=== PATIENT | male | born 1940 | race Caucasian/White ===

== ENCOUNTER → 2019-12-06 08:30 | Outpatient (BNVA) | payer MEDICARE, SELFPAY | PROVIDERS: PCP Internal Medicine; Visit Provider Internal Medicine | DX: I48.20 Chronic atrial fibrillation, unspecified (principal); Z51.81 Encounter for therapeutic drug level monitoring; Z79.01 Long term (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 | CPT/HCPCS: 85610; 99211 ==

== ENCOUNTER → 2019-12-12 13:08 | Outpatient (REF) | payer MEDICARE, SELFPAY ==
--- NOTE | 2019-12-12 13:00 | HM_ITS ---
TEST PERFORMED: Cardiac event monitor. INDICATION: Paroxysmal atrial fibrillation. ENROLLMENT PERIOD: 12/12/2019 to 01/11/2020 - 30 days. REQUESTING PHYSICIAN: Dr. Romano. FINDINGS: In the above monitoring period, the underlying rhythm was sinus. The rates ranged from 45 beats per minute to 78 beats per minute. The patient had reported symptoms at different times including palpitations, racing, fluttering, chest pain, dizziness, shortness of breath. During these episodes, the underlying rhythm appeared to be still sinus. Overall, the rates ranged from 45 to 78 beats per minute. Of note, when the patient described activities as exercising, the rates still appeared to be only about 78 beats per minute. Otherwise, there were occasional premature ventricular contractions noted. There is underlying baseline interventricular conduction defect. Overall, the study shows underlying sinus rhythm and sinus bradycardia and occasional PVCs. CONCLUSION: Study showing sinus rhythm/sinus bradycardia with occasional PVCs with baseline interventricular conduction defect. Symptoms described by the patient correlate with sinus rhythm and some sinus bradycardia. The event at times where the patient is described to have exercise that seems to be suboptimal heart rate response. Quintin Romano MD HS/MODElias / [id number]
== END ==
LOC: HO.CARD 13:08
PROVIDERS: Visit Provider Internal Medicine
DX: I48.0 Paroxysmal atrial fibrillation (principal); I44.7 Left bundle-branch block, unspecified; R42 Dizziness and giddiness
CPT/HCPCS: 93225; 93270

== ENCOUNTER → 2020-01-17 08:29 | Outpatient (BNVA) | payer MEDICARE, SELFPAY | PROVIDERS: PCP Internal Medicine; Visit Provider Internal Medicine | DX: I48.20 Chronic atrial fibrillation, unspecified (principal); Z51.81 Encounter for therapeutic drug level monitoring; Z79.01 Long term (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 | CPT/HCPCS: 85610; 99211 ==

== ENCOUNTER → 2020-01-21 09:52 | Outpatient (BNVA) | payer MEDICARE, SELFPAY | PROVIDERS: PCP Internal Medicine; Referring Provider Internal Medicine; Visit Provider Internal Medicine | DX: I48.0 Paroxysmal atrial fibrillation (principal); I44.7 Left bundle-branch block, unspecified; I35.8 Other nonrheumatic aortic valve disorders; R42 Dizziness and giddiness; Z79.01 Long term (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 | CPT/HCPCS: 99212 ==

== ENCOUNTER → 2020-02-20 08:23 | Outpatient (BNVA) | payer MEDICARE, SELFPAY | PROVIDERS: PCP Internal Medicine; Visit Provider Internal Medicine | DX: I48.20 Chronic atrial fibrillation, unspecified (principal); Z79.01 Long term (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; Z51.81 Encounter for therapeutic drug level monitoring | CPT/HCPCS: 85610; 99211 ==

== ENCOUNTER → 2020-03-27 08:39 | Outpatient (BNVA) | payer MEDICARE, SELFPAY | PROVIDERS: PCP Internal Medicine; Visit Provider Internal Medicine | DX: I48.20 Chronic atrial fibrillation, unspecified (principal); Z51.81 Encounter for therapeutic drug level monitoring; Z79.01 Long term (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 | CPT/HCPCS: 85610; 99211 ==

== ENCOUNTER → 2020-05-01 10:56 | Outpatient (BNVA) | payer MEDICARE, SELFPAY | PROVIDERS: PCP Internal Medicine; Visit Provider Internal Medicine | DX: I48.0 Paroxysmal atrial fibrillation (principal); Z51.81 Encounter for therapeutic drug level monitoring; Z79.01 Long term (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 | CPT/HCPCS: 85610; 99211 ==

== ENCOUNTER 2020-05-25 09:19 | Outpatient (REF) | payer MEDICARE, SELFPAY ==
[2020-05-25 11:38] LABS: Anion Gap 12 (12-20); Blood Urea Nitrogen 23 mg/dL (9-16); Calcium 9.1 mg/dL (8.4-10.2); Carbon Dioxide 26 mmol/L (22-29); Chloride 106 mmol/L (96-108); Estimated Glomerular Filt Rate 54; Glucose Random 88 mg/dL (60-115); Potassium 5.2 mmol/L (3.3-5.1); Sodium 139 mmol/L (135-145)
== END 2020-05-25 09:20 | disposition home or self-care (01) ==
LOC: HO.LAB 09:19
PROVIDERS: PCP Internal Medicine; Visit Provider Internal Medicine
DX: I48.0 Paroxysmal atrial fibrillation (principal); I44.7 Left bundle-branch block, unspecified; I35.8 Other nonrheumatic aortic valve disorders; R42 Dizziness and giddiness; I50.22 Chronic systolic (congestive) heart failure; Z79.899 Other long term (current) drug therapy; Z79.01 Long term (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
CPT/HCPCS: 36415; 80048; 93005; 99212

== ENCOUNTER → 2020-06-05 08:56 | Outpatient (BNVA) | payer MEDICARE, SELFPAY | PROVIDERS: PCP Internal Medicine; Visit Provider Internal Medicine | DX: I48.0 Paroxysmal atrial fibrillation (principal); Z79.01 Long term (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; Z51.81 Encounter for therapeutic drug level monitoring | CPT/HCPCS: 85610; 99211 ==

== ENCOUNTER → 2020-07-10 09:05 | Outpatient (BNVA) | payer MEDICARE, SELFPAY | PROVIDERS: PCP Internal Medicine; Visit Provider Internal Medicine | DX: I48.0 Paroxysmal atrial fibrillation (principal); Z51.81 Encounter for therapeutic drug level monitoring; Z79.01 Long term (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 | CPT/HCPCS: 85610; 99211 ==

== ENCOUNTER 2020-08-06 15:57 | Emergency (ER) | payer MEDICARE, SELFPAY ==
--- NOTE | 2020-08-06 | ECG_ITS ---
Test Reason : CP Blood Pressure : / mmHG Vent. Rate : 054 BPM Atrial Rate : 357 BPM P-R Int : 000 ms QRS Dur : 148 ms QT Int : 476 ms P-R-T Axes : 000 -56 122 degrees QTc Int : 451 ms Normal sinus rhythm Left axis deviation Left bundle branch block Abnormal ECG When compared with ECG of 25-OCT-2019 11:12, No significant changes seen Referred By: Generic ED Physician Electronically Signed By:FRANSISCO CRUZ MD
[2020-08-06 17:10] VITALS: BP 116/68; PULSE 54; RESP 18; TEMP 36.6; O2SAT 96; BMI 32.6
[2020-08-06 19:31] VITALS: BP 134/73; PULSE 53; RESP 18; O2SAT 98
[2020-08-06 19:42] LABS: MANUAL DIFF FLAG NO
[2020-08-06 19:46] LABS: Basophils Absolute Auto 0.1 X10*3/uL (0.0-0.2); Basophils Percent Auto 0.7 % (0-2); Eosinophils Absolute Auto 0.3 X10*3/uL (0.0-0.4); Eosinophils Percent Auto 3.7 % (0-4); Hematocrit 39.4 % (42-52); Imm Gran Abs Auto 0.02 X10*3/uL (0.00-0.03); Imm Gran Pct Auto 0.3 % (0.0-0.4); Lymphocytes Absolute Auto 1.5 X10*3/uL (1.2-4.9); Lymphocytes Percent Auto 21.7 % (20-40); Mean Corpuscular Volume 87.9 fL (80-98); Mean Platelet Volume 9.6 fL (9.4-12.4); Monocytes Absolute Auto 0.8 X10*3/uL (0.1-1.2); Monocytes Percent Auto 11.7 % (2-11); Neutrophils Absolute Auto 4.1 X10*3/uL (2.0-8.3); Neutrophils Percent Auto 61.9 % (45-73); Platelet Count 174 X10*3/uL (160-400); Red Blood Count 4.48 X10*6/uL (4.60-5.80); Red Cell Distribution Width 14.3 % (11.0-16.0); White Blood Count 6.7 X10*3/uL (4.8-10.8)
[2020-08-06 20:17] LABS: Alanine Aminotransferase 14 U/L (0-40); Albumin Level 4.6 g/dL (3.5-5.0); Alkaline Phosphatase 77 U/L (39-117); Anion Gap 13 (12-20); Aspartate Amino Transferase 18 U/L (5-37); Bilirubin Total < 0.2 mg/dL (0.0-1.0); Calcium 8.9 mg/dL (8.4-10.2); Carbon Dioxide 21 mmol/L (22-29); Chloride 108 mmol/L (96-108); Creatinine Clr Calc Pharmacy 30.6; Estimated Glomerular Filt Rate 28; Glucose Random 90 mg/dL (60-115); Potassium 4.6 mmol/L (3.3-5.1); Sodium 137 mmol/L (135-145)
[2020-08-06 20:26] LABS: Blood Urea Nitrogen 36 mg/dL (9-16)
--- NOTE | 2020-08-07 00:12 | ED_ITS ---
HPI - Dizziness General Chief Complaint: Dizziness Stated Complaint: Dizziness, Time Seen by Provider: 08/06/20 23:57 Source: patient Mode of arrival: ambulatory Limitations: no limitations History of Present Illness HPI Narrative: Patient comes to emergency room complaining of intermittent dizziness over last few weeks, describes it as a spinning sensation every time he turns his head. Patient states when he is at rest and does not move his head much, he feels better and has no dizziness. Patient denies headache, no visual changes. Patient states that this morning he ran out of his medications sotalol. Patient states that he was supposed to be taking 80 mg p.o. daily. However, patient is to take 80 mg twice a day and he was not aware that he was supposed to take only once a day, therefore he ran out of his medication before time. Patient states that earlier today he noticed that he has black stool. Related Data Home Medications Medication Instructions Recorded Confirmed ezetimibe 10 mg tablet 10 mg PO DAILY 01/21/20 06/05/20 lisinopril 30 mg tablet 30 mg PO DAILY 01/21/20 06/05/20 omeprazole 20 mg capsule,delayed 20 mg PO DAILY 01/21/20 06/05/20 release rosuvastatin 40 mg tablet 40 mg PO DAILY 01/21/20 06/05/20 Previous Rx's Medication Instructions Recorded warfarin 5 mg tablet 5 mg PO DAILY #90 tab 12/06/19 sotalol 80 mg tablet 80 mg PO DAILY 90 Days #90 tab 08/04/20 meclizine 25 mg PO TID PRN #14 tab 08/07/20 Allergies Allergy/AdvReac Type Severity Reaction Status Date / Time No Known Allergies Allergy Verified 07/10/20 09:19 [No Known Allergies*] Review of Systems Review of Systems: Constitutional : No Weight loss, No Fever, No Chills, No Night Sweats, No Fatigue, No Malaise ENT/Mouth : No Hearing loss, No Ear Pain, No Nasal Congestion, No Sinus Pain, No Hoarseness, No sore throat, No Rhinorrhea, No Swallowing Difficulty Eyes: No Eye Pain, No Swelling, No Redness, No Foreign Body, No Discharge, No Vision Changes Cardiovascular : No Chest Pain, No SOB, No Dyspnea on Exertion, No Orthopnea, No Edema, No Palpitations Respiratory : No Cough, No Sputum, No Wheezing, No Smoke Exposure, No Dyspnea Gastrointestinal : No Nausea, No Vomiting, No Diarrhea, No Constipation, No abdominal Pain, complaining of black stool Genitourinary : no irregular bleeding, No Dysuria, No Urinary Frequency, No Hematuria, No Urinary Incontinence, No Urgency, No Flank Pain, No Urinary Flow Changes, No Hesitancy Musculoskeletal : No joint pain, No Myalgias, No Joint Swelling Skin : No Skin Lesions, No rash Neuro : No Weakness, No Numbness, No Paresthesias, No Loss of Consciousness complaining of dizziness with head movement, spinning sensation. No Headache Psych : No Anxiety/Panic, No Depression, No SI/HI/AH/VH, No Social Issues, Heme/Lymph: No Bruising, No Bleeding,No Lymphadenopathy Endocrine : No Polyuria, No Polydipsia, No Temperature Intolerance [facility] Past Medical History Medical History Dizziness LBBB (left bundle branch block) Non-rheumatic aortic sclerosis PAF (paroxysmal atrial fibrillation) Surgical History No pertinent past surgical history Family History Family History Father No problems noted. Mother No problems noted. Social History Social History Advance Directives: No Advance Directives Information Provided: Yes Physical Exam Vital Signs: Vital Signs: Last Vital Signs Temp 97.9 F 08/06/20 17:10 Pulse 53 08/06/20 19:31 Resp 18 08/06/20 19:31 BP 134/73 08/06/20 19:31 Pulse Ox 98 08/06/20 19:31 Body Mass Index 32.6 Appearance: Alert. Oriented X3. No acute distress. Eyes: Pupils equal, round and reactive to light. ENT: Pharynx normal. Neck: Normal inspection. Neck supple. No lymph nodes noted. No crepitus CVS: Normal heart rate and rhythm. Pulses normal. Normal S1 and S2 Respiratory: No respiratory distress. Breath sounds normal. No Wheezing. No rales Abdomen: Soft and nontender. No rigidity. No distention. good BS x4, ENRIQUE brown Skin: Skin warm and dry. Normal skin color. Normal skin turgor. Extremities: No lower extremity edema. No lower extremity edema. No Lacerations. No Rash Neuro: Oriented X 3. No motor deficit. No sensory deficit. Moving all extermities. No slurred speech. Course Course Course Narrative: At this time, patient is getting IV fluids. Patient's chemistry will be checked after the fluids and orthostatic vitals. If patient is asymptomatic, creatinine improved, patient will likely be discharged home. Sign-out given to Dr. Castro MDM - Dizziness Lab Data Result diagrams: 08/06/20 19:35 08/06/20 19:35 Labs: Lab Results 08/06/20 08/06/20 08/06/20 Range/Units 19:35 19:35 19:35 WBC 6.7 (4.8-10.8) X10*3/uL RBC 4.48 L (4.60-5.80) X10*6/uL Hgb 13.0 L (14.0-18.0) g/dl Hct 39.4 L (42-52) % MCV 87.9 (80-98) fL MCH 29.0 (27.0-33.0) pg MCHC 33.0 (31.0-36.0) g/dl RDW 14.3 (11.0-16.0) % Plt Count 174 (160-400) X10*3/uL MPV 9.6 (9.4-12.4) fL Immature Gran % (Auto) 0.3 (0.0-0.4) % Neut % (Auto) 61.9 (45-73) % Lymph % (Auto) 21.7 (20-40) % [place] % (Auto) 11.7 H (2-11) % Eos % (Auto) 3.7 (0-4) % Baso % (Auto) 0.7 (0-2) % Lymph # (Auto) 1.5 (1.2-4.9) X10*3/uL [place] # (Auto) 0.8 (0.1-1.2) X10*3/uL Eos # (Auto) 0.3 (0.0-0.4) X10*3/uL Baso # (Auto) 0.1 (0.0-0.2) X10*3/uL Abs Immat Gran (auto) 0.02 (0.00-0.03) X10*3/uL Absolute Neuts (auto) 4.1 (2.0-8.3) X10*3/uL Absolute Nucleated RBC 0.000 (0.0-0.012) X10*3/uL Nucleated RBC % (auto) 0.0 (0.0-0.2) /100WBC PT (10.8-13.0) SEC INR (0.9-1.1) Sodium 137 (135-145) mmol/L Potassium 4.6 (3.3-5.1) mmol/L Chloride 108 (96-108) mmol/L Carbon Dioxide 21 L (22-29) mmol/L Anion Gap 13 (12-20) BUN 36 H D (9-16) mg/dL Creatinine 2.25 H (0.5-1.4) mg/dL Estim Creat Clear Calc 30.6 Estimated GFR 28 Random Glucose 90 (60-115) mg/dL Calcium 8.9 (8.4-10.2) mg/dL Total Bilirubin < 0.2 (0.0-1.0) mg/dL AST 18 (5-37) U/L ALT 14 (0-40) U/L Alkaline Phosphatase 77 (39-117) U/L Troponin I High Sens 12.7 (<3.5-35.0) ng/L Total Protein 7.0 (6.5-8.0) g/dL Albumin 4.6 (3.5-5.0) g/dL Stool Occult Blood (NEGATIVE) 08/07/20 08/07/20 Range/Units 00:23 01:50 WBC (4.8-10.8) X10*3/uL RBC (4.60-5.80) X10*6/uL Hgb (14.0-18.0) g/dl Hct (42-52) % MCV (80-98) fL MCH (27.0-33.0) pg MCHC (31.0-36.0) g/dl RDW (11.0-16.0) % Plt Count (160-400) X10*3/uL MPV (9.4-12.4) fL Immature Gran % (Auto) (0.0-0.4) % Neut % (Auto) (45-73) % Lymph % (Auto) (20-40) % [place] % (Auto) (2-11) % Eos % (Auto) (0-4) % Baso % (Auto) (0-2) % Lymph # (Auto) (1.2-4.9) X10*3/uL [place] # (Auto) (0.1-1.2) X10*3/uL Eos # (Auto) (0.0-0.4) X10*3/uL Baso # (Auto) (0.0-0.2) X10*3/uL Abs Immat Gran (auto) (0.00-0.03) X10*3/uL Absolute Neuts (auto) (2.0-8.3) X10*3/uL Absolute Nucleated RBC (0.0-0.012) X10*3/uL Nucleated RBC % (auto) (0.0-0.2) /100WBC PT 39.0 H (10.8-13.0) SEC INR 3.2 H (0.9-1.1) Sodium (135-145) mmol/L Potassium (3.3-5.1) mmol/L Chloride (96-108) mmol/L Carbon Dioxide (22-29) mmol/L Anion Gap (12-20) BUN (9-16) mg/dL Creatinine (0.5-1.4) mg/dL Estim Creat Clear Calc Estimated GFR Random Glucose (60-115) mg/dL Calcium (8.4-10.2) mg/dL Total Bilirubin (0.0-1.0) mg/dL AST (5-37) U/L ALT (0-40) U/L Alkaline Phosphatase (39-117) U/L Troponin I High Sens (<3.5-35.0) ng/L Total Protein (6.5-8.0) g/dL Albumin (3.5-5.0) g/dL Stool Occult Blood NEGATIVE (NEGATIVE) ECG Data Attestation: I personally reviewed and interpreted this ECG as follows: (Left bundle branch block, heart rate 54, QTC 451, no T-wave inversion. No changes from previous EKG.) Discharge Plan Discharge Clinical Impression: Acute kidney injury Benign paroxysmal positional vertigo Qualifiers: Laterality: unspecified laterality Qualified Code(s): H81.10 - Benign paro xysmal vertigo, unspecified ear Patient Disposition: Home, Self-Care Instructions: Benign Paroxysmal Positional Vertigo (ED), Dizziness (ED) Additional Instructions: Please follow-up with your primary care physician tomorrow. If you have any worsening or new symptoms, please return to the emergency room or call 911 Prescriptions: New meclizine 25 mg tablet 25 mg PO TID PRN (Reason: dizziness) Qty: 14 RF: 0 No Action sotalol 80 mg tablet 80 mg PO DAILY 90 Days Qty: 90 RF: 2 rosuvastatin 40 mg tablet 40 mg PO DAILY RF: 0 omeprazole 20 mg capsule,delayed release(DR/EC) 20 mg PO DAILY RF: 0 lisinopril 30 mg tablet 30 mg PO DAILY RF: 0 ezetimibe 10 mg tablet 10 mg PO DAILY RF: 0 warfarin 5 mg tablet 5 mg PO DAILY Qty: 90 RF: 0
[2020-08-07 00:30] LABS: OBS Int Ctl Valid YES; OBS1 NEGATIVE (NEGATIVE)
[2020-08-07] MEDS: Meclizine HCl 25 MG TABLET 50 MG PO (00:36)
[2020-08-07] MEDS: diazePAM 2 MG TABLET PO (00:37)
[2020-08-07 00:58] LABS: Troponin-I High Sensitivity 12.7 ng/L (<3.5-35.0)
[2020-08-07 02:11] LABS: INTERNATIONAL NORM RATIO 3.2 (0.9-1.1)
[2020-08-07] MEDS: 0.9 % Sodium Chloride 1,000 ML 999 ML IVCONT (02:35)
[2020-08-07 03:56] VITALS: BP 147/67; PULSE 48; RESP 16; TEMP 36.6; O2SAT 99
[2020-08-07 03:58] VITALS: BP 147/67; PULSE 48
[2020-08-07 03:59] VITALS: BP 146/68; PULSE 54
[2020-08-07 04:01] VITALS: BP 131/80; PULSE 66
[2020-08-07 05:46] LABS: Anion Gap 11 (12-20); Blood Urea Nitrogen 33 mg/dL (9-16); Calcium 8.5 mg/dL (8.4-10.2); Carbon Dioxide 21 mmol/L (22-29); Chloride 112 mmol/L (96-108); Creatinine Clr Calc Pharmacy 38.5; Estimated Glomerular Filt Rate 37; Glucose Random 91 mg/dL (60-115); Potassium 4.4 mmol/L (3.3-5.1); Sodium 140 mmol/L (135-145)
== END 2020-08-07 07:06 | disposition home or self-care (01) ==
PROVIDERS: Emergency Medicine Emergency Medical Services; Emergency Provider Emergency Medicine; PCP Internal Medicine
DX: H81.10 Benign paroxysmal vertigo, unspecified ear (principal); N17.9 Acute kidney failure, unspecified; I48.0 Paroxysmal atrial fibrillation; Z79.01 Long term (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; Z79.899 Other long term (current) drug therapy
CPT/HCPCS: 36415; 80048; 80053; 82272; 84484; 85025; 85610; 93005; 96360; 99284; 99285

== ENCOUNTER → 2020-08-07 08:52 | Outpatient (BNVA) | payer MEDICARE, SELFPAY | PROVIDERS: PCP Internal Medicine; Visit Provider Internal Medicine | DX: I48.0 Paroxysmal atrial fibrillation (principal); Z51.81 Encounter for therapeutic drug level monitoring; Z79.01 Long term (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 | CPT/HCPCS: Q3014 ==

== ENCOUNTER 2020-08-20 08:06 | Outpatient (REF) | payer MEDICARE, SELFPAY ==
[2020-08-20 10:54] LABS: Anion Gap 12 (12-20); Blood Urea Nitrogen 23 mg/dL (9-16); Calcium 9.4 mg/dL (8.4-10.2); Carbon Dioxide 26 mmol/L (22-29); Chloride 108 mmol/L (96-108); Estimated Glomerular Filt Rate 44; Glucose Random 90 mg/dL (60-115); Potassium 5.4 mmol/L (3.3-5.1); Sodium 141 mmol/L (135-145)
== END 2020-08-20 08:07 | disposition home or self-care (01) ==
LOC: HO.LAB 08:06
PROVIDERS: PCP Internal Medicine; Visit Provider Internal Medicine
DX: I48.0 Paroxysmal atrial fibrillation (principal)
CPT/HCPCS: 36415; 80048; 99212

== ENCOUNTER → 2020-09-04 09:05 | Outpatient (BNVA) | payer MEDICARE, SELFPAY | PROVIDERS: PCP Internal Medicine; Visit Provider Internal Medicine | DX: I48.19 Other persistent atrial fibrillation (principal); Z51.81 Encounter for therapeutic drug level monitoring; Z79.01 Long term (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 | CPT/HCPCS: 85610; 99211 ==

== ENCOUNTER → 2020-09-18 09:06 | Outpatient (BNVA) | payer MEDICARE, SELFPAY | PROVIDERS: PCP Internal Medicine; Visit Provider Internal Medicine | DX: I48.0 Paroxysmal atrial fibrillation (principal); Z51.81 Encounter for therapeutic drug level monitoring; Z79.01 Long term (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 | CPT/HCPCS: 85610; 99211 ==

== ENCOUNTER → 2020-10-16 09:02 | Outpatient (BNVA) | payer MEDICARE, SELFPAY | PROVIDERS: PCP Internal Medicine; Visit Provider Internal Medicine | DX: I48.0 Paroxysmal atrial fibrillation (principal); Z51.81 Encounter for therapeutic drug level monitoring; Z79.01 Long term (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 | CPT/HCPCS: 85610; 99211 ==

== ENCOUNTER → 2020-11-11 11:06 | Outpatient (REF) | payer MEDICARE, SELFPAY ==
--- NOTE | 2020-11-11 11:23 | CA_ITS ---
Transthoracic Echocardiogram Patient (Last, First, Middle): Sameer Connors B Gender: Male Date of : 1940 Age: 80 Procedure Date: 11/11/2020 Procedure Type: Transthoracic Echocardiogram Location: OP Height: 172.72 cm Weight: 90.72 kg BSA: 2.04 m2 Heart Rate: bpm BP: 134 / 85 mmHg Educational Psychologist: SALINAS/KANIKA Referring MD: Quintin Romano MD It Compliance Analyst: Terrence Brar MD Symptoms: I35.8 - Other nonrheumatic aortic valve disorders Study Quality: Fair Conclusions: - 1. Low normal LV systolic function with impaired relaxation filling pattern 2. Mild to moderate aortic stenosis 3. Mildly dilated ascending aorta at 3.8 cm 4. Normal RV systolic pressure 5. No gross pericardial effusion Findings Left Ventricle Normal left ventricular cavity size. There is normal left ventricular wall thickness. The left ventricular systolic function is low normal. The visually estimated ejection fraction is between 50-55%. There is paradoxical septal motion consistent with a left bundle branch block. Spectral Doppler is indicative of an impaired relaxation filling pattern. There is moderate septal asymmetric hypertrophy. Right Ventricle Normal right ventricular cavity size and systolic function. Atria The left atrium is mildly dilated. Interatrial shunt cannot be excluded. The right atrium is normal in size. Aortic Valve The aortic valve was not well visualized. There is moderate calcification of the aortic valve. There is mild to moderate aortic valve stenosis. The peak aortic gradient is 25 mmHg.The mean gradient is 15 mmHg. There is trace (trivial) aortic valve regurgitation. Calculated valve area of 1.07 sending risk air which overestimates the severity. Dimensionless index is 0.30. Overall findings consistent with [id number] aortic stenosis Mitral Valve There is mild anterior and moderate posterior mitral leaflet thickening. There is mild mitral annular calcification. There is trace mitral valve regurgitation. There is no mitral valve stenosis. Pulmonic Valve The pulmonic valve was not well visualized. Tricuspid Valve Likely normal tricuspid valve structure and function. The right ventricular systolic pressure is 25 mmHg. There is no evidence of pulmonary hypertension. Great Vessels The pulmonary artery was not well visualized. There is mild dilatation of the ascending aorta measuring 3.80 cm. Venous The inferior vena cava is normal in size and collapses greater than 50% with inspiration. Pericardium/Pleural There is no evidence of pericardial effusion. Prior Study Comparison No significant change compared to prior study dated: 10/24/2019. Measurements 2D Linear Measurements IVSd: 1.09 0.6-0.9/0.6-1.0 cm LVIDd: 5.33 3.9-5.3/4.2-5.9 cm LVIDd Index: 2.61 2.4-3.2/2.2-3.1 cm/m2 LVIDs: 4.18 2.0-3.6 cm LVPWd: 1.02 0.7-1.1 cm Ao Root: 3.60 2.1-3.5 cm LA Diam: 4.60 2.7-3.8/3.0-4.0 cm LAIDs Index: 2.25 1.5-2.3 cm/m2 LV Mass: 270.83 67-162/88-224 g LV Mass Index: 132.76 43-95/49-115 g/m2 LVOT Diam: 2.10 3.0+(-)1.3 cm 2D Systolic Function EF 4C: 57.50 >55% EF 2C: 56.70 >55% Mitral Valve MV Pk E: 0.37 MV PK A: 0.69 MV Decel Time: 462.00 E/A: 0.50 E'Lateral: 6.20 E'Medial: 4.46 E/E' Med: 8.30 E/E' Lat: 6.00 PHT: 135.00 MVA PHT: 1.63 Decel [place]: 0.80 Aortic Valve AoV Pk Jeronimo: 2.51 AoV Mn Jeronimo: 1.81 AoV VTI: 0.54 AoV Pk Grad: 25.00 Aov Mn Grad: 15.00 VANCE Cont.VTI: 1.07 LVOT LVOT Pk [place]: 0.69 LVOT Mn [place]: 0.51 LVOT VTI: 0.17 LVOT Pk Grad: 2.00 LVOT Mn Grad: 1.00 LVOT Diam: 2.10 LVOT Area: 3.46 Diastolic Function MV Pk E: 0.37 MV Pk A: 0.69 E/A: 0.50 E'Medial: 4.46 E/E' Med: 8.30 E' Laterial: 6.20 E/E' Lat: 6.00 Right Ventricle TAPSE (mm): 1.80 TVS' Jeronimo: 10.60 Tricuspid Valve TR Pk Jeronimo: 2.32 TR Pk Grad: 22.00 RA Press: 3.00 RVSP: 25.00 Great Vessels Aorta Ao Root-2D: 3.60 2.0-3.7 cm Ao Asc: 3.80 2.1-3.4 cm Ao Arch: 3.20 Updated in Other Vendor System with Status of Final Terrence Brar MD electronically signed on 11/11/2020 1:30:54 PM with status of Final
--- NOTE | 2020-11-11 11:23 | ECG_ITS ---
Hook-up date: 2020-11-11 12:45:00 Duration: 25:21:00 Test Indications: PAF Medications: 53263 QRS complexes 305 Ventricular ectopics which represent <1 % of total QRS comp. 28 Supraventricular ectopics which represent <1 % of total QRS comp. * Paced QRS complexs which represent % of total QRS comp. VENTRICULAR ECTOPY 303 Isolated 0 Bigeminal Cycles 1 Couplets 0 Runs 0 Beats in Runs * Beats LONGEST at * BPM at :: -- * Beats FASTEST at * BPM at :: -- SUPRAVENTRICULAR ECTOPY 6 Isolated 0 Couplets 5 Runs 22 Beats in Runs 7 Beats LONGEST at 102 BPM at 23:09:21 2020-11-11 3 Beats FASTEST at 150 BPM at 13:07:53 2020-11-11 HEART RATES 49 MIN at 10:42:41 2020-11-12 63 AVG 97 MAX at 23:06:56 2020-11-11 LONGEST RR 1.2560 secs at 10:42:37 2020-11-12 S-T LEVELS Channel 1 - 128 mm at 12:45:00 2020-11-11 - 128 mm at 12:45:00 2020-11-11 Channel 2 - 128 mm at 12:45:00 2020-11-11 - 128 mm at 12:45:00 2020-11-11 Channel 3 - 128 mm at 03:20:41 -- - 128 mm at 03:20:41 Basic rhythm Normal sinus rhythm Baseline BBB No long pause or profound bradycardia Frequent Sinus bradycardia , 34% of time HR < 60 bpm Occasional Premature ventricular complexes Patient reported symptoms were not able to be correlated. Referred By: Quintin Romano Overread By: FRANSISCO CRUZ MD
[2020-11-11 12:45] LABS: Anion Gap 10 (12-20); Blood Urea Nitrogen 26 mg/dL (9-16); Calcium 9.4 mg/dL (8.4-10.2); Carbon Dioxide 24 mmol/L (22-29); Chloride 113 mmol/L (96-108); Estimated Glomerular Filt Rate 44; Potassium 5.1 mmol/L (3.3-5.1); Sodium 142 mmol/L (135-145)
[2020-11-11 13:51] LABS: Appearance Urine CLEAR; Color Urine YELLOW; Glucose Urine UA NEG (NEG); Leukocyte Esterase Urine NEG (NEG); Nitrite Urine NEG (NEG); PH 5.5 (5.0-8.0); Specific Gravity - Urine >= 1.030 (1.005-1.025); Urine Blood NEG (NEG); Urine Ketones NEG (NEG); Urine Protein NEG (NEG-TRACE)
[2020-11-11 14:25] LABS: Total Protein Urine Random 14 mg/dL (<12)
[2020-11-12 14:36] LABS: Myeloperoxidase Antibody <1.0 AI
[2020-11-12 21:57] LABS: Prot Elec - Albumin 4.3 g/dL (3.8-4.8); Prot Elec - Alpha1 0.3 g/dL (0.2-0.3); Prot Elec - Alpha2 0.7 g/dL (0.5-0.9); Prot Elec - Beta 1 0.4 g/dL (0.4-0.6); Prot Elec - Beta 2 0.4 g/dL (0.2-0.5); Prot Elec - Gamma 0.6 g/dL (0.8-1.7); Prot Elec - Total Protein 6.6 g/dL (6.1-8.1)
== END ==
LOC: HO.CARD 11:06
PROVIDERS: Absent Provider Internal Medicine Nephrology; PCP Internal Medicine; Visit Provider Internal Medicine
DX: I48.0 Paroxysmal atrial fibrillation (principal); I35.8 Other nonrheumatic aortic valve disorders; N17.9 Acute kidney failure, unspecified
CPT/HCPCS: 36415; 80051; 81003; 82310; 82565; 84156; 84165; 84520; 86021; 87086; 93225; 93226; 93306

== ENCOUNTER → 2020-11-20 09:04 | Outpatient (BNVA) | payer MEDICARE, SELFPAY | PROVIDERS: PCP Internal Medicine; Visit Provider Internal Medicine | DX: I48.0 Paroxysmal atrial fibrillation (principal); Z51.81 Encounter for therapeutic drug level monitoring; Z79.01 Long term (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 | CPT/HCPCS: 85610; 99211 ==

== ENCOUNTER → 2020-11-30 08:52 | Outpatient (BNVA) | payer MEDICARE, SELFPAY | PROVIDERS: PCP Internal Medicine; Visit Provider Internal Medicine | DX: I48.0 Paroxysmal atrial fibrillation (principal); I44.7 Left bundle-branch block, unspecified; I35.8 Other nonrheumatic aortic valve disorders; R42 Dizziness and giddiness; N18.9 Chronic kidney disease, unspecified | CPT/HCPCS: 93005; 99212 ==

== ENCOUNTER → 2020-12-16 12:15 | Outpatient (BNVA) | payer MEDICARE, SELFPAY | PROVIDERS: PCP Internal Medicine; Visit Provider Internal Medicine | DX: I48.0 Paroxysmal atrial fibrillation (principal); I44.7 Left bundle-branch block, unspecified; I35.8 Other nonrheumatic aortic valve disorders; R42 Dizziness and giddiness; N18.9 Chronic kidney disease, unspecified | CPT/HCPCS: 93005; 99212 ==

== ENCOUNTER → 2020-12-25 08:56 | Outpatient (BNVA) | payer MEDICARE, SELFPAY | PROVIDERS: PCP Internal Medicine; Visit Provider Internal Medicine | DX: I48.0 Paroxysmal atrial fibrillation (principal); Z51.81 Encounter for therapeutic drug level monitoring; Z79.01 Long term (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 | CPT/HCPCS: 85610 ==

== ENCOUNTER → 2020-12-31 08:44 | Outpatient (BNVA) | payer MEDICARE, SELFPAY | PROVIDERS: PCP Internal Medicine; Visit Provider Internal Medicine | DX: I48.0 Paroxysmal atrial fibrillation (principal); Z51.81 Encounter for therapeutic drug level monitoring; Z79.01 Long term (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 | CPT/HCPCS: 85610; 99211 ==

== ENCOUNTER → 2021-01-11 09:04 | Outpatient (BNVA) | payer MEDICARE, SELFPAY | PROVIDERS: PCP Internal Medicine; Visit Provider Internal Medicine | DX: I48.0 Paroxysmal atrial fibrillation (principal); Z51.81 Encounter for therapeutic drug level monitoring; Z79.01 Long term (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 | CPT/HCPCS: 85610; 99211 ==

== ENCOUNTER 2021-01-15 09:17 | Outpatient (REF) | payer MEDICARE, SELFPAY ==
[2021-01-15 10:37] LABS: Anion Gap 11 (12-20); Blood Urea Nitrogen 20 mg/dL (9-16); Calcium 8.7 mg/dL (8.4-10.2); Carbon Dioxide 26 mmol/L (22-29); Chloride 107 mmol/L (96-108); Estimated Glomerular Filt Rate 45; Potassium 4.9 mmol/L (3.3-5.1); Sodium 139 mmol/L (135-145)
== END 2021-01-15 09:18 | disposition home or self-care (01) ==
LOC: HO.LAB 09:17
PROVIDERS: Visit Provider Internal Medicine Nephrology
DX: N17.9 Acute kidney failure, unspecified (principal)
CPT/HCPCS: 36415; 80051; 82310; 82565; 84520

== ENCOUNTER → 2021-02-01 09:10 | Outpatient (BNVA) | payer MEDICARE, SELFPAY | PROVIDERS: Visit Provider Internal Medicine | DX: I48.0 Paroxysmal atrial fibrillation (principal); Z51.81 Encounter for therapeutic drug level monitoring; Z79.01 Long term (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 | CPT/HCPCS: 85610; 99211 ==

== ENCOUNTER → 2021-03-01 09:26 | Outpatient (BNVA) | payer MEDICARE, SELFPAY | PROVIDERS: Visit Provider Internal Medicine | DX: I48.0 Paroxysmal atrial fibrillation (principal); Z51.81 Encounter for therapeutic drug level monitoring; Z79.01 Long term (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 | CPT/HCPCS: 85610; 99211 ==

== ENCOUNTER 2021-03-17 12:16 | Outpatient (REF) | payer MEDICARE, SELFPAY ==
[2021-03-17 15:03] LABS: TSH reflex Free T4 3.45 uIU/mL (0.32-4.0)
== END 2021-03-17 12:17 | disposition home or self-care (01) ==
LOC: HO.LAB 12:16
PROVIDERS: PCP Internal Medicine; Visit Provider Internal Medicine
DX: I48.0 Paroxysmal atrial fibrillation (principal); I35.8 Other nonrheumatic aortic valve disorders; R42 Dizziness and giddiness; I44.7 Left bundle-branch block, unspecified; N18.9 Chronic kidney disease, unspecified; Z79.01 Long term (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; Z79.899 Other long term (current) drug therapy
CPT/HCPCS: 36415; 84443; 99212

== ENCOUNTER → 2021-04-02 09:45 | Outpatient (BNVA) | payer MEDICARE, SELFPAY | PROVIDERS: PCP Internal Medicine; Visit Provider Internal Medicine | DX: I48.0 Paroxysmal atrial fibrillation (principal); Z51.81 Encounter for therapeutic drug level monitoring; Z79.01 Long term (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 | CPT/HCPCS: 85610; 99211 ==

== ENCOUNTER 2021-05-07 09:51 | Outpatient (REF) | payer MEDICARE, SELFPAY ==
[2021-05-07 11:35] LABS: Anion Gap 11 (12-20); Blood Urea Nitrogen 20 mg/dL (9-16); Carbon Dioxide 26 mmol/L (22-29); Chloride 107 mmol/L (96-108); Estimated Glomerular Filt Rate 47; Potassium 4.1 mmol/L (3.3-5.1); Sodium 140 mmol/L (135-145)
[2021-05-07 12:38] LABS: Creatinine Urine 156.37 mg/dL; Protein/Creatinine Ratio, Ur 0.13 (<0.2); Total Protein Urine Random 20 mg/dL (<12)
== END 2021-05-07 09:52 | disposition home or self-care (01) ==
LOC: HO.LAB 09:51
PROVIDERS: Absent Provider Internal Medicine Nephrology; PCP Internal Medicine; Visit Provider Internal Medicine
DX: N18.30 Chronic kidney disease, stage 3 unspecified (principal); I48.0 Paroxysmal atrial fibrillation; Z79.01 Long term (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; Z51.81 Encounter for therapeutic drug level monitoring
CPT/HCPCS: 36415; 80051; 82310; 82565; 84156; 84520; 85610; 99211

== ENCOUNTER → 2021-05-31 09:23 | Outpatient (REF) | payer MEDICARE, SELFPAY ==
--- NOTE | 2021-05-31 09:28 | CA_ITS ---
Transthoracic Echocardiogram Patient (Last, First, Middle): Sameer Connors B Gender: Male Date of : 1940 Age: 80 Procedure Date: 05/31/2021 Procedure Type: Transthoracic Echocardiogram Location: OP Height: 172.72 cm Weight: 90.72 kg BSA: 2.04 m2 Heart Rate: bpm BP: 142 / 78 mmHg Field Operations Supervisor: KANIKA Referring MD: Quintin Romano MD Hoop Puncher: Terrence Brar MD Symptoms: I35.8 - Other nonrheumatic aortic valve disorders Study Quality: Fair ECG Rhythm: Sinus Conclusions: - 1.Low normal LV systolic function with mild LVH with severe asymmetric septal hypertrophy with impaired relaxation filling pattern 2. Moderate aortic stenosis, mean gradient of 17 mm Hg note significantly different compared to last year 3. Mildly dilated left atrium 4. Mildly dilated ascending aorta 5. Normal RV systolic pressure 6. No gross pericardial effusion Findings Left Ventricle Normal left ventricular cavity size. There is mildly increased left ventricular wall thickness. The left ventricular systolic function is low normal. The visually estimated ejection fraction is between 50-55%. Spectral Doppler is indicative of an impaired relaxation filling pattern. E/E prime ratio is between 8 and 15 consistent with indeterminate filling pressures. 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 Right Ventricle Normal right ventricular cavity size and systolic function. Atria The left atrium is mildly dilated. Interatrial shunt cannot be excluded. The right atrium is likely dilated. Aortic Valve There is moderate calcification of the aortic valve. There is moderate aortic valve stenosis. The mean gradient is 17 mmHg. There is trace (trivial) aortic valve regurgitation. Mitral Valve There is mild anterior and moderate posterior mitral leaflet thickening. There is mild mitral annular calcification. There is trace mitral valve regurgitation. There is no mitral valve stenosis. Pulmonic Valve The pulmonic valve was not well visualized. Tricuspid Valve Likely normal tricuspid valve structure and function. There is mild tricuspid valve regurgitation. The right ventricular systolic pressure is normal. The right ventricular systolic pressure is 28 mmHg. Normal right atrial pressure. There is no evidence of pulmonary hypertension. Great Vessels The pulmonary artery was not well visualized. There is mild dilatation of the ascending aorta measuring 3.90 cm. Venous The inferior vena cava is normal in size and collapses greater than 50% with inspiration. Pericardium/Pleural There is no evidence of pericardial effusion. Prior Study Comparison Changes noted compared to prior study dated: 11/11/2020. aortic stenosis may be marginally worse Measurements 2D Linear Measurements IVSd: 1.70 0.6-0.9/0.6-1.0 cm LVIDd: 4.95 3.9-5.3/4.2-5.9 cm LVIDd Index: 2.43 2.4-3.2/2.2-3.1 cm/m2 LVIDs: 3.48 2.0-3.6 cm LVPWd: 1.23 0.7-1.1 cm LA Diam: 4.40 2.7-3.8/3.0-4.0 cm LAIDs Index: 2.16 1.5-2.3 cm/m2 LV Mass: 382.74 67-162/88-224 g LV Mass Index: 187.62 43-95/49-115 g/m2 LVOT Diam: 2.10 3.0+(-)1.3 cm 2D Systolic Function EF 4C: 54.90 >55% EF 2C: 56.90 >55% Mitral Valve MV Pk E: 0.37 MV PK A: 0.75 MV Decel Time: 424.00 E/A: 0.50 E'Lateral: 5.66 E'Medial: 3.92 E/E' Med: 9.50 E/E' Lat: 6.60 PHT: 124.00 MVA PHT: 1.77 Decel [place]: 0.88 Aortic Valve AoV Pk Jeron[place]: 2.63 AoV Mn [place]: 1.93 AoV VTI: 0.59 AoV Pk Grad: 28.00 Aov Mn Grad: 17.00 VANCE Cont.VTI: 1.14 LVOT LVOT Pk [place]: 0.81 LVOT Mn [place]: 0.58 LVOT VTI: 0.20 LVOT Pk Grad: 3.00 LVOT Mn Grad: 2.00 LVOT Diam: 2.10 LVOT Area: 3.46 Diastolic Function MV Pk E: 0.37 MV Pk A: 0.75 E/A: 0.50 E'Medial: 3.92 E/E' Med: 9.50 E' Laterial: 5.66 E/E' Lat: 6.60 Right Ventricle TAPSE (mm): 18.50 TVS' [place]: 6.85 Tricuspid Valve TR Pk [place]: 2.51 TR Pk Grad: 25.00 RA Press: 3.00 RVSP: 28.00 Great Vessels Aorta Sinus of Valsalva: 3.40 2.0-3.[address] [place]: 2.74 1.7-3.4 cm Ao Asc: 3.90 2.1-3.4 cm Ao Arch: 3.30 Updated in Other Vendor System with Status of Final Terrence Brar MD electronically signed on 05/31/2021 6:34:53 PM with status of Final
== END ==
LOC: HO.CARD 09:23
PROVIDERS: Visit Provider Internal Medicine
DX: I35.8 Other nonrheumatic aortic valve disorders (principal)
CPT/HCPCS: 93306

== ENCOUNTER → 2021-06-04 09:55 | Outpatient (BNVA) | payer MEDICARE, SELFPAY | PROVIDERS: PCP Internal Medicine; Visit Provider Internal Medicine | DX: I48.0 Paroxysmal atrial fibrillation (principal); Z51.81 Encounter for therapeutic drug level monitoring; Z79.01 Long term (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 | CPT/HCPCS: 85610; 99211 ==

== ENCOUNTER → 2021-06-17 12:01 | Outpatient (BNVA) | payer MEDICARE, SELFPAY | PROVIDERS: PCP Internal Medicine; Visit Provider Internal Medicine | DX: I48.0 Paroxysmal atrial fibrillation (principal); I44.7 Left bundle-branch block, unspecified; I35.8 Other nonrheumatic aortic valve disorders; I10 Essential (primary) hypertension; R42 Dizziness and giddiness; Z79.01 Long term (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; Z79.899 Other long term (current) drug therapy | CPT/HCPCS: 93005; 99212 ==

== ENCOUNTER 2021-07-08 21:02 | Observation (INO) | payer MEDICARE, SELFPAY ==
--- NOTE | ~2021-07-08 | CT_ITS ---
Indication: Trauma, loss of consciousness EXAMINATION: CT brain, CT cervical spine. Comparison previous dated 01/09/2017. This CT examination was performed using dose optimization techniques as appropriate, variously including the following: *Automated exposure control *Adjustment of mA and/or kV according to patient size (this includes techniques or standardized protocols for targeted exams where dose is matched to indication/reason for exam; i.e. extremities or head) *Use of iterative reconstruction technique. Radiation dose [address] brain; There is no midline shift. There is no mass effect. There is no hemorrhage. The basal cisterns appear patent. The posterior fossa is grossly within normal limits. There is no extra-axial collection. There is atrophy and white matter ischemic change. No fracture is seen on the bone windows. Cervical spine; There is no acute fracture or dislocation. CT/CT head/brain wo con IMPRESSION: Negative acute noncontrast CT of the brain. No acute fracture or dislocation of the cervical spine.
--- NOTE | ~2021-07-08 | CT_ITS ---
Indication: Trauma, loss of consciousness EXAMINATION: CT brain, CT cervical spine. Comparison previous dated 01/09/2017. This CT examination was performed using dose optimization techniques as appropriate, variously including the following: *Automated exposure control *Adjustment of mA and/or kV according to patient size (this includes techniques or standardized protocols for targeted exams where dose is matched to indication/reason for exam; i.e. extremities or head) *Use of iterative reconstruction technique. Radiation dose [address] brain; There is no midline shift. There is no mass effect. There is no hemorrhage. The basal cisterns appear patent. The posterior fossa is grossly within normal limits. There is no extra-axial collection. There is atrophy and white matter ischemic change. No fracture is seen on the bone windows. Cervical spine; There is no acute fracture or dislocation. CT/CT cervical spine wo con IMPRESSION: Negative acute noncontrast CT of the brain. No acute fracture or dislocation of the cervical spine.
--- NOTE | ~2021-07-08 | XR_ITS ---
EXAMINATION: XR CHEST CLINICAL INFORMATION: Cough COMPARISON: 10/23/2019 TECHNIQUE: Frontal view of the chest was obtained. FINDINGS: No acute finding. Lung cannon are grossly clear comparable to previous. There is no failure. No effusion. Some chronic markings on the right. The cardiac silhouette is comparable to previous. XR/XR chest 1V IMPRESSION: No acute finding.
[2021-07-08 21:11] VITALS: BMI 27.2
--- NOTE | 2021-07-08 21:11 | ECG_ITS ---
Test Reason : SYNCOPE Blood Pressure : / mmHG Vent. Rate : 069 BPM Atrial Rate : 069 BPM P-R Int : 188 ms QRS Dur : 154 ms QT Int : 454 ms P-R-T Axes : 018 -63 104 degrees QTc Int : 486 ms Normal sinus rhythm Left axis deviation Left bundle branch block Abnormal ECG When compared with ECG of 06-AUG-2020 19:43, No significant change was found Referred By: Mariaelena Giordano Electronically Signed By:FRANSISCO CRUZ MD
--- NOTE | 2021-07-08 21:56 | ED_ITS ---
HPI - Fall General Chief Complaint: Fall Stated Complaint: syncope with fall Time Seen by Provider: 07/08/21 21:11 Source: patient Mode of arrival: EMS History of Present Illness HPI Narrative: 81-year-old male on Coumadin states that he was walking up stairs when he began to feel dizzy and then states he ?passed out? and denies any feelings of cool/clammy/nausea after he passed out. In addition, patient states that he has been in his usual state of health and denies any recent illnesses and denies feeling short of breath or experiencing any chest pain or palpitations prior to the event. Patient did strike his nose and currently denies any neck pain. Related Data Home Medications Medication Instructions Recorded Confirmed ezetimibe 10 mg tablet 10 mg PO DAILY 01/21/20 06/17/21 lisinopril 30 mg tablet 30 mg PO DAILY 01/21/20 06/17/21 omeprazole 20 mg capsule,delayed 20 mg PO DAILY 01/21/20 06/17/21 release rosuvastatin 40 mg tablet 40 mg PO DAILY 01/21/20 06/17/21 warfarin 5 mg tablet 5 mg PO DIRECTED tab 12/16/20 06/17/21 polyethylene glycol 3350 17 17 g PO DAILY 04/02/21 06/17/21 gram/dose oral powder Previous Rx's Medication Instructions Recorded meclizine 25 mg tablet 25 mg PO TID PRN #14 tab 08/07/20 amiodarone 200 mg tablet 200 mg PO DAILY 90 Days #90 tab 05/21/21 Allergies Allergy/AdvReac Type Severity Reaction Status Date / Time No Known Allergies Allergy Verified 06/17/21 12:47 [No Known Allergies*] Review of Systems Review of Systems: Pertinent positives and negatives as stated in HPI 10 point review of systems is otherwise negative. [facility] Past Medical History Source: nursing notes reviewed Medical History Dizziness Essential hypertension LBBB (left bundle branch block) Non-rheumatic aortic sclerosis PAF (paroxysmal atrial fibrillation) Surgical History No pertinent past surgical history Family History Family History Father No problems noted. Mother No problems noted. Social History Social History Patient Tobacco Use Status: Never used Tobacco Advance Directives: Yes Advance Directives Information Provided: No Advance Directives on File: No Physical Exam Vital Signs: Vital Signs: BMI result Body Mass Index 27.2 VITAL SIGNS: Reviewed. GENERAL: Well developed, well nourished, in no acute distress. 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 No adventitious sounds or accessory muscle use. SpO2<> CARDIOVASCULAR: Regular rate and rhythm without noted murmurs, no JVD or lower extremity edema. ABDOMEN: Soft, non-tender, non-distended with bowel sounds. MUSCULOSKELETAL: No tenderness, deformities, or effusions noted on gross inspection. EXTREMITIES: No cyanosis, clubbing or edema. SKIN: Inspection of the skin reveals no rashes, ulcerations, jaundice, pallor, or petechiae. NEUROLOGIC: Alert and oriented x 4. Strength and sensation to light touch were grossly intact x 4, no pronator drift, cranial nerves 2-12 grossly intact, no facial asymmetry Course Course Course Narrative: 81-year-old male with history and clinical presentation consistent with syncope and less likely felt to be vasovagal in nature but certainly associated with exertion and does have a history of dizziness. No neurological findings to suggest intracranial abnormalities but will be scanned as patient is on anticoagulation therapy. Current EKG does show his baseline left bundle branch block in a regular sinus rhythm. Review of all investigations demonstrates mild TYREE with an elevated high sensitivity troponin, therapeutic level on the INR. I discussed this case with the inpatient hospitalist who accepts admission. CT imaging otherwise negative for intracranial or cervical spine abnormalities. I also discussed the case with the tire specialist who recommends trending troponins, echo in the morning, and cardiac monitoring. MDM - Fall Lab Data Result diagrams: 07/08/21 21:56 07/08/21 21:56 Labs: Lab Results 07/08/21 07/08/21 07/08/21 Range/Units 21:56 21:56 21:56 WBC 5.7 (4.8-10.8) X10*3/uL RBC 3.96 L (4.60-5.80) X10*6/uL Hgb 11.5 L (14.0-18.0) g/dl Hct 34.5 L (42.0-52.0) % MCV 87.1 (80.0-98.0) fL MCH 29.0 (27.0-33.0) pg MCHC 33.3 (31.0-36.0) g/dl RDW 14.4 (11.0-16.0) % Plt Count 164 (160-400) X10*3/uL MPV 9.3 L (9.4-12.4) fL Immature Gran % (Auto) 0.2 (0.0-0.4) % Neut % (Auto) 71.6 (45-73) % Lymph % (Auto) 15.0 L (20-40) % Howard % (Auto) 10.9 (2-11) % Eos % (Auto) 1.4 (0-4) % Baso % (Auto) 0.9 (0-2) % Lymph # (Auto) 0.9 L (1.2-4.9) X10*3/uL Howard # (Auto) 0.6 (0.1-1.2) X10*3/uL Eos # (Auto) 0.1 (0.0-0.4) X10*3/uL Baso # (Auto) 0.1 (0.0-0.2) X10*3/uL Abs Immat Gran (auto) 0.01 (0.00-0.03) X10*3/uL Absolute Neuts (auto) 4.1 (2.0-8.3) x10*3/uL Absolute Nucleated RBC 0.000 (0.0-0.012) X10*3/uL Nucleated RBC % (auto) 0.0 (0.0-0.2) /100WBC PT 31.2 H (9.9-13.0) SEC INR 2.7 H (0.9-1.1) Sodium 141 (135-145) mmol/L Potassium 4.1 (3.3-5.1) mmol/L Chloride 111 H (96-108) mmol/L Carbon Dioxide 23 (22-29) mmol/L Anion Gap 11 L (12-20) BUN 30 H (9-16) mg/dL Creatinine 2.04 H (0.5-1.4) mg/dL Estim Creat Clear Calc 30.3 Estimated GFR 32 Random Glucose 109 (60-115) mg/dL Calcium 8.5 (8.4-10.2) mg/dL Total Bilirubin 0.2 (0.0-1.0) mg/dL AST 18 (5-37) U/L ALT 17 (0-40) U/L Alkaline Phosphatase 85 (39-117) U/L Troponin I High Sens (<3.5-35.0) ng/L Total Protein 6.1 L (6.5-8.0) g/dL Albumin 3.9 (3.5-5.0) g/dL COVID-19 (VAUGHN) (Negative) COVID-19 Clin Com Influenza Type A (RAMONA) (Negative) Influenza Type B (RAMONA) (Negative) Influenza A & B Note 07/08/21 07/08/21 07/08/21 Range/Units 21:56 22:16 22:16 WBC (4.8-10.8) X10*3/uL RBC (4.60-5.80) X10*6/uL Hgb (14.0-18.0) g/dl Hct (42.0-52.0) % MCV (80.0-98.0) fL MCH (27.0-33.0) pg MCHC (31.0-36.0) g/dl RDW (11.0-16.0) % Plt Count (160-400) X10*3/uL MPV (9.4-12.4) fL Immature Gran % (Auto) (0.0-0.4) % Neut % (Auto) (45-73) % Lymph % (Auto) (20-40) % [place] % (Auto) (2-11) % Eos % (Auto) (0-4) % Baso % (Auto) (0-2) % Lymph # (Auto) (1.2-4.9) X10*3/uL Howard # (Auto) (0.1-1.2) X10*3/uL Eos # (Auto) (0.0-0.4) X10*3/uL Baso # (Auto) (0.0-0.2) X10*3/uL Abs Immat Gran (auto) (0.00-0.03) X10*3/uL Absolute Neuts (auto) (2.0-8.3) x10*3/uL Absolute Nucleated RBC (0.0-0.012) X10*3/uL Nucleated RBC % (auto) (0.0-0.2) /100WBC PT (9.9-13.0) SEC INR (0.9-1.1) Sodium (135-145) mmol/L Potassium (3.3-5.1) mmol/L Chloride (96-108) mmol/L Carbon Dioxide (22-29) mmol/L Anion Gap (12-20) BUN (9-16) mg/dL Creatinine (0.5-1.4) mg/dL Estim Creat Clear Calc Estimated GFR Random Glucose (60-115) mg/dL Calcium (8.4-10.2) mg/dL Total Bilirubin (0.0-1.0) mg/dL AST (5-37) U/L ALT (0-40) U/L Alkaline Phosphatase (39-117) U/L Troponin I High Sens 182.9 H* (<3.5-35.0) ng/L Total Protein (6.5-8.0) g/dL Albumin (3.5-5.0) g/dL COVID-19 (VAUGHN) Negative (Negative) COVID-19 Clin Com See Note Influenza Type A (RAMONA) Negative (Negative) Influenza Type B (RAMONA) Negative (Negative) Influenza A & B Note See Note ECG Data Attestation: I personally reviewed and interpreted this ECG as follows: Prior ECG tracings: available for review Interpretation: NSR, HR-69, LBBB, no STEMI Critical Care Time Critical Care Time Critical Care Time: Yes Total Critical Care Time: 30 Attestation: I personally attest to this time spent taking care of the patient. Discharge Plan Discharge Clinical Impression: Syncope, Current use of anticoagulant therapy, Essential hypertension, PAF (paroxysmal atrial fibrillation), LBBB (left bundle branch block), Dizziness, AK I (acute kidney injury) Patient Disposition: Admitted As Inpatient
[2021-07-08 22:01] LABS: MANUAL DIFF FLAG NO
[2021-07-08 22:10] LABS: Basophils Absolute Auto 0.1 X10*3/uL (0.0-0.2); Basophils Percent Auto 0.9 % (0-2); Eosinophils Absolute Auto 0.1 X10*3/uL (0.0-0.4); Eosinophils Percent Auto 1.4 % (0-4); Hematocrit 34.5 % (42.0-52.0); Hemoglobin 11.5 g/dl (14.0-18.0); Imm Gran Abs Auto 0.01 X10*3/uL (0.00-0.03); Imm Gran Pct Auto 0.2 % (0.0-0.4); Lymphocytes Absolute Auto 0.9 X10*3/uL (1.2-4.9); Mean Corpuscular HGB Conc 33.3 g/dl (31.0-36.0); Mean Corpuscular Volume 87.1 fL (80.0-98.0); Mean Platelet Volume 9.3 fL (9.4-12.4); Monocytes Absolute Auto 0.6 X10*3/uL (0.1-1.2); Monocytes Percent Auto 10.9 % (2-11); Neutrophils Absolute Auto 4.1 x10*3/uL (2.0-8.3); Neutrophils Percent Auto 71.6 % (45-73); Platelet Count 164 X10*3/uL (160-400); Red Blood Count 3.96 X10*6/uL (4.60-5.80); Red Cell Distribution Width 14.4 % (11.0-16.0); White Blood Count 5.7 X10*3/uL (4.8-10.8)
[2021-07-08 22:19] LABS: Alanine Aminotransferase 17 U/L (0-40); Albumin Level 3.9 g/dL (3.5-5.0); Alkaline Phosphatase 85 U/L (39-117); Anion Gap 11 (12-20); Aspartate Amino Transferase 18 U/L (5-37); Bilirubin Total 0.2 mg/dL (0.0-1.0); Blood Urea Nitrogen 30 mg/dL (9-16); Calcium 8.5 mg/dL (8.4-10.2); Carbon Dioxide 23 mmol/L (22-29); Chloride 111 mmol/L (96-108); Creatinine Clr Calc Pharmacy 30.3; Estimated Glomerular Filt Rate 32; Glucose Random 109 mg/dL (60-115); Potassium 4.1 mmol/L (3.3-5.1); Sodium 141 mmol/L (135-145); Total Protein 6.1 g/dL (6.5-8.0)
[2021-07-08 22:24] LABS: INTERNATIONAL NORM RATIO 2.7 (0.9-1.1); Prothrombin Time 31.2 SEC (9.9-13.0)
[2021-07-08 22:27] LABS: Troponin-I High Sensitivity 182.9 ng/L (<3.5-35.0)
[2021-07-08 22:39] LABS: COVID-19 Test Negative (Negative); IDNOW Serial# 16C4AD1C; Influenza A Negative (Negative); Influenza B2 Negative (Negative)
--- NOTE | 2021-07-08 22:39 | PM.IMHP ---
History of Present Illness Date of Service: 07/08/21 Chief Complaint: Syncope 81-year-old male with a past medical history of hypertension, hyperlipidemia, LBBB, nonrheumatic aortic sclerosis, paroxysmal AFib on Coumadin, chronic kidney disease presented to the hospital with a chief complaint of syncope. Patient reported that he was doing his gardening; after he went into the home he climbed up stairs after he reached up states he suddenly lost consciousness and fell on the ground; reported he fell on the face; complaint of nose pain; lost consciousness briefly; denies any chest pain or lightheadedness dizziness before or after the episode. Denies any postictal confusion Denies any seizure-like activity Mentioned that he had similar episode in the past. Denies any numbness tingling or focal weakness. Denies any hip pain back pain or neck pain. Review of all other systems is negative except mentioned above ER course: Per ER team patient noted to have nonfocal examination; CT head showed no acute findings; CT neck showed no evidence of fracture; chest x-ray negative; On labs noted to have creatinine of 2.04; troponin elevated to 182.9; EKG was nonischemic [facility] Medical History Dizziness Essential hypertension LBBB (left bundle branch block) Non-rheumatic aortic sclerosis PAF (paroxysmal atrial fibrillation) Family History Father No problems noted. Mother No problems noted. Surgical History No pertinent past surgical history Social History Patient Tobacco Use Status: Never used Tobacco Advance Directives: Yes Advance Directives Information Provided: No Advance Directives on File: No Meds Allergies Allergy/AdvReac Type Severity Reaction Status Date / Time No Known Allergies Allergy Verified 06/17/21 12:47 [No Known Allergies*] Home Medications Medication Instructions Recorded Confirmed Last Taken Type ezetimibe 10 mg tablet 10 mg PO DAILY 01/21/20 06/17/21 Unknown History lisinopril 30 mg tablet 30 mg PO DAILY 01/21/20 06/17/21 Unknown History omeprazole 20 mg capsule,delayed 20 mg PO DAILY 01/21/20 06/17/21 Unknown History release rosuvastatin 40 mg tablet 40 mg PO DAILY 01/21/20 06/17/21 Unknown History warfarin 5 mg tablet 5 mg PO DIRECTED tab 12/16/20 06/17/21 Unknown History polyethylene glycol 3350 17 17 g PO DAILY 04/02/21 06/17/21 Unknown History gram/dose oral powder Physical Exam Vital Signs and Narrative: Vital Signs: BMI result Body Mass Index 27.2 Gen: Appears be in no acute distress HEENT: NCAT, Moist mucosa. Pulmonary: Vesicular breath sounds, fair air entry CVS: Murmur present Abdomen: BS+, Soft, Nontender Extremities: Warm well perfused Neuro: Alert and awake.; grossly nonfocal Results Labs CBC and Chem 7: 07/08/21 21:56 07/08/21 21:56 Labs: Laboratory Results - last 24 hr 07/08/21 07/08/21 07/08/21 21:56 21:56 21:56 MCV 87.1 MCH 29.0 MCHC 33.3 RDW 14.4 Plt Count 164 MPV 9.3 L Immature Gran % (Auto) 0.2 Neut % (Auto) 71.6 Lymph % (Auto) 15.0 L [place] % (Auto) 10.9 Eos % (Auto) 1.4 Baso % (Auto) 0.9 Lymph # (Auto) 0.9 L [place] # (Auto) 0.6 Eos # (Auto) 0.1 Baso # (Auto) 0.1 Abs Immat Gran (auto) 0.01 Absolute Neuts (auto) 4.1 Absolute Nucleated RBC 0.000 Nucleated RBC % (auto) 0.0 PT 31.2 H INR 2.7 H Anion Gap 11 L Estim Creat Clear Calc 30.3 Estimated GFR 32 Random Glucose 109 Calcium 8.5 Total Bilirubin 0.2 AST 18 ALT 17 Alkaline Phosphatase 85 Troponin I High Sens Total Protein 6.1 L Albumin 3.9 07/08/21 21:56 MCV MCH MCHC RDW Plt Count MPV Immature Gran % (Auto) Neut % (Auto) Lymph % (Auto) [place] % (Auto) Eos % (Auto) Baso % (Auto) Lymph # (Auto) [place] # (Auto) Eos # (Auto) Baso # (Auto) Abs Immat Gran (auto) Absolute Neuts (auto) Absolute Nucleated RBC Nucleated RBC % (auto) PT INR Anion Gap Estim Creat Clear Calc Estimated GFR Random Glucose Calcium Total Bilirubin AST ALT Alkaline Phosphatase Troponin I High Sens 182.9 H* Total Protein Albumin Imaging Radiologist's Impressions: Impressions Chest X-Ray 07/08/21 21:15 IMPRESSION: No acute finding. Cervical Spine CT 07/08/21 21:59 IMPRESSION: Negative acute noncontrast CT of the brain. No acute fracture or dislocation of the cervical spine. Head CT 07/08/21 21:59 IMPRESSION: Negative acute noncontrast CT of the brain. No acute fracture or dislocation of the cervical spine. Assessment and Plan (1) Syncope: Status: Acute Plan 81-year-old male with a past medical history of hypertension, hyperlipidemia, LBBB, nonrheumatic aortic sclerosis, paroxysmal AFib on Coumadin, chronic kidney disease presented to the hospital with a chief complaint of syncope. Syncope: Likely cardiogenic; patient has known history of moderate aortic stenosis and septal hypertrophy; Telemetry Fall precautions Orthostatic vitals Elevated troponins: Initial troponin-182; 2nd troponin pending EKG nonischemic ; showed old LBBB Patient denies any chest pain Cardiology consult TYREE on CKD: Patient baseline creatinine 1.4. Creatinine on presentation was 2.0. Hold home lisinopril. Gentle IV fluids. History of AFib: Rate controlled. INR therapeutic at 2.7. Continue home Coumadin. Continue home amiodarone History of aortic stenosis: ECHO: 05/31/2021 showed moderate aortic stenosis with mean gradient of 17; LV systolic function is low normal; severe asymmetric septal hypertrophy with impaired relaxation; DVT prophylaxis: Patient on Coumadin Code status: Full code Quality Stroke Does the patient have a stroke diagnosis?: No VTE Prior VTE?: No VTE Risk Level:: Medical - moderate - high VTE Device Contraindication: Treatment Not Indicated VTE Drug Contraindication: N/A - Med Ordered
[2021-07-08 23:46] VITALS: BP 149/69; BP 156/80; PULSE 56; PULSE 57
[2021-07-08 23:47] VITALS: BP 131/75; PULSE 61
[2021-07-08 23:48] VITALS: BP 148/74; PULSE 57; RESP 15; TEMP 36.5; O2SAT 96
[2021-07-08 23:59] LABS: Appearance Urine CLEAR; Color Urine YELLOW; Glucose Urine UA NEG (NEG); Leukocyte Esterase Urine NEG (NEG); Nitrite Urine NEG (NEG); PH 5.5 (5.0-8.0); Specific Gravity - Urine >= 1.030 (1.005-1.025); UACC Culture Trigger NO; Urine Blood TRACE (NEG); Urine Ketones NEG (NEG); Urine Protein NEG (NEG-TRACE)
[2021-07-09 00:08] LABS: Amorphous Sediment Urine 1+ /LPF; Granular Casts Urine 0-2 /LPF; Hyaline Casts Urine 0-2 /LPF; Mucus Urine 1+ /LPF; RBC Urine 0-2 /HPF (0); Squamous Epithelial Cell Urine 1+ /LPF; WBC Urine 0-2 /HPF (0-4)
[2021-07-09 04:01] VITALS: BP 144/65; PULSE 57; RESP 18; O2SAT 100
[2021-07-09 06:12] LABS: MANUAL DIFF FLAG NO
[2021-07-09 06:16] VITALS: BP 142/72; PULSE 53; RESP 12; O2SAT 98
[2021-07-09 06:16] LABS: Basophils Absolute Auto 0.1 X10*3/uL (0.0-0.2); Eosinophils Absolute Auto 0.2 X10*3/uL (0.0-0.4); Eosinophils Percent Auto 2.3 % (0-4); Hematocrit 37.7 % (42.0-52.0); Hemoglobin 12.3 g/dl (14.0-18.0); Imm Gran Abs Auto 0.02 X10*3/uL (0.00-0.03); Imm Gran Pct Auto 0.3 % (0.0-0.4); Lymphocytes Absolute Auto 1.5 X10*3/uL (1.2-4.9); Lymphocytes Percent Auto 21.5 % (20-40); Mean Corpuscular HGB Conc 32.6 g/dl (31.0-36.0); Mean Corpuscular Hemoglobin 28.8 pg (27.0-33.0); Mean Corpuscular Volume 88.3 fL (80.0-98.0); Mean Platelet Volume 9.6 fL (9.4-12.4); Monocytes Absolute Auto 0.7 X10*3/uL (0.1-1.2); Monocytes Percent Auto 10.2 % (2-11); Neutrophils Absolute Auto 4.6 x10*3/uL (2.0-8.3); Neutrophils Percent Auto 64.7 % (45-73); Platelet Count 171 X10*3/uL (160-400); Red Blood Count 4.27 X10*6/uL (4.60-5.80); Red Cell Distribution Width 14.6 % (11.0-16.0); White Blood Count 7.1 X10*3/uL (4.8-10.8)
[2021-07-09 06:42] LABS: Anion Gap 11 (12-20); Blood Urea Nitrogen 28 mg/dL (9-16); Calcium 9.2 mg/dL (8.4-10.2); Carbon Dioxide 25 mmol/L (22-29); Chloride 109 mmol/L (96-108); Creatinine Clr Calc Pharmacy 35.7; Estimated Glomerular Filt Rate 38; Glucose Random 97 mg/dL (60-115); Potassium 4.3 mmol/L (3.3-5.1); Sodium 141 mmol/L (135-145)
--- NOTE | 2021-07-09 06:55 | PC.NURSE ---
Report given to TERE Boles
--- NOTE | 2021-07-09 08:35 | PHA.MEDREC ---
Pharmacy Consult ? Medication Reconciliation Pharmacy has completed the medication reconciliation. Spoke with patient in the ED. patient reports taking only 1/2 tablet daily of lisinopril. he takes warfarin 2.5 mg all days except monday he takes 5 mg.
[2021-07-09] MEDS: Amiodarone HCL 200 MG TABLET PO (09:36)
[2021-07-09] MEDS: 0.9 % Sodium Chloride Flush 3 ML SYRINGE IVFLUSH (09:36)
[2021-07-09 10:28] VITALS: BP 172/76; PULSE 59
[2021-07-09 10:29] VITALS: BP 154/73; BP 164/83; PULSE 56; PULSE 58
[2021-07-09 10:31] LABS: Troponin-I High Sensitivity 95.8 ng/L (<3.5-35.0)
[2021-07-09 10:37] VITALS: BP 172/76; PULSE 59; RESP 14; O2SAT 99
[2021-07-09 11:18] VITALS: BP 156/66; PULSE 61; RESP 14; O2SAT 97
--- NOTE | 2021-07-09 11:33 | HO.PM.IMPN ---
Subjective Subjective Date of Service: 07/09/21 Interval History: cc: sycnope interval history: no active symptoms Cardiovascular Cardiovascular: Reports no additional cardiovascular complaints Respiratory Respiratory: Reports no additional respiratory complaints Physical Exam Vital Signs: Vital Signs: Last Vital Signs Temp 97.7 F 07/08/21 23:48 Pulse 61 07/09/21 11:18 Resp 14 07/09/21 11:18 BP 156/66 H 07/09/21 11:18 Pulse Ox 97 07/09/21 11:18 BMI result Body Mass Index 27.2 General: AO X 3, no acute distress Resp: CTA bilateral, no accessory muscles used CVS: S1,S2,RRR, murmur GI: soft, non tender, non distended Neuro: motor grossly intact, alert Psych: appropriate affect, appropriate insight Objective Data Active Medications Acetaminophen (Acetaminophen 325 Mg Tablet) 650 mg PO Q6H PRN PRN Reason: Pain, Mild (Pain Scale 1-3) Amiodarone HCl (Amiodarone Hcl 200 Mg Tablet) 200 mg PO DAILY [facility] Last Admin: 07/09/21 09:36 Dose: 200 mg Documented by: SORAIDA Atorvastatin Calcium (Atorvastatin Calcium 80 Mg Tablet) 80 mg PO BEDTIME [facility] Melatonin (Melatonin 3 Mg Tablet) 6 mg PO BEDTIME PRN PRN Reason: Insomnia Omeprazole (Omeprazole 20 Mg Capsule.Dr) 20 mg PO DAILY@0630 PRN PRN Reason: Heartburn Pharmacy Consult (Consult Rx Perform Med Rec) 1 each MISCELLANE ONCE PRN PRN Reason: Consult order Senna (Sennosides 8.6 Mg Tablet) 17.2 mg PO BEDTIME PRN PRN Reason: Constipation Sodium Chloride (0.9 % Sodium Chloride Flush 3 Ml Syringe) 3 ml IVFLUSH QSHIFT [facility] Last Admin: 07/09/21 09:36 Dose: 3 ml Documented by: SORAIDA Warfarin Sodium (Warfarin Sodium 5 Mg Tablet) 2.5 mg PO [id number]@1800 [facility] Warfarin Sodium (Warfarin Sodium 5 Mg Tablet) 5 mg PO MO@1800 [facility] Labs CBC & Chem 7: 07/09/21 05:54 07/09/21 05:54 Labs: Laboratory Results - last 24 hr 07/08/21 07/08/21 07/08/21 21:56 21:56 21:56 MCV 87.1 MCH 29.0 MCHC 33.3 RDW 14.4 Plt Count 164 MPV 9.3 L Immature Gran % (Auto) 0.2 Neut % (Auto) 71.6 Lymph % (Auto) 15.0 L [place] % (Auto) 10.9 Eos % (Auto) 1.4 Baso % (Auto) 0.9 Lymph # (Auto) 0.9 L [facility] # (Auto) 0.6 Eos # (Auto) 0.1 Baso # (Auto) 0.1 Abs Immat Gran (auto) 0.01 Absolute Neuts (auto) 4.1 Absolute Nucleated RBC 0.000 Nucleated RBC % (auto) 0.0 PT 31.2 H INR 2.7 H Anion Gap 11 L Estim Creat Clear Calc 30.3 Estimated GFR 32 Random Glucose 109 Calcium 8.5 Total Bilirubin 0.2 AST 18 ALT 17 Alkaline Phosphatase 85 Troponin I High Sens Total Protein 6.1 L Albumin 3.9 Urine Color Urine Appearance Urine pH Ur Specific [place] Urine Protein Urine Glucose (UA) Urine Ketones Urine Blood Urine Nitrite Ur Leukocyte Esterase Urine RBC Urine WBC Ur Squamous Epith Cells Amorphous Sediment Urine Bacteria Hyaline Casts Granular Casts Urine Mucus COVID-19 (VAUGHN) COVID-19 Clin Com Influenza Type A (RAMONA) Influenza Type B (RAMONA) Influenza A & B Note 07/08/21 07/08/21 07/08/21 21:56 22:16 22:16 MCV MCH MCHC RDW Plt Count MPV Immature Gran % (Auto) Neut % (Auto) Lymph % (Auto) [place] % (Auto) Eos % (Auto) Baso % (Auto) Lymph # (Auto) [place] # (Auto) Eos # (Auto) Baso # (Auto) Abs Immat Gran (auto) Absolute Neuts (auto) Absolute Nucleated RBC Nucleated RBC % (auto) PT INR Anion Gap Estim Creat Clear Calc Estimated GFR Random Glucose Calcium Total Bilirubin AST ALT Alkaline Phosphatase Troponin I High Sens 182.9 H* Total Protein Albumin Urine Color Urine Appearance Urine pH Ur Specific [place] Urine Protein Urine Glucose (UA) Urine Ketones Urine Blood Urine Nitrite Ur Leukocyte Esterase Urine RBC Urine WBC Ur Squamous Epith Cells Amorphous Sediment Urine Bacteria Hyaline Casts Granular Casts Urine Mucus COVID-19 ([facility]AUGHN) Negative COVID-19 Clin Com See Note Influenza Type A (RAMONA) Negative Influenza Type B (RAMONA) Negative Influenza A & B Note See Note 07/08/21 07/09/2107/09/22 23:54 05:54 05:54 MCV 88.3 MCH 28.8 MCHC 32.6 RDW 14.6 Plt Count 171 MPV 9.6 Immature Gran % (Auto) 0.3 Neut % (Auto) 64.7 Lymph % (Auto) 21.5 [place] % (Auto) 10.2 Eos % (Auto) 2.3 Baso % (Auto) 1.0 Lymph # (Auto) 1.5 [place] # (Auto) 0.7 Eos # (Auto) 0.2 Baso # (Auto) 0.1 Abs Immat Gran (auto) 0.02 Absolute Neuts (auto) 4.6 Absolute Nucleated RBC 0.000 Nucleated RBC % (auto) 0.0 PT INR Anion Gap 11 L Estim Creat Clear Calc 35.7 Estimated GFR 38 Random Glucose 97 Calcium 9.2 D Total Bilirubin AST ALT Alkaline Phosphatase Troponin I High Sens Total Protein Albumin Urine Color YELLOW Urine Appearance CLEAR Urine pH 5.5 Ur Specific [place] >= 1.030 H Urine Protein NEG Urine Glucose (UA) NEG Urine Ketones NEG Urine Blood TRACE Urine Nitrite NEG Ur Leukocyte Esterase NEG Urine RBC 0-2 Urine WBC 0-2 Ur Squamous Epith Cells 1+ Amorphous Sediment 1+ Urine Bacteria NONE Hyaline Casts 0-2 Granular Casts 0-2 Urine Mucus 1+ COVID-19 ([facility]AUGHN) COVID-19 Clin Com Influenza Type A (RAMONA) Influenza Type B (RAMONA) Influenza A & B Note 07/09/21 08:41 MCV MCH MCHC RDW Plt Count MPV Immature Gran % (Auto) Neut % (Auto) Lymph % (Auto) [place] % (Auto) Eos % (Auto) Baso % (Auto) Lymph # (Auto) [place] # (Auto) Eos # (Auto) Baso # (Auto) Abs Immat Gran (auto) Absolute Neuts (auto) Absolute Nucleated RBC Nucleated RBC % (auto) PT INR Anion Gap Estim Creat Clear Calc Estimated GFR Random Glucose Calcium Total Bilirubin AST ALT Alkaline Phosphatase Troponin I High Sens 95.8 H Total Protein Albumin Urine Color Urine Appearance Urine pH Ur Specific [place] Urine Protein Urine Glucose (UA) Urine Ketones Urine Blood Urine Nitrite Ur Leukocyte Esterase Urine RBC Urine WBC Ur Squamous Epith Cells Amorphous Sediment Urine Bacteria Hyaline Casts Granular Casts Urine Mucus COVID-19 (VAUGHN) COVID-19 Clin Com Influenza Type A (RAMONA) Influenza Type B (RAMONA) Influenza A & B Note Assessment and Plan (1) Syncope: Status: Acute Plan 81M presented with syncope syncope ddx includes symptomatic , arrthmia (ILR planned), orthostatic hypotension (negative so far) troponemia peaked at 182, no chest pain, follow up cardiology TYREE on CKD III improved, monitor paroxysmal afib amio, coumadin, monitor inr reason for continued hospitalization: work up for high risk syncope Quality Stroke Does the patient have a stroke diagnosis?: No VTE Prior VTE?: No VTE Risk Level:: Medical - moderate - high VTE Device Contraindication: Treatment Not Indicated VTE Drug Contraindication: N/A - Med Ordered
--- NOTE | 2021-07-09 11:44 | PC.NURSE ---
call from Dr. Brar to bring pt to minor surgery now. pt reportedly unaware of plan to go to OR
--- NOTE | 2021-07-09 12:09 | PC.NURSE ---
pt off unit to OR
--- NOTE | 2021-07-09 13:31 | PM.CNCAR ---
History of Present Illness History of Present Illness Date of Service: 07/09/21 Requesting physician: Alcides Lynn Consult reason: other (Syncope) Chief complaint: Syncope Narrative: I was requested to see Sameer in cardiology consultation today because of episode of syncope. Is a pleasant 81-year-old male with prior history of aortic stenosis which is [id number], left bundle-branch block, paroxysmal atrial fibrillation suppressed with amiodarone therapy and on warfarin for anticoagulation, hypertension, chronic kidney disease present to the hospital yesterday after having passed out. Patient says he was in his usual state of health and was working out in the [employer] for long period time and then subsequently was walking up the flight of stairs and went to his room and then felt lightheaded and before he could catch himself he found himself on the floor falling face forward. He had no symptoms of palpitations, chest pain, shortness of breath. He had injury to his nose. And has some facial pain. He has baseline left bundle-branch block and aortic stenosis and therefore cardiology consult was sought. He does have asymmetric septal hypertrophy. He has had couple of syncope is in the last 2 weeks all similar situation after over exerting himself and when he is upright he passes out. He was noted to have acute kidney injury on admission has received IV fluids. Orthostatic vitals this morning are within normal limits. Patient had minimal troponin elevation yesterday which has now down trended. He has no chest pain again. He had a myocardial perfusion imaging in 2017 which was within normal limits. His echocardiogram done last month showed low normal LVEF with severe asymmetric septal hypertrophy with impaired relaxation filling pattern with moderate aortic stenosis. Review of Systems Constitutional: Constitutional: Reports no additional constitutional complaints Eyes: Eyes: Reports no additional eye complaints Cardiovascular: Cardiovascular: Denies chest pain, Denies chest pain with activity, Denies leg edema, Reports Loss of Consciousness, Denies palpitations, Denies dyspnea and Denies dyspnea on exertion Respiratory: Respiratory: Reports no additional respiratory complaints, Denies dyspnea and Denies dyspnea on exertion Gastrointestinal: Gastrointestinal: Reports no additional gastrointestinal complaints Genitourinary: Genitourinary: Reports no additional male genitourinary complaints Musculoskeletal: Musculoskeletal: Reports no additional musculoskeletal complaints Neurologic: Reports system reviewed and no additional complaints, except as documented Psychiatric: Psychiatric: Reports no additional psychiatric complaints Endocrine: Endocrine: Reports no additional endocrine complaints and Denies palpitations Hematologic/Lymphatic: Hematologic/Lymphatic: Reports no additional hematologic/lymphatic complaints Allergic/Immunologic: Allergic/Immunologic: Reports no additional allergic/immunologic complaints [facility] Past Medical History Medical History Dizziness Essential hypertension LBBB (left bundle branch block) Non-rheumatic aortic sclerosis PAF (paroxysmal atrial fibrillation) Family History Family History Father No problems noted. Mother No problems noted. Surgical History Surgical History No pertinent past surgical history Social History Social History Patient Tobacco Use Status: Never used Tobacco Advance Directives: Yes Advance Directives on File: Yes Advance Directives Date on File: 07/09/21 Meds Allergies Allergy/AdvReac Type Severity Reaction Status Date / Time No Known Allergies Allergy Verified 06/17/21 12:47 [No Known Allergies*] Active Medications: Current Medications Acetaminophen (Acetaminophen 325 Mg Tablet) 650 mg PO Q6H PRN PRN Reason: Pain, Mild (Pain Scale 1-3) Amiodarone HCl (Amiodarone Hcl 200 Mg Tablet) 200 mg PO DAILY [facility] Last Admin: 07/09/21 09:36 Dose: 200 mg Documented by: Atorvastatin Calcium (Atorvastatin Calcium 80 Mg Tablet) 80 mg PO BEDTIME [facility] Melatonin (Melatonin 3 Mg Tablet) 6 mg PO BEDTIME PRN PRN Reason: Insomnia Omeprazole (Omeprazole 20 Mg Capsule.) 20 mg PO DAILY@0630 PRN PRN Reason: Heartburn Pharmacy Consult (Consult Rx Perform Med Rec) 1 each MISCELLANE ONCE PRN PRN Reason: Consult order Senna (Sennosides 8.6 Mg Tablet) 17.2 mg PO BEDTIME PRN PRN Reason: Constipation Sodium Chloride (0.9 % Sodium Chloride Flush 3 Ml Syringe) 3 ml IVFLUSH QSHIFT [facility] Last Admin: 07/09/21 09:36 Dose: 3 ml Documented by: Warfarin Sodium (Warfarin Sodium 5 Mg Tablet) 2.5 mg PO [id number]@1800 [facility] Warfarin Sodium (Warfarin Sodium 5 Mg Tablet) 5 mg PO MO@1800 [facility] Home Medications Medication Instructions Recorded Confirmed Last Taken Type ezetimibe 10 mg tablet 10 mg PO DAILY 01/21/20 07/09/21 07/08/21 History lisinopril 30 mg tablet 15 mg PO DAILY 01/21/20 07/09/21 07/08/21 History omeprazole 20 mg capsule,delayed 20 mg PO DAILY@0630 PRN 01/21/20 07/09/21 Unknown History release rosuvastatin 40 mg tablet 40 mg PO DAILY 01/21/20 07/09/21 07/08/21 History warfarin 5 mg tablet 5 mg PO DIRECTED tab 12/16/20 06/17/21 Unknown History polyethylene glycol 3350 17 17 g PO DAILY 04/02/21 07/09/21 07/08/21 History gram/dose oral powder warfarin 5 mg tablet 2.5 mg PO SUTUWETHFRSA@1800 07/09/21 07/09/21 07/08/21 History warfarin 5 mg tablet 5 mg PO MO@179907/09/21 07/09/21 07/05/21 History Physical Exam Vital Signs: Vital Signs: Last Vital Signs Temp 97.7 F 07/08/21 23:48 Pulse 61 07/09/21 11:18 Resp 14 07/09/21 11:18 BP 156/66 H 07/09/21 11:18 Pulse Ox 97 07/09/21 11:18 BMI result Body Mass Index 27.2 Const: General: cooperative, comfortable, well developed, alert and awake Nutritional Appearance: average body habitus Orientation/consciousness: patient oriented x3 HEENT: Head: Yes normocephalic and Yes contusion Neck: Neck: Yes trachea midline, Yes supple and Yes no JVD Chest: Chest palpation & inspection: normal inspection of the chest Resp: Effort & Inspection: normal respiratory effort Auscultation: clear to auscultation bilaterally Cardio: Jugular venous distension: no JVD Palpation: normal PMI Rate: regular rate and bradycardic Rhythm: regular rhythm Heart sounds: S1 normal heart sound present, S2 normal heart sound present, no click, no gallops and Murmur heart sound present systolic mid and soft GI: Auscultation: normal bowel sounds Skin: General skin exam: no rashes or lesions noted Neuro: General: patient oriented x3 and no focal motor deficits Extrem: General: Yes no clubbing, cyanosis or edema Psych: Appearance: grossly normal Objective Labs and Meds Result diagrams: 07/09/21 05:54 07/09/21 05:54 Lab results: Laboratory Results - last 24 hr 07/08/21 07/08/21 07/08/21 21:56 21:56 21:56 WBC 5.7 RBC 3.96 L Hgb 11.5 L Hct 34.5 L MCV 87.1 MCH 29.0 MCHC 33.3 RDW 14.4 Plt Count 164 MPV 9.3 L Immature Gran % (Auto) 0.2 Neut % (Auto) 71.6 Lymph % (Auto) 15.0 L [place] % (Auto) 10.9 Eos % (Auto) 1.4 Baso % (Auto) 0.9 Lymph # (Auto) 0.9 L [place] # (Auto) 0.6 Eos # (Auto) 0.1 Baso # (Auto) 0.1 Abs Immat Gran (auto) 0.01 Absolute Neuts (auto) 4.1 Absolute Nucleated RBC 0.000 Nucleated RBC % (auto) 0.0 PT 31.2 H INR 2.7 H Sodium 141 Potassium 4.1 Chloride 111 H Carbon Dioxide 23 Anion Gap 11 L BUN 30 H Creatinine 2.04 H Estim Creat Clear Calc 30.3 Estimated GFR 32 Random Glucose 109 Calcium 8.5 Total Bilirubin 0.2 AST 18 ALT 17 Alkaline Phosphatase 85 Troponin I High Sens Total Protein 6.1 L Albumin 3.9 Urine Color Urine Appearance Urine pH Ur Specific [place] Urine Protein Urine Glucose (UA) Urine Ketones Urine Blood Urine Nitrite Ur Leukocyte Esterase Urine RBC Urine WBC Ur Squamous Epith Cells Amorphous Sediment Urine Bacteria Hyaline Casts Granular Casts Urine Mucus COVID-19 (VAUGHN) COVID-19 Clin Com Influenza Type A (RAMONA) Influenza Type B (RAMONA) Influenza A & B Note 07/08/21 07/08/21 07/08/21 21:56 22:16 22:16 WBC RBC Hgb Hct MCV MCH MCHC RDW Plt Count MPV Immature Gran % (Auto) Neut % (Auto) Lymph % (Auto) [place] % (Auto) Eos % (Auto) Baso % (Auto) Lymph # (Auto) [place] # (Auto) Eos # (Auto) Baso # (Auto) Abs Immat Gran (auto) Absolute Neuts (auto) Absolute Nucleated RBC Nucleated RBC % (auto) PT INR Sodium Potassium Chloride Carbon Dioxide Anion Gap BUN Creatinine Estim Creat Clear Calc Estimated GFR Random Glucose Calcium Total Bilirubin AST ALT Alkaline Phosphatase Troponin I High Sens 182.9 H* Total Protein Albumin Urine Color Urine Appearance Urine pH Ur Specific [place] Urine Protein Urine Glucose (UA) Urine Ketones Urine Blood Urine Nitrite Ur Leukocyte Esterase Urine RBC Urine WBC Ur Squamous Epith Cells Amorphous Sediment Urine Bacteria Hyaline Casts Granular Casts Urine Mucus COVID-19 (VAUGHN) Negative COVID-19 Clin Com See Note Influenza Type A (RAMONA) Negative Influenza Type B (RAMONA) Negative Influenza A & B Note See Note 07/08/21 07/09/21 07/09/21 23:54 05:54 05:54 WBC 7.1 RBC 4.27 L Hgb 12.3 L Hct 37.7 L MCV 88.3 MCH 28.8 MCHC 32.6 RDW 14.6 Plt Count 171 MPV 9.6 Immature Gran % (Auto) 0.3 Neut % (Auto) 64.7 Lymph % (Auto) 21.5 [place] % (Auto) 10.2 Eos % (Auto) 2.3 Baso % (Auto) 1.0 Lymph # (Auto) 1.5 [place] # (Auto) 0.7 Eos # (Auto) 0.2 Baso # (Auto) 0.1 Abs Immat Gran (auto) 0.02 Absolute Neuts (auto) 4.6 Absolute Nucleated RBC 0.000 Nucleated RBC % (auto) 0.0 PT INR Sodium 141 Potassium 4.3 Chloride 109 H Carbon Dioxide 25 Anion Gap 11 L BUN 28 H Creatinine 1.73 H Estim Creat Clear Calc 35.7 Estimated GFR 38 Random Glucose 97 Calcium 9.2 D Total Bilirubin AST ALT Alkaline Phosphatase Troponin I High Sens Total Protein Albumin Urine Color YELLOW Urine Appearance CLEAR Urine pH 5.5 Ur Specific [place] >= 1.030 H Urine Protein NEG Urine Glucose (UA) NEG Urine Ketones NEG Urine Blood TRACE Urine Nitrite NEG Ur Leukocyte Esterase NEG Urine RBC 0-2 Urine WBC 0-2 Ur Squamous Epith Cells 1+ Amorphous Sediment 1+ Urine Bacteria NONE Hyaline Casts 0-2 Granular Casts 0-2 Urine Mucus 1+ COVID-19 (VAUGHN) COVID-19 Clin Com Influenza Type A (RAMONA) Influenza Type B (RAMONA) Influenza A & B Note 07/09/21 08:41 WBC RBC Hgb Hct MCV MCH MCHC RDW Plt Count MPV Immature Gran % (Auto) Neut % (Auto) Lymph % (Auto) [place] % (Auto) Eos % (Auto) Baso % (Auto) Lymph # (Auto) [place] # (Auto) Eos # (Auto) Baso # (Auto) Abs Immat Gran (auto) Absolute Neuts (auto) Absolute Nucleated RBC Nucleated RBC % (auto) PT INR Sodium Potassium Chloride Carbon Dioxide Anion Gap BUN Creatinine Estim Creat Clear Calc Estimated GFR Random Glucose Calcium Total Bilirubin AST ALT Alkaline Phosphatase Troponin I High Sens 95.8 H Total Protein Albumin Urine Color Urine Appearance Urine pH Ur Specific [place] Urine Protein Urine Glucose (UA) Urine Ketones Urine Blood Urine Nitrite Ur Leukocyte Esterase Urine RBC Urine WBC Ur Squamous Epith Cells Amorphous Sediment Urine Bacteria Hyaline Casts Granular Casts Urine Mucus COVID-19 (VAUGHN) COVID-19 Clin Com Influenza Type A (RAMONA) Influenza Type B (RAMONA) Influenza A & B Note Imaging Radiologist's impression: Impressions Chest X-Ray 07/08/21 21:15 IMPRESSION: No acute finding. Cervical Spine CT 07/08/21 21:59 IMPRESSION: Negative acute noncontrast CT of the brain. No acute fracture or dislocation of the cervical spine. Head CT 07/08/21 21:59 IMPRESSION: Negative acute noncontrast CT of the brain. No acute fracture or dislocation of the cervical spine. Assessment and Plan (1) Syncope: Status: Acute Syncope in this elderly gentleman with facial injury. Concerning for cardiac syncope. Although also likely that after over exerting with presentation with TYREE and improving with hydration could be orthostatic syncope as all of his syncope set mostly in being upright positioning. However he has underlying left bundle-branch block as well as aortic stenosis which makes him prone for advanced conduction system issues. Recommend implantable loop recorder placement prior to discharge. Also discussed with him about orthostatic precautions and hydration. Advised him to avoid over exertion and hydrate intermittently in between and if he gets lightheaded to seek sitting or supine position. His blood pressure is currently slightly elevated but would not over corrected at this point in time. His troponins elevated most likely from syncopal episode and does not appear to be acute coronary syndrome. However will pursue outpatient ischemic workup given his multiple risk factors. For now he is maintaining rhythm with amiodarone and his heart rate is not significantly bradycardiac. Will continue amiodarone at low dose. Continue full oral anticoagulation warfarin. INR is therapeutic. Will set her up for outpatient follow-up Procedures Date of Service Date of Service: 07/09/21
--- NOTE | 2021-07-09 13:39 | PM.OP ---
Brief Operative Note Date of Service: 07/09/21 Pre-op diagnosis: Syncope Post-op diagnosis: same Procedure: Placement of implantable loop recorder Implants: After obtaining full informed consent patient brought to the OR suite in a fasting condition. Patient's precordial area was then prepped and draped in a sterile fashion. Patient was then given 2% lidocaine with epinephrine intradermally and subcutaneously. A small incision was then made in the precordial area. A [employer] implantable loop recorder was then placed in the subcutaneous space using Seldinger technique. Serial number [id number]. There was a small hematoma noted. There was a lot of artifact due to hematoma and R-wave could not be accurately measured but some measurements were at 0.21 mV. Surgeon: Terrence Brar MD Anesthesia: local Was an Office Helper used for this Procedure?: No Estimated blood loss (mL): 10 Pathology: none sent Condition: stable Disposition: floor
--- NOTE | 2021-07-09 14:16 | MHC.CM.PN ---
Attempted to meet with pt: pt off of unit in OR having a procedure. CM to follow upon return.
--- NOTE | 2021-07-09 15:03 | P.DS_ITS ---
DS: Providers Provider Date of Service: 07/09/21 Date of admission: 07/08/21 22:37 Primary care physician: Duncan Sorensne MD Consults: 07/08/21 22:37 Consult to Cardiology Routine Consulting Provider: Terrence Brar Reason for consultation: syncope DS: Diagnosis Discharge Diagnosis (1) Syncope: Status: Acute DS: Summary Hospital Course Hospital Course: from initial hpi: Chief Complaint: Syncope 81-year-old male with a past medical history of hypertension, hyperlipidemia, LBBB, nonrheumatic aortic sclerosis, paroxysmal AFib on Coumadin, chronic kidney disease presented to the hospital with a chief complaint of syncope.? Patient reported that he was doing his gardening; after he went into the home he climbed up stairs after he reached up states he suddenly lost consciousness and fell on the ground; reported he fell on the face; complaint of nose pain; lost consciousness briefly; denies any chest pain or lightheadedness dizziness before or after the episode.? Denies any postictal confusion Denies any seizure-like activity Mentioned that he had similar episode in the past.? Denies any numbness tingling or focal weakness.? Denies any hip pain back pain or neck pain.? Review of all other systems is negative except mentioned above ER course: Per ER team patient noted to have nonfocal examination; CT head showed no acute findings; CT neck showed no evidence of fracture; chest x-ray negative; On labs noted to have creatinine of 2.04; troponin elevated to 182.9; EKG was nonischemic hospital course: Patient was admitted for syncope. His orthostatic vitals were negative, no events on telemetry. His troponin peaked at 182, he was seen by Cardiology who arranged for implantable loop recorder and will follow up outpatient. For his acute kidney injury in the setting of CKD 3 he improved with IV fluids. For paroxysmal atrial fibrillation is continue amiodarone and Coumadin. He will be discharged home and should follow-up readings of the ILR with Cardiology. Time Spent with Patient Time attestation: Total time spent providing and/or coordinating discharge services: Discharge coordination time: Greater than 30 minutes Quality: Safe Use of Opioids Does Pt have an Active Cancer Diagnosis on the Problem List?: No Quality: Stroke Does the patient have a stroke diagnosis?: No Physical Exam Vital Signs: Vital Signs: Last Vital Signs Temp 97.7 F 07/08/21 23:48 Pulse 61 07/09/21 11:18 Resp 14 07/09/21 11:18 BP 156/66 H 07/09/21 11:18 Pulse Ox 97 07/09/21 11:18 BMI result Body Mass Index 27.2 Const: Other: General: AO X 3, no acute distress Resp: CTA bilateral, no accessory muscles used CVS: S1,S2,RRR, murmur GI: soft, non tender, non distended Neuro: motor grossly intact, alert Psych: appropriate affect, appropriate insight DS: Data Data Completed and Pending Labs on day of discharge: Laboratory Results - last 24 hr 07/08/21 07/08/21 07/08/21 21:56 21:56 21:56 WBC 5.7 RBC 3.96 L Hgb 11.5 L Hct 34.5 L MCV 87.1 MCH 29.0 MCHC 33.3 RDW 14.4 Plt Count 164 MPV 9.3 L Immature Gran % (Auto) 0.2 Neut % (Auto) 71.6 Lymph % (Auto) 15.0 L [place] % (Auto) 10.9 Eos % (Auto) 1.4 Baso % (Auto) 0.9 Lymph # (Auto) 0.9 L [place] # (Auto) 0.6 Eos # (Auto) 0.1 Baso # (Auto) 0.1 Abs Immat Gran (auto) 0.01 Absolute Neuts (auto) 4.1 Absolute Nucleated RBC 0.000 Nucleated RBC % (auto) 0.0 PT 31.2 H INR 2.7 H Sodium 141 Potassium 4.1 Chloride 111 H Carbon Dioxide 23 Anion Gap 11 L BUN 30 H Creatinine 2.04 H Estim Creat Clear Calc 30.3 Estimated GFR 32 Random Glucose 109 Calcium 8.5 Total Bilirubin 0.2 AST 18 ALT 17 Alkaline Phosphatase 85 Troponin I High Sens Total Protein 6.1 L Albumin 3.9 Urine Color Urine Appearance Urine pH Ur Specific [place] Urine Protein Urine Glucose (UA) Urine Ketones Urine Blood Urine Nitrite Ur Leukocyte Esterase Urine RBC Urine WBC Ur Squamous Epith Cells Amorphous Sediment Urine Bacteria Hyaline Casts Granular Casts Urine Mucus COVID-19 (VAUGHN) COVID-19 Clin Com Influenza Type A (RAMONA) Influenza Type B (RAMONA) Influenza A & B Note 07/08/21 07/08/21 07/08/21 21:56 22:16 22:16 WBC RBC Hgb Hct MCV MCH MCHC RDW Plt Count MPV Immature Gran % (Auto) Neut % (Auto) Lymph % (Auto) [place] % (Auto) Eos % (Auto) Baso % (Auto) Lymph # (Auto) [place] # (Auto) Eos # (Auto) Baso # (Auto) Abs Immat Gran (auto) Absolute Neuts (auto) Absolute Nucleated RBC Nucleated RBC % (auto) PT INR Sodium Potassium Chloride Carbon Dioxide Anion Gap BUN Creatinine Estim Creat Clear Calc Estimated GFR Random Glucose Calcium Total Bilirubin AST ALT Alkaline Phosphatase Troponin I High Sens 182.9 H* Total Protein Albumin Urine Color Urine Appearance Urine pH Ur Specific [place] Urine Protein Urine Glucose (UA) Urine Ketones Urine Blood Urine Nitrite Ur Leukocyte Esterase Urine RBC Urine WBC Ur Squamous Epith Cells Amorphous Sediment Urine Bacteria Hyaline Casts Granular Casts Urine Mucus COVID-19 (VAUGHN) Negative COVID-19 Clin Com See Note Influenza Type A (RAMONA) Negative Influenza Type B (RAMONA) Negative Influenza A & B Note See Note 07/08/21 07/09/21 07/09/21 23:54 05:54 05:54 WBC 7.1 RBC 4.27 L Hgb 12.3 L Hct 37.7 L MCV 88.3 MCH 28.8 MCHC 32.6 RDW 14.6 Plt Count 171 MPV 9.6 Immature Gran % (Auto) 0.3 Neut % (Auto) 64.7 Lymph % (Auto) 21.5 [place] % (Auto) 10.2 Eos % (Auto) 2.3 Baso % (Auto) 1.0 Lymph # (Auto) 1.5 [place] # (Auto) 0.7 Eos # (Auto) 0.2 Baso # (Auto) 0.1 Abs Immat Gran (auto) 0.02 Absolute Neuts (auto) 4.6 Absolute Nucleated RBC 0.000 Nucleated RBC % (auto) 0.0 PT INR Sodium 141 Potassium 4.3 Chloride 109 H Carbon Dioxide 25 Anion Gap 11 L BUN 28 H Creatinine 1.73 H Estim Creat Clear Calc 35.7 Estimated GFR 38 Random Glucose 97 Calcium 9.2 D Total Bilirubin AST ALT Alkaline Phosphatase Troponin I High Sens Total Protein Albumin Urine Color YELLOW Urine Appearance CLEAR Urine pH 5.5 Ur Specific [place] >= 1.030 H Urine Protein NEG Urine Glucose (UA) NEG Urine Ketones NEG Urine Blood TRACE Urine Nitrite NEG Ur Leukocyte Esterase NEG Urine RBC 0-2 Urine WBC 0-2 Ur Squamous Epith Cells 1+ Amorphous Sediment 1+ Urine Bacteria NONE Hyaline Casts 0-2 Granular Casts 0-2 Urine Mucus 1+ COVID-19 (VAUGHN) COVID-19 Clin Com Influenza Type A (RAMONA) Influenza Type B (RAMONA) Influenza A & B Note 07/09/21 08:41 WBC RBC Hgb Hct MCV MCH MCHC RDW Plt Count MPV Immature Gran % (Auto) Neut % (Auto) Lymph % (Auto) [place] % (Auto) Eos % (Auto) Baso % (Auto) Lymph # (Auto) [place] # (Auto) Eos # (Auto) Baso # (Auto) Abs Immat Gran (auto) Absolute Neuts (auto) Absolute Nucleated RBC Nucleated RBC % (auto) PT INR Sodium Potassium Chloride Carbon Dioxide Anion Gap BUN Creatinine Estim Creat Clear Calc Estimated GFR Random Glucose Calcium Total Bilirubin AST ALT Alkaline Phosphatase Troponin I High Sens 95.8 H Total Protein Albumin Urine Color Urine Appearance Urine pH Ur Specific [place] Urine Protein Urine Glucose (UA) Urine Ketones Urine Blood Urine Nitrite Ur Leukocyte Esterase Urine RBC Urine WBC Ur Squamous Epith Cells Amorphous Sediment Urine Bacteria Hyaline Casts Granular Casts Urine Mucus COVID-19 (VAUGHN) COVID-19 Clin Com Influenza Type A (RAMONA) Influenza Type B (RAMONA) Influenza A & B Note Discharge Plan Discharge Patient Disposition: Home, Self-Care Discharge Diagnosis: sycnope, jojo Referrals: Duncan Sorensen MD [Primary Care Provider] - 1 Week Discharge Medications: Continued amiodarone 200 mg tablet 200 mg PO DAILY 90 Days Qty: 90 1RF warfarin 5 mg Tablet 2.5 mg PO SUTUWETHFRSA@1800 0RF warfarin 5 mg tablet 5 mg PO MO@1800 0RF rosuvastatin 40 mg tablet 40 mg PO DAILY 0RF omeprazole 20 mg capsule,delayed release(DR/EC) 20 mg PO DAILY@0630 PRN (Reason: Heartburn) 0RF lisinopril 30 mg tablet 15 mg PO DAILY 0RF Label Comments: PT REPORTS TAKING 1/2 TABLET DAILY ezetimibe 10 mg tablet 10 mg PO DAILY 0RF warfarin 5 mg tablet 5 mg PO DIRECTED 0RF Protocol: Dose Management Condition: Monday (Week One) Dose/Route: 2.5 mg Instruction: 0.5 x 5 mg tablets Condition: Monday Dose/Route: 5 mg Instruction: 1 x 5 mg tablet Condition: Monday Dose/Route: 2.5 mg Instruction: 0.5 x 5 mg tablets Condition: Monday Dose/Route: 2.5 mg Instruction: 0.5 x 5 mg tablets Condition: Dose/Route: 2.5 mg Instruction: 0.5 x 5 mg tablets Condition: Monday Dose/Route: 2.5 mg Instruction: 0.5 x 5 mg tablets Condition: Monday Dose/Route: 2.5 mg Instruction: 0.5 x 5 mg tablets Condition: Monday (Week Two) Dose/Route: 2.5 mg Instruction: 0.5 x 5 mg tablets Condition: Monday Dose/Route: 5 mg Instruction: 1 x 5 mg tablet Condition: Monday Dose/Route: 2.5 mg Instruction: 0.5 x 5 mg tablets Condition: Monday Dose/Route: 2.5 mg Instruction: 0.5 x 5 mg tablets Condition: Dose/Route: 2.5 mg Instruction: 0.5 x 5 mg tablets Condition: Monday Dose/Route: 2.5 mg Instruction: 0.5 x 5 mg tablets Condition: Monday Dose/Route: 2.5 mg Instruction: 0.5 x 5 mg tablets Protocol Text: Adjustment Start Date: Monday06/04/21 INR Value: 2.6 INR Date: 06/04/21 Recheck Date: 07/09/21 Additional Instructions: CONT REG DOSING CALL WITH ANY MEDICATION CHANGES Rx Instructions: on odd numbered days polyethylene glycol 3350 17 gram/dose powder 17 g PO DAILY 0RF Discharge Orders: Discharge Order (Routine); Ordered 07/09/21 Ordered By: Alcides Lynn Diet: advance to usual diet Activity on Discharge: As tolerated Stand Alone Forms: Patient Portal Discharge page Care Plan Goals: avoid snycopal events Health Concerns: syncope Plan of Treatment: follow up with cardiology Assessment: see above
--- NOTE | 2021-07-09 15:07 | MHC.CM.PN ---
Met with pt to discuss d/c planning: pt lives with spouse: no services or DME: drives, independent with care needs: pt will d/c today - spouse to transport - pt has a cell at bedside and will call. ERIK signed and in chart: HCP at home.
== END 2021-07-09 16:08 | disposition home or self-care (01) ==
LOC: HO.ED 22:31 → HO.EDOVER 22:46
PROVIDERS: Internal Medicine Cardiovascular Disease; Admitting Provider Hospitalist; Emergency Provider Student in an Organized Health Care Education/Training Program; PCP Internal Medicine; Visit Provider Internal Medicine
PROC: (CPT 33285; principal; 2021-07-09 11:30)
DX: R55 Syncope and collapse (principal); I12.9 Hypertensive chronic kidney disease with stage 1 through stage 4 chronic kidney disease, or unspecified chronic kidney disease; N18.30 Chronic kidney disease, stage 3 unspecified; N17.9 Acute kidney failure, unspecified; I48.0 Paroxysmal atrial fibrillation; I44.7 Left bundle-branch block, unspecified; I35.0 Nonrheumatic aortic (valve) stenosis; R42 Dizziness and giddiness; R05.9 Cough, unspecified; E78.5 Hyperlipidemia, unspecified; H54.62 Unqualified visual loss, left eye, normal vision right eye; Z20.822 Contact with and (suspected) exposure to COVID-19; Z79.01 Long term (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; Z79.899 Other long term (current) drug therapy
CPT/HCPCS: 33285; 36415; 70450; 71045; 72125; 80048; 80053; 81001; 81003; 84484; 85025; 85610; 87502; 87635; 93005; 99219; 99285; C1764

== ENCOUNTER → 2021-08-02 07:50 | Outpatient (REF) | payer MEDICARE, SELFPAY ==
--- NOTE | ~2021-08-02 | NM_ITS ---
Myocardial perfusion study Indication: Left bundle branch block to evaluate for myocardial ischemia Technique: The patient was brought in for a Lexiscan perfusion study on 08/02/2021. Patient performed low-level exercise and was injected 0.4 mg of Lexiscan intravenously. Within a minute of injection, 25 mCi of sestamibi was given intravenously. Images were obtained using the SPECT gamma camera interlaced with the gating device. Images were obtained in supine position. Resting perfusion study was performed on 08/03/2021. Patient was administered 25 mCi of sestamibi intravenously at rest. Images were then obtained in supine position. Images obtained with and without CT attenuation. Total DLP 95 mGy-cm. Images were processed with the software and compared side to side in short axis, horizontal long axis and vertical long axis views. Findings: The stress perfusion study showed non attenuated images show mildly to moderately reduced uptake in the inferior wall of the LV myocardium. Remainder of the LV myocardium normally perfused. Attenuated corrected images show normalized uptake in the inferior wall. There is mildly reduced apex as well as distal anterior wall of the LV myocardium. Remainder of the LV myocardium is normally perfused. The gated study shows mildly reduced LV systolic function with calculated LVEF of 39%. LV cavity is mildly dilated size. The gated study shows normal wall thickening and contraction of segments with septal dyssynchrony. Resting study shows no change in perfusion pattern compared to stress perfusion study. Gating at rest reveals normal systolic wall motion with ejection fraction at 53%. The findings are consistent with normal clear reversible defect of the. Fixed distal septum and apical distal anterior wall defect related to left bundle. NM/NM cardiolite stress test Impression: 1. Myocardial perfusion imaging study shows no evidence of ischemia 2. Gated LVEF is 49% 3. Transient ischemic dilatation not present EKG is nondiagnostic for ischemia
--- NOTE | 2021-08-02 07:53 | CA_ITS ---
Acquisition Time: 2021-08-02 08:13:28 Total Exercise Time: 00:02:00 Test Indications: Abnormal ECG SYNCOPE Medications: AMIODOONE WARFARIN ROSUVASTATIN OMEPRAZOLE LISINOPRIL EZITIMIBE Protocol: LEXISCAN Max HR: 090 BPM 63% of Pred: 141 BPM Max BP: 158/078 mmHG Max Work Load: 1.0 METS Pharmacological stress test with Lexiscan injection, while sitting, without anginal symptoms, without arrythmia, with normotensive response to injection, with nondiagnostic EKG for ischemia. In recovery he reported headache, mild lightheadedness which was treated with Aminophylline 75mg IVP to reverse Leixiscan with resolution of symptoms. Nuclear images pending. Test reviewed with Dr Romano. Referred By: Terrence Brar Overread By: HIEN MONTES
== END ==
LOC: HO.CARD 07:50
PROVIDERS: Visit Provider Internal Medicine Cardiovascular Disease
DX: I35.8 Other nonrheumatic aortic valve disorders (principal); I44.7 Left bundle-branch block, unspecified; R55 Syncope and collapse
CPT/HCPCS: 78452; 93017; A9500; J0280; J2785

== ENCOUNTER → 2021-08-03 10:45 | Outpatient (BNVA) | payer MEDICARE, SELFPAY | PROVIDERS: PCP Internal Medicine; Visit Provider Internal Medicine | DX: I48.0 Paroxysmal atrial fibrillation (principal); Z79.01 Long term (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; Z51.81 Encounter for therapeutic drug level monitoring | CPT/HCPCS: 85610; 99211 ==

== ENCOUNTER → 2021-08-12 13:20 | Outpatient (BNVA) | payer MEDICARE, SELFPAY | PROVIDERS: PCP Internal Medicine; Visit Provider Internal Medicine | DX: I48.0 Paroxysmal atrial fibrillation (principal); I44.7 Left bundle-branch block, unspecified; I35.8 Other nonrheumatic aortic valve disorders; I10 Essential (primary) hypertension; R42 Dizziness and giddiness; Z79.01 Long term (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; Z79.899 Other long term (current) drug therapy | CPT/HCPCS: 99212 ==

== ENCOUNTER → 2021-09-07 11:02 | Outpatient (BNVA) | payer MEDICARE, SELFPAY | PROVIDERS: PCP Internal Medicine; Visit Provider Internal Medicine | DX: I48.0 Paroxysmal atrial fibrillation (principal); Z51.81 Encounter for therapeutic drug level monitoring; Z79.01 Long term (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 | CPT/HCPCS: 85610; 99211 ==

== ENCOUNTER → 2021-10-01 10:33 | Outpatient (BNVA) | payer MEDICARE, SELFPAY | PROVIDERS: PCP Internal Medicine; Visit Provider Internal Medicine | DX: I48.0 Paroxysmal atrial fibrillation (principal); Z79.01 Long term (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; Z51.81 Encounter for therapeutic drug level monitoring | CPT/HCPCS: 85610; 99211 ==

== ENCOUNTER 2021-11-05 09:05 | Day surgery (SDC) | payer MEDICARE, SELFPAY ==
--- NOTE | ~2021-11-05 | XR_ITS ---
EXAMINATION: XR CHEST CLINICAL INFORMATION: Status post pacemaker placement. COMPARISON: November 05, 2021. TECHNIQUE: Portable AP view of the chest was obtained. XR/XR chest 1V FINDINGS/IMPRESSION: The study is limited by portable technique and low lung volumes. The tips of new left subclavian pulse generator device leads project over the right atrium and right ventricle. No pneumothorax or pleural fluid is seen. Linear density at the left lung base suggests atelectasis and/or infiltrate. The right lung appears clear. The heart size is poorly evaluated. The aorta is mildly atherosclerotic.
--- NOTE | ~2021-11-05 | FL_ITS ---
EXAMINATION: XR FLUOROSCOPY WITH IMAGES CLINICAL INFORMATION: Pacemaker placement. COMPARISON: None. TECHNIQUE: Fluoroscopy performed by Dr. Frederick Diaz. Fluoroscopy time: 7.4 minutes. Cumulative Dose: 132.6 mGy. DAP: 30.25 Gy-cm2. Images: 1. FINDINGS: Fluoroscopy and spot films were provided during pacemaker placement. Single image demonstrates bipolar pacemaker leads. The distal end of the ventricular lead is not included on the radiograph. FL/FL guidance in OR IMPRESSION: Please see procedure report for full details. Fluoroscopy and spot films provided during pacemaker placement.
--- NOTE | ~2021-11-05 | XR_ITS ---
EXAMINATION: XR CHEST CLINICAL INFORMATION: Preop COMPARISON: 07/08/2021 TECHNIQUE: Frontal view of the chest was obtained. FINDINGS: Normal symmetric lung volumes. No parenchymal consolidation. No pleural effusion. No pneumothorax. Cardiomediastinal silhouette and pulmonary vascularity are within normal limits. Aorta is atherosclerotic. Loop recorder device projects over the left chest. No acute osseous abnormalities. High riding humeral head abuts the undersurface of the right acromion. XR/XR chest 1V IMPRESSION: No acute findings.
--- NOTE | ~2021-11-05 | XR_ITS ---
EXAMINATION: XR CHEST CLINICAL INFORMATION: Pacemaker COMPARISON: Previous chest x-ray from yesterday TECHNIQUE: Frontal view of the chest was obtained. FINDINGS: The cardiac and mediastinal contours are stable. There is a left subclavian dual chamber pacemaker that appears unchanged. There is minimal subsegmental atelectasis at the left lung base. The lungs are otherwise clear. There is no pleural effusion or pneumothorax. XR/XR chest 1V IMPRESSION: Satisfactory position of left subclavian pacemaker. Subsegmental atelectasis at the left lung base.
--- NOTE | ~2021-11-05 | CT_ITS ---
EXAMINATION: CT HEAD WITHOUT CONTRAST CT CERVICAL SPINE WITHOUT CONTRAST CLINICAL INFORMATION: Reason for Exam Syncope, neck pain COMPARISON: CT of the head and cervical spine done on 07/08/2021. TECHNIQUE: Imaging was performed from the skull base to vertex without intravenous administration of contrast. In addition, helical noncontrast CT imaging was acquired through the cervical spine and source images were reviewed along with axial reconstructions and sagittal and coronal MPRs. This CT examination was performed using dose optimization techniques as appropriate, variously including the following: *Automated exposure control. *Adjustment of mA and/or kV according to patient size (this includes techniques or standardized protocols for targeted exams where dose is matched to indication/reason for exam; i.e. extremities or head). *Use of iterative reconstruction technique. Total exam dose-length product 805 mGy-cm FINDINGS: HEAD: No intracranial mass, hemorrhage, or midline shift is visualized. Mild diffuse prominent extra-axial space is noted, similar to prior study. The ventricles and sulci are unchanged. No extra-axial collections are identified. The paranasal sinuses and mastoid air cells are well aerated. CERVICAL SPINE: There is no evidence of acute cervical spine fracture. Vertebral bodies remain normal in height, and alignment is anatomic. No prevertebral or paravertebral soft tissue abnormality is identified. Limited assessment of the lung apices is unremarkable. Moderate degenerative disc disease at C6-C7. Incidental note is made of bilateral osseous cervical ribs. Atherosclerotic carotid arterial calcifications are also noted within the neck bilaterally. CT/CT cervical spine wo IV con IMPRESSION: 1. No acute intracranial pathology. 2. No CT evidence of acute cervical spine fracture or traumatic subluxation. 3. No significant change since prior study dated 07/08/2021.
[2021-11-05 09:27] VITALS: BP 149/76; PULSE 61; RESP 20; TEMP 36.3; O2SAT 99; BMI 29.6
--- NOTE | 2021-11-05 09:33 | ECG_ITS ---
Test Reason : cardiac referral Blood Pressure : / mmHG Vent. Rate : 059 BPM Atrial Rate : 059 BPM P-R Int : 184 ms QRS Dur : 156 ms QT Int : 478 ms P-R-T Axes : -02 -64 102 degrees QTc Int : 473 ms Sinus bradycardia Left axis deviation Left bundle branch block Abnormal ECG When compared with ECG of 08-JUL-2021 21:36, No significant change was found Referred By: Mariaelena Giordano Electronically Signed By:NATANAEL PARK
--- NOTE | 2021-11-05 10:09 | ED.GENADULT ---
HPI - General Adult General Chief complaint: General Medical Stated complaint: sent by , heart problems Time Seen by Provider: 11/05/21 09:43 Source: patient Mode of arrival: ambulatory History of Present Illness HPI narrative: 81-year-old male with sinus bradycardia and LBBB with paroxysmal atrial fibrillation and currently on Coumadin presents with an IOR and a recording of 8 second pause and reported syncope on 11/03. Patient states that he was in the basement grabbing a couple bottles of water and then all the sudden I found myself on the ground , he states he got up in went back up stairs and continue watching TV but states he has had some neck pain as well as a headache. In addition, he feels like his gait has been unsteady but otherwise denies any shortness of breath/chest pain/palpitations and denies any dizziness. His who is at bedside said ?he did not tell me any of this stuff?. Related Data Home Medications Medication Instructions Recorded Confirmed ezetimibe 10 mg tablet 10 mg PO DAILY 01/21/20 11/05/21 lisinopril 30 mg tablet 30 mg PO DAILY 01/21/20 11/05/21 omeprazole 20 mg capsule,delayed 20 mg PO Q2D@0630 01/21/20 11/05/21 release rosuvastatin 40 mg tablet 40 mg PO DAILY 01/21/20 11/05/21 polyethylene glycol 3350 17 17 g PO DAILY PRN Constipation 04/02/21 11/05/21 gram/dose oral powder warfarin 5 mg tablet 2.5 mg PO SUTUWETHFRSA@1800 07/09/21 11/05/21 warfarin 5 mg tablet 5 mg PO MO@1800 07/09/21 11/05/21 Previous Rx's Medication Instructions Recorded amiodarone 200 mg tablet 200 mg PO DAILY 90 days #90 tabs 08/23/21 Allergies Allergy/AdvReac Type Severity Reaction Status Date / Time No Known Allergies Allergy Verified 10/01/21 10:33 [No Known Allergies*] Review of Systems Review of Systems: Pertinent positives and negatives as stated in HPI 10 point review of systems is otherwise negative. [facility] Past Medical History Source: nursing notes reviewed Medical History Dizziness Essential hypertension LBBB (left bundle branch block) Non-rheumatic aortic sclerosis PAF (paroxysmal atrial fibrillation) Surgical History No pertinent past surgical history Family History Family History Father No problems noted. Mother No problems noted. Social History Social History Patient Tobacco Use Status: Never used Tobacco Advance Directives: Yes Advance Directives on File: Yes Advance Directives Date on File: 07/09/21 service: No Current occupational status: retired Physical Exam ED Vital Signs: Vital Signs - 24 hr 11/05/21 09:27 11/05/21 10:58 Temperature 97.4 F Pulse Rate 61 55 Respiratory Rate 20 12 Blood Pressure 149/76 H 120/66 Pulse Oximetry 99 97 Oxygen Delivery Method Room Air Room Air BMI result Body Mass Index 29.6 VITAL SIGNS: Reviewed. GENERAL: Well developed, well nourished, in no acute distress. HEAD: Normocephalic/atraumatic, EYES: PERRLA, EOMI patient's left eye seems to be slightly off midline laterally EARS: Ext canals without abnormality OROPHARYNX: no oral lesions noted, posterior pharynx clear and non-erythematous without noted tonsillar enlargement/erythema/exudates NECK: Supple, no adenopathy, there is no cervical spine step-offs noted, but patient does report some mild pain on palpation at the right paraspinal cervical spine. LUNGS: Normal breath sounds. No adventitious sounds or accessory muscle use. SpO2<99> CARDIOVASCULAR: Regular rate and rhythm without noted murmurs, no JVD or lower extremity edema. ABDOMEN: Soft, non-tender, non-distended with bowel sounds. MUSCULOSKELETAL: No tenderness, deformities, or effusions noted on gross inspection. EXTREMITIES: No cyanosis, clubbing or edema. SKIN: Inspection of the skin reveals no rashes NEUROLOGIC: Alert and oriented x 4. Strength and sensation to light touch were grossly intact x 4, no facial asymmetry, no pronator drift, cranial nerves 2-12 are grossly intact, cerebellar testing without deficit. Course Course Course Narrative: 81-year-old male with history and clinical presentation consistent with syncopal episode while on anticoagulation, patient was not seen in the emergency room and given his residual reports of being unsteady on his feet will proceed with CT of the head and neck, however otherwise appropriate consultants have been notified the patient is here in the ER, Dr. Menchaca and Dr. Diaz. Patient will be admitted with plans for pacemaker. On review of investigations patient's EKG and labs are chronically stable. CT head and cervical spine are pending. I discuss the case with Dr. Beth who is where that CT of head and neck need to be followed up on. Reevaluation(s) Reevaluation #1: Dr. Menchaca has evaluated the patient at bedside. Time: 10:10 Reevaluation #2: Dr Diaz will see the patient, and states that he is okay with an INR less than 2.5. Time: 10:10 Medical Decision Making Lab Data Result diagrams: 11/05/21 10:07 11/05/21 10:07 Labs: Lab Results 11/05/21 11/05/21 11/05/21 Range/Units 10:07 10:07 10:07 WBC 5.1 (4.8-10.8) X10*3/uL RBC 4.60 (4.60-5.80) X10*6/uL Hgb 13.6 L (14.0-18.0) g/dl Hct 41.4 L (42.0-52.0) % MCV 90.0 (80.0-98.0) fL MCH 29.6 (27.0-33.0) pg MCHC 32.9 (31.0-36.0) g/dl RDW 14.2 (11.0-16.0) % Plt Count 175 (160-400) X10*3/uL MPV 8.6 L (9.4-12.4) fL Immature Gran % (Auto) 0.2 (0.0-0.4) % Neut % (Auto) 61.8 (45-73) % Lymph % (Auto) 23.5 (20-40) % [place] % (Auto) 10.8 (2-11) % Eos % (Auto) 2.5 (0-4) % Baso % (Auto) 1.2 (0-2) % Lymph # (Auto) 1.2 (1.2-4.9) X10*3/uL [place] # (Auto) 0.6 (0.1-1.2) X10*3/uL Eos # (Auto) 0.1 (0.0-0.4) X10*3/uL Baso # (Auto) 0.1 (0.0-0.2) X10*3/uL Abs Immat Gran (auto) 0.01 (0.00-0.03) X10*3/uL Absolute Neuts (auto) 3.2 (2.0-8.3) x10*3/uL Absolute Nucleated RBC 0.000 (0.0-0.012) X10*3/uL Nucleated RBC % (auto) 0.0 (0.0-0.2) /100WBC PT (10.0-13.1) SEC INR (0.9-1.1) APTT (26.0-36.4) SEC Sodium 142 (135-145) mmol/L Potassium 4.9 (3.3-5.1) mmol/L Chloride 106 (96-108) mmol/L Carbon Dioxide 26 (22-29) mmol/L Anion Gap 15 (12-20) BUN 20 H (9-16) mg/dL Creatinine 1.71 H (0.5-1.4) mg/dL Estim Creat Clear Calc 37.8 Estimated GFR 39 Random Glucose 100 (60-115) mg/dL Calcium 9.2 (8.4-10.2) mg/dL Troponin I High Sens 9.0 D (<3.5-35.0) ng/L COVID-19 ([facility]) (Negative) COVID-19 Clin Com Blood Type Antibody Screen 11/05/21 11/05/21 11/05/21 Range/Units 10:07 10:07 10:14 WBC (4.8-10.8) X10*3/uL RBC (4.60-5.80) X10*6/uL Hgb (14.0-18.0) g/dl Hct (42.0-52.0) % MCV (80.0-98.0) fL MCH (27.0-33.0) pg MCHC (31.0-36.0) g/dl RDW (11.0-16.0) % Plt Count (160-400) X10*3/uL MPV (9.4-12.4) fL Immature Gran % (Auto) (0.0-0.4) % Neut % (Auto) (45-73) % Lymph % (Auto) (20-40) % [place] % (Auto) (2-11) % Eos % (Auto) (0-4) % Baso % (Auto) (0-2) % Lymph # (Auto) (1.2-4.9) X10*3/uL [place] # (Auto) (0.1-1.2) X10*3/uL Eos # (Auto) (0.0-0.4) X10*3/uL Baso # (Auto) (0.0-0.2) X10*3/uL Abs Immat Gran (auto) (0.00-0.03) X10*3/uL Absolute Neuts (auto) (2.0-8.3) x10*3/uL Absolute Nucleated RBC (0.0-0.012) X10*3/uL Nucleated RBC % (auto) (0.0-0.2) /100WBC PT 28.3 H (10.0-13.1) SEC INR 2.4 H (0.9-1.1) APTT 48.3 H (26.0-36.4) SEC Sodium (135-145) mmol/L Potassium (3.3-5.1) mmol/L Chloride (96-108) mmol/L Carbon Dioxide (22-29) mmol/L Anion Gap (12-20) BUN (9-16) mg/dL Creatinine (0.5-1.4) mg/dL Estim Creat Clear Calc Estimated GFR Random Glucose (60-115) mg/dL Calcium (8.4-10.2) mg/dL Troponin I High Sens (<3.5-35.0) ng/L COVID-19 ([facility]) Negative (Negative) COVID-19 Clin Com See Note Blood Type O Positive Antibody Screen NEGATIVE ECG Data Attestation: I personally reviewed and interpreted this ECG as follows: Prior ECG tracings: available for review Interpretation: Sinus bradycardia, LBBB, HR-59, no STEMI, CT/QTC are within normal limits. Critical Care Time Critical Care Time Critical Care Time: Yes Total Critical Care Time: 30 Attestation: I personally attest to this time spent taking care of the patient. Discharge Plan Discharge Clinical Impression: Syncope, Current use of anticoagulant therapy, LBBB (left bundle branch block), Chronic kidney disease Patient Disposition: Admitted As Inpatient Prescriptions: No Action amiodarone 200 mg tablet 200 mg PO DAILY 90 Days Qty: 90 1RF warfarin 5 mg Tablet 2.5 mg PO SUTUWETHFRSA@1800 Protocol: Dose Management Condition: Monday (Week One) Dose/Route: 2.5 mg Instruction: 0.5 x 5 mg tablets Condition: Monday Dose/Route: 5 mg Instruction: 1 x 5 mg tablet Condition: Monday Dose/Route: 2.5 mg Instruction: 0.5 x 5 mg tablets Condition: Monday Dose/Route: 2.5 mg Instruction: 0.5 x 5 mg tablets Condition: Dose/Route: 2.5 mg Instruction: 0.5 x 5 mg tablets Condition: Monday Dose/Route: 2.5 mg Instruction: 0.5 x 5 mg tablets Condition: Monday Dose/Route: 2.5 mg Instruction: 0.5 x 5 mg tablets Condition: Monday ( Two) Dose/Route: 2.5 mg Instruction: 0.5 x 5 mg tablets Condition: Monday Dose/Route: 5 mg Instruction: 1 x 5 mg tablet Condition: Monday Dose/Route: 2.5 mg Instruction: 0.5 x 5 mg tablets Condition: Monday Dose/Route: 2.5 mg Instruction: 0.5 x 5 mg tablets Condition: Dose/Route: 2.5 mg Instruction: 0.5 x 5 mg tablets Condition: Monday Dose/Route: 2.5 mg Instruction: 0.5 x 5 mg tablets Condition: Monday Dose/Route: 2.5 mg Instruction: 0.5 x 5 mg tablets Protocol Text: Adjustment Start Date: Monday10/01/21 INR Value: 2.6 INR Date: 10/01/21 Recheck Date: 11/05/21 Additional Instructions: cont reg dosing call with any medication changes warfarin 5 mg tablet 5 mg PO MO@1800 Protocol: Dose Management Condition: Monday (Week One) Dose/Route: 2.5 mg Instruction: 0.5 x 5 mg tablets Condition: Monday Dose/Route: 5 mg Instruction: 1 x 5 mg tablet Condition: Monday Dose/Route: 2.5 mg Instruction: 0.5 x 5 mg tablets Condition: Monday Dose/Route: 2.5 mg Instruction: 0.5 x 5 mg tablets Condition: Dose/Route: 2.5 mg Instruction: 0.5 x 5 mg tablets Condition: Monday Dose/Route: 2.5 mg Instruction: 0.5 x 5 mg tablets Condition: Monday Dose/Route: 2.5 mg Instruction: 0.5 x 5 mg tablets Condition: Monday (Week Two) Dose/Route: 2.5 mg Instruction: 0.5 x 5 mg tablets Condition: Monday Dose/Route: 5 mg Instruction: 1 x 5 mg tablet Condition: Monday Dose/Route: 2.5 mg Instruction: 0.5 x 5 mg tablets Condition: Monday Dose/Route: 2.5 mg Instruction: 0.5 x 5 mg tablets Condition: Dose/Route: 2.5 mg Instruction: 0.5 x 5 mg tablets Condition: Monday Dose/Route: 2.5 mg Instruction: 0.5 x 5 mg tablets Condition: Monday Dose/Route: 2.5 mg Instruction: 0.5 x 5 mg tablets Protocol Text: Adjustment Start Date: Monday10/01/21 INR Value: 2.6 INR Date: 10/01/21 Recheck Date: 11/05/21 Additional Instructions: cont reg dosing call with any medication changes rosuvastatin 40 mg tablet 40 mg PO DAILY omeprazole 20 mg capsule,delayed release(DR/EC) 20 mg PO Q2D@0630 lisinopril 30 mg tablet 30 mg PO DAILY Label Comments: PT REPORTS TAKING 1/2 TABLET DAILY ezetimibe 10 mg tablet 10 mg PO DAILY polyethylene glycol 3350 17 gram/dose powder 17 g PO DAILY PRN (Reason: Constipation)
[2021-11-05 10:12] LABS: MANUAL DIFF FLAG NO
[2021-11-05 10:17] LABS: Basophils Absolute Auto 0.1 X10*3/uL (0.0-0.2); Basophils Percent Auto 1.2 % (0-2); Eosinophils Absolute Auto 0.1 X10*3/uL (0.0-0.4); Eosinophils Percent Auto 2.5 % (0-4); Hematocrit 41.4 % (42.0-52.0); Hemoglobin 13.6 g/dl (14.0-18.0); Imm Gran Abs Auto 0.01 X10*3/uL (0.00-0.03); Imm Gran Pct Auto 0.2 % (0.0-0.4); Lymphocytes Absolute Auto 1.2 X10*3/uL (1.2-4.9); Lymphocytes Percent Auto 23.5 % (20-40); Mean Corpuscular HGB Conc 32.9 g/dl (31.0-36.0); Mean Corpuscular Hemoglobin 29.6 pg (27.0-33.0); Mean Platelet Volume 8.6 fL (9.4-12.4); Monocytes Absolute Auto 0.6 X10*3/uL (0.1-1.2); Monocytes Percent Auto 10.8 % (2-11); Neutrophils Absolute Auto 3.2 x10*3/uL (2.0-8.3); Neutrophils Percent Auto 61.8 % (45-73); Platelet Count 175 X10*3/uL (160-400); Red Cell Distribution Width 14.2 % (11.0-16.0); White Blood Count 5.1 X10*3/uL (4.8-10.8)
[2021-11-05 10:22] LABS: INTERNATIONAL NORM RATIO 2.4 (0.9-1.1); Prothrombin Time 28.3 SEC (10.0-13.1)
[2021-11-05 10:25] LABS: Partial Thromboplastin Time 48.3 SEC (26.0-36.4)
[2021-11-05 10:34] LABS: COVID-19 Test Negative (Negative); IDNOW Serial# 16C4AD1C
[2021-11-05 10:49] LABS: Anion Gap 15 (12-20); Blood Urea Nitrogen 20 mg/dL (9-16); Calcium 9.2 mg/dL (8.4-10.2); Carbon Dioxide 26 mmol/L (22-29); Chloride 106 mmol/L (96-108); Creatinine Clr Calc Pharmacy 37.8; Estimated Glomerular Filt Rate 39; Glucose Random 100 mg/dL (60-115); Potassium 4.9 mmol/L (3.3-5.1); Sodium 142 mmol/L (135-145)
[2021-11-05 10:58] VITALS: BP 120/66; PULSE 55; RESP 12; O2SAT 97
--- NOTE | 2021-11-05 11:43 | PHA.MEDREC ---
Pharmacy Consult ? Medication Reconciliation Pharmacy has completed the medication reconciliation.Spoke with patient in ED who knew all meds and warfarin dosing. He did not take any medications today.
--- NOTE | 2021-11-05 11:46 | P.HPHOSP_ITS ---
History of Present Illness Date of Service: 11/05/21 Chief Complaint: Syncope This is a 81 yo M with a PMH of PAF on coumadin and amiodarone, CKD3, HLD who has an ILR for prior episodes of syncope. He presents to the ED after he has a syncopal episode 2 days [employer]. This syncopal episode coincided with an 8 second pa use captured on his ILR. Hence, he was referred to the ED for admission for PPM. The patient himself currently denies any complaints. He reports that his syncopal episode was the same as his prior episodes -- no prodromal symptoms followed by sudden LOC. He denies any current TAVERAS, dizziness. Denies any chest pain or sob. Denies any n/v/d. Per the ED provider -- the case has been d/w both cardiology and thoracic surgery with plans for PPM. He is to be kept NPO. Review of Systems Review of Systems: negative except HPI [facility] Medical History Dizziness Essential hypertension LBBB (left bundle branch block) Non-rheumatic aortic sclerosis PAF (paroxysmal atrial fibrillation) Family History Father No problems noted. Mother No problems noted. Surgical History No pertinent past surgical history Social History Patient Tobacco Use Status: Never used Tobacco Advance Directives: Yes Advance Directives on File: Yes Advance Directives Date on File: 07/09/21 service: No Current occupational status: retired [employer] Allergies Allergy/AdvReac Type Severity Reaction Status Date / Time No Known Allergies Allergy Verified 10/01/21 10:33 [No Known Allergies*] Active Medications: Current Medications Pharmacy Consult (Consult Rx Perform Med Rec) 1 each MISCELLANE ONCE PRN PRN Reason: Consult order Home Medications Medication Instructions Recorded Confirmed Last Taken Type ezetimibe 10 mg tablet 10 mg PO DAILY 01/21/20 11/05/21 11/04/21 History lisinopril 30 mg tablet 30 mg PO DAILY 01/21/20 11/05/21 11/04/21 History omeprazole 20 mg capsule,delayed 20 mg PO Q2D@0630 01/21/20 11/05/21 11/04/21 History release rosuvastatin 40 mg tablet 40 mg PO DAILY 01/21/20 11/05/21 11/04/21 History polyethylene glycol 3350 17 17 g PO DAILY PRN Constipation 04/02/21 11/05/21 11/04/21 History gram/dose oral powder warfarin 5 mg tablet 2.5 mg PO SUTUWETHFRSA@1800 07/09/21 11/05/21 11/04/21 History warfarin 5 mg tablet 5 mg PO MO@1800 07/09/21 11/05/21 11/01/21 History Physical Exam Vital Signs and Narrative: Vital Signs: Last Vital Signs Temp 97.4 F 11/05/21 09:27 Pulse 55 11/05/21 10:58 Resp 12 11/05/21 10:58 BP 120/66 11/05/21 10:58 Pulse Ox 97 11/05/21 10:58 O2 Del Method 11/05/21 10:58 BMI result Body Mass Index 29.6 Const: Other: Constitutional - Awake and Alert, No apparent distress Eyes - PERRLA, EOMI Cardiovascular - S1S2, RRR, No edema Respiratory - Normal lung expansion, Normal respiratory effort, No respiratory distress, CTA bilaterally Gastrointestinal - NT / ND; +BS; No rebound or guarding - No CVA tenderness Extremities - no calf tenderness bilaterally, no swelling Musculoskeletal - Normal inspection, normal ROM Skin - Warm/Dry Neurological - Alert & oriented x3, No focal deficit Psychological - Appropriate affect Results Labs CBC and Chem 7: 11/05/21 10:07 11/05/21 10:07 Labs: Laboratory Results - last 24 hr 11/05/21 11/05/21 11/05/21 10:07 10:07 10:07 MCV 90.0 MCH 29.6 MCHC 32.9 RDW 14.2 Plt Count 175 MPV 8.6 L Immature Gran % (Auto) 0.2 Neut % (Auto) 61.8 Lymph % (Auto) 23.5 [place] % (Auto) 10.8 Eos % (Auto) 2.5 Baso % (Auto) 1.2 Lymph # (Auto) 1.2 [place] # (Auto) 0.6 Eos # (Auto) 0.1 Baso # (Auto) 0.1 Abs Immat Gran (auto) 0.01 Absolute Neuts (auto) 3.2 Absolute Nucleated RBC 0.000 Nucleated RBC % (auto) 0.0 PT 28.3 H INR 2.4 H APTT 48.3 H Anion Gap 15 Estim Creat Clear Calc 37.8 Estimated GFR 39 Random Glucose 100 Calcium 9.2 COVID-19 ([facility]) COVID-19 Clin Com Blood Type Antibody Screen 11/05/21 11/05/21 10:07 10:14 MCV MCH MCHC RDW Plt Count MPV Immature Gran % (Auto) Neut % (Auto) Lymph % (Auto) [place] % (Auto) Eos % (Auto) Baso % (Auto) Lymph # (Auto) [place] # (Auto) Eos # (Auto) Baso # (Auto) Abs Immat Gran (auto) Absolute Neuts (auto) Absolute Nucleated RBC Nucleated RBC % (auto) PT INR APTT Anion Gap Estim Creat Clear Calc Estimated GFR Random Glucose Calcium COVID-19 ([facility]) Negative COVID-19 Clin Com See Note Blood Type O Positive Antibody Screen NEGATIVE Assessment and Plan (1) Syncope: Status: Acute Plan This is a 81 yo M with a PMH of PAF on Amio + Coumadin, CKD3, prior syncopal episode with ILR in place who presents to the ED after a syncopal episode 2 days [employer]. An 8 sec pause was captured on his ILR and hence he has been referred to the ED for PPM. 1. Syncope secondary to 8 secdon pause case d/w with cardiology -- plan for PPM will keep NPO INR 2.4 (per ED provider, who d/w CT surgery --> okay below 2.5 to proceed) Keep on tele 2. PAF on amio/coumadin INR therapeutic, hold coumadin today in light of surgery, start when okay from surgical perspective hold amio today, start tomorrow if okay with cardiology 3. HLD statin/zetia CT head/neck/c-spine pending -- clinically stable without acute neurological findings on exam. Full Code DVT pptx -- Coumadin Quality Stroke Does the patient have a stroke diagnosis?: No VTE Prior VTE?: No VTE Risk Level:: Medical - moderate - high VTE Device Contraindication: Treatment Not Indicated VTE Drug Contraindication: N/A - Med Ordered
[2021-11-05 13:31] VITALS: BP 139/92; PULSE 54; RESP 13; O2SAT 95
--- NOTE | 2021-11-05 14:26 | PC.NURSE ---
pt ate 2 bronson crackers and cup of bry tomasa per request, given okay by ed md. pt further found to have been npo for planned procedure. provider and short stay sx aware.
[2021-11-05 15:17] VITALS: BP 119/57; PULSE 51; RESP 12; O2SAT 96
--- NOTE | 2021-11-05 19:59 | PM.CNCAR ---
History of Present Illness History of Present Illness Date of Service: 11/05/21 Requesting physician: Reyes Beth Chief complaint: 8 sec pause, syncope Narrative: 81-year-old gentleman who had syncope in the past and had implantable loop recorder. She had syncope 2 days ago and device interrogation has showed 8 sec pause. He was admitted from home for permanent pacemaker placement. He has been on Coumadin due to a background history of paroxysmal atrial fibrillation. He also has been on amiodarone his left bundle-branch block. He is doing fine right now. Denying any chest pain or shortness of breath. Thoracic surgery has been consulted. [facility] Past Medical History Medical History Dizziness Essential hypertension LBBB (left bundle branch block) Non-rheumatic aortic sclerosis PAF (paroxysmal atrial fibrillation) Family History Family History Father No problems noted. Mother No problems noted. Surgical History Surgical History No pertinent past surgical history Social History Social History Patient Tobacco Use Status: Never used Tobacco Advance Directives: Yes Advance Directives on File: Yes Advance Directives Date on File: 07/09/21 service: No Current occupational status: retired [employer] Allergies Allergy/AdvReac Type Severity Reaction Status Date / Time No Known Allergies Allergy Verified 10/01/21 10:33 [No Known Allergies*] Active Medications: Current Medications Acetaminophen (Acetaminophen 325 Mg Tablet) 650 mg PO Q6H PRN PRN Reason: Pain, Mild (Pain Scale 1-3) Atorvastatin Calcium (Atorvastatin Calcium 80 Mg Tablet) 80 mg PO DAILY [facility] Omeprazole (Omeprazole 20 Mg Capsule.Dr) 20 mg PO Q2D@0630 [facility] Ondansetron HCl (Ondansetron Hcl 4 Mg/2 Ml Vial) 4 mg IVPUSH Q8H PRN PRN Reason: Nausea and Vomiting Pharmacy Consult (Consult Rx Perform Med Rec) 1 each MISCELLANE ONCE PRN PRN Reason: Consult order Sodium Chloride (0.9 % Sodium Chloride Flush 3 Ml Syringe) 3 ml IVFLUSH QSHIFT [facility] Last Admin: 11/05/21 17:50 Dose: Not Given Home Medications Medication Instructions Recorded Confirmed Last Taken Type ezetimibe 10 mg tablet 10 mg PO DAILY 01/21/20 11/05/21 11/04/21 History lisinopril 30 mg tablet 30 mg PO DAILY 01/21/20 11/05/21 11/04/21 History omeprazole 20 mg capsule,delayed 20 mg PO Q2D@0630 01/21/20 11/05/21 11/04/21 History release rosuvastatin 40 mg tablet 40 mg PO DAILY 01/21/20 11/05/21 11/04/21 History polyethylene glycol 3350 17 17 g PO DAILY PRN Constipation 04/02/21 11/05/21 11/04/21 History gram/dose oral powder warfarin 5 mg tablet 2.5 mg PO SUTUWETHFRSA@1800 07/09/21 11/05/21 11/04/21 History warfarin 5 mg tablet 5 mg PO MO@1800 07/09/21 11/05/21 11/01/21 History Physical Exam Vital Signs: Vital Signs: Last Vital Signs Temp 97.4 F 11/05/21 09:27 Pulse 51 11/05/21 15:17 Resp 12 11/05/21 15:17 BP 119/57 L 11/05/21 15:17 Pulse Ox 96 11/05/21 15:17 O2 Del Method 11/05/21 15:17 BMI result Body Mass Index 29.6 GENERAL APPEARANCE: in no acute distress, pleasant. NECK: no carotid bruit, no jugular venous distention. SKIN: no suspicious lesions, warm and dry. HEART: Systolic murmur aortic area with preserved 2nd heart sound, regular rate and rhythm. LUNGS: clear to auscultation bilaterally. ABDOMEN: soft, nontender. EXTREMITIES: no edema. PERIPHERAL PULSES: equal. NEUROLOGIC: No gross deficits, AAO X 3 Objective Labs and Meds Result diagrams: 11/05/21 10:07 11/05/21 10:07 Lab results: Laboratory Results - last 24 hr 11/05/21 11/05/21 11/05/21 10:07 10:07 10:07 WBC 5.1 RBC 4.60 Hgb 13.6 L Hct 41.4 L MCV 90.0 MCH 29.6 MCHC 32.9 RDW 14.2 Plt Count 175 MPV 8.6 L Immature Gran % (Auto) 0.2 Neut % (Auto) 61.8 Lymph % (Auto) 23.5 Grainger % (Auto) 10.8 Eos % (Auto) 2.5 Baso % (Auto) 1.2 Lymph # (Auto) 1.2 [place]inger # (Auto) 0.6 Eos # (Auto) 0.1 Baso # (Auto) 0.1 Abs Immat Gran (auto) 0.01 Absolute Neuts (auto) 3.2 Absolute Nucleated RBC 0.000 Nucleated RBC % (auto) 0.0 PT INR APTT Sodium 142 Potassium 4.9 Chloride 106 Carbon Dioxide 26 Anion Gap 15 BUN 20 H Creatinine 1.71 H Estim Creat Clear Calc 37.8 Estimated GFR 39 Random Glucose 100 Calcium 9.2 Troponin I High Sens 9.0 D COVID-19 ([facility]GHN) COVID-19 Clin Com Blood Type Antibody Screen 11/05/21 11/05/21 11/05/21 10:07 10:07 10:14 WBC RBC Hgb Hct MCV MCH MCHC RDW Plt Count MPV Immature Gran % (Auto) Neut % (Auto) Lymph % (Auto) Grainger % (Auto) Eos % (Auto) Baso % (Auto) Lymph # (Auto) Grainger # (Auto) Eos # (Auto) Baso # (Auto) Abs Immat Gran (auto) Absolute Neuts (auto) Absolute Nucleated RBC Nucleated RBC % (auto) PT 28.3 H INR 2.4 H APTT 48.3 H Sodium Potassium Chloride Carbon Dioxide Anion Gap BUN Creatinine Estim Creat Clear Calc Estimated GFR Random Glucose Calcium Troponin I High Sens COVID-19 ([facility]GHN) Negative COVID-19 Clin Com See Note Blood Type O Positive Antibody Screen NEGATIVE Imaging Radiologist's impression: Impressions Chest X-Ray 11/05/21 10:27 IMPRESSION: No acute findings. Cervical Spine CT 11/05/21 12:13 IMPRESSION: 1. No acute intracranial pathology. 2. No CT evidence of acute cervical spine fracture or traumatic subluxation. 3. No significant change since prior study dated 07/08/2021. Head CT 11/05/21 12:13 IMPRESSION: 1. No acute intracranial pathology. 2. No CT evidence of acute cervical spine fracture or traumatic subluxation. 3. No significant change since prior study dated 07/08/2021. Assessment and Plan (1) Syncope: Status: Acute (2) High-grade atrioventricular block: Status: Acute Plan 81-year-old gentleman with background history of left bundle-branch block, paroxysmal atrial fibrillation for which she has here Coumadin and amiodarone and history of syncope. He had implantable loop recorder and had syncope 2 days ago with an 8 sec pause recorded. He is admitted for permanent pacemaker placement. Thoracic surgery has been consulted and depending upon their availability we will proceed with permanent pacemaker placement. Hold Coumadin and monitor INR closely. Thank you for allowing me to participate in the care of your patient. Please feel free to contact me if you have any questions. Procedures Date of Service Date of Service: 11/05/21
[2021-11-05 20:15] VITALS: BP 137/69; PULSE 53; RESP 18; TEMP 36.5; O2SAT 97
[2021-11-05 20:56] VITALS: BMI 29.6
[2021-11-06] VITALS: BP 136/76; PULSE 58; RESP 18; TEMP 37.2; O2SAT 98
[2021-11-06 03:23] VITALS: BP 116/70; PULSE 55; RESP 20; TEMP 36.9; O2SAT 99
[2021-11-06 07:19] LABS: INTERNATIONAL NORM RATIO 2.1 (0.9-1.1); Prothrombin Time 24.8 SEC (10.0-13.1)
[2021-11-06] MEDS: 0.9 % Sodium Chloride Flush 3 ML SYRINGE IVFLUSH ×3 (07:35→23:45)
[2021-11-06 07:46] VITALS: BP 153/74; PULSE 50; RESP 20; TEMP 37; O2SAT 97
--- NOTE | 2021-11-06 08:45 | MHC.CM.PN ---
Patient is presently here under EXTENDED STAY and therefor does not require an IMM at this time. CM met with Patient at bedside and Patient lives in a house with his /HCP/Keren. Patient required no DME nor services [employer] and home/self care is the goal. CM has initiated and will follow for dc planning. Patient has received Covid vax X4 and his PCP is Dr. Duncan Sorensen.
--- NOTE | 2021-11-06 09:10 | HO.PM.IMPN ---
Subjective Subjective Date of Service: 11/06/21 Review of Systems seen in f/u for heart block and awating pace maker \interval history: no dizziness, awaiting pace maker Physical Exam Vital Signs: Vital Signs: Last Vital Signs Temp 98.6 F 11/06/21 07:46 Pulse 50 11/06/21 07:46 Resp 20 11/06/21 07:46 BP 153/74 H 11/06/21 07:46 Pulse Ox 97 11/06/21 07:46 O2 Del Method 11/06/21 07:46 BMI result Body Mass Index 29.6 Const: Other: Constitutional - Awake and Alert, No apparent distress Eyes - PERRLA, EOMI Cardiovascular - S1S2, RRR, No edema Respiratory - Normal lung expansion, Normal respiratory effort, No respiratory distress, CTA bilaterally Gastrointestinal - NT / ND; +BS; No rebound or guarding - No CVA tenderness Extremities - no calf tenderness bilaterally, no swelling Musculoskeletal - Normal inspection, normal ROM Skin - Warm/Dry Neurological - Alert & oriented x3, No focal deficit Psychological - Appropriate affect Objective Data Active Medications Acetaminophen (Acetaminophen 325 Mg Tablet) 650 mg PO Q6H PRN PRN Reason: Pain, Mild (Pain Scale 1-3) Atorvastatin Calcium (Atorvastatin Calcium 80 Mg Tablet) 80 mg PO DAILY [facility] Last Admin: 11/06/21 07:35 Dose: Not Given Documented By: GINETTE Non-Admin Reason: NPO Omeprazole (Omeprazole 20 Mg Capsule.Dr) 20 mg PO Q2D@0630 [facility] Last Admin: 11/06/21 05:26 Dose: Not Given Documented By: DAVID Non-Admin Reason: NPO Ondansetron HCl (Ondansetron Hcl 4 Mg/2 Ml Vial) 4 mg IVPUSH Q8H PRN PRN Reason: Nausea and Vomiting Pharmacy Consult (Consult Rx Perform Med Rec) 1 each MISCELLANE ONCE PRN PRN Reason: Consult order Sodium Chloride (0.9 % Sodium Chloride Flush 3 Ml Syringe) 3 ml IVFLUSH QSHIFT [facility] Last Admin: 11/06/21 07:35 Dose: 3 ml Documented By: GINETTE Labs CBC & Chem 7: 11/05/21 10:07 11/05/21 10:07 Labs: Laboratory Results - last 24 hr 11/05/21 11/05/21 11/05/21 10:07 10:07 10:07 MCV 90.0 MCH 29.6 MCHC 32.9 RDW 14.2 Plt Count 175 MPV 8.6 L Immature Gran % (Auto) 0.2 Neut % (Auto) 61.8 Lymph % (Auto) 23.5 [place] % (Auto) 10.8 Eos % (Auto) 2.5 Baso % (Auto) 1.2 Lymph # (Auto) 1.2 [place] # (Auto) 0.6 Eos # (Auto) 0.1 Baso # (Auto) 0.1 Abs Immat Gran (auto) 0.01 Absolute Neuts (auto) 3.2 Absolute Nucleated RBC 0.000 Nucleated RBC % (auto) 0.0 PT 28.3 H INR 2.4 H APTT 48.3 H Anion Gap 15 Estim Creat Clear Calc 37.8 Estimated GFR 39 Random Glucose 100 Calcium 9.2 COVID-19 ([facility]) COVID-19 Clin Com Blood Type Antibody Screen 11/05/21 11/05/21 11/06/21 10:07 10:14 06:05 MCV MCH MCHC RDW Plt Count MPV Immature Gran % (Auto) Neut % (Auto) Lymph % (Auto) [place] % (Auto) Eos % (Auto) Baso % (Auto) Lymph # (Auto) [place] # (Auto) Eos # (Auto) Baso # (Auto) Abs Immat Gran (auto) Absolute Neuts (auto) Absolute Nucleated RBC Nucleated RBC % (auto) PT 24.8 H INR 2.1 H APTT Anion Gap Estim Creat Clear Calc Estimated GFR Random Glucose Calcium COVID-19 ([facility]N) Negative COVID-19 Clin Com See Note Blood Type O Positive Antibody Screen NEGATIVE Assessment and Plan (1) High-grade atrioventricular block: Status: Acute (2) Essential hypertension: Status: Acute Plan 81 yo M with a PMH of PAF on Amio + Coumadin, CKD3, prior syncopal episode with ILR in place who presents to the ED after a syncopal episode 2 days [employer]. An 8 sec pause was captured on his ILR and hence he has been referred to the ED for PPM. 1. Syncope secondary to 8-secdon pause Plan for PPM today will keep NPO INR 2.4 (per ED provider, who d/w CT surgery --> okay below 2.5 to proceed) Keep on tele 2. PAF on amio/coumadin INR therapeutic, hold coumadin today in light of surgery, start when okay from surgical perspective hold amio and restart after pace maker 3. HLD statin/zetia CT head/neck/c-spine pending -- clinically stable without acute neurological findings on exam. Full Code DVT pptx -- Coumadin Quality Stroke Does the patient have a stroke diagnosis?: No VTE Prior VTE?: No VTE Risk Level:: Medical - moderate - high VTE Device Contraindication: Treatment Not Indicated VTE Drug Contraindication: N/A - Med Ordered
--- NOTE | 2021-11-06 11:02 | PM.EVENT ---
Event Note Date of Service: 11/06/21 Event Note: THORACIC SURGERY Patient scheduled for pacemaker insertion tomorrow. NPO after MN. Continue to hold Coumadin. Check INR in am. Ancef 2g IV ordered OCTOR. T&S active as of 11/05/21.
[2021-11-06 11:47] VITALS: BP 126/60; PULSE 51; RESP 20; TEMP 36.5; O2SAT 99
--- NOTE | 2021-11-06 13:33 | PM.PNCARD ---
Subjective Subjective Date of Service: 11/06/21 Interval history: Seen and examined at bedside. Telemetry reviewed. No further AV block noticed. Waiting for permanent pacemaker tomorrow. Keep NPO after midnight. Physical Exam Vital Signs: Last Vital Signs Temp 97.7 F 11/06/21 11:47 Pulse 51 11/06/21 11:47 Resp 20 11/06/21 11:47 BP 126/60 11/06/21 11:47 Pulse Ox 99 11/06/21 11:47 O2 Del Method 11/06/21 11:47 BMI result Body Mass Index 29.6 GENERAL APPEARANCE: in no acute distress, pleasant. NECK: no carotid bruit, no jugular venous distention. SKIN: no suspicious lesions, warm and dry. HEART: Systolic murmur aortic area with preserved 2nd heart sound, regular rate and rhythm. LUNGS: clear to auscultation bilaterally. ABDOMEN: soft, nontender. EXTREMITIES: no edema. PERIPHERAL PULSES: equal. NEUROLOGIC: No gross deficits, AAO X 3 Objective Labs and Meds Result diagrams: 11/05/21 10:07 11/05/21 10:07 Lab results: Laboratory Results - last 24 hr 11/06/21 06:05 PT 24.8 H INR 2.1 H Imaging Radiologist's impression: Impressions Cervical Spine CT 11/05/21 12:13 IMPRESSION: 1. No acute intracranial pathology. 2. No CT evidence of acute cervical spine fracture or traumatic subluxation. 3. No significant change since prior study dated 07/08/2021. Head CT 11/05/21 12:13 IMPRESSION: 1. No acute intracranial pathology. 2. No CT evidence of acute cervical spine fracture or traumatic subluxation. 3. No significant change since prior study dated 07/08/2021. Progress Note: A&P Assessment and plan (1) High-grade atrioventricular block: Status: Acute Plan 81-year-old gentleman with high-grade AV block and syncope. He has indication for pacemaker and has been admitted from home for permanent pacemaker placement. Tentatively on scheduled for tomorrow for permanent pacemaker placement. Keep NPO after midnight. After pacemaker Coumadin should be resumed. Amiodarone also should be resumed after the pacemaker. Thank you for allowing me to participate in the care of your patient. Please feel free to contact me if you have any questions. Time Spent With Patient Time: Total time spent is greater than 50% in coordination of care (as documented) at patient's floor/unit and/or counseling patient: Progress Note: Quality Stroke Does the patient have a stroke diagnosis?: No Procedures Date of Service Date of Service: 11/06/21
[2021-11-06 15:36] VITALS: BP 112/55; PULSE 58; RESP 19; TEMP 37.1; O2SAT 96
[2021-11-06] MEDS: Milk of Magnesia 30 ML ORAL.SUSP PO (17:44)
[2021-11-06 19:56] VITALS: BP 140/64; PULSE 57; RESP 20; TEMP 37.2; O2SAT 97
[2021-11-07] VITALS (12 sets, daily range): BP systolic 117–172; BP diastolic 53–85; PULSE 50–68; RESP 18–20; TEMP 36–37.4; O2SAT 93–99
[2021-11-07 06:34] LABS: INTERNATIONAL NORM RATIO 1.6 (0.9-1.1); Prothrombin Time 18.5 SEC (10.0-13.1)
--- NOTE | 2021-11-07 07:17 | MHC.SHP ---
Pre-Procedural Eval Section A Date of Service: 11/07/21 The patient is an INPATIENT: Yes Section B Chief Complaint: 8 sec pause, syncope Allergies: Allergies Allergy/AdvReac Type Severity Reaction Status Date / Time No Known Allergies Allergy Verified 10/01/21 10:33 [No Known Allergies*] Plan I have reviewed the history and physical and performed a pertinent physical examination on my patient. No changes have occurred unless specified. Plan is for dual-chamber permanent pacemaker this morning. Patient has been NPO. Risks, benefits, and alternatives have been discussed with the patient which he understands and agrees to proceed.
--- NOTE | 2021-11-07 07:32 | P.CONAN_ITS ---
[facility] Active Problems Active Problems: All Active Problems (Updated 11/05/21 @ 20:02 by Sai Menchaca MD) High-grade atrioventricular block (Acute) Syncope (Acute) Syncope (Acute) TYREE (acute kidney injury) (Acute) Syncope (Acute) Essential hypertension (Acute) Chronic kidney disease (Acute) Dizziness (Acute) Non-rheumatic aortic sclerosis (Acute) LBBB (left bundle branch block) (Acute) PAF (paroxysmal atrial fibrillation) (Acute) Current use of anticoagulant therapy (Acute) Past Medical History Medical History Dizziness Essential hypertension LBBB (left bundle branch block) Non-rheumatic aortic sclerosis PAF (paroxysmal atrial fibrillation) Family History Family History Father No problems noted. Mother No problems noted. Family history of problems with anesthesia: No Surgical History Surgical History No pertinent past surgical history History of Problems with Anesthesia: No Social History Social History Household Members: Spouse Housing: House Do you presently have visiting nurse or other home services: No Patient Tobacco Use Status: Never used Tobacco Advance Directives Date on File: 07/09/21 service: No Current occupational status: retired [employer] Allergies Allergy/AdvReac Type Severity Reaction Status Date / Time No Known Allergies Allergy Verified 10/01/21 10:33 [No Known Allergies*] Active Medications: Current Medications Acetaminophen (Acetaminophen 325 Mg Tablet) 650 mg PO Q6H PRN PRN Reason: Pain, Mild (Pain Scale 1-3) Atorvastatin Calcium (Atorvastatin Calcium 80 Mg Tablet) 80 mg PO DAILY [facility] Last Admin: 11/06/21 07:35 Dose: Not Given Docusate Sodium (Docusate Sodium 100 Mg Capsule) 100 mg PO BID PRN PRN Reason: Constipation Cefazolin Sodium/Dextrose (Ancef) 2 gm in 50 mls @ 100 mls/hr IV PREOP ONE Stop: 11/08/21 06:29 Magnesium Hydroxide (Milk Of Magnesia 30 Ml Oral.Susp) 30 ml PO DAILY PRN PRN Reason: Constipation Last Admin: 11/06/21 17:44 Dose: 30 ml Omeprazole (Omeprazole 20 Mg Capsule.) 20 mg PO Q2D@0630 [facility] Last Admin: 11/06/21 05:26 Dose: Not Given Ondansetron HCl (Ondansetron Hcl 4 Mg/2 Ml Vial) 4 mg IVPUSH Q8H PRN PRN Reason: Nausea and Vomiting Pharmacy Consult (Consult Rx Perform Med Rec) 1 each MISCELLANE ONCE PRN PRN Reason: Consult order Sodium Chloride (0.9 % Sodium Chloride Flush 3 Ml Syringe) 3 ml IVFLUSH QSHIFT [facility] Last Admin: 11/06/21 23:45 Dose: 3 ml Home Medications Medication Instructions Recorded Confirmed Last Taken Type ezetimibe 10 mg tablet 10 mg PO DAILY 01/21/20 11/05/21 11/04/21 History lisinopril 30 mg tablet 30 mg PO DAILY 01/21/20 11/05/21 11/04/21 History omeprazole 20 mg capsule,delayed 20 mg PO Q2D@0630 01/21/20 11/05/21 11/04/21 History release rosuvastatin 40 mg tablet 40 mg PO DAILY 01/21/20 11/05/21 11/04/21 History polyethylene glycol 3350 17 17 g PO DAILY PRN Constipation 04/02/21 11/05/21 11/04/21 History gram/dose oral powder warfarin 5 mg tablet 2.5 mg PO SUTUWETHFRSA@1800 07/09/21 11/05/21 11/04/21 History warfarin 5 mg tablet 5 mg PO MO@1800 07/09/21 11/05/21 11/01/21 History Exam Exam Date and Time: November 07, 2021 0732 Height,Weight and Vital Signs: Height 5 ft 8 in Weight 88.45 kg Last Vital Signs Temp 98.2 F 11/07/21 03:33 Pulse 50 11/07/21 07:28 Resp 20 11/07/21 07:28 BP 172/80 H 11/07/21 07:28 Pulse Ox 98 11/07/21 07:28 O2 Del Method 11/07/21 07:28 Pertinent Lab Results Pertinent Lab Results: Laboratory Tests 11/05/21 11/05/21 11/05/21 10:07 10:07 10:07 WBC 5.1 RBC 4.60 Hgb 13.6 L Hct 41.4 L MCV 90.0 MCH 29.6 MCHC 32.9 RDW 14.2 Plt Count 175 MPV 8.6 L Immature Gran % (Auto) 0.2 Neut % (Auto) 61.8 Lymph % (Auto) 23.5 [place] % (Auto) 10.8 Eos % (Auto) 2.5 Baso % (Auto) 1.2 Lymph # (Auto) 1.2 [place] # (Auto) 0.6 Eos # (Auto) 0.1 Baso # (Auto) 0.1 Abs Immat Gran (auto) 0.01 Absolute Neuts (auto) 3.2 Absolute Nucleated RBC 0.000 Nucleated RBC % (auto) 0.0 PT INR APTT Sodium 142 Potassium 4.9 Chloride 106 Carbon Dioxide 26 Anion Gap 15 BUN 20 H Creatinine 1.71 H Estim Creat Clear Calc 37.8 Estimated GFR 39 Random Glucose 100 Calcium 9.2 Troponin I High Sens 9.0 D COVID-19 ([facility]) COVID-19 Clin Com Blood Type Antibody Screen 11/05/21 11/05/21 11/05/21 10:07 10:07 10:14 WBC RBC Hgb Hct MCV MCH MCHC RDW Plt Count MPV Immature Gran % (Auto) Neut % (Auto) Lymph % (Auto) [place] % (Auto) Eos % (Auto) Baso % (Auto) Lymph # (Auto) [place] # (Auto) Eos # (Auto) Baso # (Auto) Abs Immat Gran (auto) Absolute Neuts (auto) Absolute Nucleated RBC Nucleated RBC % (auto) PT 28.3 H INR 2.4 H APTT 48.3 H Sodium Potassium Chloride Carbon Dioxide Anion Gap BUN Creatinine Estim Creat Clear Calc Estimated GFR Random Glucose Calcium Troponin I High Sens COVID-19 ([facility]) Negative COVID-19 Clin Com See Note Blood Type O Positive Antibody Screen NEGATIVE 11/06/21 11/07/21 06:05 05:46 WBC RBC Hgb Hct MCV MCH MCHC RDW Plt Count MPV Immature Gran % (Auto) Neut % (Auto) Lymph % (Auto) [place] % (Auto) Eos % (Auto) Baso % (Auto) Lymph # (Auto) [place] # (Auto) Eos # (Auto) Baso # (Auto) Abs Immat Gran (auto) Absolute Neuts (auto) Absolute Nucleated RBC Nucleated RBC % (auto) PT 24.8 H 18.5 H INR 2.1 H 1.6 H APTT Sodium Potassium Chloride Carbon Dioxide Anion Gap BUN Creatinine Estim Creat Clear Calc Estimated GFR Random Glucose Calcium Troponin I High Sens COVID-19 ([facility]) COVID-19 Clin Com Blood Type Antibody Screen Airway Mallampati Class: III TM Dist: >3cm Neck ROM: Full Assessment and Plan Assessment Anesthesia Assessment: Anesthesia Plan Discussed and Chart Reviewed Final Anesthetic Review Family History of Problems with Anesthesia: No History of Problems with Anesthesia: No NPO: Yes ASA Class: III and Emergency Final Preanesthetic Review: Meds/Allgs Chart Reviewed, Consent Obtained/Reviewed and Anes Risks/Benef Reviewed Patient Risk: Intermediate Procedure Risk: Intermediate Anesthetic Plan Anesthetic Plan: GA Disposition: Standard PACU
--- NOTE | 2021-11-07 07:38 | P.CONGS_ITS ---
History of Present Illness Consult details Consult date: 11/07/21 Requesting physician: Sai Menchaca Narrative: 81-year-old man with history of paroxysmal AFib on Coumadin who had a loop recorder placed in June of 2021 for intermittent syncope. The day prior to a dmission, he had a syncopal episode during which the cardiac loop monitor recorded and 2nd pause. There were at least 1 other 3+ 2nd pause during that day. He was admitted to the hospital and his Coumadin was held in preparation for a dual-chamber permanent pacemaker in this setting. His INR has come down to 1.6 over the past few days. He denies any chest pain, shortness of breath, fevers, chills, orthopnea. Other than above, 12 point review of systems was done and negative. [facility] Past Medical History Medical History Dizziness Essential hypertension LBBB (left bundle branch block) Non-rheumatic aortic sclerosis PAF (paroxysmal atrial fibrillation) Family History Family History Father No problems noted. Mother No problems noted. Surgical History Surgical History No pertinent past surgical history Social History Social History Household Members: Spouse Housing: House Do you presently have visiting nurse or other home services: No Patient Tobacco Use Status: Never used Tobacco Advance Directives Date on File: 07/09/21 service: No Current occupational status: retired [employer] Allergies Allergy/AdvReac Type Severity Reaction Status Date / Time No Known Allergies Allergy Verified 10/01/21 10:33 [No Known Allergies*] Active Medications: Current Medications Acetaminophen (Acetaminophen 325 Mg Tablet) 650 mg PO Q6H PRN PRN Reason: Pain, Mild (Pain Scale 1-3) Atorvastatin Calcium (Atorvastatin Calcium 80 Mg Tablet) 80 mg PO DAILY [facility] Last Admin: 11/06/21 07:35 Dose: Not Given Docusate Sodium (Docusate Sodium 100 Mg Capsule) 100 mg PO BID PRN PRN Reason: Constipation Cefazolin Sodium/Dextrose (Ancef) 2 gm in 50 mls @ 100 mls/hr IV PREOP ONE Stop: 11/08/21 06:29 Magnesium Hydroxide (Milk Of Magnesia 30 Ml Oral.Susp) 30 ml PO DAILY PRN PRN Reason: Constipation Last Admin: 11/06/21 17:44 Dose: 30 ml Omeprazole (Omeprazole 20 Mg Capsule.Dr) 20 mg PO Q2D@0630 [facility] Last Admin: 11/06/21 05:26 Dose: Not Given Ondansetron HCl (Ondansetron Hcl 4 Mg/2 Ml Vial) 4 mg IVPUSH Q8H PRN PRN Reason: Nausea and Vomiting Pharmacy Consult (Consult Rx Perform Med Rec) 1 each MISCELLANE ONCE PRN PRN Reason: Consult order Sodium Chloride (0.9 % Sodium Chloride Flush 3 Ml Syringe) [facility] Last Admin: 11/06/21 23:45 Dose: 3 ml Home Medications Medication Instructions Recorded Confirmed Last Taken Type ezetimibe 10 mg tablet 10 mg PO DAILY 01/21/20 11/05/21 11/04/21 History lisinopril 30 mg tablet 30 mg PO DAILY 01/21/20 11/05/21 11/04/21 History omeprazole 20 mg capsule,delayed 20 mg PO Q2D@0630 01/21/20 11/05/21 11/04/21 History release rosuvastatin 40 mg tablet 40 mg PO DAILY 01/21/20 11/05/21 11/04/21 History polyethylene glycol 3350 17 17 g PO DAILY PRN Constipation 04/02/21 11/05/21 11/04/21 History gram/dose oral powder warfarin 5 mg tablet 2.5 mg PO SUTUWETHFRSA@1800 07/09/21 11/05/21 11/04/21 History warfarin 5 mg tablet 5 mg PO MO@1800 07/09/21 11/05/21 11/01/21 History Physical Exam Vital Signs: Vital Signs: Last Vital Signs Temp 98.2 F 11/07/21 03:33 Pulse 50 11/07/21 07:28 Resp 20 11/07/21 07:28 BP 172/80 H 11/07/21 07:28 Pulse Ox 98 11/07/21 07:28 O2 Del Method 11/07/21 07:28 BMI result Body Mass Index 29.6 General: No acute distress HEENT: Moist mucous membranes, normocephalic, pupils equal round and reactive to light. Neck: No thyromegaly, supple, no JVD Lymph: No cervical, supraclavicular, or other lymphadenopathy Chest: No chest wall abnormalities or deformities Heart: Regular rate and rhythm Lungs: Clear to auscultation bilaterally Abdomen: Soft, nontender, normal bowel sounds Extremities: No edema, cyanosis, or clubbing. Full range of motion Neuro: Grossly intact, alert and oriented x3, and nonfocal Skin: Warm and dry no rashes Affect: Normal Results Labs Result diagrams: 11/05/21 10:07 11/05/21 10:07 Labs: Abnormal lab results 11/07/21 Range/Units 05:46 PT 18.5 H (10.0-13.1) SEC INR 1.6 H (0.9-1.1) All other labs normal. Imaging Chest x-ray: image reviewed Assessment and Plan (1) High-grade atrioventricular block: Status: Acute 81-year-old gentleman with high-degree AV block in the setting of syncope captured an 2nd pause during a syncopal episode on an implantable loop recorder. His INR has come down to 1.6 and had a long discussion with him about the findings on the loop recorder and his syncopal episode. We discussed the risks, benefits, and alternatives of a dual-chamber permanent pacemaker placement which he understood and agreed to proceed. (2) Syncope: Status: Acute (3) PAF (paroxysmal atrial fibrillation): Status: Acute Procedures Date of Service Date of Service: 11/07/21
--- NOTE | 2021-11-07 09:50 | HO.PM.IMPN ---
Subjective Subjective Date of Service: 11/07/21 Review of Systems seen in f/u for heart block and awating pace maker Interval history: no dizziness, awaiting pace maker, no new pauses reported Physical Exam Vital Signs: Vital Signs: Last Vital Signs Temp 98.2 F 11/07/21 03:33 Pulse 50 11/07/21 07:28 Resp 20 11/07/21 07:28 BP 172/80 H 11/07/21 07:28 Pulse Ox 98 11/07/21 07:28 O2 Del Method 11/07/21 07:28 BMI result Body Mass Index 29.6 Const: Other: Constitutional - Awake and Alert, No apparent distress Eyes - PERRLA, EOMI Cardiovascular - S1S2, RRR, No edema Respiratory - Normal lung expansion, Normal respiratory effort, No respiratory distress, CTA bilaterally Gastrointestinal - NT / ND; +BS; No rebound or guarding - No CVA tenderness Extremities - no calf tenderness bilaterally, no swelling Musculoskeletal - Normal inspection, normal ROM Skin - Warm/Dry Neurological - Alert & oriented x3, No focal deficit Psychological - Appropriate affect Objective Data Active Medications Acetaminophen (Acetaminophen 325 Mg Tablet) 650 mg PO Q6H PRN PRN Reason: Pain, Mild (Pain Scale 1-3) Atorvastatin Calcium (Atorvastatin Calcium 80 Mg Tablet) 80 mg PO DAILY [facility] Last Admin: 11/07/21 09:41 Dose: Not Given Documented By: GINETTE Non-Admin Reason: Off Unit: Surgery Docusate Sodium (Docusate Sodium 100 Mg Capsule) 100 mg PO BID PRN PRN Reason: Constipation Cefazolin Sodium/Dextrose (Ancef) 2 gm in 50 mls @ 100 mls/hr IV PREOP ONE Stop: 11/08/21 06:29 Magnesium Hydroxide (Milk Of Magnesia 30 Ml Oral.Susp) 30 ml PO DAILY PRN PRN Reason: Constipation Last Admin: 11/06/21 17:44 Dose: 30 ml Documented By: BONNIE Omeprazole (Omeprazole 20 Mg Capsule.Dr) 20 mg PO Q2D@0630 [facility] Last Admin: 11/06/21 05:26 Dose: Not Given Documented By: DAVID Non-Admin Reason: NPO Ondansetron HCl (Ondansetron Hcl 4 Mg/2 Ml Vial) 4 mg IVPUSH Q8H PRN PRN Reason: Nausea and Vomiting Pharmacy Consult (Consult Rx Perform Med Rec) 1 each MISCELLANE ONCE PRN PRN Reason: Consult order Sodium Chloride (0.9 % Sodium Chloride Flush 3 Ml Syringe) 3 ml IVFLUSH QSHIFT [facility] Last Admin: 11/07/21 09:41 Dose: Not Given Documented By: GINETTE Non-Admin Reason: Off Unit: Surgery Labs CBC & Chem 7: 11/05/21 10:07 11/05/21 10:07 Labs: Laboratory Results - last 24 hr 11/07/21 05:46 PT 18.5 H INR 1.6 H Assessment and Plan (1) High-grade atrioventricular block: Status: Acute (2) Essential hypertension: Status: Acute Plan 81 yo M with a PMH of PAF on Amio + Coumadin, CKD3, prior syncopal episode with ILR in place who presents to the ED after a syncopal episode 2 days [employer]. An 8 sec pause was captured on his ILR and hence he has been referred to the ED for PPM. 1. Syncope secondary to 8-secdon pause Plan for PPM today today 2. PAF on amio/coumadin INR therapeutic, hold coumadin today in light of surgery, start when okay from surgical perspective hold amio and restart after pace maker 3. HLD statin/zetia CT head/neck/c-spine pending -- clinically stable without acute neurological findings on exam. Full Code DVT pptx -- Coumadin Quality Stroke Does the patient have a stroke diagnosis?: No VTE Prior VTE?: No VTE Risk Level:: Medical - moderate - high VTE Device Contraindication: Treatment Not Indicated VTE Drug Contraindication: N/A - Med Ordered
--- NOTE | 2021-11-07 10:24 | P.OP_ITS ---
Operative Note Operative Note Date of Service: 11/07/21 Narrative: Preoperative diagnosis: High grade AV block and syncope Postoperative diagnosis: Same Operation: Placement of dual-chamber permanent pacemaker with fluoroscopic guidance Surgeon: Frederick Diaz MD Specimens: None EBL: 5 cc Operative findings: The pacemaker placed was a Medtronic serial [id number] . The atrial lead was a Medtronic serial [id number] . The ventricular lead was a Medtronic serial [id number]. Parameters in the right atrial lead sensing was 1.8 eventually with impedance of 456 and a threshold of 0.5 volts at 0.4 milliseconds. In the ventricular lead threshold was 0.75 volts at 0.4 milliseconds with an impedance of 722 Ohms with an R-wave of 11.9 mV. Patient tolerated procedure well. After initial placement of the atrial lead and during closing retesting showed inconsistent pacing/thresholds. For that reason we had reopen and adjust the lead due to some slack that had developed. This added 1 hour to the operation Operation in detail: The patient was brought to the operating room, placed supine on the operating room table, anesthesia moderate of ices were placed, and the patient was gently sedated. A time-out was performed confirming the correct patient site and procedure. After injection of local anesthetic, a 3 cm incision was made in the left infraclavicular region and carried down to the pectoralis fascia with electrocautery. The patient was then placed in Trendelenburg and an 18 gauge needle was used to access subclavian vein on the 1st take. And a wire was placed into the right atrium under fluoroscopic guidance. A 2nd 18 gauge needle was then used to access the subclavian vein again on the 1st ache and a wire was placed under fluoroscopic guidance and parked in the right atrium. The patient was then taken out of Trendelenburg and a pocket was formed using blunt and electrocautery dissection. The 1st 7 [place] sheath was then placed over wire and the wire and dilator were removed. The ventricular lead was then placed through the sheath and parked in the right atrium and the peel-away sheath was removed. After several attempts using a curved stylet we were eventually able to access the right ventricle and the tip of the lead was positioned at the [facility] ventricular apex. The endocardial screw was deployed and the lead was tested with excellent parameters above. This lead was then secured with silk sutures to the pectoralis fascia. The 2nd 7 [place] sheath was then placed over the 2nd wire and a wire dilator removed. The atrial lead was then placed and parked in the right atrium. AJ stylet was used to position this in the right atrial appendage. The endocardial screws deployed and the lead was tested with excellent parameters. This lead was also secured with silk sutures to the pectoralis fascia. The pocket was then copiously irrigated with antibiotic solution. The leads were then placed in their appropriate receptacles and the pacemaker was tested again with parameters this time showing inconsistent pacing in the atrial lead. We then reopened the incision that was nearly completely closed and pulled out the generator disconnecting each of the leads. Fluoroscopy showed that there was a lack of slack within the atrial lead which he tried to adjust just with the stylet however pacing was still inconsistent. We then brought in the endocardial screw and reposition the lead with a J stylet. The endocardial screws again deployed and the lead was tested with excellent parameters. The wound was again copiously irrigated with antibiotic solution and the atrial lead was secured to the pectoralis fascia. The generator and excess lead was then placed into the pocket. The wound was then closed with a deep running 3-0 Vicryl suture followed by running 3-0 Vicryl suture and Dermabond glue in the skin. The patient was then brought back to the PACU in stable condition.
[2021-11-07] MEDS: 0.9 % Sodium Chloride Flush 3 ML SYRINGE IVFLUSH ×2 (16:51→21:42)
[2021-11-07] MEDS: Milk of Magnesia 30 ML ORAL.SUSP PO (21:42)
[2021-11-07] MEDS: Melatonin 3 MG TABLET 6 MG PO (21:42)
[2021-11-07] MEDS: Throat Lozenge, Medicated LOZENGE 1 LOZENGE MUCOUS MEM (21:42)
[2021-11-08 03:39] VITALS: BP 123/72; PULSE 60; RESP 20; TEMP 36.7; O2SAT 94
[2021-11-08] MEDS: Omeprazole 20 MG CAPSULE.DR PO (06:01)
[2021-11-08 06:59] LABS: INTERNATIONAL NORM RATIO 1.5 (0.9-1.1); Prothrombin Time 16.9 SEC (10.0-13.1)
[2021-11-08 07:07] VITALS: BP 133/73; PULSE 73; RESP 19; TEMP 36.4; O2SAT 95
[2021-11-08] MEDS: 0.9 % Sodium Chloride Flush 3 ML SYRINGE IVFLUSH (08:07)
[2021-11-08] MEDS: Atorvastatin Calcium 80 MG TABLET PO (08:07)
--- NOTE | 2021-11-08 09:47 | PM.PNCARD ---
Subjective Subjective Date of Service: 11/08/21 Principal diagnosis: status post pacemaker, paroxysmal atrial fibrillation Review of Systems Constitutional: Reports no additional constitutional complaints Physical Exam Vital Signs: Last Vital Signs Temp 97.6 F 11/08/21 07:07 Pulse 73 11/08/21 07:07 Resp 19 11/08/21 07:07 BP 133/73 11/08/21 07:07 Pulse Ox 95 11/08/21 07:07 O2 Del Method 11/08/21 07:07 O2 Flow Rate 2 11/07/21 15:35 BMI result Body Mass Index 29.6 Const General: cooperative, comfortable, no acute distress, alert and awake Nutritional Appearance: overweight Orientation/consciousness: patient oriented x3 Neck Neck: Yes trachea midline and Yes no JVD Chest Chest palpation & inspection: other ( pacer pocket is benign) Resp Effort & Inspection: normal respiratory effort Auscultation: clear to auscultation bilaterally Cardio Jugular venous distension: no JVD Palpation: normal PMI Rate: regular rate Rhythm: regular rhythm Heart sounds: S1 normal heart sound present, S2 normal heart sound present, no click, no gallops and no murmurs GI Auscultation: normal bowel sounds Skin General skin exam: no rashes or lesions noted Neuro General: patient oriented x3 and no focal motor deficits Objective Labs and Meds Result diagrams: 11/05/21 10:07 11/05/21 10:07 Lab results: Laboratory Results - last 24 hr 11/08/21 06:27 PT 16.9 H INR 1.5 H Imaging Radiologist's impression: Impressions Guidance Fluoroscopy 11/07/21 10:30 IMPRESSION: Please see procedure report for full details. Fluoroscopy and spot films provided during pacemaker placement. Chest X-Ray 11/07/21 10:45 FINDINGS/IMPRESSION: The study is limited by portable technique and low lung volumes. The tips of new left subclavian pulse generator device leads project over the right atrium and right ventricle. No pneumothorax or pleural fluid is seen. Linear density at the left lung base suggests atelectasis and/or infiltrate. The right lung appears clear. The heart size is poorly evaluated. The aorta is mildly atherosclerotic. Progress Note: A&P Assessment and plan (1) Syncope: Status: Acute Assessment and Plan: patient prior history of syncope status post implantable loop recorder placement which showed 8 stocking pause which could be secondary to high grade AV block or sinus pause unclear. Both of possible given his prior history of paroxysmal atrial fibrillation as well as left bundle-branch block and underlying aortic stenosis. He is status post dual-chamber pacemaker placement. Will make sure the pacemaker is working well and his chest x-ray is repeated. They are within normal limits patient can be discharged home later today. Please resume his amiodarone and warfarin therapy. Follow-up INR check in 2-3 days. (2) PAF (paroxysmal atrial fibrillation): Status: Acute Assessment and Plan: Paroxysmal atrial fibrillation has remained suppressed in sinus rhythm. Continue amiodarone therapy 200 mg daily. Being followed by Dr. Romano in the office. Will set up for follow-up in 7-10 days. Patient noted to have elevated creatinine and will hold off on lisinopril therapy at this point time. Advised patient to monitor blood pressure at home and maintain a log. Will adjust his medications as outpatient. (3) Cardiac pacemaker in situ: Status: Acute Assessment and Plan: Cardiac pacemaker in-situ, dual-chamber pacemaker will. Will set up for wound check in 7-10 days and follow up in 6 weeks in the clinic for complete pacemaker check at that point in time. Will sign of the case at this point time. Thank you for allowing me to partake in his care Time Spent With Patient Time: Total time spent is greater than 50% in coordination of care (as documented) at patient's floor/unit and/or counseling patient: Progress Note: Quality Stroke Does the patient have a stroke diagnosis?: No Procedures Date of Service Date of Service: 11/08/21
[2021-11-08 10:52] VITALS: BP 122/66; PULSE 60; RESP 18; TEMP 36.4; O2SAT 95
--- NOTE | 2021-11-08 11:45 | MHC.CLN ---
RE: CONSULT FOR WT LOSS/GAIN PREVIOUS WT HX REVEALS: CURRENT 88.45KG 90KG (11/30/20) 2% WT LOSS X 1 YEAR WHICH IS NONSIGNIFICANT AT THIS TIME CONTINUE CURRENT CARE PLAN
--- NOTE | 2021-11-08 13:34 | HO.POSTANES ---
Post Anesthesia Evaluation Post Anesthesia Evaluation Vital Signs: Vital Signs Temp Pulse Resp BP Pulse Ox O2 Del Method 11/08/21 10:52 97.5 F 60 18 122/66 95 Room Air 11/08/21 07:07 97.6 F 73 19 133/73 95 Room Air 11/08/21 03:39 98.1 F 60 20 123/72 94 Room Air Anesthesia: General Mental Status: Awake Pain Control: Satisfactory Nausea/Vomiting: None Hydration: Adequate Anesthesia-Related Issues: No Anes. Related Issues
--- NOTE | 2021-11-08 13:38 | MHC.CM.PN ---
Patient discharged to home today. No Home services ordered. Patient has arranged for transportation home.
--- NOTE | 2021-11-08 15:37 | PM.DS ---
DS: Providers Provider Date of Service: 11/08/21 Date of admission: 11/05/21 13:16 Primary care physician: Duncan Sorensen MD Consults: 11/05/21 09:46 Consult to Cardiology Stat Consulting Provider: Sai Menchaca Reason for consultation: Syncope Consult to Thoracic Surgery Stat Consulting Provider: Frederick Diaz Reason for consultation: Syncope, Need Pacemaker 11/05/21 12:01 Consult to Thoracic Surgery Routine Consulting Provider: Frederick Diaz Reason for consultation: syncope, 8 sec pause on ILR, needs PPM 11/05/21 12:03 Consult to Cardiology Routine Consulting Provider: Sai Menchaca Reason for consultation: syncope, 8 sec pause on ILR, needs PPM DS: Diagnosis Discharge Diagnosis (1) Syncope: Status: Acute (2) PAF (paroxysmal atrial fibrillation): Status: Acute (3) Cardiac pacemaker in situ: Status: Acute DS: Summary Hospital Course Hospital Course: History of presenting illness Date of Service: 11/05/21 Chief Complaint: Syncope This is a 81 yo M with a PMH of PAF on coumadin and amiodarone, CKD3, HLD who has an ILR for prior episodes of syncope. 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 This syncopal episode coincided with an 8 second pause captured on his ILR. Hence, he was referred to the ED for admission for PPM. The patient himself currently denies any complaints. He reports that his syncopal episode was the same as his prior episodes -- no prodromal symptoms followed by sudden LOC. He denies any current TAVERAS, dizziness. Denies any chest pain or sob. Denies any n/v/d. Per the ED provider -- the case has been d/w both cardiology and thoracic surgery with plans for PPM. He is to be kept NPO. 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 An 8 sec pause was captured on his ILR and therefore was referred to ED for PPM. 1. Syncope secondary to 8-second pause, status post pacemaker placement , continue amiodarone and Coumadin , instructed patient to follow up with Dr. Kev for wound check in next 7-10 days, recommend to continue sling As recommended by thoracic surgery. 2. PAF stable ventricular rate post pacemaker placement continue amiodarone and Coumadin follow PT INR in 2-3 days, recommend to hold lisinopril, will be re-evaluated by Cardiology and resume if necessary 3. HLD continue statin and Zetia Time Spent with Patient Time attestation: Total time spent providing and/or coordinating discharge services: Discharge coordination time: Greater than 30 minutes Quality: Safe Use of Opioids Does Pt have an Active Cancer Diagnosis on the Problem List?: No Quality: Stroke Does the patient have a stroke diagnosis?: No Physical Exam Vital Signs: Vital Signs: Last Vital Signs Temp 97.5 F 11/08/21 10:52 Pulse 60 11/08/21 10:52 Resp 18 11/08/21 10:52 BP 122/66 11/08/21 10:52 Pulse Ox 95 11/08/21 10:52 O2 Del Method 11/08/21 10:52 O2 Flow Rate 2 11/07/21 15:35 BMI result Body Mass Index 29.6 Const: Other: General awake alert x3 resting comfortably in no acute distress. Neck no JVD. CVS decreased makers side incision dry and clean surrounding bruise, regular rate rhythm, Respiratory lungs clear to auscultation, no respiratory distress, no wheeze, no rhonchi. Gastrointestinal abdomen soft, nontender, bowel sounds audible, no guarding , no rigidity. Extremities no edema. Neuro nonfocal Skin no rash Psych appropriate affect DS: Data Data Completed and Pending Labs on day of discharge: Laboratory Results - last 24 hr 11/08/21 06:27 PT 16.9 H INR 1.5 H Discharge Plan Discharge Patient Disposition: Home, Self-Care Discharge Diagnosis: syncope 8 sec pause status post pacemaker placement Referrals: Duncan Sorensen MD [Primary Care Provider] - 1 Week Discharge Medications: Continued amiodarone 200 mg tablet 200 mg PO DAILY 90 Days Qty: 90 1RF warfarin 5 mg Tablet 2.5 mg PO SUTUWETHFRSA@1800 Protocol: Dose Management Condition: Monday (Week One) Dose/Route: 2.5 mg Instruction: 0.5 x 5 mg tablets Condition: Monday Dose/Route: 5 mg Instruction: 1 x 5 mg tablet Condition: Monday Dose/Route: 2.5 mg Instruction: 0.5 x 5 mg tablets Condition: Monday Dose/Route: 2.5 mg Instruction: 0.5 x 5 mg tablets Condition: Dose/Route: 2.5 mg Instruction: 0.5 x 5 mg tablets Condition: Monday Dose/Route: 2.5 mg Instruction: 0.5 x 5 mg tablets Condition: Monday Dose/Route: 2.5 mg Instruction: 0.5 x 5 mg tablets Condition: Monday ( Two) Dose/Route: 2.5 mg Instruction: 0.5 x 5 mg tablets Condition: Monday Dose/Route: 5 mg Instruction: 1 x 5 mg tablet Condition: Monday Dose/Route: 2.5 mg Instruction: 0.5 x 5 mg tablets Condition: Monday Dose/Route: 2.5 mg Instruction: 0.5 x 5 mg tablets Condition: Dose/Route: 2.5 mg Instruction: 0.5 x 5 mg tablets Condition: Monday Dose/Route: 2.5 mg Instruction: 0.5 x 5 mg tablets Condition: Monday Dose/Route: 2.5 mg Instruction: 0.5 x 5 mg tablets Protocol Text: Adjustment Start Date: Monday10/01/21 INR Value: 2.6 INR Date: 10/01/21 Recheck Date: 11/05/21 Additional Instructions: cont reg dosing call with any medication changes warfarin 5 mg tablet 5 mg PO MO@1800 Protocol: Dose Management Condition: Monday (Week One) Dose/Route: 2.5 mg Instruction: 0.5 x 5 mg tablets Condition: Monday Dose/Route: 5 mg Instruction: 1 x 5 mg tablet Condition: Monday Dose/Route: 2.5 mg Instruction: 0.5 x 5 mg tablets Condition: Monday Dose/Route: 2.5 mg Instruction: 0.5 x 5 mg tablets Condition: Dose/Route: 2.5 mg Instruction: 0.5 x 5 mg tablets Condition: Monday Dose/Route: 2.5 mg Instruction: 0.5 x 5 mg tablets Condition: Monday Dose/Route: 2.5 mg Instruction: 0.5 x 5 mg tablets Condition: Monday ( Two) Dose/Route: 2.5 mg Instruction: 0.5 x 5 mg tablets Condition: Monday Dose/Route: 5 mg Instruction: 1 x 5 mg tablet Condition: Monday Dose/Route: 2.5 mg Instruction: 0.5 x 5 mg tablets Condition: Monday Dose/Route: 2.5 mg Instruction: 0.5 x 5 mg tablets Condition: Dose/Route: 2.5 mg Instruction: 0.5 x 5 mg tablets Condition: Monday Dose/Route: 2.5 mg Instruction: 0.5 x 5 mg tablets Condition: Monday Dose/Route: 2.5 mg Instruction: 0.5 x 5 mg tablets Protocol Text: Adjustment Start Date: Monday10/01/21 INR Value: 2.6 INR Date: 10/01/21 Recheck Date: 11/05/21 Additional Instructions: cont reg dosing call with any medication changes rosuvastatin 40 mg tablet 40 mg PO DAILY omeprazole 20 mg capsule,delayed release(DR/EC) 20 mg PO Q2D@0630 ezetimibe 10 mg tablet 10 mg PO DAILY polyethylene glycol 3350 17 gram/dose powder 17 g PO DAILY PRN (Reason: Constipation) Discontinued lisinopril 30 mg tablet 30 mg PO DAILY Label Comments: PT REPORTS TAKING 1/2 TABLET DAILY Discharge Orders: Discharge Order (Routine); Ordered 11/08/21 Ordered By: Jose E Mata Diet: Low fat, low cholesterol Activity on Discharge: As tolerated Stand Alone Forms: Patient Portal Discharge page Care Plan Goals: Syncope due to cardiac pause status post pacemaker continue sling as per surgery recommendation Health Concerns: Continue all medications as before, start lisinopril Plan of Treatment: Follow-up with cardiology in 7-10 days for wound check Check PT INR in 2-3 days keep INR between 2-3 Assessment: as per discharge summary Discharge Date/Time: 11/08/21 16:35
--- NOTE | 2021-11-08 15:44 | PM.PNTS ---
Subjective Subjective Date of Service: 11/08/21 Physical Exam Vital Signs: Vital Signs: Last Vital Signs Temp 97.5 F 11/08/21 10:52 Pulse 60 11/08/21 10:52 Resp 18 11/08/21 10:52 BP 122/66 11/08/21 10:52 Pulse Ox 95 11/08/21 10:52 O2 Del Method 11/08/21 10:52 O2 Flow Rate 2 11/07/21 15:35 BMI result Body Mass Index 29.6 Progress Note: A&P Assessment and plan Plan ACTIVITY: ? ARM MOVEMENT RESTRICTIONS: No lifting your left arm over your head or behind your back, no pushing/pulling/lifting anything >10lb with your ___ arm for 6-8 weeks. This ensures the pacemaker wires stay in place and do not get pulled out accidentally. Make sure you are doing gentle range of motion exercises with the ___ arm (such as pendulum exercise) to make sure your elbow and shoulder do not get frozen up. ? ARM SLING: Keep the sling on until tomorrow. You may then take the sling off and leave it off. HOWEVER, if you are noticing a difficulty limiting your ___ arm movement (as outline above) then wear your sling during the day to make sure you are adhering to the restrictions above. ? Ask your doctor when you can expect to return to work. ? You can still exercise. It is good for your body and your heart. Talk with your doctor about an exercise plan. INCISION CARE: ? You may shower starting tomorrow, ___. Sponge bathe only until then. ? Do not submerge yourself in water (baths, pools, etc.) for 2 weeks. ? Monitor the incision for increased redness, swelling, bruising, pain, open area, or drainage. OTHER PRECAUTIONS: ? Before you receive any treatment, tell all healthcare providers (including your dentist) that you have a pacemaker. ? You will be given an ID card that contains information about your pacemaker. Always carry this card with you. You can show this card if your pacemaker sets off a metal detector. You should also show it to avoid screening with a hand-held security wand. ? Keep your cell phone away from your pacemaker. Do not carry the phone in your shirt pocket, even it if is turned off. ? Avoid strong magnets. Examples are those used in MRI's or in hand-held security wands. ? Avoid strong electrical cannon. Examples are those made by radio transmitting towers, ham radios, and heavy-duty electrical equipment. ? Avoid leaning over the open hernandez of a running car. A running engine creates an electrical field. Most household and yard appliances will not cause any problems. If you use any large power tools, such as an industrial apprentice architect, talk with your doctor. WHEN TO CALL YOUR DOCTOR: Call your doctor immediately if you have any of the following: ? Dizziness ? Chest pain ? Lack of energy ? Fainting spells ? Twitching chest muscles ? Rapid pule or pounding heartbeat ? Shortness of breath ? Pain around your pacemaker ? Fever above 100.4 F (38 C) or other signs of infection (redness, swelling, drainage, or warmth at the incision site). ? Hiccups that will not stop FOLLOWUP APPOINTMENTS: ? Call Dr. Diaz's office (Thoracic Surgery) as soon as you get home to schedule a followup appointment for 2 weeks from now. The office number is / . ? 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 Make regular follow-up appointments with your doctor. He or she will check the pacemaker to make sure it is working properly. Time Spent With Patient Time: Total time spent is greater than 50% in coordination of care (as documented) at patient's floor/unit and/or counseling patient: Quality Stroke Does the patient have a stroke diagnosis?: No VTE Prior VTE?: No VTE Risk Level:: Medical - moderate - high VTE Device Contraindication: Treatment Not Indicated VTE Drug Contraindication: N/A - Med Ordered
== END 2021-11-08 16:35 | disposition home or self-care (01) ==
LOC: HO.ED 11:59 → HO.EDOVER 13:44 → HO.IMC 20:00 → HO.SSS 12-24 08:05 → HO.EDOVER 12-24 08:05
PROVIDERS: Family Medicine; Student in an Organized Health Care Education/Training Program; Surgery; Emergency Provider Internal Medicine; PCP Internal Medicine; Visit Provider Hospitalist
PROC: (CPT 33208; principal; 2021-11-07 07:30)
DX: I44.1 Atrioventricular block, second degree (principal); R55 Syncope and collapse; I48.0 Paroxysmal atrial fibrillation; I12.9 Hypertensive chronic kidney disease with stage 1 through stage 4 chronic kidney disease, or unspecified chronic kidney disease; N18.9 Chronic kidney disease, unspecified; R51.9 Headache, unspecified; R26.81 Unsteadiness on feet; I44.7 Left bundle-branch block, unspecified; R00.1 Bradycardia, unspecified; Z20.822 Contact with and (suspected) exposure to COVID-19; E78.5 Hyperlipidemia, unspecified; Z79.01 Long term (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; Z79.02 Long term (current) use of antithrombotics/antiplatelets; Z79.899 Other long term (current) drug therapy
CPT/HCPCS: 33208; 36415; 70450; 71045; 72125; 80048; 84484; 85025; 85610; 85730; 86850; 86900; 86901; 87635; 93005; 99284; 99285; C1785; C1892; C1898; J0690; J1100; J2250; J2405; J3010; J3370

== ENCOUNTER → 2021-11-19 10:05 | Outpatient (BNVA) | payer MEDICARE, SELFPAY | PROVIDERS: PCP Internal Medicine; Visit Provider Internal Medicine | DX: I48.0 Paroxysmal atrial fibrillation (principal); Z79.01 Long term (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; Z51.81 Encounter for therapeutic drug level monitoring | CPT/HCPCS: 85610; 99211 ==

== ENCOUNTER → 2021-12-07 11:28 | Outpatient (BNVA) | payer MEDICARE, SELFPAY | PROVIDERS: PCP Internal Medicine; Visit Provider Internal Medicine | DX: Z45.018 Encounter for adjustment and management of other part of cardiac pacemaker (principal); I45.5 Other specified heart block; I44.7 Left bundle-branch block, unspecified; I35.8 Other nonrheumatic aortic valve disorders; I10 Essential (primary) hypertension; I48.0 Paroxysmal atrial fibrillation; Z79.01 Long term (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; Z51.81 Encounter for therapeutic drug level monitoring | CPT/HCPCS: 85610; 93280; 99211; 99212 ==

== ENCOUNTER 2021-12-17 09:54 | Outpatient (REF) | payer MEDICARE, SELFPAY ==
[2021-12-17 10:31] LABS: MANUAL DIFF FLAG NO
[2021-12-17 11:41] LABS: INTERNATIONAL NORM RATIO 2.3 (0.9-1.1); Prothrombin Time 27.5 SEC (10.0-13.1)
[2021-12-17 11:42] LABS: Basophils Percent Auto 0.7 % (0-2); Eosinophils Absolute Auto 0.1 X10*3/uL (0.0-0.4); Eosinophils Percent Auto 2.4 % (0-4); Hematocrit 40.8 % (42.0-52.0); Hemoglobin 13.2 g/dl (14.0-18.0); Imm Gran Abs Auto 0.01 X10*3/uL (0.00-0.03); Imm Gran Pct Auto 0.2 % (0.0-0.4); Lymphocytes Absolute Auto 1.1 X10*3/uL (1.2-4.9); Lymphocytes Percent Auto 19.7 % (20-40); Mean Corpuscular HGB Conc 32.4 g/dl (31.0-36.0); Mean Corpuscular Hemoglobin 29.5 pg (27.0-33.0); Mean Corpuscular Volume 91.1 fL (80.0-98.0); Mean Platelet Volume 9.4 fL (9.4-12.4); Monocytes Absolute Auto 0.5 X10*3/uL (0.1-1.2); Monocytes Percent Auto 9.3 % (2-11); Neutrophils Absolute Auto 3.9 x10*3/uL (2.0-8.3); Neutrophils Percent Auto 67.7 % (45-73); Platelet Count 186 X10*3/uL (160-400); Red Blood Count 4.48 X10*6/uL (4.60-5.80); Red Cell Distribution Width 13.8 % (11.0-16.0); White Blood Count 5.8 X10*3/uL (4.8-10.8)
[2021-12-17 12:24] LABS: Anion Gap 14 (12-20); Blood Urea Nitrogen 25 mg/dL (9-16); Calcium 9.3 mg/dL (8.4-10.2); Carbon Dioxide 27 mmol/L (22-29); Chloride 105 mmol/L (96-108); Estimated Glomerular Filt Rate 44; Glucose Random 72 mg/dL (60-115); Potassium 4.8 mmol/L (3.3-5.1); Sodium 141 mmol/L (135-145)
[2021-12-17 12:38] LABS: TSH reflex Free T4 16.37 uIU/mL (0.32-4.0)
[2021-12-17 14:01] LABS: Free T4 (Free Thyroxine) 0.72 ng/dL (0.71-1.85)
== END 2021-12-17 09:55 | disposition home or self-care (01) ==
LOC: HO.LAB 09:54
PROVIDERS: Nurse Practitioner Family; PCP Internal Medicine; Visit Provider Internal Medicine
DX: I48.0 Paroxysmal atrial fibrillation (principal); R55 Syncope and collapse; Z51.81 Encounter for therapeutic drug level monitoring; Z79.01 Long term (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
CPT/HCPCS: 36415; 80048; 84439; 84443; 85025; 85610; 99211

== ENCOUNTER → 2022-01-14 10:05 | Outpatient (BNVA) | payer MEDICARE, SELFPAY | PROVIDERS: PCP Internal Medicine; Visit Provider Internal Medicine | DX: I48.0 Paroxysmal atrial fibrillation (principal); Z79.01 Long term (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; Z51.81 Encounter for therapeutic drug level monitoring | CPT/HCPCS: 85610; 99211 ==

== ENCOUNTER → 2022-02-18 09:54 | Outpatient (BNVA) | payer MEDICARE, SELFPAY | PROVIDERS: PCP Internal Medicine; Visit Provider Internal Medicine | DX: I48.0 Paroxysmal atrial fibrillation (principal); Z51.81 Encounter for therapeutic drug level monitoring; Z79.01 Long term (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 | CPT/HCPCS: 85610; 99211 ==

== ENCOUNTER → 2022-03-15 12:08 | Outpatient (BNVA) | payer MEDICARE, SELFPAY | PROVIDERS: PCP Internal Medicine; Visit Provider Internal Medicine | DX: I48.0 Paroxysmal atrial fibrillation (principal); I45.5 Other specified heart block; I44.7 Left bundle-branch block, unspecified; I35.8 Other nonrheumatic aortic valve disorders; I10 Essential (primary) hypertension | CPT/HCPCS: 93005; 99212 ==

== ENCOUNTER 2022-03-25 09:44 | Outpatient (REF) | payer MEDICARE, SELFPAY ==
[2022-03-25 12:18] LABS: TSH reflex Free T4 15.81 uIU/mL (0.32-4.0)
[2022-03-25 13:20] LABS: Free T4 (Free Thyroxine) 0.61 ng/dL (0.71-1.85)
== END 2022-03-25 09:45 | disposition home or self-care (01) ==
LOC: HO.LAB 09:44
PROVIDERS: PCP Internal Medicine; Visit Provider Internal Medicine
DX: I48.0 Paroxysmal atrial fibrillation (principal); Z51.81 Encounter for therapeutic drug level monitoring; Z79.01 Long term (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
CPT/HCPCS: 36415; 84439; 84443; 85610; 99211

== ENCOUNTER → 2022-04-13 13:49 | Outpatient (BNVA) | payer MEDICARE, SELFPAY | PROVIDERS: PCP Internal Medicine; Visit Provider Internal Medicine Endocrinology, Diabetes & Metabolism | DX: E03.9 Hypothyroidism, unspecified (principal); Z79.899 Other long term (current) drug therapy | CPT/HCPCS: 99202 ==

== ENCOUNTER → 2022-04-20 11:44 | Outpatient (BNVA) | payer MEDICARE, SELFPAY | PROVIDERS: PCP Internal Medicine; Visit Provider Internal Medicine | DX: I48.0 Paroxysmal atrial fibrillation (principal); Z79.01 Long term (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; Z51.81 Encounter for therapeutic drug level monitoring | CPT/HCPCS: 85610; 99211 ==

== ENCOUNTER → 2022-04-29 10:15 | Outpatient (BNVA) | payer MEDICARE, SELFPAY | PROVIDERS: PCP Internal Medicine; Visit Provider Internal Medicine | DX: I48.0 Paroxysmal atrial fibrillation (principal); Z79.01 Long term (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; Z51.81 Encounter for therapeutic drug level monitoring | CPT/HCPCS: 85610; 99211 ==

== ENCOUNTER 2022-05-11 13:23 | Outpatient (REF) | payer MEDICARE, SELFPAY ==
[2022-05-11 14:35] LABS: Free T4 (Free Thyroxine) 1.15 ng/dL (0.71-1.85); Thyroid Stimulating Hormone 7.22 uIU/mL (0.32-4.0)
[2022-05-12 22:34] LABS: Thyroid Peroxidase Antibodies 2 IU/mL (<9)
== END 2022-05-11 13:24 | disposition home or self-care (01) ==
LOC: HO.LAB 13:23
PROVIDERS: PCP Internal Medicine; Visit Provider Internal Medicine Endocrinology, Diabetes & Metabolism
DX: E03.9 Hypothyroidism, unspecified (principal)
CPT/HCPCS: 36415; 84439; 84443; 86376

== ENCOUNTER → 2022-05-27 13:10 | Outpatient (BNVA) | payer MEDICARE, SELFPAY | PROVIDERS: PCP Internal Medicine; Visit Provider Internal Medicine | DX: I48.0 Paroxysmal atrial fibrillation (principal); Z79.01 Long term (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; Z51.81 Encounter for therapeutic drug level monitoring | CPT/HCPCS: 85610; 99211 ==

== ENCOUNTER → 2022-06-03 10:13 | Outpatient (BNVA) | payer MEDICARE, SELFPAY | PROVIDERS: PCP Internal Medicine; Visit Provider Internal Medicine | DX: I48.0 Paroxysmal atrial fibrillation (principal); Z79.01 Long term (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; Z51.81 Encounter for therapeutic drug level monitoring | CPT/HCPCS: 85610; 99211 ==

== ENCOUNTER → 2022-06-22 09:41 | Outpatient (BNVA) | payer MEDICARE, SELFPAY | PROVIDERS: PCP Internal Medicine; Visit Provider Internal Medicine | DX: I48.0 Paroxysmal atrial fibrillation (principal); Z79.01 Long term (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; Z51.81 Encounter for therapeutic drug level monitoring | CPT/HCPCS: 85610; 99211 ==

== ENCOUNTER 2022-07-04 13:40 | Outpatient (REF) | payer MEDICARE, SELFPAY ==
[2022-07-04 15:32] LABS: Creatinine Urine 116.78 mg/dL; Protein/Creatinine Ratio, Ur 0.15 (<0.2); Total Protein Urine Random 17 mg/dL (<12)
[2022-07-04 15:33] LABS: Anion Gap 10 (12-20); Blood Urea Nitrogen 22 mg/dL (9-16); Calcium 8.8 mg/dL (8.4-10.2); Carbon Dioxide 25 mmol/L (22-29); Chloride 109 mmol/L (96-108); Estimated Glomerular Filt Rate 45; Potassium 4.3 mmol/L (3.3-5.1); Sodium 140 mmol/L (135-145)
== END 2022-07-04 13:41 | disposition home or self-care (01) ==
LOC: HO.LAB 13:40
PROVIDERS: PCP Internal Medicine; Visit Provider Internal Medicine Nephrology
DX: I12.9 Hypertensive chronic kidney disease with stage 1 through stage 4 chronic kidney disease, or unspecified chronic kidney disease (principal); N18.30 Chronic kidney disease, stage 3 unspecified
CPT/HCPCS: 36415; 80051; 82310; 82565; 84156; 84520

== ENCOUNTER → 2022-07-13 10:07 | Outpatient (BNVA) | payer MEDICARE, SELFPAY | PROVIDERS: PCP Internal Medicine; Visit Provider Internal Medicine | DX: I48.0 Paroxysmal atrial fibrillation (principal); Z79.01 Long term (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; Z51.81 Encounter for therapeutic drug level monitoring | CPT/HCPCS: 85610; 99211 ==

== ENCOUNTER → 2022-08-12 09:58 | Outpatient (BNVA) | payer MEDICARE, SELFPAY | PROVIDERS: PCP Internal Medicine; Visit Provider Internal Medicine | DX: I48.0 Paroxysmal atrial fibrillation (principal); Z79.01 Long term (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; Z51.81 Encounter for therapeutic drug level monitoring | CPT/HCPCS: 85610; 99212 ==

== ENCOUNTER 2022-08-15 13:21 | Outpatient (REF) | payer MEDICARE, SELFPAY ==
[2022-08-15 16:02] LABS: Thyroid Stimulating Hormone 4.29 uIU/mL (0.32-4.0)
== END 2022-08-15 13:22 | disposition home or self-care (01) ==
LOC: HO.LAB 13:21
PROVIDERS: PCP Internal Medicine; Visit Provider Internal Medicine Endocrinology, Diabetes & Metabolism
DX: E03.9 Hypothyroidism, unspecified (principal)
CPT/HCPCS: 36415; 84439; 84443

== ENCOUNTER → 2022-08-23 09:30 | Outpatient (BNVA) | payer MEDICARE, SELFPAY | PROVIDERS: PCP Internal Medicine; Visit Provider Internal Medicine | DX: I48.0 Paroxysmal atrial fibrillation (principal); Z51.81 Encounter for therapeutic drug level monitoring; Z79.01 Long term (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 | CPT/HCPCS: 85610; 99211 ==

== ENCOUNTER → 2022-08-26 10:53 | Outpatient (REF) | payer MEDICARE, SELFPAY ==
--- NOTE | 2022-08-26 10:56 | CA_ITS ---
Transthoracic Echocardiogram Patient (Last, First, Middle): Sameer Connors B Gender: Male Date of : 1940 Age: 82 Procedure Date: 08/26/2022 Procedure Type: Transthoracic Echocardiogram Location: OP Height: 172.72 cm Weight: 90.72 kg BSA: 2.04 m2 Heart Rate: 60 bpm BP: 125 / 70 mmHg Cruise Agent: AMBIKA Referring MD: Quintin Romano MD Symptoms: I35.8 - Other nonrheumatic aortic valve disorders Study Quality: Poor/Contrast ECG Rhythm: Sinus Conclusions: - Normal left ventricular cavity size. There is moderately increased left ventricular wall thickness. The left ventricular systolic function is low normal. The visually estimated ejection fraction is between 50-55%. - There is paradoxical septal motion consistent with a left bundle branch block. 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 - There is mild dilatation of the sinuses of Valsalva measuring 4.00 cm and mild dilatation of the ascending aorta measuring 3.80 cm. - There is moderate aortic valve stenosis. Findings Procedure Information Contrast agent, definity, is being given per protocol without apparent complications. Left Ventricle Normal left ventricular cavity size. There is moderately increased left ventricular wall thickness. The left ventricular systolic function is low normal. The visually estimated ejection fraction is between 50-55%. Regional wall motion abnormalities can not be excluded due to suboptimal endocardial definition. There is paradoxical septal motion consistent with a left bundle branch block. Diastolic function is indeterminate on the basis of available data. 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 Right Ventricle Normal right ventricular cavity size and systolic function. Atria The left atrium is normal in size. Aortic Valve There is moderate calcification of the aortic valve. There is moderate aortic valve stenosis. The peak aortic velocity is 2.83 m/s. The mean gradient is 20 mmHg. The aortic valve area is 1.80 cm2. There is no aortic valve regurgitation. Mitral Valve Likely normal mitral valve structure and function. There is no mitral valve regurgitation. There is no mitral valve stenosis. Pulmonic Valve The pulmonic valve is likely normal. Tricuspid Valve Normal tricuspid valve structure and function. Tricuspid regurgitation envelope is inadequate for calculation of right ventricular systolic pressure. Normal right atrial pressure. Great Vessels There is mild dilatation of the sinuses of Valsalva measuring 4.00 cm and mild dilatation of the ascending aorta measuring 3.80 cm. The visualized portions of the pulmonary artery and branches are normal. Venous The inferior vena cava is normal in size and collapses greater than 50% with inspiration. Pericardium/Pleural There is no evidence of pericardial effusion. Prior Study Comparison No significant change compared to prior study dated: 05/31/2021. Measurements 2D Linear Measurements IVSd: 1.83 0.6-0.9/0.6-1.0 cm LVIDd: 4.67 3.9-5.3/4.2-5.9 cm LVIDd Index: 2.29 2.4-3.2/2.2-3.1 cm/m2 LVIDs: 3.04 2.0-3.6 cm LVPWd: 1.35 0.7-1.1 cm LA Diam: 4.30 2.7-3.8/3.0-4.0 cm LAIDs Index: 2.11 1.5-2.3 cm/m2 LV Mass: 397.16 67-162/88-224 g LV Mass Index: 194.69 43-95/49-115 g/m2 LVOT Diam: 2.50 3.0+(-)1.3 cm 2D Systolic Function EF 4C: 42.40 >55% EF 2C: 47.10 >55% EF BiP: 42.50 >55% Mitral Valve MV Pk E: 0.35 MV PK A: 0.73 MV Decel Time: 460.00 E/A: 0.50 E'Lateral: 6.57 E'Medial: 5.87 E/E' Med: 6.00 E/E' Lat: 5.30 PHT: 135.00 MVA PHT: 1.63 Decel Hayes: 0.76 Aortic Valve AoV Pk Jeronimo: 2.83 AoV Mn Jeronimo: 2.09 AoV VTI: 0.59 AoV Pk Grad: 32.00 Aov Mn Grad: 20.00 VANCE Cont.VTI: 1.80 LVOT LVOT Pk Jeronimo: 1.10 LVOT Mn Jeronimo: 0.85 LVOT VTI: 0.22 LVOT Pk Grad: 5.00 LVOT Mn Grad: 3.00 LVOT Diam: 2.50 LVOT Area: 4.91 Diastolic Function MV Pk E: 0.35 MV Pk A: 0.73 E/A: 0.50 E'Medial: 5.87 E/E' Med: 6.00 E' Laterial: 6.57 E/E' Lat: 5.30 Right Ventricle TAPSE (mm): 22.40 TVS' Jeronimo: 10.70 Tricuspid Valve TR Pk Jeronimo: 2.16 TR Pk Grad: 19.00 Great Vessels Aorta Sinus of Valsalva: 4.00 2.0-3.5 cm Ao Asc: 3.80 2.1-3.4 cm Pulmonary Valve PV Pk Jeronimo: 0.99 Peak PV Grad: 4.00 Updated in Other Vendor System with Status of Final Sai Menchaca MD electronically signed on 08/26/2022 3:13:11 PM with status of Final
== END ==
LOC: HO.CARD 10:53
PROVIDERS: PCP Internal Medicine; Visit Provider Internal Medicine
DX: I35.8 Other nonrheumatic aortic valve disorders (principal)
CPT/HCPCS: 93306; Q9957

== ENCOUNTER → 2022-09-04 23:59 | Outpatient (BNV) | payer MEDICARE, SELFPAY ==
--- NOTE | 2022-09-07 13:42 | MHC.OFFVIS ---
Intake Intake Visit Reasons: Remote Device Check- [employer] Allergies No Known Allergies [No Known Allergies*] Allergy (Verified 09/06/22 09:50) [facility] Medical History (Updated 04/13/22 @ 14:16 by Maikel Leung MD) Cardiac pacemaker in situ (~10/2021) Chronic kidney disease Current use of anticoagulant therapy Dizziness Essential hypertension GERD (gastroesophageal reflux disease) Hyperlipidemia Hypothyroidism LBBB (left bundle branch block) Non-rheumatic aortic sclerosis PAF (paroxysmal atrial fibrillation) Tubular adenoma of colon (~08/2015) Surgical History History of cardiac pacemaker (~2021) History of cardioversion (~2017) History of cholecystectomy (~1990) History of colonoscopy Family History Father No problems noted. Mother No problems noted. 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 Overall normal device function. [id number] Cardiac Device Interrogation, pacemaker Procedure code (CPT) selection complete Assessment & Plan Assessment & Plan (1) Sinus pause: Code(s): I45.5 - Other specified heart block Coding Level of Care Code Procedure Only Diagnoses Sinus pause I45.5 CPT Codes Cardiac Device Check - Cardiac Device 12: [id number] Cardiac Device Interrogation, pacemaker ([id number])
== END ==
PROVIDERS: PCP Internal Medicine; Visit Provider Internal Medicine
DX: I45.5 Other specified heart block (principal); Z95.0 Presence of cardiac pacemaker
CPT/HCPCS: 93294

== ENCOUNTER 2022-09-06 09:23 | Outpatient (AMB) | payer MEDICARE, SELFPAY ==
--- NOTE | 2022-09-06 09:55 | MHC.OFFVISCO ---
Intake Intake Visit Reasons: Anticoagulation Allergies No Known Allergies [No Known Allergies*] Allergy (Verified 09/06/22 09:50) Medication List - Last Reconciled 09/06/22 by Jada Blake RN amiodarone 100 mg PO DAILY 90 days ezetimibe 10 mg PO DAILY levothyroxine 75 mcg PO DAILY lisinopril 30 mg PO DAILY polyethylene glycol 3350 17 grams PO DAILY PRN rosuvastatin 40 mg PO DAILY warfarin 2.5 mg See Protocol PO 6XW warfarin 5 mg See Protocol PO .1x week Nursing Note INR 1.6- out of therapeutic range- denies missed dose Medications and supplements reviewed Patient status: pt s/p dental extraction on 08/24/22- no hold on warfarin prior Medications or supplements: no changes Diet: appetite good- states had more greens Denies any signs and symptoms of bleeding or clotting or unusual bruising Bleeding, bruising, clotting discussed Nutritional guidance given: no greens for 2-3 days, eat a red to raise inr Dose: 5mg today then cont 2.5mg x 6, 5mg x 1 F/U INR Date : 1 week Patient verbalizing understanding of instructions given. 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
[2022-09-06 15:40] LABS: Prothrombin Time Whole Bld POC 18.6 sec (11.1-13.5); ~PT, ~INR - Anti Coag Clinic 1.6 (0.9-1.1)
== END 2022-09-06 10:02 | disposition home or self-care (01) ==
LOC: HO.ACS 09:23
PROVIDERS: PCP Internal Medicine; Visit Provider Internal Medicine
DX: Z79.01 Long term (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 (principal)

== ENCOUNTER → 2022-09-06 09:23 | Outpatient (BNVA) | payer MEDICARE, SELFPAY | PROVIDERS: PCP Internal Medicine; Visit Provider Internal Medicine | DX: I48.0 Paroxysmal atrial fibrillation (principal); Z79.01 Long term (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; Z51.81 Encounter for therapeutic drug level monitoring | CPT/HCPCS: 85610; 99211 ==

== ENCOUNTER 2022-09-07 14:44 | Outpatient (AMB) | payer MEDICARE, SELFPAY ==
--- NOTE | 2022-09-07 14:49 | MHC.OFFVIS ---
Intake Vital Signs 09/07/22 14:50 Height 5 ft 8 in Weight 197 lb 8.547 oz BMI 30.0 BP 118/72 Blood Pressure Location Rt brachial Position Sitting Pulse 68 Pulse Source Pulse Oximeter Intake Visit Reasons: f/u hypothyroidism Intake Note: Patient present for Hypothyroidism follow up visit. 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 Centre Manager Required: No Accompanied by: Self / Same As Patient Allergies No Known Allergies [No Known Allergies*] Allergy (Verified 09/07/22 14:51) Medication List - Last Reconciled 09/07/22 by Maikel Leung MD amiodarone 100 mg PO DAILY 90 days ezetimibe 10 mg PO DAILY levothyroxine 75 mcg PO DAILY lisinopril 30 mg PO DAILY polyethylene glycol 3350 17 grams PO DAILY PRN rosuvastatin 40 mg PO DAILY warfarin 2.5 mg See Protocol PO 6XW warfarin 5 mg See Protocol PO .1x week HPI HPI Comments History of Present Illness Details 82 YO M with PMHx amiodarone use who is seen in consultation at the request of his PCP for Hyothyroidism. First diagnosed with Hypothyroidism recently with labs revealing elevated TSH . On amiodarone for few yrs on 100 mg Currently using started 75 ug 1 wk ago . Denies + fatigue, -weight gain, -cold intolerance, -dry skin, -hair loss, +constipation. There is no hx of hyperlipidemia . Denies obstructive sx of goiter . Denies consuming any kelp or seaweed. Family hx of thyroid disease No Biotin: No Labs: [facility] Medical History (Updated 04/13/22 @ 14:16 by Maikel Leung MD) Cardiac pacemaker in situ (~10/2021) Chronic kidney disease Current use of anticoagulant therapy Dizziness Essential hypertension GERD (gastroesophageal reflux disease) Hyperlipidemia Hypothyroidism LBBB (left bundle branch block) Non-rheumatic aortic sclerosis PAF (paroxysmal atrial fibrillation) Tubular adenoma of colon (~08/2015) Surgical History History of cardiac pacemaker (~2021) History of cardioversion (~2017) History of cholecystectomy (~1990) History of colonoscopy Family History Father No problems noted. Mother No problems noted. Social History Household Members: Spouse Housing: House Do you presently have visiting nurse or other home services: No Alcohol intake: never Patient Tobacco Use Status: Never used Tobacco Advance Directives Date on File: 07/09/21 service: No Current occupational status: retired Physical Exam Vital Signs: Last Vital Signs Pulse 68 09/07/22 14:50 BP 118/72 09/07/22 14:50 BMI result Body Mass Index 30.0 HEENT reveals absence of lid lag , stare or proptosis or eyebrow loss. Thyroid gland measure 15 gms . No nodules or tenderness palpated. There is no cervical adenopathy palpated. Lungs CTA. Heart S1, S2 Reg R/R -M/R/G. Abdominal exam benign. Skin exam reveals absence of dryness or thyroid dermopathy or vitiligo. Nail exam reveals absence of thyroid acropachy or oncholysis. Neurologic exam reveals 2+ reflexes . Muscle Strength is 5/5 proximally. There are no tremors in upper extremities. 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 Appears to be clinically euthyroid on 75 mcg levothyroxine. The plan is to recheck TSH, free T4 in 3 weeks time. We then adjust levothyroxine accordingly. Coding Level of Care Code Est Pt Level 3 (00959) Diagnoses Hypothyroidism E03.9
[2022-09-07 14:50] VITALS: BP 118/72; PULSE 68
== END 2022-09-07 15:21 | disposition home or self-care (01) ==
PROVIDERS: PCP Internal Medicine; Visit Provider Internal Medicine Endocrinology, Diabetes & Metabolism
DX: E03.9 Hypothyroidism, unspecified (principal)
CPT/HCPCS: 99213

== ENCOUNTER → 2022-09-07 14:44 | Outpatient (BNVA) | payer MEDICARE, SELFPAY | PROVIDERS: Visit Provider Internal Medicine Endocrinology, Diabetes & Metabolism | DX: E03.9 Hypothyroidism, unspecified (principal) | CPT/HCPCS: 99212 ==

== ENCOUNTER 2022-09-15 09:36 | Outpatient (AMB) | payer MEDICARE, SELFPAY ==
--- NOTE | 2022-09-15 09:41 | MHC.OFFVISCO ---
Intake Intake Visit Reasons: Anticoagulation Allergies No Known Allergies [No Known Allergies*] Allergy (Verified 09/15/22 09:36) Medication List - Last Reconciled 09/15/22 by Jada Blake RN amiodarone 100 mg PO DAILY 90 days ezetimibe 10 mg PO DAILY levothyroxine 75 mcg PO DAILY lisinopril 30 mg PO DAILY polyethylene glycol 3350 17 grams PO DAILY PRN rosuvastatin 40 mg PO DAILY warfarin 2.5 mg See Protocol PO 6XW warfarin 5 mg See Protocol PO .1x week Nursing Note INR: 2.9- in therapeutic range Medications and supplements reviewed- pt states levothyroxine increased to 75 mcg, lisinopril increased to 30mg daily No changes in health, diet, medications, or supplements, Denies any signs and symptoms of bleeding or bruising or clotting. 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
[2022-09-15 09:43] LABS: Prothrombin Time Whole Bld POC 35.1 sec (11.1-13.5); ~PT, ~INR - Anti Coag Clinic 2.9 (0.9-1.1)
== END 2022-09-15 09:58 | disposition home or self-care (01) ==
LOC: HO.ACS 09:36
PROVIDERS: PCP Internal Medicine; Visit Provider Internal Medicine
DX: Z79.01 Long term (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 (principal)

== ENCOUNTER 2022-09-15 09:36 | Outpatient (REF) | payer MEDICARE, SELFPAY ==
[2022-09-15 11:20] LABS: Free T4 (Free Thyroxine) 1.12 ng/dL (0.71-1.85); Thyroid Stimulating Hormone 4.69 uIU/mL (0.32-4.0)
== END 2022-09-15 09:37 | disposition home or self-care (01) ==
LOC: HO.LAB 09:36
PROVIDERS: Internal Medicine Endocrinology, Diabetes & Metabolism; PCP Internal Medicine; Visit Provider Internal Medicine
DX: I48.0 Paroxysmal atrial fibrillation (principal); E03.9 Hypothyroidism, unspecified; Z51.81 Encounter for therapeutic drug level monitoring; Z79.01 Long term (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
CPT/HCPCS: 36415; 84439; 84443; 85610; 99211

== ENCOUNTER 2022-10-06 09:25 | Outpatient (AMB) | payer MEDICARE, SELFPAY ==
--- NOTE | 2022-10-06 09:33 | MHC.OFFVISCO ---
Intake Intake Visit Reasons: Anticoagulation Allergies No Known Allergies [No Known Allergies*] Allergy (Verified 10/06/22 09:27) Medication List - Last Reconciled 10/06/22 by Jada Blake RN amiodarone 100 mg PO DAILY 90 days ezetimibe 10 mg PO DAILY levothyroxine 88 mcg PO DAILY lisinopril 30 mg PO DAILY polyethylene glycol 3350 17 grams PO DAILY PRN rosuvastatin 40 mg PO DAILY warfarin 2.5 mg See Protocol PO 6XW warfarin 5 mg See Protocol PO .1x week Nursing Note INR 1.9-?? out of therapeutic range may have missed a dose last week Medications and supplements reviewed Patient status: no c.o Medications or supplements: no changes, recent increase in levothyroxine Diet: same Denies any signs and symptoms of bleeding or clotting or unusual bruising Bleeding, bruising, clotting discussed Nutritional guidance given: no greens for 2 days, eat a red today Dose: 5mg today, then cont 2.5mg x 6, 5mg x 1 F/U INR Date : pt refuses earlier appt than 4 weeks? Patient verbalizing understanding of instructions given. Anti-Coag Initial Assessment Social Hx Patient Tobacco Use Status: Never used Tobacco alcohol intake: never Coding Level of Care Code Est Patient Level 1 Diagnoses Current use of anticoagulant therapy Z79.01 Assessment & Plan Assessment & Plan (1) Current use of anticoagulant therapy: Code(s): Z79.01 - longterm (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
[2022-10-06 09:34] LABS: Prothrombin Time Whole Bld POC 23.2 sec (11.1-13.5); ~PT, ~INR - Anti Coag Clinic 1.9 (0.9-1.1)
== END 2022-10-06 09:39 | disposition home or self-care (01) ==
LOC: HO.ACS 09:25
PROVIDERS: PCP Internal Medicine; Visit Provider Internal Medicine
DX: Z79.01 Long term (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 (principal)

== ENCOUNTER → 2022-10-06 09:25 | Outpatient (BNVA) | payer MEDICARE, SELFPAY | PROVIDERS: PCP Internal Medicine; Visit Provider Internal Medicine | DX: I48.0 Paroxysmal atrial fibrillation (principal); Z79.01 Long term (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; Z51.81 Encounter for therapeutic drug level monitoring | CPT/HCPCS: 85610; 99211 ==

== ENCOUNTER 2022-11-03 09:48 | Outpatient (AMB) | payer MEDICARE, SELFPAY ==
[2022-11-03 09:57] LABS: Prothrombin Time Whole Bld POC 23.9 sec (11.1-13.5)
--- NOTE | 2022-11-03 09:58 | MHC.OFFVISCO ---
Intake Intake Visit Reasons: Anticoagulation Allergies No Known Allergies [No Known Allergies*] Allergy (Verified 11/03/22 09:51) Medication List - Last Reconciled 11/03/22 by Ximena Mcallister RN amiodarone 100 mg PO DAILY 90 days ezetimibe 10 mg PO DAILY levothyroxine 88 mcg PO DAILY lisinopril 30 mg PO DAILY polyethylene glycol 3350 17 grams PO DAILY PRN rosuvastatin 40 mg PO DAILY warfarin 2.5 mg See Protocol PO 6XW warfarin 5 mg See Protocol PO .1x week Nursing Note Amb to ACS feeling well Medications and supplements reviewed No changes in health, diet, medications, or supplements Denies any unusual signs and symptoms of bruising, bleeding Denies any new Chest pain, SOB, or clotting INR: 2.0 just in therapeutic range Nutritional guidance given: no greens today, have a red then balance greens and reds in diet Dose: continue usual dosing;5mg x 1 day and 2.5mg x6 days F/U INR: 4 weeks Patient verbalizes understanding of instructions given with accurate read back/ teach back of dosing Anti-Coag Initial Assessment Social Hx Patient Tobacco Use Status: Never used Tobacco alcohol intake: never Coding Level of Care Code Est Patient Level 1 Diagnoses Current use of anticoagulant therapy Z79.01 Time Spent (min) 15 Assessment & Plan Assessment & Plan (1) Current use of anticoagulant therapy: Code(s): Z79.01 - termination clerk (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
== END 2022-11-03 10:02 | disposition home or self-care (01) ==
LOC: HO.ACS 09:48
PROVIDERS: PCP Internal Medicine; Visit Provider Internal Medicine
DX: Z79.01 Long term (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 (principal)

== ENCOUNTER → 2022-11-03 09:48 | Outpatient (BNVA) | payer MEDICARE, SELFPAY | PROVIDERS: PCP Internal Medicine; Visit Provider Internal Medicine | DX: I48.0 Paroxysmal atrial fibrillation (principal); Z79.01 Long term (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; Z51.81 Encounter for therapeutic drug level monitoring | CPT/HCPCS: 85610; 99211 ==

== ENCOUNTER 2022-11-07 13:47 | Outpatient (AMB) | payer MEDICARE, SELFPAY ==
--- NOTE | 2022-11-07 13:56 | A.OFFVIS_ITS ---
Intake Vital Signs 11/07/22 14:13 Height 5 ft 8 in BMI Reason not done Patient refused/unable BP 126/80 Blood Pressure Location Lt brachial Position Sitting Pulse 65 Intake Visit Reasons: 6 mth f/up echo/ med ck Intake Note: 6 month follow up w/ device Games Manager Required: No Accompanied by: Self / Same As Patient Allergies No Known Allergies [No Known Allergies*] Allergy (Verified 11/07/22 14:08) Medication List - Last Reconciled 11/07/22 by Quintin Romano MD amiodarone 100 mg PO DAILY 90 days ezetimibe 10 mg PO DAILY levothyroxine 88 mcg PO DAILY lisinopril 30 mg PO DAILY polyethylene glycol 3350 17 grams PO DAILY PRN rosuvastatin 40 mg PO DAILY warfarin 2.5 mg See Protocol PO 6XW warfarin 5 mg See Protocol PO .1x week HPI HPI Comments History of Present Illness Details Sameer returns for follow-up regarding paroxysmal atrial fibrillation and aortic stenosis. Due to syncopal episodes, he underwent implantable loop monitor implantation. This showed long pauses and he was hospitalized underwent permanent pacemaker. Overall, feeling good. No new cardiac concerns. [facility] Medical History (Updated 04/13/22 @ 14:16 by Maikel Leung MD) Hypothyroidism GERD (gastroesophageal reflux disease) Hyperlipidemia Tubular adenoma of colon (~08/2015) Cardiac pacemaker in situ (~10/2021) Essential hypertension Chronic kidney disease Dizziness Non-rheumatic aortic sclerosis LBBB (left bundle branch block) PAF (paroxysmal atrial fibrillation) Current use of anticoagulant therapy Surgical History History of cardiac pacemaker (~2021) History of cardioversion (~2017) History of colonoscopy History of cholecystectomy (~1990) Family History Father No problems noted. Mother No problems noted. Social History Household Members: Spouse Housing: House Do you presently have visiting nurse or other home services: No Alcohol intake: never Patient Tobacco Use Status: Never used Tobacco Advance Directives Date on File: 07/09/21 service: No Current occupational status: retired Review of Systems Const Denies weakness ENT Denies dizziness Card Denies chest pain, Denies chest pain with activity, Denies syncope, Denies rapid heart rate, Denies pedal edema, Denies edema, Denies leg edema, Denies lightheadedness, Denies palpitations, Denies dyspnea, Denies dyspnea on exertion and Denies orthopnea Resp Denies cough, Denies dyspnea and Denies dyspnea on exertion GI Denies hematochezia and Denies change in stool character Musc Denies abnormal gait, Denies muscle cramps, Denies muscle weakness, Denies numbness, Denies radiating pain into limb and Denies tingling Neuro Denies abnormal gait, Denies dizziness, Denies syncope, Denies numbness, Denies tingling and Denies weakness Endo Denies palpitations Physical Exam Vital Signs: Last Vital Signs Pulse 65 11/07/22 14:13 BP 126/80 11/07/22 14:13 Const General: comfortable and no acute distress Orientation/consciousness: patient oriented x3 HEENT Other: Unremarkable Head: Yes normal to inspection Neck Neck: Yes normal visual inspection Chest Chest palpation & inspection: normal inspection of the chest Resp Auscultation: clear to auscultation bilaterally Cardio Palpation: normal PMI Heart sounds: S1 normal heart sound present, S2 normal heart sound present, no gallops, Murmur heart sound present systolic II/ and no rubs GI Palpation (GI): Soft to palpation Back/Spine/Pelvis Other: unremarkable Skin General skin exam: no rashes or lesions noted Neuro General: patient oriented x3 Extrem General: Yes normal to inspection Psych Mental Status: mental status grossly normal Office Procedures Cardiac Device Check Cardiac Device Check Details: Pacemaker interrogated today. Dual-chamber device, programmed in AAIR/DDDR mode. Battery status more than 13 years. Normal lead parameters. One atrial fibrillation episode but lasting only 32 seconds. Transient NSVT, 2nd. Overall, normal device function. 15502-[id number] Cardiac Device Check, pacemaker dual lead Procedure code (CPT) selection complete EKG Details: Possibly sinus rhythm but P waves not very clear; LBBB; 65/min. [id number], Complete Assessment & Plan Assessment & Plan (1) PAF (paroxysmal atrial fibrillation): Code(s): I48.0 - Paroxysmal atrial fibrillation Plan: Issues with various antiarrhythmics. Due to left bundle-branch block could not use flecainide. Multaq was too expensive. Sotalol/Tikosyn could not be used due to chronic kidney disease. He saw EP but did not want ablation. Hence continue low-dose amiodarone. Continue anticoagulation. Check chest CT scan for any interstitial findings. Thyroid function being followed through Endocrine. Check home sleep study. (2) Sinus pause: Code(s): I45.5 - Other specified heart block Plan: Implantable loop recorder had shown pauses which could be etiology for syncope. Status post permanent pacemaker. (3) LBBB (left bundle branch block): Code(s): I44.7 - Left bundle-branch block, unspecified Plan: Chronic finding. In the stress perfusion imaging, no evidence of ischemia. Echocardiogram with low-normal LVEF at 50-55% (4) Non-rheumatic aortic sclerosis: Code(s): I35.8 - Other nonrheumatic aortic valve disorders Plan: Reported moderate stenosis but based on valve area as well as gradients, more in the [id number] range. In any case, not hemodynamically significant. (5) Essential hypertension: Code(s): I10 - Essential (primary) hypertension Plan: Stable. Orders: Orders RT home sleep study Today G47.33 - Obstructive sleep apnea (adult) (pediatric) CT chest wo IV con Today J84.10 - Pulmonary fibrosis, unspecified Coding Level of Care Code Est Pt Level 4 (56719) Diagnoses PAF (paroxysmal atrial fibrillation) I48.0 Sinus pause I45.5 LBBB (left bundle branch block) I44.7 Non-rheumatic aortic sclerosis I35.8 Essential hypertension I10 CPT Codes Cardiac Device Check - Cardiac Device 2: [id number] Cardiac Device Check, pacemaker dual lead ([id number]) EKG - CPT: 27835-[id number], Complete ([id number])
[2022-11-07 14:13] VITALS: BP 126/80; PULSE 65
== END 2022-11-07 14:27 | disposition home or self-care (01) ==
PROVIDERS: PCP Internal Medicine; Referring Provider Internal Medicine; Visit Provider Internal Medicine
DX: I48.0 Paroxysmal atrial fibrillation (principal); I45.5 Other specified heart block; I44.7 Left bundle-branch block, unspecified; I35.8 Other nonrheumatic aortic valve disorders; I10 Essential (primary) hypertension; Z95.0 Presence of cardiac pacemaker
CPT/HCPCS: 93280; 99214

== ENCOUNTER → 2022-11-07 13:47 | Outpatient (BNVA) | payer MEDICARE, SELFPAY | PROVIDERS: PCP Internal Medicine; Referring Provider Internal Medicine; Visit Provider Internal Medicine | DX: I48.0 Paroxysmal atrial fibrillation (principal); I45.5 Other specified heart block; I44.7 Left bundle-branch block, unspecified; I35.8 Other nonrheumatic aortic valve disorders; I10 Essential (primary) hypertension; Z79.01 Long term (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; Z79.899 Other long term (current) drug therapy; Z45.018 Encounter for adjustment and management of other part of cardiac pacemaker | CPT/HCPCS: 93005; 93280; 99212 ==

== ENCOUNTER 2022-12-01 10:02 | Outpatient (AMB) | payer MEDICARE, SELFPAY ==
--- NOTE | 2022-12-01 10:14 | MHC.OFFVISCO ---
Intake Intake Visit Reasons: Anticoagulation Allergies No Known Allergies [No Known Allergies*] Allergy (Verified 12/01/22 10:03) Medication List - Last Reconciled 12/01/22 by Mariaelena Hardy RN amiodarone 100 mg PO DAILY 90 days ezetimibe 10 mg PO DAILY levothyroxine 88 mcg PO DAILY lisinopril 30 mg PO DAILY polyethylene glycol 3350 17 grams PO DAILY PRN rosuvastatin 40 mg PO DAILY warfarin 2.5 mg See Protocol PO 6XW warfarin 5 mg See Protocol PO .1x week Nursing Note NO CP,SOB,DIET/MED CHANGES,FALLS OR SX OF BLEEDING. CONTINUE PRESENT DOSE AND FOLLOW-UP IN 4 WEEKS. GOOD UNDERSTANDING OF DOSING INSTR. Anti-Coag Initial Assessment Social Hx Patient Tobacco Use Status: Never used Tobacco alcohol intake: never Coding Level of Care Code Est Patient Level 1 Diagnoses Current use of anticoagulant therapy Z79.01 Assessment & Plan Assessment & Plan (1) Current use of anticoagulant therapy: Code(s): Z79.01 - custodial (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
== END 2022-12-01 10:16 | disposition home or self-care (01) ==
LOC: HO.ACS 10:02
PROVIDERS: PCP Internal Medicine; Visit Provider Internal Medicine
DX: Z79.01 Long term (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 (principal)

== ENCOUNTER → 2022-12-01 10:02 | Outpatient (BNVA) | payer MEDICARE, SELFPAY | PROVIDERS: PCP Internal Medicine; Visit Provider Internal Medicine | DX: I48.0 Paroxysmal atrial fibrillation (principal); Z51.81 Encounter for therapeutic drug level monitoring; Z79.01 Long term (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 | CPT/HCPCS: 85610; 99211 ==

== ENCOUNTER → 2022-12-04 23:59 | Outpatient (BNV) | payer MEDICARE, SELFPAY ==
--- NOTE | 2022-12-13 13:54 | MHC.OFFVIS ---
Intake Intake Visit Reasons: Remote Device Check- [employer] Allergies No Known Allergies [No Known Allergies*] Allergy (Verified 12/01/22 10:03) [facility] Medical History (Updated 12/13/22 @ 13:56 by Quintin Romano MD) Hypothyroidism GERD (gastroesophageal reflux disease) Hyperlipidemia Tubular adenoma of colon (~08/2015) Cardiac pacemaker in situ (~10/2021) Essential hypertension Chronic kidney disease Dizziness Non-rheumatic aortic sclerosis LBBB (left bundle branch block) PAF (paroxysmal atrial fibrillation) Current use of anticoagulant therapy Surgical History History of cardiac pacemaker (~2021) History of cardioversion (~2017) History of colonoscopy History of cholecystectomy (~1990) Family History Father No problems noted. Mother No problems noted. Social History Household Members: Spouse Housing: House Do you presently have visiting nurse or other home services: No Alcohol intake: never Patient Tobacco Use Status: Never used Tobacco Advance Directives Date on File: 07/09/21 service: No Current occupational status: retired Office Procedures Cardiac Device Check Cardiac Device Check Details: Date of service- 12/04/2022 ; Battery life >12 years; normal lead parameters; AP >80%; SPA MANAGER <0.1%; no significant arrhythmias. Overall normal device function. [id number] Cardiac Device Interrogation, pacemaker Procedure code (CPT) selection complete Assessment & Plan Assessment & Plan (1) Sinus pause: Code(s): I45.5 - Other specified heart block (2) Cardiac pacemaker in situ: Onset Date: ~10/2021 Comment: ([employer] DCPP - placed 10/2021 - for syncope and possible high grade AV block/sinus pause) Code(s): Z95.0 - Presence of cardiac pacemaker (3) PAF (paroxysmal atrial fibrillation): Code(s): I48.0 - Paroxysmal atrial fibrillation Coding Level of Care Code Procedure Only Diagnoses Sinus pause I45.5 Cardiac pacemaker in situ Z95.0 PAF (paroxysmal atrial fibrillation) I48.0 CPT Codes Cardiac Device Check - Cardiac Device 12: [id number] Cardiac Device Interrogation, pacemaker ([id number])
== END ==
PROVIDERS: PCP Internal Medicine; Visit Provider Internal Medicine
DX: I48.0 Paroxysmal atrial fibrillation (principal); Z95.0 Presence of cardiac pacemaker
CPT/HCPCS: 93294

== ENCOUNTER 2022-12-21 12:43 | Outpatient (REF) | payer MEDICARE, SELFPAY ==
--- NOTE | ~2022-12-21 | CT_ITS ---
EXAMINATION: CT CHEST WITHOUT CONTRAST CLINICAL INFORMATION: Pulmonary fibrosis, patient on amiodarone COMPARISON: 11/08/2021 chest radiograph TECHNIQUE: Multidetector volumetric CT imaging of the chest was done. Axial MIP volume rendering provided. Sagittal and coronal reformatted images were obtained. This CT examination was performed using dose optimization techniques as appropriate, variously including the following: *Automated exposure control *Adjustment of mA and/or kV according to patient size (this includes techniques or standardized protocols for targeted exams where dose is matched to indication/reason for exam; i.e. extremities or head) *Use of iterative reconstruction technique DLP: 178 mGy-cm FINDINGS: A CLASS LINEMAN: Bipolar pacer. Slight increase in right hemidiaphragmatic elevation. LUNGS: Trachea and bronchi are patent. Right upper lobe posterior medial increased markings in peribronchiolar distribution with tethering to the pleura with mild retraction of the major fissure. Mild nonspecific subpleural increased reticular markings/intralobular septal thickening posterior medial right lower lobe. No suspicious pulmonary nodules. MEDIASTINUM: Unremarkable thyroid. Nonspecific mediastinal lymph nodes without pathologic lymphadenopathy. Nonenlarged heart with pacer. No pericardial effusion. Nonaneurysmal aorta with atherosclerotic calcifications. Nonenlarged pulmonary arteries. CORONARY ARTERY CALCIFICATION: Moderate PLEURA: There is no pleural effusion. No pleural mass or thickening. AXILLA: No pathologic lymphadenopathy. UPPER ABDOMEN: Liver is diffusely hyperdense relative to the spleen. Status post cholecystectomy. 2.1 cm left upper pole renal cyst. Partial visualization of possible right parapelvic cyst and extrarenal pelvis. OSSEOUS STRUCTURES: No suspicious osseous lesions. 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 Consider follow-up CT in 3 months. Fleischner guidelines were followed.
[2022-12-21 15:27] LABS: Free T4 (Free Thyroxine) 1.07 ng/dL (0.71-1.85); Thyroid Stimulating Hormone 1.25 uIU/mL (0.32-4.0)
== END 2022-12-21 12:44 | disposition home or self-care (01) ==
LOC: HO.CT 12:43
PROVIDERS: Absent Provider Internal Medicine Endocrinology, Diabetes & Metabolism; PCP Internal Medicine; Visit Provider Internal Medicine
DX: J84.10 Pulmonary fibrosis, unspecified (principal); E03.9 Hypothyroidism, unspecified; G47.33 Obstructive sleep apnea (adult) (pediatric)
CPT/HCPCS: 36415; 71250; 84439; 84443

== ENCOUNTER 2022-12-30 10:04 | Outpatient (AMB) | payer MEDICARE, SELFPAY ==
--- NOTE | 2022-12-30 10:10 | MHC.OFFVISCO ---
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 2.5mg x 6 F/U INR Date : pt ref earlier appt than 4 weeks? Patient verbalizing understanding of instructions given. 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
[2022-12-30 10:11] LABS: Prothrombin Time Whole Bld POC 23.1 sec (11.1-13.5); ~PT, ~INR - Anti Coag Clinic 1.9 (0.9-1.1)
== END 2022-12-30 10:16 | disposition home or self-care (01) ==
LOC: HO.ACS 10:04
PROVIDERS: PCP Internal Medicine; Visit Provider Internal Medicine
DX: Z79.01 Long term (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 (principal)

== ENCOUNTER → 2022-12-30 10:04 | Outpatient (BNVA) | payer MEDICARE, SELFPAY | PROVIDERS: PCP Internal Medicine; Visit Provider Internal Medicine | DX: I48.0 Paroxysmal atrial fibrillation (principal); Z79.01 Long term (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; Z51.81 Encounter for therapeutic drug level monitoring | CPT/HCPCS: 85610; 99211 ==

== ENCOUNTER 2023-01-10 12:46 | Outpatient (AMB) | payer MEDICARE, SELFPAY ==
[2023-01-10 12:48] VITALS: BP 142/90; PULSE 88; BMI 30.4
--- NOTE | 2023-01-10 12:48 | A.OFFVIS_ITS ---
Intake Vital Signs 01/10/23 12:48 Height 5 ft 8 in Weight 200 lb 2.876 oz BMI 30.4 BP 142/90 H Blood Pressure Location Lt brachial Position Sitting Pulse 88 Pulse Source Pulse Oximeter Intake Visit Reasons: f/u hypothyroidism-CONFIRMED Intake Note: Patient present for Hypothyroidism follow up visit. Community Product Specialist Required: No Accompanied by: Self / Same As Patient Allergies No Known Allergies [No Known Allergies*] Allergy (Verified 01/10/23 12:54) Medication List - Last Reconciled 01/10/23 by Maikel Leung MD amiodarone 100 mg PO DAILY ezetimibe 10 mg PO DAILY levothyroxine 88 mcg PO DAILY lisinopril 30 mg PO DAILY polyethylene glycol 3350 17 grams PO DAILY PRN rosuvastatin 40 mg PO DAILY warfarin 2.5 mg See Protocol PO 6XW warfarin 5 mg See Protocol PO .1x week HPI HPI Comments History of Present Illness Details 82 YO M with PMHx amiodarone use who is seen in consultation at the request of his PCP for Hyothyroidism. First diagnosed with Hypothyroidism recently with labs revealing elevated TSH . On amiodarone for few yrs on 100 mg Currently using 88ug started at 75 ug o . Denies + fatigue, -weight gain, -cold intolerance, -dry skin, -hair loss, +constipation. There is no hx of hyperlipidemia . Denies obstructive sx of goiter . Denies consuming any kelp or seaweed. Family hx of thyroid disease No Biotin: No Labs: [facility] Medical History (Updated 12/28/22 @ 08:36 by Rina Patterson RN) Hypothyroidism GERD (gastroesophageal reflux disease) Hyperlipidemia Tubular adenoma of colon (~08/2015) Cardiac pacemaker in situ (~10/2021) Essential hypertension Chronic kidney disease Dizziness Non-rheumatic aortic sclerosis LBBB (left bundle branch block) PAF (paroxysmal atrial fibrillation) Current use of anticoagulant therapy Surgical History History of cardiac pacemaker (~2021) History of cardioversion (~2017) History of colonoscopy History of cholecystectomy (~1990) Family History Father No problems noted. Mother No problems noted. Social History Household Members: Spouse Housing: House Do you presently have visiting nurse or other home services: No Alcohol intake: never Patient Tobacco Use Status: Never used Tobacco Advance Directives Date on File: 07/09/21 service: No Current occupational status: retired Physical Exam Vital Signs: Last Vital Signs Pulse 88 01/10/23 12:48 BP 142/90 H 01/10/23 12:48 BMI result Body Mass Index 30.4 HEENT reveals absence of lid lag , stare or proptosis or eyebrow loss. Thyroid gland measure 15 gms . No nodules or tenderness palpated. There is no cervical adenopathy palpated. Lungs CTA. Heart S1, S2 Reg R/R -M/R/G. Abdominal exam benign. Skin exam reveals absence of dryness or thyroid dermopathy or vitiligo. Nail exam reveals absence of thyroid acropachy or oncholysis. Neurologic exam reveals 2+ reflexes . Muscle Strength is 5/5 proximally. There are no tremors in upper extremities. 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 Appears to be clinically euthyroid and biochemically on 88 mcg levothyroxine. The plan is to continue the current management. At this point, patient returned to the care of his primary care provider and return back to endocrinology as needed Coding Level of Care Code Est Pt Level 3 (88551) Diagnoses Hypothyroidism E03.9
== END 2023-01-10 13:05 | disposition home or self-care (01) ==
PROVIDERS: PCP Internal Medicine; Visit Provider Internal Medicine Endocrinology, Diabetes & Metabolism
DX: E03.9 Hypothyroidism, unspecified (principal)
CPT/HCPCS: 99213

== ENCOUNTER → 2023-01-10 12:46 | Outpatient (BNVA) | payer MEDICARE, SELFPAY | PROVIDERS: PCP Internal Medicine; Visit Provider Internal Medicine Endocrinology, Diabetes & Metabolism | DX: E03.9 Hypothyroidism, unspecified (principal) | CPT/HCPCS: 99212 ==

== ENCOUNTER 2023-01-11 13:04 | Outpatient (AMB) | payer MEDICARE, SELFPAY ==
--- NOTE | 2023-01-11 13:08 | A.OFFVIS_ITS ---
Intake Vital Signs 01/11/23 13:12 Height 5 ft 8 in Weight 200 lb BMI 30.4 BP 142/80 H Blood Pressure Location Rt brachial Position Sitting Pulse 82 Pulse Source Pulse Oximeter Pulse Oximetry (%) 98 Oxygen Delivery Method Room Air Intake Visit Reasons: consistent with amiodarone pulmonary toxicity Sales Specialist Required: No Linotype Machinist: Linotype Machinist offered & declined Accompanied by: Self / Same As Patient Allergies No Known Allergies [No Known Allergies*] Allergy (Verified 01/11/23 13:18) Medication List - Last Reconciled 01/11/23 by Monica Ramírez LPN amiodarone 100 mg PO DAILY ezetimibe 10 mg PO DAILY levothyroxine 88 mcg PO DAILY lisinopril 30 mg PO DAILY polyethylene glycol 3350 17 grams PO DAILY PRN rosuvastatin 40 mg PO DAILY warfarin 2.5 mg See Protocol PO 6XW warfarin 5 mg See Protocol PO .1x week HPI consistent with amiodarone pulmonary toxicity HPI Details Sameer is a very pleasant 82 year old male, never smoker, with underlying atrial fibrillation on coumadin, aortic stenosis, LBBB, s/p pacemaker . 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 He has been trialed on different antiarrhythimics such as Multaq, Flecainide and Sotalol, but were discontinued due to adverse effects or cost. Per records, it appears he started amiodarone November 2020. At this time, he reports minimal respiratory symptoms, other than dyspnea with moderate exertion, although he continues to be quite active. He denies cough, wheezing, or chest tightness. He denies any personal or family history of respiratory conditions. He likely had occupational exposures related to working at a [employer] for 39 years. [facility] Medical History (Updated 01/11/23 @ 14:04 by Monica Ramírez LPN) Hypothyroidism GERD (gastroesophageal reflux disease) Hyperlipidemia Tubular adenoma of colon (~08/2015) Cardiac pacemaker in situ (~10/2021) Essential hypertension Chronic kidney disease Dizziness Non-rheumatic aortic sclerosis LBBB (left bundle branch block) PAF (paroxysmal atrial fibrillation) Current use of anticoagulant therapy Surgical History History of cardiac pacemaker (~2021) History of cardioversion (~2017) History of colonoscopy History of cholecystectomy (~1990) Family History Father No problems noted. Mother No problems noted. Social History (Updated 01/11/23 @ 13:19 by Monica Ramírez LPN) Household Members: Spouse Housing: House Do you presently have visiting nurse or other home services: No Alcohol intake: never Patient Tobacco Use Status: Never used Tobacco Smoked in Last 30 Days: No Advance Directives Date on File: 07/09/21 service: No Current occupational status: retired Review of Systems Const Denies chills, Denies excessive sweating, Denies fever(s), Denies headache(s) and Denies night sweats Eyes Denies dry eyes, Denies irritation and Denies itchy eyes ENT Reports Normal hearing present, Denies headache(s), Denies nasal congestion, Denies nasal discharge, Denies post nasal drip and Denies sore throat Card Denies chest pain, Denies chest pain at rest, Denies chest pain with activity, Denies claudication, Denies leg edema, Denies dyspnea, Denies orthopnea and Denies paroxysmal nocturnal dyspnea Resp Denies chest congestion, Denies cough, Denies excessive phlegm production, Denies pain on inspiration, Denies pain with cough, Denies dyspnea, Denies stridor and Denies wheezing Musc Denies myalgias Neuro Reports Normal hearing present and Denies headache(s) Endo Denies excessive sweating Sha/Lymph Denies lymphadenopathy Aller/Immun Denies itchy eyes, Denies seasonal rhinorrhea and Denies wheezing Physical Exam Vital Signs: Last Vital Signs Pulse 82 01/11/23 13:12 BP 142/80 H 01/11/23 13:12 Pulse Ox 98 01/11/23 13:12 Oxygen Delivery Method Room Air 01/11/23 13:12 BMI result Body Mass Index 30.4 Const General: cooperative, healthy appearing, comfortable, no acute distress, well developed and alert Nutritional Appearance: obese Orientation/consciousness: patient oriented x3 Limitations: no limitations HEENT Head: Yes normal to inspection, Yes normocephalic and Yes atraumatic Ears: hearing grossly normal bilaterally and external ears normal Eyes Eyelids: Yes eyelids normal Sclerae: sclerae normal Neck Neck: Yes normal visual inspection and Yes no lymphadenopathy Lymphatic: no lymphadenopathy noted Chest Chest palpation & inspection: normal inspection of the chest Resp Effort & Inspection: normal respiratory effort, able to speak in complete sentences, no audible wheezes, no cough, no stridor, not tachypneic, no tripod positioning and no use of accessory muscles Auscultation: clear to auscultation bilaterally Cardio Jugular venous distension: no JVD Rate: regular rate Rhythm: regular rhythm Skin Other: warm, dry General skin exam: no rashes or lesions noted Neuro General: patient oriented x3 Cranial nerves: Yes Normal hearing present Cognition (Neuro): normal cognition Gait exam (Neuro): Normal gait present Extrem General: Yes normal to inspection, Yes capillary refill normal, Yes no clubbing, cyanosis or edema and Yes no pedal edema Psych Appearance: grossly normal and well kempt Speech and movement: Normal speech and movement present and Clear speech present Affect: normal affect Attitude: cooperative Thought process: Normal thought process present Thought content: Normal thought content present Insight: Good insight present (Psych) Judgement: Good judgement present (Psych) Office Procedures 6 Minute Walk Time:: 13:40 SPO2 % at rest: 97 Pulse at rest: 69 SPO2 % during excercise: 94 Pulse during excercise: 89 SPO2 % after excercise: 97 Pulse after excercise: 88 Distance in yards walked: 1,000 Amy Score: 6 Performance Observations:: Patient walked unassisted on flat ground at a m oderate pace. Maintained O2 saturation of 94% or greater during the entire walk with pulse rate of 89 or less. Patient reports when he walks for a long distance he tires and gets short of breath at times. When doing yardwork he gets tired but not much shortness of breath. Patient did not need supplemental O2 during his walk today. [id number] - 6 Minute Walk Results Reviewed Results Reviewed: [address] [address] [address] Scan Report Signed Patient: Sameer Connors MR#: [id number] : 1940 Acct:[id number] Age/Sex: 82 / M ADM Date: 12/21/22 Loc: HO.CT Attending Dr: Quintin Romano MD Ordering Physician: Quintin Romano MD Date of Service: 10/25/23 Procedure(s): CT chest wo IV con Accession Number(s): [id number] cc: JUAN CARLOS VELASQUEZ MD; Quintin Romano MD~ EXAMINATION: CT CHEST WITHOUT CONTRAST CLINICAL INFORMATION: Pulmonary fibrosis, patient on amiodarone COMPARISON: 11/08/2021 chest radiograph TECHNIQUE: Multidetector volumetric CT imaging of the chest was done. Axial MIP volume rendering provided. Sagittal and coronal reformatted images were obtained. This CT examination was performed using dose optimization techniques as appropriate, variously including the following: *Automated exposure control *Adjustment of mA and/or kV according to patient size (this includes techniques or standardized protocols for targeted exams where dose is matched to indication/reason for exam; i.e. extremities or head) *Use of iterative reconstruction technique DLP: 178 mGy-cm FINDINGS: WINDOW AIR CONDITIONER INSTALLER: Bipolar pacer. Slight increase in right hemidiaphragmatic elevation. LUNGS: Trachea and bronchi are patent. Right upper lobe posterior medial increased markings in peribronchiolar distribution with tethering to the pleura with mild retraction of the major fissure. Mild nonspecific subpleural increased reticular markings/intralobular septal thickening posterior medial right lower lobe. No suspicious pulmonary nodules. MEDIASTINUM: Unremarkable thyroid. Nonspecific mediastinal lymph nodes without pathologic lymphadenopathy. Nonenlarged heart with pacer. No pericardial effusion. Nonaneurysmal aorta with atherosclerotic calcifications. Nonenlarged pulmonary arteries. CORONARY ARTERY CALCIFICATION: Moderate PLEURA: There is no pleural effusion. No pleural mass or thickening. AXILLA: No pathologic lymphadenopathy. UPPER ABDOMEN: Liver is diffusely hyperdense relative to the spleen. Status post cholecystectomy. 2.1 cm left upper pole renal cyst. Partial visualization of possible right parapelvic cyst and extrarenal pelvis. OSSEOUS STRUCTURES: No suspicious osseous lesions. 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 Consider follow-up CT in 3 months. Fleischner guidelines were followed. Assessment & Plan Assessment & Plan (1) WILKINSON (dyspnea on exertion): Code(s): R06.09 - Other forms of dyspnea (2) Abnormal computed tomography of lung: Code(s): R91.8 - Other nonspecific abnormal finding of lung field Plan Sameer presents for evaluation of chest CT which revealed right upper lobe posterior with increased markings and mild nonspecific subpleural increased reticular markings/intralobular septal thickening posterior medial right lower lobe. Given patient did not have a chest CT prior to starting amiodarone, it is unclear whether these findings are related. Reviewed chest CT with Dr. Kapoor. No signs of honeycombing at this time. Will send for repeat chest CT in 3 months to evaluate as well as send patient for PFT to assess for restrictive defect or decrease in DLCO. 6MWT performed and there is no need for supplemental oxygen at this time. All questions were answered and patient is in agreement of plan. Will follow up to review PFT results. He is aware to call if symptoms change. Orders: Orders AMB 6 minute walk 01/11/23 J84.10 - Pulmonary fibrosis, unspecified, R06.09 - Other forms of dyspnea, R91.8 - Other nonspecific abnormal finding of lung field PFT pulmonary function test Today R06.09 - Other forms of dyspnea CT chest wo IV con 03/20/23 R91.8 - Other nonspecific abnormal finding of lung field Coding Level of Care Code New Pt Level 4 (92979) Diagnoses WILKINSON (dyspnea on exertion) R06.09 Abnormal computed tomography of lung R91.8 CPT Codes Coding ([id number])
[2023-01-11 13:12] VITALS: BP 142/80; PULSE 82; O2SAT 98; BMI 30.4
[2023-01-11 14:11] VITALS: PULSE 69; O2SAT 97
== END 2023-01-11 14:34 | disposition home or self-care (01) ==
PROVIDERS: PCP Internal Medicine; Visit Provider Nurse Practitioner Family
DX: R06.9 Unspecified abnormalities of breathing (principal); R91.8 Other nonspecific abnormal finding of lung field
CPT/HCPCS: 94618; 99204

== ENCOUNTER → 2023-01-11 13:04 | Outpatient (BNVA) | payer MEDICARE, SELFPAY | PROVIDERS: PCP Internal Medicine; Visit Provider Nurse Practitioner Family | DX: R91.8 Other nonspecific abnormal finding of lung field (principal); R06.09 Other forms of dyspnea | CPT/HCPCS: 94618; 99202 ==

== ENCOUNTER 2023-01-27 09:47 | Outpatient (AMB) | payer MEDICARE, SELFPAY ==
[2023-01-27 09:54] LABS: Prothrombin Time Whole Bld POC 22.4 sec (11.1-13.5); ~PT, ~INR - Anti Coag Clinic 1.9 (0.9-1.1)
--- NOTE | 2023-01-27 10:04 | MHC.OFFVISCO ---
Intake Intake Visit Reasons: Anticoagulation Allergies No Known Allergies [No Known Allergies*] Allergy (Verified 01/27/23 09:50) Medication List - Last Reconciled 01/27/23 by Zaynab Vieyra RN amiodarone 100 mg PO DAILY ezetimibe 10 mg PO DAILY levothyroxine 88 mcg PO DAILY lisinopril 30 mg PO DAILY polyethylene glycol 3350 17 grams PO DAILY PRN rosuvastatin 40 mg PO DAILY warfarin See Protocol 5 mg orally 5mg x 1 day/ 2.5mg x 6 days; Nursing Note INR 1.9?? out of therapeutic range Medications and supplements reviewed Patient status: GOOD, INR HAS BEEN TRENDING LOWER THAN USUAL Medications or supplements: NO CHANGE Diet: GOOD Denies any signs and symptoms of bleeding or clotting or unusual bruising Bleeding, bruising, clotting discussed Nutritional guidance given: REVEIW FOOD LIST WEEKLY Dose: RESUME A PREVIOUS DOSE 5MG X 2 DAYS/ 2.5MG X 5 DAYS F/U INR Date: 3 WEEKS PT REF SOONER ?? Patient verbalizing understanding of instructions given. Anti-Coag Initial Assessment Social Hx Patient Tobacco Use Status: Never used Tobacco alcohol intake: never Coding Level of Care Code Est Patient Level 1 Diagnoses Current use of anticoagulant therapy Z79.01 Assessment & Plan Assessment & Plan (1) Current use of anticoagulant therapy: Code(s): Z79.01 - longterm (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
== END 2023-01-27 10:06 | disposition home or self-care (01) ==
LOC: HO.ACS 09:47
PROVIDERS: PCP Internal Medicine; Visit Provider Internal Medicine
DX: Z79.01 Long term (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 (principal)

== ENCOUNTER → 2023-01-27 09:47 | Outpatient (BNVA) | payer MEDICARE, SELFPAY | PROVIDERS: PCP Internal Medicine; Visit Provider Internal Medicine | DX: I48.0 Paroxysmal atrial fibrillation (principal); Z79.01 Long term (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; Z51.81 Encounter for therapeutic drug level monitoring | CPT/HCPCS: 85610; 99211 ==

== ENCOUNTER 2023-02-03 12:06 | Outpatient (AMB) | payer MEDICARE, SELFPAY ==
--- NOTE | 2023-02-03 12:41 | HO.NEPHOV ---
HPI HPI Comments History of Present Illness Details I had the privilege of seeing Tomer in follow-up of his chronic kidney disease. He has vascular disease. He does not have any chest pain, shortness of breath, proximal nocturnal dyspnea, orthopnea, pedal edema or orthostatic symptoms. He is compliant with his medications. His blood pressure has been at goal. His serum creatinine is stable. He does not take any nonsteroidal anti-inflammatories. There were no new complaints at the time of this office visit. COUNTS INCLUDE 234 BEDS AT THE [facility] Medical History (Updated 02/14/23 @ 03:15 by Luis Dumont MD) Hypothyroidism GERD (gastroesophageal reflux disease) Hyperlipidemia Tubular adenoma of colon (~08/2015) Cardiac pacemaker in situ (~10/2021) Essential hypertension Chronic kidney disease Dizziness Non-rheumatic aortic sclerosis LBBB (left bundle branch block) PAF (paroxysmal atrial fibrillation) Current use of anticoagulant therapy Surgical History History of cardiac pacemaker (~2021) History of cardioversion (~2017) History of colonoscopy History of cholecystectomy (~1990) Family History Father No problems noted. Mother No problems noted. Social History Household Members: Spouse Housing: House Do you presently have visiting nurse or other home services: No Alcohol intake: never Patient Tobacco Use Status: Never used Tobacco Advance Directives Date on File: 07/09/21 service: No Current occupational status: retired Vital Signs 02/03/23 12:42 Height 5 ft 8 in Weight 200 lb 8 oz BMI 30.5 BP 140/70 H Blood Pressure Location Lt brachial Position Sitting Pulse 78 Pulse Source Pulse Oximeter Pulse Oximetry (%) 96 Oxygen Delivery Method Room Air Physical Exam Vital Signs: Last Vital Signs Pulse 78 02/03/23 12:42 BP 140/70 H 02/03/23 12:42 Pulse Ox 96 02/03/23 12:42 Oxygen Delivery Method Room Air 02/03/23 12:42 BMI result Body Mass Index 30.5 Const General: comfortable and no acute distress Orientation/consciousness: patient oriented x3 HEENT Head: Yes normocephalic Mouth: Normal oral and palatal mucosa present Eyes EOM: EOMs intact bilaterally Neck Neck: Yes supple Resp Auscultation: clear to auscultation bilaterally Cardio Jugular venous distension: no JVD Rate: regular rate GI Palpation (GI): Soft to palpation Auscultation: normal bowel sounds General: Yes no CVA tenderness Back/Spine/Pelvis Back: no CVA tenderness Skin General skin exam: no rashes or lesions noted Neuro General: patient oriented x3 and moves all extremities Extrem General: Yes no pedal edema Assessment & Plan Assessment & Plan (1) CKD (chronic kidney disease) stage 3, GFR 30-59 ml/min: Code(s): N18.30 - Chronic kidney disease, stage 3 unspecified Qualifiers: Chronic kidney disease stage 3 subtype: stage 3a (GFR 45-59) Qualified Code(s): N18.31 - Chronic kidney disease, stage 3a (2) Hypertension: Code(s): I10 - Essential (primary) hypertension Qualifiers: Hypertension type: primary hypertension Qualified Code(s): I10 - Essential (primary) hypertension Plan Tomer is known to have CKD stage 3. His renal functions are pretty stable. He is tolerating SKY-inhibitor. His volume status is optimal. His urine output is good. He should continue to avoid nonsteroidal anti-inflammatory medications. His blood pressure needs to be maintained at goal. I ordered urine studies and blood work for follow-up. Answered all his questions. I did not make any medication changes at this visit. Follow-up given. Orders: Orders Electrolytes 02/03/23 N18.30 - Chronic kidney disease, stage 3 unspecified Creatinine 02/03/23 N18.30 - Chronic kidney disease, stage 3 unspecified Protein Creatinine Ratio, Ur 02/03/23 N18.30 - Chronic kidney disease, stage 3 unspecified Blood Urea Nitrogen 02/03/23 N18.30 - Chronic kidney disease, stage 3 unspecified Calcium 02/03/23 N18.30 - Chronic kidney disease, stage 3 unspecified Medications: New lisinopril 40 mg PO DAILY 90 tabs 3RF 90 days Coding Level of Care Code Est Pt Level 3 (11607) Diagnoses Stage 3a chronic kidney disease N18.31 Chronic kidney disease stage 3 subtype: stage 3a (GFR 45-59) Primary hypertension I10 Hypertension type: primary hypertension Results Reviewed Nephrology Results: No Data to Display
[2023-02-03 12:42] VITALS: BP 140/70; PULSE 78; O2SAT 96; BMI 30.5
== END 2023-02-03 13:03 | disposition home or self-care (01) ==
PROVIDERS: PCP Internal Medicine; Visit Provider Internal Medicine Nephrology
DX: N18.31 Chronic kidney disease, stage 3a (principal); I10 Essential (primary) hypertension
CPT/HCPCS: 99213

== ENCOUNTER → 2023-02-03 12:06 | Outpatient (BNVA) | payer MEDICARE, SELFPAY | PROVIDERS: PCP Internal Medicine; Visit Provider Internal Medicine Nephrology | DX: I12.9 Hypertensive chronic kidney disease with stage 1 through stage 4 chronic kidney disease, or unspecified chronic kidney disease (principal); N18.31 Chronic kidney disease, stage 3a | CPT/HCPCS: 99212 ==

== ENCOUNTER 2023-02-17 10:03 | Outpatient (AMB) | payer MEDICARE, SELFPAY ==
--- NOTE | 2023-02-17 10:13 | MHC.OFFVISCO ---
Intake Intake Visit Reasons: Anticoagulation Allergies No Known Allergies [No Known Allergies*] Allergy (Verified 02/17/23 10:20) Medication List - Last Reconciled 02/17/23 by Jada Blake RN amiodarone 100 mg PO DAILY ezetimibe 10 mg PO DAILY levothyroxine 88 mcg PO DAILY lisinopril 40 mg PO DAILY 90 days rosuvastatin 40 mg PO DAILY warfarin See Protocol 5 mg orally 5mg x 1 day/ 2.5mg x 6 days; Nursing Note INR: 2.3- in therapeutic range of 2-3 Medications and supplements reviewed- pt states lisinopril increased to 40mg daily- no interaction per micromedex No changes in health, diet, medications, or supplements, Denies any signs and symptoms of bleeding or bruising or clotting. Bleeding, bruising, clotting discussed Nutritional guidance given Dose: 5mg x 2, 2.5mg x 5 pt vague on prev dosing- specifically days he took 5mg x 2 F/U INR: pt req 4 weeks Patient verbalizes understanding of instructions given Anti-Coag Initial Assessment Social Hx Patient Tobacco Use Status: Never used Tobacco alcohol intake: never Coding Level of Care Code Est Patient Level 1 Diagnoses Current use of anticoagulant therapy Z79.01 Assessment & Plan Assessment & Plan (1) Current use of anticoagulant therapy: Code(s): Z79.01 - prison (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
[2023-02-17 10:14] LABS: Prothrombin Time Whole Bld POC 27.9 sec (11.1-13.5); ~PT, ~INR - Anti Coag Clinic 2.3 (0.9-1.1)
== END 2023-02-17 10:23 | disposition home or self-care (01) ==
LOC: HO.ACS 10:03
PROVIDERS: PCP Internal Medicine; Visit Provider Internal Medicine
DX: Z79.01 Long term (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 (principal)

== ENCOUNTER → 2023-02-17 10:03 | Outpatient (BNVA) | payer MEDICARE, SELFPAY | PROVIDERS: PCP Internal Medicine; Visit Provider Internal Medicine | DX: I48.0 Paroxysmal atrial fibrillation (principal); Z51.81 Encounter for therapeutic drug level monitoring; Z79.01 Long term (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 | CPT/HCPCS: 85610; 99211 ==

== ENCOUNTER → 2023-03-07 23:59 | Outpatient (BNV) | payer MEDICARE, SELFPAY ==
--- NOTE | 2023-03-08 19:07 | MHC.OFFVIS ---
Intake Intake Visit Reasons: Remote Device Check- [employer] Allergies No Known Allergies [No Known Allergies*] Allergy (Verified 02/17/23 10:20) [facility] Medical History (Updated 02/14/23 @ 03:15 by Luis Dumont MD) Hypothyroidism GERD (gastroesophageal reflux disease) Hyperlipidemia Tubular adenoma of colon (~08/2015) Cardiac pacemaker in situ (~10/2021) Essential hypertension Chronic kidney disease Dizziness Non-rheumatic aortic sclerosis LBBB (left bundle branch block) PAF (paroxysmal atrial fibrillation) Current use of anticoagulant therapy Surgical History History of cardiac pacemaker (~2021) History of cardioversion (~2017) History of colonoscopy History of cholecystectomy (~1990) Family History Father No problems noted. Mother No problems noted. Social History Household Members: Spouse Housing: House Do you presently have visiting nurse or other home services: No Alcohol intake: never Patient Tobacco Use Status: Never used Tobacco Advance Directives Date on File: 07/09/21 service: No Current occupational status: retired Office Procedures Cardiac Device Check Cardiac Device Check Details: Date of service- 03/07/2023 ; Battery life >12 years; normal lead parameters; AP 77.8%; DOOR INSTALLER <0.1%; no significant arrhythmias. Overall normal device function. [id number] Cardiac Device Interrogation, pacemaker Procedure code (CPT) selection complete Assessment & Plan Assessment & Plan (1) Sinus pause: Code(s): I45.5 - Other specified heart block (2) PAF (paroxysmal atrial fibrillation): Code(s): I48.0 - Paroxysmal atrial fibrillation Plan x Coding Level of Care Code Procedure Only Diagnoses Sinus pause I45.5 PAF (paroxysmal atrial fibrillation) I48.0 CPT Codes Cardiac Device Check - Cardiac Device 12: [id number] Cardiac Device Interrogation, pacemaker ([id number])
== END ==
PROVIDERS: PCP Internal Medicine; Visit Provider Internal Medicine
DX: I48.0 Paroxysmal atrial fibrillation (principal); Z95.0 Presence of cardiac pacemaker
CPT/HCPCS: 93294

== ENCOUNTER 2023-03-14 08:34 | Outpatient (REF) | payer MEDICARE, SELFPAY ==
--- NOTE | ~2023-03-14 | CT_ITS ---
EXAMINATION: CT CHEST WITHOUT CONTRAST CLINICAL INFORMATION: Dyspnea on exertion. COMPARISON: Chest CT dated 12/21/2022. TECHNIQUE: Multidetector volumetric CT imaging of the chest was done. Axial MIP volume rendering provided. Sagittal and coronal reformatted images were obtained. This CT examination was performed using dose optimization techniques as appropriate, variously including the following: *Automated exposure control *Adjustment of mA and/or kV according to patient size (this includes techniques or standardized protocols for targeted exams where dose is matched to indication/reason for exam; i.e. extremities or head) *Use of iterative reconstruction technique DLP: 191 mGy-cm FINDINGS: PUBLICATIONS DESIGNER: Left-sided pacemaker with right atrial and right ventricular leads. LUNGS: The trachea and bronchi are patent. No significant change in a focal area of traction bronchiectasis with surrounding ground-glass in the posterior right upper lobe with mild retraction of the major fissure. Unchanged mild nonspecific subpleural reticular markings/intralobular septal thickening in the posterior medial right lower lobe. No suspicious pulmonary nodules. MEDIASTINUM: Left-sided pacemaker with right atrial and right ventricular leads. The heart is normal in size. Moderate aortic valve calcifications. Atherosclerosis of the aorta and its branches. CORONARY ARTERY CALCIFICATION: Severe coronary artery calcifications. PLEURA: There is no pleural effusion. No pleural mass or thickening. AXILLA: No lymphadenopathy. UPPER ABDOMEN: Status post cholecystectomy with surgical clips in the gallbladder fossa. OSSEOUS STRUCTURES: Degenerative changes of the visualized thoracic spine. No destructive osseous lesions. CT/CT chest wo IV con IMPRESSION: 1. Stable traction bronchiectasis and associated ground-glass opacity in the right upper lobe and subpleural reticular markings/intralobular septal thickening in the right lower lobe. 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 Consider follow up CT in another 3 months. 2. Severe coronary artery calcifications. 3. Moderate aortic valve calcifications. Fleischner guidelines were followed.
[2023-03-14 11:00] LABS: Anion Gap 12 (12-20); Blood Urea Nitrogen 26 mg/dL (9-16); Calcium 9.5 mg/dL (8.4-10.2); Carbon Dioxide 26 mmol/L (22-29); Chloride 103 mmol/L (96-108); Estimated Glomerular Filt Rate 42; Potassium 4.5 mmol/L (3.3-5.1); Sodium 136 mmol/L (135-145)
--- NOTE | 2023-03-14 11:43 | PFT_ITS ---
Flows: FEV1: 107 % of predicted at 2.88 L FVC: 106 % of predicted at 3.84 L FEV1/FVC: 75 % Bronchodilator response: Absent Volumes: Total lung capacity: 84 % of predicted at 5.58 L Residual volume: 60 % of predicted at 1.80 L Slow vital capacity: 101 % of predicted at 3.78 L Expiratory reserve volume: 23 % of predicted at 0.25 L Diffusion capacity: Normal Impression: No obstructive or restrictive ventilatory defect. No bronchodilator response. Decreased expiratory reserve volume suggests extrathoracic restriction likely secondary to abdominal obesity. MTDD
[2023-03-14 14:08] LABS: Creatinine Urine 85.87 mg/dL; Total Protein Urine Random 9 mg/dL (<12)
== END 2023-03-14 08:35 | disposition home or self-care (01) ==
LOC: HO.RESP 08:34
PROVIDERS: PCP Internal Medicine; Referring Provider Internal Medicine Nephrology; Visit Provider Nurse Practitioner Family
DX: I48.0 Paroxysmal atrial fibrillation (principal); R91.8 Other nonspecific abnormal finding of lung field; R06.09 Other forms of dyspnea; N18.30 Chronic kidney disease, stage 3 unspecified; Z51.81 Encounter for therapeutic drug level monitoring; Z79.01 Long term (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
CPT/HCPCS: 36415; 71250; 80051; 82310; 82565; 82570; 84156; 84520; 85610; 99211

== ENCOUNTER 2023-03-14 10:23 | Outpatient (AMB) | payer MEDICARE, SELFPAY ==
--- NOTE | 2023-03-14 10:26 | MHC.OFFVISCO ---
Intake Intake Visit Reasons: Anticoagulation Allergies No Known Allergies [No Known Allergies*] Allergy (Verified 03/14/23 10:23) Medication List - Last Reconciled 03/14/23 by Jada Blake RN amiodarone 100 mg PO DAILY ezetimibe 10 mg PO DAILY levothyroxine 88 mcg PO DAILY lisinopril 40 mg PO DAILY 90 days rosuvastatin 40 mg PO DAILY warfarin See Protocol 5 mg orally 5mg x 1 day/ 2.5mg x 6 days; Nursing Note INR: 2.0- in therapeutic range of 2-3 Medications and supplements reviewed- no changes No changes in health, diet, medications, or supplements, Denies any signs and symptoms of bleeding or bruising or clotting. Bleeding, bruising, clotting discussed Nutritional guidance given Dose: 5mg x 2, 2.5mg x 5 F/U INR: 4 weeks Patient verbalizes understanding of instructions given pt here for labs today Anti-Coag Initial Assessment Social Hx Patient Tobacco Use Status: Never used Tobacco alcohol intake: never Coding Level of Care Code Est Patient Level 1 Diagnoses Current use of anticoagulant therapy Z79.01 Results AMB INR Fingerstick AMB INR Fingerstick 2.0 Last Edit by Jada Blake RN on 03/14/23 10:28 Assessment & Plan Assessment & Plan (1) Current use of anticoagulant therapy: Code(s): Z79.01 - prison (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
[2023-03-14 10:28] LABS: Prothrombin Time Whole Bld POC 24.2 sec (11.1-13.5)
== END 2023-03-14 10:32 | disposition home or self-care (01) ==
LOC: HO.ACS 10:23
PROVIDERS: PCP Internal Medicine; Visit Provider Internal Medicine
DX: Z79.01 Long term (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 (principal)

== ENCOUNTER → 2023-03-14 11:43 | Outpatient (BNV) | payer MEDICARE, SELFPAY | PROVIDERS: PCP Internal Medicine; Referring Provider Internal Medicine Nephrology; Visit Provider Internal Medicine Pulmonary Disease | DX: R06.09 Other forms of dyspnea (principal) | CPT/HCPCS: 94060; 94727; 94729 ==

== ENCOUNTER 2023-04-14 10:08 | Outpatient (AMB) | payer MEDICARE, SELFPAY ==
[2023-04-14 10:16] LABS: Prothrombin Time Whole Bld POC 40.2 sec (11.1-13.5); ~PT, ~INR - Anti Coag Clinic 3.4 (0.9-1.1)
--- NOTE | 2023-04-14 10:25 | MHC.OFFVISCO ---
Intake Intake Visit Reasons: Anticoagulation Allergies No Known Allergies [No Known Allergies*] Allergy (Verified 04/14/23 10:10) Medication List - Last Reconciled 04/14/23 by Zaynab Vieyra RN amiodarone 100 mg PO DAILY ezetimibe 10 mg PO DAILY levothyroxine 88 mcg PO DAILY lisinopril 40 mg PO DAILY 90 days polyethylene glycol 3350 17 grams PO DAILY rosuvastatin 40 mg PO DAILY warfarin See Protocol 5 mg orally 5mg x 1 day/ 2.5mg x 6 days; Nursing Note INR 3.4 out of therapeutic range Medications and supplements reviewed Patient status: HAS NOT HAD USUAL GREENS, HE ONLY LIKES SALADS GREENBEANS AND PEAS- HE WAS ENC TO EAT THEM WEEKLY Medications or supplements: NO CHANGES Diet: GOOD APPETITE Denies any signs and symptoms of bleeding or clotting or unusual bruising Bleeding, bruising, clotting discussed Nutritional guidance given: GREENS WEEKLY AND KEEP UP PROTEIN LIKE CHICKEN AND FISH Dose: KEEP SAME DUE TO HEART 5MG X 2 DAYS/ 2.5MG X 5 DAYS- ALREADY TOOK TODAY'S DOSE F/U INR Date : 4 WEEKS PER PT REQUEST ?? Patient verbalizing understanding of instructions given. Anti-Coag Initial Assessment Social Hx Patient Tobacco Use Status: Never used Tobacco alcohol intake: never Coding Level of Care Code Est Patient Level 1 Diagnoses Current use of anticoagulant therapy Z79.01 Results AMB INR Fingerstick AMB INR Fingerstick 3.4 Last Edit by Zaynab Vieyra RN on 04/14/23 10:18 Assessment & Plan Assessment & Plan (1) Current use of anticoagulant therapy: Code(s): Z79.01 - FDC (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
== END 2023-04-14 10:30 | disposition home or self-care (01) ==
LOC: HO.ACS 10:08
PROVIDERS: PCP Internal Medicine; Visit Provider Internal Medicine
DX: Z79.01 Long term (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 (principal)

== ENCOUNTER → 2023-04-14 10:08 | Outpatient (BNVA) | payer MEDICARE, SELFPAY | PROVIDERS: PCP Internal Medicine; Visit Provider Internal Medicine | DX: I48.0 Paroxysmal atrial fibrillation (principal); Z79.01 Long term (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; Z51.81 Encounter for therapeutic drug level monitoring | CPT/HCPCS: 85610; 99211 ==

== ENCOUNTER 2023-04-19 11:00 | Outpatient (AMB) | payer MEDICARE, SELFPAY ==
[2023-04-19 11:16] VITALS: BP 118/70; PULSE 76; BMI 31.7
--- NOTE | 2023-04-19 11:16 | HO.NEPHOV_ITS ---
HPI HPI Comments History of Present Illness Details I had the privilege of seeing Tomer in follow-up of his chronic kidney disease. He has vascular disease. He does not have any chest pain, shortness of breath, proximal nocturnal dyspnea, orthopnea, pedal edema or orthostatic symptoms. He is compliant with his medications. His blood pressure has been at goal. His serum creatinine is stable. He does not take any nonsteroidal anti- inflammatories. There were no new complaints at the time of this office visit. [facility] Medical History (Updated 02/14/23 @ 03:15 by Luis Dumont MD) Hypothyroidism GERD (gastroesophageal reflux disease) Hyperlipidemia Tubular adenoma of colon (~08/2015) Cardiac pacemaker in situ (~10/2021) Essential hypertension Chronic kidney disease Dizziness Non-rheumatic aortic sclerosis LBBB (left bundle branch block) PAF (paroxysmal atrial fibrillation) Current use of anticoagulant therapy Surgical History History of cardiac pacemaker (~2021) History of cardioversion (~2017) History of colonoscopy History of cholecystectomy (~1990) Family History Father No problems noted. Mother No problems noted. Social History Household Members: Spouse Housing: House Do you presently have visiting nurse or other home services: No Alcohol intake: never Patient Tobacco Use Status: Never used Tobacco Advance Directives Date on File: 07/09/21 service: No Current occupational status: retired Vital Signs 04/19/23 11:16 Height 5 ft 8 in Weight 208 lb 8 oz BMI 31.7 BP 118/70 Blood Pressure Location Rt brachial Position Sitting Pulse 76 Pulse Source Pulse Oximeter Physical Exam Vital Signs: Last Vital Signs Pulse 76 04/19/23 11:16 BP 118/70 04/19/23 11:16 BMI result Body Mass Index 31.7 Const General: comfortable and no acute distress Orientation/consciousness: patient oriented x3 HEENT Head: Yes normocephalic Mouth: Normal oral and palatal mucosa present Eyes EOM: EOMs intact bilaterally Neck Neck: Yes supple Resp Auscultation: clear to auscultation bilaterally Cardio Jugular venous distension: no JVD Rate: regular rate GI Palpation (GI): Soft to palpation Auscultation: normal bowel sounds General: Yes no CVA tenderness Back/Spine/Pelvis Back: no CVA tenderness Skin General skin exam: no rashes or lesions noted Neuro General: patient oriented x3 and moves all extremities Extrem General: Yes no pedal edema Assessment & Plan Assessment & Plan (1) CKD (chronic kidney disease) stage 3, GFR 30-59 ml/min: Code(s): N18.30 - Chronic kidney disease, stage 3 unspecified Qualifiers: Chronic kidney disease stage 3 subtype: stage 3a (GFR 45-59) Qualified Code(s): N18.31 - Chronic kidney disease, stage 3a (2) Hypertension: Code(s): I10 - Essential (primary) hypertension Qualifiers: Hypertension type: primary hypertension Qualified Code(s): I10 - Essential (primary) hypertension Plan Tomer is known to have CKD stage 3. His renal functions are pretty stable. He is tolerating SKY-inhibitor. His volume status is optimal. His urine output is good. He should continue to avoid nonsteroidal anti-inflammatory medications. His blood pressure needs to be maintained at goal. Answered all his questions. I did not make any medication changes at this visit. Follow-up given. Orders: Orders Blood Urea Nitrogen Today I10 - Essential (primary) hypertension, N18.30 - Chronic kidney disease, stage 3 unspecified Creatinine Today I10 - Essential (primary) hypertension, N18.30 - Chronic kidney disease, stage 3 unspecified Electrolytes Today I10 - Essential (primary) hypertension, N18.30 - Chronic kidney disease, stage 3 unspecified Calcium Today I10 - Essential (primary) hypertension, N18.30 - Chronic kidney disease, stage 3 unspecified Complete Blood Count Auto Diff Today I10 - Essential (primary) hypertension, N18.30 - Chronic kidney disease, stage 3 unspecified Coding Level of Care Code Est Pt Level 3 (35309) Diagnoses Stage 3a chronic kidney disease N18.31 Chronic kidney disease stage 3 subtype: stage 3a (GFR 45-59) Primary hypertension I10 Hypertension type: primary hypertension Results Reviewed Nephrology Results: Sodium 136 mmol/L (135-145) 03/14/23 Potassium 4.5 mmol/L (3.3-5.1) 03/14/23 Chloride 103 mmol/L (96-108) 03/14/23 Carbon Dioxide 26 mmol/L (22-29) 03/14/23 BUN 26 mg/dL (9-16) H 03/14/23 Creatinine 1.59 mg/dL (0.5-1.4) H 03/14/23 Calcium 9.5 mg/dL (8.4-10.2) 03/14/23 Urine Creatinine 85.87 mg/dL 03/14/23 Protein/Creatinin Ratio 0.10 (<0.2) 03/14/23
== END 2023-04-19 11:43 | disposition home or self-care (01) ==
PROVIDERS: PCP Internal Medicine; Visit Provider Internal Medicine Nephrology
DX: N18.31 Chronic kidney disease, stage 3a (principal); I10 Essential (primary) hypertension
CPT/HCPCS: 99213

== ENCOUNTER → 2023-04-19 11:00 | Outpatient (BNVA) | payer MEDICARE, SELFPAY | PROVIDERS: PCP Internal Medicine; Visit Provider Internal Medicine Nephrology | DX: I12.9 Hypertensive chronic kidney disease with stage 1 through stage 4 chronic kidney disease, or unspecified chronic kidney disease (principal); N18.31 Chronic kidney disease, stage 3a | CPT/HCPCS: 99212 ==

== ENCOUNTER 2023-05-03 11:06 | Outpatient (AMB) | payer MEDICARE, SELFPAY ==
--- NOTE | 2023-05-03 11:07 | MHC.OFFVIS ---
Intake Vital Signs 05/03/23 11:11 Height 5 ft 8 in Weight 203 lb 14.841 oz BMI 31.0 BP 150/92 H Blood Pressure Location Lt brachial Position Sitting Pulse 79 Intake Visit Reasons: 6 mos followup Intake Note: 6 month follow up w/ EKG Scientific Process Operator Required: No Accompanied by: Self / Same As Patient Allergies No Known Allergies [No Known Allergies*] Allergy (Verified 05/03/23 11:08) Medication List - Last Reconciled 05/03/23 by Quintin Romano MD amiodarone 100 mg (1/2 x 200 mg) PO DAILY 90 days ezetimibe 10 mg PO DAILY levothyroxine 88 mcg PO DAILY lisinopril 30 mg PO DAILY polyethylene glycol 3350 17 grams PO DAILY rosuvastatin 40 mg PO DAILY warfarin See Protocol 5 mg orally 5mg x 1 day/ 2.5mg x 6 days; HPI HPI Comments History of Present Illness Details Sameer returns for follow-up regarding paroxysmal atrial fibrillation and aortic stenosis. Due to syncopal episodes, he underwent implantable loop monitor implantation. This showed long pauses and he was hospitalized underwent permanent pacemaker. From the cardiac standpoint, he seems to doing fine. No new complaints. No angina or shortness of breath or in fact anything cardiac sounding. [facility] Medical History (Updated 02/14/23 @ 03:15 by Luis Dumont MD) Hypothyroidism GERD (gastroesophageal reflux disease) Hyperlipidemia Tubular adenoma of colon (~08/2015) Cardiac pacemaker in situ (~10/2021) Essential hypertension Chronic kidney disease Dizziness Non-rheumatic aortic sclerosis LBBB (left bundle branch block) PAF (paroxysmal atrial fibrillation) Current use of anticoagulant therapy Surgical History History of cardiac pacemaker (~2021) History of cardioversion (~2017) History of colonoscopy History of cholecystectomy (~1990) Family History Father No problems noted. Mother No problems noted. Social History Household Members: Spouse Housing: House Do you presently have visiting nurse or other home services: No Alcohol intake: never Patient Tobacco Use Status: Never used Tobacco Advance Directives Date on File: 07/09/21 service: No Current occupational status: retired Review of Systems Const Denies weakness ENT Denies dizziness Card Denies chest pain with activity, Denies syncope, Denies rapid heart rate, Denies pedal edema, Denies edema, Denies leg edema, Denies lightheadedness, Denies palpitations, Denies dyspnea, Denies dyspnea on exertion and Denies orthopnea Resp Denies cough, Denies dyspnea and Denies dyspnea on exertion GI Denies hematochezia and Denies change in stool character Musc Denies abnormal gait, Denies muscle cramps, Denies muscle weakness, Denies numbness, Denies radiating pain into limb and Denies tingling Neuro Denies abnormal gait, Denies dizziness, Denies syncope, Denies numbness, Denies tingling and Denies weakness Endo Denies palpitations Physical Exam Vital Signs: Last Vital Signs Pulse 79 05/03/23 11:11 BP 150/92 H 05/03/23 11:11 BMI result Body Mass Index 31.0 Const General: comfortable and no acute distress Orientation/consciousness: patient oriented x3 HEENT Other: Unremarkable Head: Yes normal to inspection Neck Neck: Yes normal visual inspection Chest Chest palpation & inspection: normal inspection of the chest Resp Auscultation: clear to auscultation bilaterally Cardio Palpation: normal PMI Heart sounds: S1 normal heart sound present, S2 normal heart sound present, no gallops, Murmur heart sound present systolic II/ and at the right sternal border and no rubs GI Palpation (GI): Soft to palpation Back/Spine/Pelvis Other: unremarkable Skin General skin exam: no rashes or lesions noted Neuro General: patient oriented x3 Extrem General: Yes normal to inspection Psych Mental Status: mental status grossly normal Office Procedures EKG Details: EKG with possibly atrial pacing although the spikes are and that will seen. Rate 79/Min. Left bundle-branch block pattern. [id number], Complete Assessment & Plan Assessment & Plan (1) PAF (paroxysmal atrial fibrillation): Code(s): I48.0 - Paroxysmal atrial fibrillation Plan: Issues with various antiarrhythmics. Due to left bundle-branch block could not use flecainide. Multaq was too expensive. Sotalol/Tikosyn could not be used due to chronic kidney disease. He saw EP but did not want ablation. He was on low-dose amiodarone but now CT scan shows interstitial lung disease. Hence seeing Pulmonary. Difficult situation. We will have to probably stop the amiodarone. If he goes back into atrial fibrillation, then probably get EP consult again for ablation. Thyroid function being followed through Endocrine. Home sleep study shows mild RICARDO. Not on CPAP at this time. (2) Sinus pause: Code(s): I45.5 - Other specified heart block Plan: Implantable loop recorder had shown pauses which could be etiology for syncope. Status post permanent pacemaker. (3) LBBB (left bundle branch block): Code(s): I44.7 - Left bundle-branch block, unspecified Plan: Chronic finding. In the stress perfusion imaging, no evidence of ischemia. (4) Non-rheumatic aortic sclerosis: Code(s): I35.8 - Other nonrheumatic aortic valve disorders Plan: Reported moderate stenosis but based on valve area as well as gradients, more in the [id number] range. May repeat in due course. (5) Essential hypertension: Code(s): I10 - Essential (primary) hypertension Plan: Slightly high today but it is confusing that he states he takes half of lisinopril 30 mg daily. No changes made. (6) Pulmonary fibrosis: Code(s): J84.10 - Pulmonary fibrosis, unspecified Plan: Stop Amiodarone. Discussed with patient today. Medications: Discontinued amiodarone Discontinued Reason: Doctor's Order 100 mg (1/2 x 200 mg) PO DAILY 90 days 45 tabs 3RF Coding Level of Care Code Est Pt Level 4 (21387) Diagnoses PAF (paroxysmal atrial fibrillation) I48.0 Sinus pause I45.5 LBBB (left bundle branch block) I44.7 Non-rheumatic aortic sclerosis I35.8 Essential hypertension I10 Pulmonary fibrosis J84.10 CPT Codes EKG - CPT: 48879-[id number], Complete ([id number])
[2023-05-03 11:11] VITALS: BP 150/92; PULSE 79; BMI 31.0
== END 2023-05-03 11:29 | disposition home or self-care (01) ==
PROVIDERS: PCP Internal Medicine; Visit Provider Internal Medicine
DX: I48.0 Paroxysmal atrial fibrillation (principal); I45.5 Other specified heart block; I44.7 Left bundle-branch block, unspecified; I35.8 Other nonrheumatic aortic valve disorders; I10 Essential (primary) hypertension; J84.10 Pulmonary fibrosis, unspecified
CPT/HCPCS: 93010; 99214

== ENCOUNTER → 2023-05-03 11:06 | Outpatient (BNVA) | payer MEDICARE, SELFPAY | PROVIDERS: PCP Internal Medicine; Visit Provider Internal Medicine | DX: I48.0 Paroxysmal atrial fibrillation (principal); I45.5 Other specified heart block; I44.7 Left bundle-branch block, unspecified; I35.8 Other nonrheumatic aortic valve disorders; I10 Essential (primary) hypertension; J84.10 Pulmonary fibrosis, unspecified | CPT/HCPCS: 93005; 99212 ==

== ENCOUNTER 2023-05-12 09:59 | Outpatient (AMB) | payer MEDICARE, SELFPAY ==
[2023-05-12 10:10] LABS: ~PT, ~INR - Anti Coag Clinic 2.3 (0.9-1.1)
--- NOTE | 2023-05-12 10:14 | MHC.OFFVISCO ---
Intake Intake Visit Reasons: Anticoagulation Allergies No Known Allergies [No Known Allergies*] Allergy (Verified 05/12/23 10:03) Medication List - Last Reconciled 05/12/23 by Zaynab Vieyra RN ezetimibe 10 mg PO DAILY levothyroxine 88 mcg PO DAILY lisinopril 30 mg PO DAILY polyethylene glycol 3350 17 grams PO DAILY rosuvastatin 40 mg PO DAILY warfarin See Protocol 5 mg orally 5mg x 1 day/ 2.5mg x 6 days; Nursing Note INR: 2.3 in therapeutic range Medications and supplements reviewed No changes in health, diet, medications, or supplements, Denies any signs and symptoms of bleeding or bruising or clotting. 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
== END 2023-05-12 10:16 | disposition home or self-care (01) ==
LOC: HO.ACS 09:59
PROVIDERS: PCP Internal Medicine; Visit Provider Internal Medicine
DX: Z79.01 Long term (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 (principal)

== ENCOUNTER → 2023-05-12 09:59 | Outpatient (BNVA) | payer MEDICARE, SELFPAY | PROVIDERS: PCP Internal Medicine; Visit Provider Internal Medicine | DX: I48.0 Paroxysmal atrial fibrillation (principal); Z79.01 Long term (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; Z51.81 Encounter for therapeutic drug level monitoring | CPT/HCPCS: 85610; 99211 ==

== ENCOUNTER → 2023-06-07 23:59 | Outpatient (BNV) | payer MEDICARE, SELFPAY ==
--- NOTE | 2023-06-20 15:41 | MHC.OFFVIS ---
Intake Visit Reasons: Remote Device Check- [employer] Allergies No Known Allergies [No Known Allergies*] Allergy (Verified 06/09/23 09:57) [facility] Medical History (Updated 02/14/23 @ 03:15 by Luis Dumont MD) Hypothyroidism GERD (gastroesophageal reflux disease) Hyperlipidemia Tubular adenoma of colon (~08/2015) Cardiac pacemaker in situ (~10/2021) Essential hypertension Chronic kidney disease Dizziness Non-rheumatic aortic sclerosis LBBB (left bundle branch block) PAF (paroxysmal atrial fibrillation) Current use of anticoagulant therapy Surgical History History of cardiac pacemaker (~2021) History of cardioversion (~2017) History of colonoscopy History of cholecystectomy (~1990) Family History Father No problems noted. Mother No problems noted. Social History Household Members: Spouse Housing: House Do you presently have visiting nurse or other home services: No Alcohol intake: never Patient Tobacco Use Status: Never used Tobacco Advance Directives Date on File: 07/09/21 service: No Current occupational status: retired Office Procedures Cardiac Device Check Cardiac Device Check Details: Date of service- 06/07/2023 ; Battery life >12 years; normal lead parameters; AP 77%; TAILOR HELPER <0.1%; very brief NSVT in 1 strip. Other strip seems supraventricular.. Overall normal device function. [id number] Cardiac Device Interrogation, pacemaker Procedure code (CPT) selection complete Assessment & Plan Assessment & Plan (1) PAF (paroxysmal atrial fibrillation): Code(s): I48.0 - Paroxysmal atrial fibrillation Category: Medical Plan x Coding Level of Care Code Procedure Only Diagnoses PAF (paroxysmal atrial fibrillation) I48.0 CPT Codes Cardiac Device Check - Cardiac Device 12: [id number] Cardiac Device Interrogation, pacemaker ([id number])
== END ==
PROVIDERS: PCP Internal Medicine; Visit Provider Internal Medicine
DX: I48.0 Paroxysmal atrial fibrillation (principal); Z95.0 Presence of cardiac pacemaker
CPT/HCPCS: 93294

== ENCOUNTER 2023-06-09 09:50 | Outpatient (AMB) | payer MEDICARE, SELFPAY ==
[2023-06-09 10:02] LABS: Prothrombin Time Whole Bld POC 32.3 sec (11.1-13.5); ~PT, ~INR - Anti Coag Clinic 2.7 (0.9-1.1)
--- NOTE | 2023-06-09 10:09 | MHC.OFFVISCO ---
Intake Intake Visit Reasons: Anticoagulation Allergies No Known Allergies [No Known Allergies*] Allergy (Verified 06/09/23 09:57) Medication List - Last Reconciled 06/09/23 by Ximena Canales RN ezetimibe 10 mg PO DAILY levothyroxine 88 mcg PO DAILY lisinopril 30 mg PO DAILY polyethylene glycol 3350 17 grams PO DAILY rosuvastatin 40 mg PO DAILY warfarin See Protocol 5 mg orally 5mg x 1 day/ 2.5mg x 6 days; Nursing Note INR: 2.7 in therapeutic range of 2-3 Medications and supplements reviewed: no changes No changes in health, diet, medications, or supplements, Denies any signs and symptoms of bleeding or bruising or clotting. Bleeding, bruising, clotting discussed Nutritional guidance given to have a serving of greens today. Pt states he has no greens and requests to decrease today's dose to 2.5mg (5mg) Dose: today 2.5mg (5mg) then resume usual dose of 2.5mg X5 days and 5mg X 2 days F/U INR: 4 weeks Patient verbalizes understanding of instructions given Anti-Coag Initial Assessment Social Hx Patient Tobacco Use Status: Never used Tobacco alcohol intake: never Coding Level of Care Code Est Patient Level 1 Diagnoses Current use of anticoagulant therapy Z79.01 Results AMB INR Fingerstick AMB INR Fingerstick 2.7 Last Edit by Ximena Canales RN on 06/09/23 10:06 interface delay Assessment & Plan Assessment & Plan (1) Current use of anticoagulant therapy: Code(s): Z79.01 - intermediate 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
== END 2023-06-09 10:13 | disposition home or self-care (01) ==
LOC: HO.ACS 09:50
PROVIDERS: PCP Internal Medicine; Visit Provider Internal Medicine
DX: Z79.01 Long term (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 (principal)

== ENCOUNTER → 2023-06-09 09:50 | Outpatient (BNVA) | payer MEDICARE, SELFPAY | PROVIDERS: PCP Internal Medicine; Visit Provider Internal Medicine | DX: I48.0 Paroxysmal atrial fibrillation (principal); Z79.01 Long term (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; Z51.81 Encounter for therapeutic drug level monitoring | CPT/HCPCS: 85610; 99211 ==

== ENCOUNTER 2023-06-20 09:49 | Outpatient (REF) | payer MEDICARE, SELFPAY ==
--- NOTE | ~2023-06-20 | CT_ITS ---
EXAMINATION: CT CHEST WITHOUT CONTRAST CLINICAL INFORMATION: Pulmonary fibrosis. COMPARISON: CT chest 03/14/2023: Stable traction bronchiectasis and associated ground-glass opacity in the right upper lobe and subpleural reticular markings/intralobular septal thickening in the right lower lobe. 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 Consider follow up CT in another [address] abdomen and pelvis 12/28/2016. TECHNIQUE: Multidetector volumetric CT imaging of the chest was done. Axial MIP volume rendering provided. Sagittal and coronal reformatted images were obtained. This CT examination was performed using dose optimization techniques as appropriate, variously including the following: *Automated exposure control. *Adjustment of mA and/or kV according to patient size (this includes techniques or standardized protocols for targeted exams where dose is matched to indication/reason for exam; i.e. extremities or head). *Use of iterative reconstruction technique. DLP: 210 mGy-cm FINDINGS: LUNGS: Again seen is an unchanged focal area of traction bronchiectasis with surrounding ground-glass in the posterior right upper lobe with mild retraction of the major fissure. Again seen are mild nonspecific subpleural reticular markings/intralobular septal thickening in the posterior medial right lower lobe without progression since the prior. There is an ill-defined 9 mm ground-glass opacity in the right upper lobe (prior 9:47) which has resolved. A few tiny micronodules seen, the largest 2 mm in the right upper lobe (11:38), none worrisome. MEDIASTINUM: A left chest wall dual-lead pacemaker present in good position. CORONARY ARTERY CALCIFICATION: Marked. PLEURA: There is no pleural effusion. No pleural mass or thickening. AXILLA: No lymphadenopathy. UPPER ABDOMEN: Partial visualization of parapelvic cysts on the right which need no additional imaging or follow-up. OSSEOUS STRUCTURES: Unremarkable. CT/CT chest wo IV con IMPRESSION: 1. Stable area of traction bronchiectasis with surrounding ground-glass opacity in the right upper lobe. 2. Stable mild nonspecific subpleural reticular markings/intralobular septal thickening in the right lower lobe. 3. No evidence of any progressive amiodarone pulmonary toxicity. 4. Other incidental findings as described above. Fleischner guidelines were followed.
== END 2023-06-20 09:50 | disposition home or self-care (01) ==
LOC: HO.CT 09:49
PROVIDERS: PCP Internal Medicine; Visit Provider Nurse Practitioner Family
DX: J84.10 Pulmonary fibrosis, unspecified (principal)
CPT/HCPCS: 71250

== ENCOUNTER 2023-07-07 09:48 | Outpatient (AMB) | payer MEDICARE, SELFPAY ==
[2023-07-07 09:55] LABS: Prothrombin Time Whole Bld POC 24.1 sec (11.1-13.5)
--- NOTE | 2023-07-07 09:58 | MHC.OFFVISCO ---
Intake Intake Visit Reasons: Anticoagulation Allergies No Known Allergies [No Known Allergies*] Allergy (Verified 07/07/23 09:50) Medication List - Last Reconciled 07/07/23 by Mariaelena Hardy RN ezetimibe 10 mg PO DAILY levothyroxine 88 mcg PO DAILY lisinopril 30 mg PO DAILY polyethylene glycol 3350 17 grams PO DAILY rosuvastatin 40 mg PO DAILY warfarin See Protocol 5 mg orally 5mg x 1 day/ 2.5mg x 6 days; Nursing Note NO CP,SOB,DIET/MED CHANGES,FALLS OR SX OF BLEEDING. CONTINUE PRESENT DOSE AND FOLLOW-UP IN 5 WEEKS GOOD UNDERSTANDING OF DOSING INSTR. Anti-Coag Initial Assessment Social Hx Patient Tobacco Use Status: Never used Tobacco alcohol intake: never Coding Level of Care Code Est Patient Level 1 Diagnoses Current use of anticoagulant therapy Z79.01 Assessment & Plan Assessment & Plan (1) Current use of anticoagulant therapy: Code(s): Z79.01 - buttermaker continuous churn (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
== END 2023-07-07 10:00 | disposition home or self-care (01) ==
LOC: HO.ACS 09:48
PROVIDERS: PCP Internal Medicine; Visit Provider Internal Medicine
DX: Z79.01 Long term (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 (principal)

== ENCOUNTER → 2023-07-07 09:48 | Outpatient (BNVA) | payer MEDICARE, SELFPAY | PROVIDERS: PCP Internal Medicine; Visit Provider Internal Medicine | DX: I48.0 Paroxysmal atrial fibrillation (principal); Z51.81 Encounter for therapeutic drug level monitoring; Z79.01 Long term (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 | CPT/HCPCS: 85610; 99211 ==

== ENCOUNTER 2023-08-11 09:29 | Outpatient (REF) | payer MEDICARE, SELFPAY ==
[2023-08-11 09:41] LABS: MANUAL DIFF FLAG NO
[2023-08-11 10:51] LABS: Basophils Absolute Auto 0.1 X10*3/uL (0.0-0.2); Basophils Percent Auto 0.7 % (0-2); Eosinophils Absolute Auto 0.3 X10*3/uL (0.0-0.4); Eosinophils Percent Auto 3.4 % (0-4); Hematocrit 40.6 % (42.0-52.0); Hemoglobin 13.4 g/dl (14.0-18.0); Imm Gran Abs Auto 0.02 X10*3/uL (0.00-0.03); Imm Gran Pct Auto 0.3 % (0.0-0.4); Lymphocytes Absolute Auto 1.8 X10*3/uL (1.2-4.9); Lymphocytes Percent Auto 23.9 % (20-40); Mean Corpuscular Hemoglobin 29.5 pg (27.0-33.0); Mean Corpuscular Volume 89.2 fL (80.0-98.0); Mean Platelet Volume 9.4 fL (9.4-12.4); Monocytes Absolute Auto 0.8 X10*3/uL (0.1-1.2); Monocytes Percent Auto 10.9 % (2-11); Neutrophils Absolute Auto 4.5 x10*3/uL (2.0-8.3); Neutrophils Percent Auto 60.8 % (45-73); Platelet Count 168 X10*3/uL (160-400); Red Blood Count 4.55 X10*6/uL (4.60-5.80); Red Cell Distribution Width 13.7 % (11.0-16.0); White Blood Count 7.4 X10*3/uL (4.8-10.8)
[2023-08-11 11:20] LABS: Anion Gap 10 (12-20); Blood Urea Nitrogen 21 mg/dL (9-16); Calcium 9.6 mg/dL (8.4-10.2); Carbon Dioxide 28 mmol/L (22-29); Chloride 106 mmol/L (96-108); Estimated Glomerular Filt Rate 49; Potassium 4.5 mmol/L (3.3-5.1); Sodium 139 mmol/L (135-145)
== END 2023-08-11 09:30 | disposition home or self-care (01) ==
LOC: HO.LAB 09:29
PROVIDERS: PCP Internal Medicine; Visit Provider Internal Medicine Nephrology
DX: I48.0 Paroxysmal atrial fibrillation (principal); I12.9 Hypertensive chronic kidney disease with stage 1 through stage 4 chronic kidney disease, or unspecified chronic kidney disease; N18.30 Chronic kidney disease, stage 3 unspecified; Z51.81 Encounter for therapeutic drug level monitoring; Z79.01 Long term (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
CPT/HCPCS: 36415; 80051; 82310; 82565; 84520; 85025; 85610; 99212

== ENCOUNTER 2023-08-11 09:59 | Outpatient (AMB) | payer MEDICARE, SELFPAY ==
[2023-08-11 10:12] LABS: Prothrombin Time Whole Bld POC 15.4 sec (11.1-13.5); ~PT, ~INR - Anti Coag Clinic 1.3 (0.9-1.1)
--- NOTE | 2023-08-11 10:17 | MHC.OFFVISCO ---
Intake Intake Visit Reasons: Anticoagulation Allergies No Known Allergies [No Known Allergies*] Allergy (Verified 08/11/23 10:06) Medication List - Last Reconciled 08/11/23 by Ximena Mcallister, TERE ezetimibe 10 mg PO DAILY levothyroxine 88 mcg PO DAILY lisinopril 30 mg PO DAILY polyethylene glycol 3350 17 grams PO DAILY rosuvastatin 40 mg PO DAILY warfarin See Protocol 5 mg orally 5mg x 1 day/ 2.5mg x 6 days; Nursing Note Amb to ACS feeling OK Medications and supplements reviewed, sts he only took 1/2 of his warfarin today when questioned why sts he went strawberry picking on Monday and had a lot of strawberries so he only took half dose early this am No other changes in health, diet, medications, or supplements, Denies any signs and symptoms of bleeding or bruising or clotting. INR 1.3 critical low, discussed with pt that half dose today would not impact INR yet, pt then sts well I didn't take the warfarin on Monday either lengthy discussion with pt regarding dangers of holding dose by self, reminded pt need to call us if concerns with any diet changes especially as he had an appt today we would have kept usual dosing and would instruct to have greens, not change or hold a warfarin dose pt to take 5 mg more of warfarin when he gets home from this visit and to take 5mg tomorrow (vs 2.5) instructed also no greens and its ok for strawberries, reviewed power of raising in some reds is not as strong as some of the lowering effect of many greens reiterated to call us with any concerns instructed to monitor for sign of clotting, chest pain, SOB, swelling in one extremity vs another and to go to ED if any sxs F/U INR: Monday 08/14 Patient verbalizes understanding of instructions given [address] Sorensen called, unable to reach an RN, message given to Nela in office INR 1.3, pt held and changed doses on his own, new dosing, usual dosing and F/U and when to report to ED Anti-Coag Initial Assessment Social Hx Patient Tobacco Use Status: Never used Tobacco alcohol intake: never Questionnaires HAS-BLED Does the patient had uncontrolled Hypertension?: No Does the patient have renal disease?: No Does the patient have liver disease?: No Does the patient have a history of stroke?: No Has the patient had major bleeding or predisposition to bleeding?: No Does the patient have labile INRs?: No Is the patient over 65 years of age?: Yes Is the patient on medications that gives them a predisposition to bleeding?: Yes Does the patient use alcohol?: Yes HAS-BLED Score: 3 CHADSVASC Age: 75 or over Gender: Male Does the patient have a history of CHF?: Yes Does the patient have a history of Hypertension?: Yes Does the patient have a history of Stroke/TIA/Thromboembolism?: No Does the patient have a history of Vascular Disease (prior CO, PAD or aortic plaque)?: No Does the patient have a history of Diabetes?: No CHADS VACS Score: 4 Stephany Prediction Score Rsk VTE Active Cancer: No Previous VTE, excluding superficial vein thrombosis: No Reduced mobility: No Already known Thrombophilic Condition: Yes With-in last month Trauma and/or Surgery: No Elderly 70 year or older: Yes Heart and/or Respiratory Failure: No Acute Myocardial infarction and/or Ischemic Stroke: No Acute Infection and/or Rheumatologic Disorder: No Obesity (BMI 30 or greater): No Ongoing Hormonal Treatment: No Score: 4 Stephany Score less than 4; Low Risk of VTE Stephany Score 4 or greater; High Risk of VTE Coding Level of Care Code Est Patient Level 2 Diagnoses Current use of anticoagulant therapy Z79.01 Time Spent (min) 30 Comment critical low, pt held own doses Assessment & Plan Assessment & Plan (1) Current use of anticoagulant therapy: Code(s): Z79.01 - terminal 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
== END 2023-08-11 12:05 | disposition home or self-care (01) ==
LOC: HO.ACS 09:59
PROVIDERS: PCP Internal Medicine; Visit Provider Internal Medicine
DX: Z79.01 Long term (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 (principal)

== ENCOUNTER 2023-08-14 10:32 | Outpatient (AMB) | payer MEDICARE, SELFPAY ==
[2023-08-14 10:43] LABS: Prothrombin Time Whole Bld POC 23.6 sec (11.1-13.5)
--- NOTE | 2023-08-14 10:45 | MHC.OFFVISCO ---
Intake Intake Visit Reasons: Anticoagulation Allergies No Known Allergies [No Known Allergies*] Allergy (Verified 08/14/23 10:37) Medication List - Last Reconciled 08/14/23 by Ximena Mcallister RN ezetimibe 10 mg PO DAILY levothyroxine 88 mcg PO DAILY lisinopril 30 mg PO DAILY polyethylene glycol 3350 17 grams PO DAILY rosuvastatin 40 mg PO DAILY warfarin See Protocol 5 mg orally 5mg x 1 day/ 2.5mg x 6 days; Nursing Note Amb to ACS feeling well S/P critical low on Monday Medications and supplements reviewed, sts he took extra warfarin on Monday and Monday as instructed No changes in health, diet, medications, or supplements, Denies any signs and symptoms of bleeding, bruising, or clotting. INR 2.0 just in therapeutic range Dose- continue usual dosing 5mg x 2 days and 2.5mg x 5 days Nutritional guidance given, no cooked greens today then balance usual diet Reminded not to make dosing changes without speaking to ACS nurses F/U INR: 4 weeks Patient verbalizes understanding of instructions given, has cardiology appt today Anti-Coag Initial Assessment Social Hx Patient Tobacco Use Status: Never used Tobacco alcohol intake: never Coding Level of Care Code Est Patient Level 1 Diagnoses Current use of anticoagulant therapy Z79.01 Time Spent (min) 15 Results AMB INR Fingerstick AMB INR Fingerstick 2.0 Last Edit by Ximena Mcallister RN on 08/14/23 10:43 Assessment & Plan Assessment & Plan (1) Current use of anticoagulant therapy: Code(s): 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
== END 2023-08-14 10:51 | disposition home or self-care (01) ==
LOC: HO.ACS 10:32
PROVIDERS: PCP Internal Medicine; Visit Provider Internal Medicine
DX: Z79.01 Long term (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 (principal)

== ENCOUNTER → 2023-08-14 10:32 | Outpatient (BNVA) | payer MEDICARE, SELFPAY | PROVIDERS: PCP Internal Medicine; Visit Provider Internal Medicine | DX: I48.0 Paroxysmal atrial fibrillation (principal); I45.5 Other specified heart block; I44.7 Left bundle-branch block, unspecified; I35.8 Other nonrheumatic aortic valve disorders; I10 Essential (primary) hypertension; J84.10 Pulmonary fibrosis, unspecified; Z79.01 Long term (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; Z51.81 Encounter for therapeutic drug level monitoring | CPT/HCPCS: 85610; 99211; 99212 ==

== ENCOUNTER 2023-08-14 11:03 | Outpatient (AMB) | payer MEDICARE, SELFPAY ==
[2023-08-14 11:10] VITALS: BP 120/62; PULSE 75; BMI 30.5
--- NOTE | 2023-08-14 11:10 | MHC.OFFVIS ---
Vital Signs 08/14/23 11:10 Height 5 ft 8 in Weight 200 lb 9.93 oz BMI 30.5 BP 120/62 Blood Pressure Location Lt brachial Position Sitting Pulse 75 Pulse Source Pulse Oximeter Intake Visit Reasons: 3 mth f/up Allergies No Known Allergies [No Known Allergies*] Allergy (Verified 08/14/23 10:37) Medication List - Last Reconciled 08/14/23 by Quintin Romano MD ezetimibe 10 mg PO DAILY levothyroxine 88 mcg PO DAILY lisinopril 15 mg PO DAILY polyethylene glycol 3350 17 grams PO DAILY rosuvastatin 40 mg PO DAILY warfarin See Protocol 5 mg orally 5mg x 1 day/ 2.5mg x 6 days; HPI Comments Details: Sameer returns for follow-up regarding paroxysmal atrial fibrillation and aortic stenosis. Due to syncopal episodes, he underwent implantable loop monitor implantation. This showed long pauses and he was hospitalized underwent permanent pacemaker. From cardiac, no new complaints. Doing okay. [facility] Medical History (Updated 02/14/23 @ 03:15 by Luis Dumont MD) Hypothyroidism GERD (gastroesophageal reflux disease) Hyperlipidemia Tubular adenoma of colon (~08/2015) Cardiac pacemaker in situ (~10/2021) Essential hypertension Chronic kidney disease Dizziness Non-rheumatic aortic sclerosis LBBB (left bundle branch block) PAF (paroxysmal atrial fibrillation) Current use of anticoagulant therapy Surgical History History of cardiac pacemaker (~2021) History of cardioversion (~2017) History of colonoscopy History of cholecystectomy (~1990) Family History Father No problems noted. Mother No problems noted. Social History Household Members: Spouse Housing: House Do you presently have visiting nurse or other home services: No Alcohol intake: never Patient Tobacco Use Status: Never used Tobacco Advance Directives Date on File: 07/09/21 service: No Current occupational status: retired Review of Systems Const Denies weakness ENT Denies dizziness Card Denies chest pain, Denies chest pain with activity, Denies syncope, Denies rapid heart rate, Denies pedal edema, Denies edema, Denies leg edema, Denies lightheadedness, Denies palpitations, Denies dyspnea, Denies dyspnea on exertion and Denies orthopnea Resp Denies cough, Denies dyspnea and Denies dyspnea on exertion GI Denies hematochezia and Denies change in stool character Musc Denies abnormal gait, Denies muscle cramps, Denies muscle weakness, Denies numbness, Denies radiating pain into limb and Denies tingling Neuro Denies abnormal gait, Denies dizziness, Denies syncope, Denies numbness, Denies tingling and Denies weakness Endo Denies palpitations Physical Exam Vital Signs: Last Vital Signs Pulse 75 08/14/23 11:10 BP 120/62 08/14/23 11:10 BMI result Body Mass Index 30.5 Const General: comfortable and no acute distress Orientation/consciousness: patient oriented x3 HEENT Other: Unremarkable Head: Yes normal to inspection Neck Neck: Yes normal visual inspection Chest Chest palpation & inspection: normal inspection of the chest Resp Auscultation: clear to auscultation bilaterally Cardio Palpation: normal PMI Heart sounds: S1 normal heart sound present, S2 normal heart sound present, no gallops, Murmur heart sound present systolic III/ and at the right sternal border and no rubs GI Palpation (GI): Soft to palpation Back/Spine/Pelvis Other: unremarkable Skin General skin exam: no rashes or lesions noted Neuro General: patient oriented x3 Extrem General: Yes normal to inspection Psych Mental Status: mental status grossly normal Results AMB INR Fingerstick AMB INR Fingerstick 2.0 Last Edit by Ximena Mcallister RN on 08/14/23 10:43 Assessment & Plan Assessment & Plan (1) PAF (paroxysmal atrial fibrillation): Code(s): I48.0 - Paroxysmal atrial fibrillation Category: Medical Plan: Issues with various antiarrhythmics. Due to left bundle-branch block could not use flecainide. Multaq was too expensive. Sotalol/Tikosyn could not be used due to chronic kidney disease. He saw EP but did not want ablation. He was on low-dose amiodarone but now CT scan shows interstitial lung disease, hence discontinued. If any recurrence of atrial fibrillation, then refer back to EP. Home sleep study shows mild RICARDO. Not on CPAP at this time. (2) Sinus pause: Code(s): I45.5 - Other specified heart block Category: Medical Plan: Implantable loop recorder had shown pauses which could be etiology for syncope. Status post permanent pacemaker. (3) LBBB (left bundle branch block): Code(s): I44.7 - Left bundle-branch block, unspecified Category: Medical Plan: Chronic finding. In the stress perfusion imaging, no evidence of ischemia. (4) Non-rheumatic aortic sclerosis: Code(s): I35.8 - Other nonrheumatic aortic valve disorders Category: Medical Plan: Reported moderate stenosis but based on valve area as well as gradients, more in the [id number] range. Repeat. (5) Essential hypertension: Code(s): I10 - Essential (primary) hypertension Category: Medical Plan: Stable. No changes. (6) Pulmonary fibrosis: Code(s): J84.10 - Pulmonary fibrosis, unspecified Category: Medical Plan: Followed by Pulmonary. Orders: Orders CA echo transthoracic complete Today I35.8 - Other nonrheumatic aortic valve disorders Coding Level of Care Code Est Pt Level 4 (37962) Diagnoses PAF (paroxysmal atrial fibrillation) I48.0 Sinus pause I45.5 LBBB (left bundle branch block) I44.7 Non-rheumatic aortic sclerosis I35.8 Essential hypertension I10 Pulmonary fibrosis J84.10
== END 2023-08-14 12:42 | disposition home or self-care (01) ==
PROVIDERS: PCP Internal Medicine; Visit Provider Internal Medicine
DX: I48.0 Paroxysmal atrial fibrillation (principal); I45.5 Other specified heart block; I44.7 Left bundle-branch block, unspecified; I35.8 Other nonrheumatic aortic valve disorders; I10 Essential (primary) hypertension; J84.10 Pulmonary fibrosis, unspecified
CPT/HCPCS: 99214

== ENCOUNTER 2023-08-16 10:48 | Outpatient (AMB) | payer MEDICARE, SELFPAY ==
[2023-08-16 10:53] VITALS: BP 124/86; PULSE 80; O2SAT 98; BMI 30.8
--- NOTE | 2023-08-16 10:53 | HO.NEPHOV ---
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 He has vascular disease. He does not have any chest pain, shortness of breath, proximal nocturnal dyspnea, orthopnea, pedal edema or orthostatic symptoms. He is compliant with his medications. His blood pressure has been at goal. His serum creatinine is stable. He does not take any nonsteroidal anti-inflammatories. There were no new complaints at the time of this office visit [facility] Medical History (Updated 02/14/23 @ 03:15 by Luis Dumont MD) Hypothyroidism GERD (gastroesophageal reflux disease) Hyperlipidemia Tubular adenoma of colon (~08/2015) Cardiac pacemaker in situ (~10/2021) Essential hypertension Chronic kidney disease Dizziness Non-rheumatic aortic sclerosis LBBB (left bundle branch block) PAF (paroxysmal atrial fibrillation) Current use of anticoagulant therapy Surgical History History of cardiac pacemaker (~2021) History of cardioversion (~2017) History of colonoscopy History of cholecystectomy (~1990) Family History Father No problems noted. Mother No problems noted. Social History Household Members: Spouse Housing: House Do you presently have visiting nurse or other home services: No Alcohol intake: never Patient Tobacco Use Status: Never used Tobacco Advance Directives Date on File: 07/09/21 service: No Current occupational status: retired Physical Exam Vital Signs: Last Vital Signs Pulse 80 08/16/23 10:53 BP 124/86 08/16/23 10:53 Pulse Ox 98 08/16/23 10:53 BMI result Body Mass Index 30.8 Const General: comfortable and no acute distress Orientation/consciousness: patient oriented x3 HEENT Head: Yes normocephalic Mouth: Normal oral and palatal mucosa present Eyes EOM: EOMs intact bilaterally Neck Neck: Yes supple Resp Auscultation: clear to auscultation bilaterally Cardio Jugular venous distension: no JVD Rate: regular rate GI Palpation (GI): Soft to palpation Auscultation: normal bowel sounds General: Yes no CVA tenderness Back/Spine/Pelvis Back: no CVA tenderness Skin General skin exam: no rashes or lesions noted Neuro General: patient oriented x3 and moves all extremities Extrem General: Yes no pedal edema Results Reviewed Nephrology Results: Hgb 13.4 g/dl (14.0-18.0) L 08/11/23 WBC 7.4 X10*3/uL (4.8-10.8) 08/11/23 Plt Count 168 X10*3/uL (160-400) 08/11/23 Sodium 139 mmol/L (135-145) 08/11/23 Potassium 4.5 mmol/L (3.3-5.1) 08/11/23 Chloride 106 mmol/L (96-108) 08/11/23 Carbon Dioxide 28 mmol/L (22-29) 08/11/23 BUN 21 mg/dL (9-16) H 08/11/23 Creatinine 1.38 mg/dL (0.5-1.4) 08/11/23 Calcium 9.6 mg/dL (8.4-10.2) 08/11/23 Assessment & Plan Assessment & Plan (1) CKD (chronic kidney disease) stage 3, GFR 30-59 ml/min: Code(s): N18.30 - Chronic kidney disease, stage 3 unspecified Category: Medical Qualifiers: Chronic kidney disease stage 3 subtype: stage 3a (GFR 45-59) Qualified Code(s): N18.31 - Chronic kidney disease, stage 3a (2) Hypertension: Code(s): I10 - Essential (primary) hypertension Category: Medical Qualifiers: Hypertension type: primary hypertension Qualified Code(s): I10 - Essential (primary) hypertension Plan Tomer is known to have CKD stage 3. His renal functions are pretty stable. He is tolerating SKY-inhibitor. His volume status is optimal. His urine output is good. He should continue to avoid nonsteroidal anti-inflammatory medications. His blood pressure needs to be maintained at goal. Answered all his questions. I did not make any medication changes at this visit. Follow-up given. Orders: Orders Blood Urea Nitrogen Today I10 - Essential (primary) hypertension, N18.31 - Chronic kidney disease, stage 3a Calcium Today I10 - Essential (primary) hypertension, N18.31 - Chronic kidney disease, stage 3a Creatinine Today I10 - Essential (primary) hypertension, N18.31 - Chronic kidney disease, stage 3a Electrolytes Today I10 - Essential (primary) hypertension, N18.31 - Chronic kidney disease, stage 3a Coding Level of Care Code Est Pt Level 4 (65336) Diagnoses Stage 3a chronic kidney disease N18.31 Chronic kidney disease stage 3 subtype: stage 3a (GFR 45-59) Primary hypertension I10 Hypertension type: primary hypertension
== END 2023-08-16 11:05 | disposition home or self-care (01) ==
PROVIDERS: PCP Internal Medicine; Visit Provider Internal Medicine Nephrology
DX: N18.31 Chronic kidney disease, stage 3a (principal); I10 Essential (primary) hypertension
CPT/HCPCS: 99214

== ENCOUNTER → 2023-08-16 10:48 | Outpatient (BNVA) | payer MEDICARE, SELFPAY | PROVIDERS: PCP Internal Medicine; Visit Provider Internal Medicine Nephrology | DX: I12.9 Hypertensive chronic kidney disease with stage 1 through stage 4 chronic kidney disease, or unspecified chronic kidney disease (principal); N18.31 Chronic kidney disease, stage 3a | CPT/HCPCS: 99212 ==

== ENCOUNTER → 2023-08-30 09:57 | Outpatient (REF) | payer MEDICARE, SELFPAY ==
--- NOTE | 2023-08-30 10:00 | CA_ITS ---
Transthoracic Echocardiogram Patient (Last, First, Middle): Sameer Connors B Gender: Male Date of : 1940 Age: 83 Procedure Date: 08/30/2023 Procedure Type: Transthoracic Echocardiogram Location: OP Height: 172.72 cm Weight: 90.72 kg BSA: 2.04 m2 Heart Rate: bpm BP: 128 / 80 mmHg Completions Manager: KANIKA Referring MD: Quintin Romano MD Symptoms: I35.8 - Other nonrheumatic aortic valve disorders Study Quality: Fair ECG Rhythm: Sinus Conclusions: - The left ventricular systolic function is normal. The calculated ejection fraction is 55% by biplane method. - There is severely increased left ventricular wall thickness. 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 - There is moderate aortic valve stenosis. Findings Procedure Information The study quality is limited by the patients inability to tolerate the test. Left Ventricle Normal left ventricular cavity size. There is severely increased left ventricular wall thickness. The left ventricular systolic function is normal. The calculated ejection fraction is 55% by biplane method. There is no evidence of regional wall motion abnormalities. Evidence suggests grade I (mild) diastolic dysfunction. 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 Right Ventricle Normal right ventricular cavity size and systolic function. There is a pacemaker wire seen in the right ventricle. Atria The left atrium is mildly dilated. The right atrium is normal in size. Aortic Valve There is severe calcification of the aortic valve. There is moderate aortic valve stenosis. The peak aortic velocity is 3.04 m/s with a calculated peak gradient of 37 mmHg. The mean gradient is 23 mmHg. The aortic valve area is 1.44 cm2. There is no aortic valve regurgitation. Mitral Valve The mitral valve appears normal. There is no mitral valve regurgitation. There is no mitral valve stenosis. Pulmonic Valve The pulmonic valve is likely normal. Tricuspid Valve There is mild tricuspid valve regurgitation. There is no evidence of pulmonary hypertension. Great Vessels The asc aorta and aortic arch are normal in size. Small plaque is seen in the sino tubular ridge. Venous The inferior vena cava is mildly dilated and collapses greater than 50% with inspiration. Pericardium/Pleural There is no evidence of pericardial effusion. Prior Study Comparison No significant change compared to prior study dated: 08/26/2022. Measurements 2D Linear Measurements IVSd: 1.95 0.6-0.9/0.6-1.0 cm LVIDd: 4.58 3.9-5.3/4.2-5.9 cm LVIDd Index: 2.25 2.4-3.2/2.2-3.1 cm/m2 LVIDs: 3.48 2.0-3.6 cm LVPWd: 1.49 0.7-1.1 cm LA Diam: 4.10 2.7-3.8/3.0-4.0 cm LAIDs Index: 2.01 1.5-2.3 cm/m2 LV Mass: 436.57 67-162/88-224 g LV Mass Index: 214.00 43-95/49-115 g/m2 LVOT Diam: 2.50 3.0+(-)1.3 cm 2D Systolic Function EF 4C: 53.30 >55% EF 2C: 55.30 >55% EF BiP: 55.40 >55% Mitral Valve MV Pk E: 0.32 MV PK A: 0.79 MV Decel Time: 273.00 E/A: 0.40 E'Lateral: 6.31 E'Medial: 4.79 E/E' Med: 6.60 E/E' Lat: 5.00 PHT: 80.00 MVA PHT: 2.75 Decel Mcdonough: 1.16 Aortic Valve AoV Pk Jeronimo: 3.04 AoV Mn Jeronimo: 2.28 AoV VTI: 0.65 AoV Pk Grad: 37.00 Aov Mn Grad: 23.00 VANCE Cont.VTI: 1.44 LVOT LVOT Pk Jeronimo: 0.91 LVOT Mn Jeronimo: 0.56 LVOT VTI: 0.19 LVOT Pk Grad: 3.00 LVOT Mn Grad: 2.00 LVOT Diam: 2.50 LVOT Area: 4.91 Diastolic Function MV Pk E: 0.32 MV Pk A: 0.79 E/A: 0.40 E'Medial: 4.79 E/E' Med: 6.60 E' Laterial: 6.31 E/E' Lat: 5.00 Right Ventricle TAPSE (mm): 24.80 TVS' Jeronimo: 14.40 Tricuspid Valve TR Pk Jeronimo: 2.18 TR Pk Grad: 19.00 RA Press: 8.00 RVSP: 27.00 Great Vessels Aorta Sinus of Valsalva: 4.08 2.0-3.5 cm Ao Asc: 3.90 2.1-3.4 cm Ao Arch: 3.20 Updated in Other Vendor System with Status of Final Quintin Romano MD electronically signed on 09/01/2023 12:51:46 PM with status of Final
== END ==
LOC: HO.CARD 09:57
PROVIDERS: PCP Internal Medicine; Visit Provider Internal Medicine
DX: I35.8 Other nonrheumatic aortic valve disorders (principal)
CPT/HCPCS: 93306

== ENCOUNTER → 2023-08-30 10:00 | Outpatient (BNV) | payer MEDICARE, SELFPAY | PROVIDERS: PCP Internal Medicine; Visit Provider Internal Medicine | DX: I35.0 Nonrheumatic aortic (valve) stenosis (principal); I35.8 Other nonrheumatic aortic valve disorders; I36.1 Nonrheumatic tricuspid (valve) insufficiency; I42.2 Other hypertrophic cardiomyopathy | CPT/HCPCS: 93306 ==

== ENCOUNTER 2023-09-08 10:26 | Outpatient (AMB) | payer MEDICARE, SELFPAY ==
[2023-09-08 10:55] LABS: Prothrombin Time Whole Bld POC 19.4 sec (11.1-13.5); ~PT, ~INR - Anti Coag Clinic 1.6 (0.9-1.1)
--- NOTE | 2023-09-08 11:02 | MHC.OFFVISCO ---
Intake Intake Visit Reasons: Anticoagulation Allergies No Known Allergies [No Known Allergies*] Allergy (Verified 09/08/23 10:50) Medication List - Last Reconciled 09/08/23 by Zaynab Vieyra RN ezetimibe 10 mg PO DAILY levothyroxine 88 mcg PO DAILY lisinopril 15 mg PO DAILY polyethylene glycol 3350 17 grams PO DAILY rosuvastatin 40 mg PO DAILY warfarin See Protocol 5 mg orally 5mg x 1 day/ 2.5mg x 6 days; Nursing Note INR 1.6?? out of therapeutic range Medications and supplements reviewed Patient status: no c/o of chest pain or stroke or clots Medications or supplements: no changes Diet: ate more greens than ususal Denies any signs and symptoms of bleeding or clotting or unusual bruising Bleeding, bruising, clotting discussed Nutritional guidance given: no greens today eat orange and reds, and when eating more greens eat more reds Dose: 5mg x 3 days this week then resume 5mg x 2 dyas/ 2.5mg x 5 days F/U INR Date : 3 weeks per pt insistence?? Patient verbalizing understanding of instructions given. Anti-Coag Initial Assessment Social Hx Patient Tobacco Use Status: Never used Tobacco alcohol intake: never Coding Level of Care Code Est Patient Level 1 Diagnoses Current use of anticoagulant therapy Z79.01 Results AMB INR Fingerstick AMB INR Fingerstick 1.6 Last Edit by Zaynab Vieyra RN on 09/08/23 10:58 MANUAL ENTRY Assessment & Plan Assessment & Plan (1) Current use of anticoagulant therapy: Code(s): Z79.01 - FPC (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
== END 2023-09-08 11:05 | disposition home or self-care (01) ==
LOC: HO.ACS 10:26
PROVIDERS: PCP Internal Medicine; Visit Provider Internal Medicine
DX: Z79.01 Long term (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 (principal)

== ENCOUNTER → 2023-09-08 10:26 | Outpatient (BNVA) | payer MEDICARE, SELFPAY | PROVIDERS: PCP Internal Medicine; Visit Provider Internal Medicine | DX: I48.0 Paroxysmal atrial fibrillation (principal); Z79.01 Long term (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; Z51.81 Encounter for therapeutic drug level monitoring | CPT/HCPCS: 85610; 99211 ==

== ENCOUNTER → 2023-09-08 23:59 | Outpatient (BNV) | payer MEDICARE, SELFPAY ==
--- NOTE | 2023-09-19 12:44 | A.OFFVIS_ITS ---
Intake Visit Reasons: Remote Device Check- [employer] Allergies No Known Allergies [No Known Allergies*] Allergy (Verified 09/08/23 10:50) [facility] Medical History (Updated 02/14/23 @ 03:15 by Luis Dumont MD) Hypothyroidism GERD (gastroesophageal reflux disease) Hyperlipidemia Tubular adenoma of colon (~08/2015) Cardiac pacemaker in situ (~10/2021) Essential hypertension Chronic kidney disease Dizziness Non-rheumatic aortic sclerosis LBBB (left bundle branch block) PAF (paroxysmal atrial fibrillation) Current use of anticoagulant therapy Surgical History History of cardiac pacemaker (~2021) History of cardioversion (~2017) History of colonoscopy History of cholecystectomy (~1990) Family History Father No problems noted. Mother No problems noted. 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 Overall, normal device function. [id number] Cardiac Device Interrogation, pacemaker Procedure code (CPT) selection complete Results AMB INR Fingerstick AMB INR Fingerstick 1.6 Last Edit by Zaynab Vieyra RN on 09/08/23 10:58 MANUAL ENTRY Assessment & Plan Assessment & Plan (1) Sinus pause: Code(s): I45.5 - Other specified heart block Category: Medical (2) PAF (paroxysmal atrial fibrillation): Code(s): I48.0 - Paroxysmal atrial fibrillation Category: Medical Plan x Coding Level of Care Code Procedure Only Diagnoses Sinus pause I45.5 PAF (paroxysmal atrial fibrillation) I48.0 CPT Codes Cardiac Device Check - Cardiac Device 12: [id number] Cardiac Device Interrogation, pacemaker ([id number])
== END ==
PROVIDERS: PCP Internal Medicine; Visit Provider Internal Medicine
DX: I48.0 Paroxysmal atrial fibrillation (principal); I45.5 Other specified heart block; Z95.0 Presence of cardiac pacemaker
CPT/HCPCS: 93294

== ENCOUNTER 2023-09-29 09:59 | Outpatient (AMB) | payer MEDICARE, SELFPAY ==
[2023-09-29 10:05] LABS: Prothrombin Time Whole Bld POC 23.8 sec (11.1-13.5)
--- NOTE | 2023-09-29 10:11 | MHC.OFFVISCO ---
Intake Intake Visit Reasons: Anticoagulation Allergies No Known Allergies [No Known Allergies*] Allergy (Verified 09/29/23 10:01) Medication List - Last Reconciled 09/29/23 by Mariaelena Hardy RN ezetimibe 10 mg PO DAILY levothyroxine 88 mcg PO DAILY lisinopril 15 mg PO DAILY polyethylene glycol 3350 17 grams PO DAILY rosuvastatin 40 mg PO DAILY warfarin See Protocol 5 mg orally 5mg x 1 day/ 2.5mg x 6 days; Nursing Note NO CP,SOB,DIET/MED CHANGES,FALLS OR SX OF BLEEDING. CONTINUE PRESENT DOSE AND FOLLOW-UP IN 4 WEEKS. GOOD UNDERSTANDING OF DOSING INSTR. 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
== END 2023-09-29 10:14 | disposition home or self-care (01) ==
LOC: HO.ACS 09:59
PROVIDERS: PCP Internal Medicine; Visit Provider Internal Medicine
DX: Z79.01 Long term (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 (principal)

== ENCOUNTER → 2023-09-29 09:59 | Outpatient (BNVA) | payer MEDICARE, SELFPAY | PROVIDERS: PCP Internal Medicine; Visit Provider Internal Medicine | DX: I48.0 Paroxysmal atrial fibrillation (principal); Z79.01 Long term (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; Z51.81 Encounter for therapeutic drug level monitoring | CPT/HCPCS: 85610; 99211 ==

== ENCOUNTER 2023-10-27 10:04 | Outpatient (AMB) | payer MEDICARE, SELFPAY ==
[2023-10-27 10:11] LABS: Prothrombin Time Whole Bld POC 20.2 sec (11.1-13.5); ~PT, ~INR - Anti Coag Clinic 1.7 (0.9-1.1)
--- NOTE | 2023-10-27 10:18 | MHC.OFFVISCO ---
Intake Intake Visit Reasons: Anticoagulation Allergies No Known Allergies [No Known Allergies*] Allergy (Verified 10/27/23 10:04) Medication List - Last Reconciled 10/27/23 by Zaynab Vieyra RN ezetimibe 10 mg PO DAILY levothyroxine 88 mcg PO DAILY lisinopril 15 mg PO DAILY polyethylene glycol 3350 17 grams PO DAILY rosuvastatin 40 mg PO DAILY warfarin See Protocol 5 mg orally 5mg x 1 day/ 2.5mg x 6 days; Nursing Note INR 1.7 out of therapeutic range Medications and supplements reviewed Patient status: Well- did not have usual reds Medications or supplements: no changes Diet: appetite good - did not have enough reds he was afraid it would be too high Denies any signs and symptoms of bleeding or clotting or unusual bruising Bleeding, bruising, clotting discussed Nutritional guidance given: eat foods to help raise the iNR Dose: 5mg booster( 5mg x 3 days) this week then resume usual dose 5mg x 2 days/ 2.5mg x 5 days F/U INR Date : pt agreed to 3 weeks instead 2 weeks ?? Patient verbalizing understanding of instructions given. Anti-Coag Initial Assessment Social Hx Patient Tobacco Use Status: Never used Tobacco alcohol intake: never Coding Level of Care Code Est Patient Level 1 Diagnoses Current use of anticoagulant therapy Z79.01 Results AMB INR Fingerstick AMB INR Fingerstick 1.7 Last Edit by Zaynab Vieyra RN on 10/27/23 10:13 MANUAL ENTRY Assessment & Plan Assessment & Plan (1) Current use of anticoagulant therapy: Code(s): Z79.01 - long term acute care registered nurse (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
== END 2023-10-27 10:21 | disposition home or self-care (01) ==
LOC: HO.ACS 10:04
PROVIDERS: PCP Internal Medicine; Visit Provider Internal Medicine
DX: Z79.01 Long term (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 (principal)

== ENCOUNTER → 2023-10-27 10:04 | Outpatient (BNVA) | payer MEDICARE, SELFPAY | PROVIDERS: PCP Internal Medicine; Visit Provider Internal Medicine | DX: I48.0 Paroxysmal atrial fibrillation (principal); Z79.01 Long term (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; Z51.81 Encounter for therapeutic drug level monitoring | CPT/HCPCS: 85610; 99211 ==

== ENCOUNTER 2023-11-17 10:04 | Outpatient (AMB) | payer MEDICARE, SELFPAY ==
--- NOTE | 2023-11-17 10:24 | MHC.OFFVISCO ---
Intake Intake Visit Reasons: Anticoagulation Allergies No Known Allergies [No Known Allergies*] Allergy (Verified 11/17/23 10:06) Medication List - Last Reconciled 11/17/23 by Ximena Canales RN bisacodyl (Dulcolax (bisacodyl)) 5 mg PO BEDTIME ezetimibe 10 mg PO DAILY levothyroxine 88 mcg PO DAILY lisinopril 15 mg PO DAILY polyethylene glycol 3350 17 grams PO DAILY rosuvastatin 40 mg PO DAILY warfarin See Protocol 5 mg orally 5mg x 1 day/ 2.5mg x 6 days; Nursing Note INR 1.6?out of therapeutic range of 2-3 Medications and supplements reviewed Patient status: feels well Medications or supplements: dulcolax new-no effect on INR Diet: usual diet for pt Denies any signs and symptoms of bleeding or clotting or unusual bruising Bleeding, bruising, clotting discussed Nutritional guidance given: No greens this week. Food list reviewed and given to pt Dose: increase today's dose of 5mg to 7mg, increase tomorrow's dose of 2.5mg to 5mg then usual dose. Will increase weekly dose to 5mg X 3 days instead of 2 days and 2.5mg X 4 days F/U INR Date : 11/24/23 Patient verbalizing understanding of instructions given. 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
[2023-11-17 11:28] LABS: Prothrombin Time Whole Bld POC 19.1 sec (11.1-13.5); ~PT, ~INR - Anti Coag Clinic 1.6 (0.9-1.1)
== END 2023-11-17 10:29 | disposition home or self-care (01) ==
LOC: HO.ACS 10:04
PROVIDERS: PCP Internal Medicine; Visit Provider Internal Medicine
DX: Z79.01 Long term (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 (principal)

== ENCOUNTER → 2023-11-17 10:04 | Outpatient (BNVA) | payer MEDICARE, SELFPAY | PROVIDERS: PCP Internal Medicine; Visit Provider Internal Medicine | DX: I48.0 Paroxysmal atrial fibrillation (principal); Z79.01 Long term (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; Z51.81 Encounter for therapeutic drug level monitoring | CPT/HCPCS: 85610; 99211 ==

== ENCOUNTER 2023-11-24 10:16 | Outpatient (AMB) | payer MEDICARE, SELFPAY ==
[2023-11-24 10:26] LABS: Prothrombin Time Whole Bld POC 30.5 sec (11.1-13.5); ~PT, ~INR - Anti Coag Clinic 2.5 (0.9-1.1)
--- NOTE | 2023-11-24 10:30 | MHC.OFFVISCO ---
Intake Intake Visit Reasons: Anticoagulation Allergies No Known Allergies [No Known Allergies*] Allergy (Verified 11/24/23 10:23) Medication List - Last Reconciled 11/24/23 by Ximena Canales RN bisacodyl (Dulcolax (bisacodyl)) 5 mg PO BEDTIME ezetimibe 10 mg PO DAILY levothyroxine 88 mcg PO DAILY lisinopril 15 mg PO DAILY polyethylene glycol 3350 17 grams PO DAILY rosuvastatin 40 mg PO DAILY warfarin See Protocol 5 mg orally 5mg x 1 day/ 2.5mg x 6 days; Nursing Note INR: 2.5 in therapeutic range 2-3 Medications and supplements reviewed No changes in health, diet, medications, or supplements, Denies any signs and symptoms of bleeding or bruising or clotting. Bleeding, bruising, clotting discussed Nutritional guidance given Dose: 5mg X 3 days and 2.5mg X 4 days F/U INR: 3 weeks Patient verbalizes understanding of instructions given Anti-Coag Initial Assessment Social Hx Patient Tobacco Use Status: Never used Tobacco alcohol intake: never Coding Level of Care Code Est Patient Level 1 Diagnoses Current use of anticoagulant therapy Z79.01 Assessment & Plan Assessment & Plan (1) Current use of anticoagulant therapy: Code(s): Z79.01 - superintendent terminal (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
== END 2023-11-24 10:33 | disposition home or self-care (01) ==
LOC: HO.ACS 10:16
PROVIDERS: PCP Internal Medicine; Visit Provider Internal Medicine
DX: Z79.01 Long term (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 (principal)

== ENCOUNTER → 2023-11-24 10:16 | Outpatient (BNVA) | payer MEDICARE, SELFPAY | PROVIDERS: PCP Internal Medicine; Visit Provider Internal Medicine | DX: I48.0 Paroxysmal atrial fibrillation (principal); Z79.01 Long term (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; Z51.81 Encounter for therapeutic drug level monitoring | CPT/HCPCS: 85610; 99211 ==

== ENCOUNTER → 2023-12-08 23:59 | Outpatient (BNV) | payer MEDICARE, SELFPAY ==
--- NOTE | 2023-12-17 18:33 | A.OFFVIS_ITS ---
Intake Visit Reasons: Remote Device Check- Medtronic Allergies No Known Allergies [No Known Allergies*] Allergy (Verified 12/15/23 10:22) [facility] Medical History (Updated 02/14/23 @ 03:15 by Luis Dumont MD) Hypothyroidism GERD (gastroesophageal reflux disease) Hyperlipidemia Tubular adenoma of colon (~08/2015) Cardiac pacemaker in situ (~10/2021) Essential hypertension Chronic kidney disease Dizziness Non-rheumatic aortic sclerosis LBBB (left bundle branch block) PAF (paroxysmal atrial fibrillation) Current use of anticoagulant therapy Surgical History History of cardiac pacemaker (~2021) History of cardioversion (~2017) History of colonoscopy History of cholecystectomy (~1990) Family History Father No problems noted. Mother No problems noted. Social History Household Members: Spouse Housing: House Do you presently have visiting nurse or other home services: No Alcohol intake: never Patient Tobacco Use Status: Never used Tobacco Advance Directives Date on File: 07/09/21 service: No Current occupational status: retired Office Procedures Cardiac Device Check Cardiac Device Check Details: Date of service- 12/08/2023 ; Battery life >11 years; normal lead parameters; AP 59%; AUTOMOBILE BUMPER STRAIGHTENER <0.1%; some very brief NSVT, but others appear supraventricular. Overall normal device function. [id number] Cardiac Device Interrogation, pacemaker Procedure code (CPT) selection complete Assessment & Plan Assessment & Plan (1) Cardiac pacemaker in situ: Onset Date: ~10/2021 Comment: (Medtronic DCPP - placed 10/2021 - for syncope and possible high grade AV block/sinus pause) Code(s): Z95.0 - Presence of cardiac pacemaker Category: Medical (2) Sinus pause: Code(s): I45.5 - Other specified heart block Category: Medical (3) PAF (paroxysmal atrial fibrillation): Code(s): I48.0 - Paroxysmal atrial fibrillation Category: Medical Plan x Coding Level of Care Code Procedure Only Diagnoses Cardiac pacemaker in situ Z95.0 Sinus pause I45.5 PAF (paroxysmal atrial fibrillation) I48.0 CPT Codes Cardiac Device Check - Cardiac Device 12: [id number] Cardiac Device Interrogation, pacemaker ([id number])
== END ==
PROVIDERS: PCP Internal Medicine; Visit Provider Internal Medicine
DX: I45.5 Other specified heart block (principal); I48.0 Paroxysmal atrial fibrillation; Z95.0 Presence of cardiac pacemaker
CPT/HCPCS: 93294

== ENCOUNTER 2023-12-13 11:06 | Outpatient (AMB) | payer MEDICARE, SELFPAY ==
--- NOTE | 2023-12-13 11:08 | HO.NEPHOV ---
Vital Signs 12/13/23 11:09 Height 5 ft 8 in Weight 204 lb BMI 31.0 BP 122/84 Blood Pressure Location Rt brachial Position Sitting Pulse 88 Pulse Source Pulse Oximeter Pulse Oximetry (%) 95 Oxygen Delivery Method Room Air Intake Visit Reasons: 4 mo fu w/ labs- CKD/ Conf Bulk Intake Worker Required: No Accompanied by: Self / Same As Patient Allergies No Known Allergies [No Known Allergies*] Allergy (Verified 12/13/23 11:10) HPI Comments Details: I had the privilege of seeing Tomer in follow-up of his chronic kidney disease. He has vascular disease. He does not have any chest pain, shortness of breath, proximal nocturnal dyspnea, orthopnea, pedal edema or orthostatic symptoms. He is compliant with his medications. His blood pressure has been at goal. His serum creatinine is stable. He does not take any nonsteroidal anti-inflammatories. There were no new complaints at the time of this office visit [facility] Medical History (Updated 02/14/23 @ 03:15 by Luis Dumont MD) Hypothyroidism GERD (gastroesophageal reflux disease) Hyperlipidemia Tubular adenoma of colon (~08/2015) Cardiac pacemaker in situ (~10/2021) Essential hypertension Chronic kidney disease Dizziness Non-rheumatic aortic sclerosis LBBB (left bundle branch block) PAF (paroxysmal atrial fibrillation) Current use of anticoagulant therapy Surgical History History of cardiac pacemaker (~2021) History of cardioversion (~2017) History of colonoscopy History of cholecystectomy (~1990) Family History Father No problems noted. Mother No problems noted. Social History Household Members: Spouse Housing: House Do you presently have visiting nurse or other home services: No Alcohol intake: never Patient Tobacco Use Status: Never used Tobacco Advance Directives Date on File: 07/09/21 service: No Current occupational status: retired Review of Systems Const All systems reviewed & are unremarkable except as noted in HPI and below Physical Exam Vital Signs: Last Vital Signs Pulse 88 12/13/23 11:09 BP 122/84 12/13/23 11:09 Pulse Ox 95 12/13/23 11:09 Oxygen Delivery Method Room Air 12/13/23 11:09 BMI result Body Mass Index 31.0 Const General: comfortable and no acute distress Orientation/consciousness: patient oriented x3 HEENT Head: Yes normocephalic Mouth: Normal oral and palatal mucosa present Eyes EOM: EOMs intact bilaterally Neck Neck: Yes supple Resp Auscultation: clear to auscultation bilaterally Cardio Jugular venous distension: no JVD Rate: regular rate GI Palpation (GI): Soft to palpation Auscultation: normal bowel sounds General: Yes no CVA tenderness Back/Spine/Pelvis Back: no CVA tenderness Skin General skin exam: no rashes or lesions noted Neuro General: patient oriented x3 and moves all extremities Extrem General: Yes no pedal edema Results Reviewed Nephrology Results: No Data to Display Assessment & Plan Assessment & Plan (1) CKD (chronic kidney disease) stage 3, GFR 30-59 ml/min: Code(s): N18.30 - Chronic kidney disease, stage 3 unspecified Category: Medical Qualifiers: Chronic kidney disease stage 3 subtype: stage 3a (GFR 45-59) Qualified Code(s): N18.31 - Chronic kidney disease, stage 3a (2) Hypertension: Code(s): I10 - Essential (primary) hypertension Category: Medical Qualifiers: Hypertension type: primary hypertension Qualified Code(s): I10 - Essential (primary) hypertension Plan Tomer is known to have CKD stage 3. His renal functions had been pretty stable. He is tolerating SKY-inhibitor. His volume status is optimal. His urine output is good. He should continue to avoid nonsteroidal anti-inflammatory medications. His blood pressure needs to be maintained at goal. Answered all his questions. I did not make any medication changes at this visit. Follow-up given. Orders: Orders Creatinine 6 Months I10 - Essential (primary) hypertension, N18.31 - Chronic kidney disease, stage 3a Blood Urea Nitrogen 6 Months I10 - Essential (primary) hypertension, N18.31 - Chronic kidney disease, stage 3a Electrolytes 6 Months I10 - Essential (primary) hypertension, N18.31 - Chronic kidney disease, stage 3a Coding Level of Care Code Est Pt Level 4 (14347) Diagnoses Stage 3a chronic kidney disease N18.31 Chronic kidney disease stage 3 subtype: stage 3a (GFR 45-59) Primary hypertension I10 Hypertension type: primary hypertension
[2023-12-13 11:09] VITALS: BP 122/84; PULSE 88; O2SAT 95; BMI 31.0
== END 2023-12-13 11:24 | disposition home or self-care (01) ==
PROVIDERS: PCP Internal Medicine; Visit Provider Internal Medicine Nephrology
DX: I12.9 Hypertensive chronic kidney disease with stage 1 through stage 4 chronic kidney disease, or unspecified chronic kidney disease (principal); N18.31 Chronic kidney disease, stage 3a
CPT/HCPCS: 99214

== ENCOUNTER → 2023-12-13 11:06 | Outpatient (BNVA) | payer MEDICARE, SELFPAY | PROVIDERS: PCP Internal Medicine; Visit Provider Internal Medicine Nephrology | DX: I12.9 Hypertensive chronic kidney disease with stage 1 through stage 4 chronic kidney disease, or unspecified chronic kidney disease (principal); N18.31 Chronic kidney disease, stage 3a | CPT/HCPCS: 99212 ==

== ENCOUNTER 2023-12-15 10:17 | Outpatient (AMB) | payer MEDICARE, SELFPAY ==
[2023-12-15 10:23] LABS: Prothrombin Time Whole Bld POC 17.6 sec (11.1-13.5); ~PT, ~INR - Anti Coag Clinic 1.5 (0.9-1.1)
--- NOTE | 2023-12-15 10:29 | MHC.OFFVISCO ---
Intake Intake Visit Reasons: Anticoagulation Allergies No Known Allergies [No Known Allergies*] Allergy (Verified 12/15/23 10:22) Medication List - Last Reconciled 12/15/23 by Zaynab Vieyra RN bisacodyl (Dulcolax (bisacodyl)) 5 mg PO BEDTIME ezetimibe 10 mg PO DAILY levothyroxine 88 mcg PO DAILY lisinopril 15 mg PO DAILY polyethylene glycol 3350 17 grams PO DAILY rosuvastatin 40 mg PO DAILY warfarin See Protocol 5 mg orally 5mg x 1 day/ 2.5mg x 6 days; Nursing Note INR 1.5 out of therapeutic range Medications and supplements reviewed Patient status: DENIES ANY MISSED DOSES, NO RECENT VACCINES EITHER Medications or supplements: NO CHANGES Diet: SAME Denies any signs and symptoms of bleeding or clotting or unusual bruising Bleeding, bruising, clotting discussed Nutritional guidance given: AVOID GREENS X 3 DAYS, EAT ORANGE OR REDS TODAY TO HELP RAISE THE INR Dose: 7.5MG TODAY THEN INCREASE TO 5MG X 4 DAYS/ 2.5MG X 3 DAYS F/U INR Date : 1 WEEK PER PT REQUEST ?? GO TO ER WITH ANY CLOTTING OR STROKE LIKE SYMPTOMS Patient verbalizing understanding of instructions given. CALL TO PCP WITH PT STATUS INR AND PLAN OF CARE Anti-Coag Initial Assessment Social Hx Patient Tobacco Use Status: Never used Tobacco alcohol intake: never Coding Level of Care Code Est Patient Level 1 Diagnoses Current use of anticoagulant therapy Z79.01 Assessment & Plan Assessment & Plan (1) Current use of anticoagulant therapy: Code(s): Z79.01 - alf (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
== END 2023-12-15 10:35 | disposition home or self-care (01) ==
LOC: HO.ACS 10:17
PROVIDERS: PCP Internal Medicine; Visit Provider Internal Medicine
DX: Z79.01 Long term (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 (principal)

== ENCOUNTER → 2023-12-15 10:17 | Outpatient (BNVA) | payer MEDICARE, SELFPAY | PROVIDERS: PCP Internal Medicine; Visit Provider Internal Medicine | DX: I48.0 Paroxysmal atrial fibrillation (principal); Z79.01 Long term (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; Z51.81 Encounter for therapeutic drug level monitoring | CPT/HCPCS: 85610; 99211 ==

== ENCOUNTER 2023-12-22 09:21 | Outpatient (AMB) | payer MEDICARE, SELFPAY ==
[2023-12-22 09:27] LABS: Prothrombin Time Whole Bld POC 29.3 sec (11.1-13.5); ~PT, ~INR - Anti Coag Clinic 2.4 (0.9-1.1)
--- NOTE | 2023-12-22 09:35 | MHC.OFFVISCO ---
Intake Intake Visit Reasons: Anticoagulation Allergies No Known Allergies [No Known Allergies*] Allergy (Verified 12/22/23 09:22) Medication List - Last Reconciled 12/22/23 by Mariaelena Hardy RN bisacodyl (Dulcolax (bisacodyl)) 5 mg PO BEDTIME ezetimibe 10 mg PO DAILY levothyroxine 88 mcg PO DAILY lisinopril 15 mg PO DAILY polyethylene glycol 3350 17 grams PO DAILY rosuvastatin 40 mg PO DAILY warfarin See Protocol 5 mg orally 5mg x 1 day/ 2.5mg x 6 days; Nursing Note NO CP,SOB,DIET/MED CHANGES,FALLS OR SX OF BLEEDING. 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
== END 2023-12-22 09:37 | disposition home or self-care (01) ==
LOC: HO.ACS 09:21
PROVIDERS: PCP Internal Medicine; Visit Provider Internal Medicine
DX: Z79.01 Long term (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 (principal)

== ENCOUNTER → 2023-12-22 09:21 | Outpatient (BNVA) | payer MEDICARE, SELFPAY | PROVIDERS: PCP Internal Medicine; Visit Provider Internal Medicine | DX: I48.0 Paroxysmal atrial fibrillation (principal); Z79.01 Long term (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; Z51.81 Encounter for therapeutic drug level monitoring | CPT/HCPCS: 85610; 99211 ==

== ENCOUNTER 2024-01-12 10:25 | Outpatient (AMB) | payer MEDICARE, SELFPAY ==
[2024-01-12 10:32] LABS: Prothrombin Time Whole Bld POC 36.6 sec (11.1-13.5); ~PT, ~INR - Anti Coag Clinic 3.1 (0.9-1.1)
--- NOTE | 2024-01-12 10:35 | MHC.OFFVISCO ---
Intake Intake Visit Reasons: Anticoagulation Allergies No Known Allergies [No Known Allergies*] Allergy (Verified 01/12/24 10:27) Medication List - Last Reconciled 01/12/24 by Ximena Canales RN bisacodyl (Dulcolax (bisacodyl)) 5 mg PO BEDTIME ezetimibe 10 mg PO DAILY levothyroxine 88 mcg PO DAILY lisinopril 15 mg PO DAILY polyethylene glycol 3350 17 grams PO DAILY rosuvastatin 40 mg PO DAILY warfarin See Protocol 5 mg orally 5mg x 1 day/ 2.5mg x 6 days; Nursing Note INR: 3.1 out of therapeutic range of 2-3 Medications and supplements reviewed No changes in health, diet, medications, or supplements, Denies any signs and symptoms of bleeding or bruising or clotting. Bleeding, bruising, clotting discussed Nutritional guidance given Dose: 5mg X 4 days and 2.5mg X 3 days F/U INR: 4 weeks Patient verbalizes understanding of instructions given Anti-Coag Initial Assessment Social Hx Patient Tobacco Use Status: Never used Tobacco alcohol intake: never Coding Level of Care Code Est Patient Level 1 Diagnoses Current use of anticoagulant therapy Z79.01 Assessment & Plan Assessment & Plan (1) Current use of anticoagulant therapy: Code(s): Z79.01 - USP (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
== END 2024-01-12 10:37 | disposition home or self-care (01) ==
LOC: HO.ACS 10:25
PROVIDERS: PCP Internal Medicine; Visit Provider Internal Medicine
DX: Z79.01 Long term (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 (principal)

== ENCOUNTER → 2024-01-12 10:25 | Outpatient (BNVA) | payer MEDICARE, SELFPAY | PROVIDERS: PCP Internal Medicine; Visit Provider Internal Medicine | DX: I48.0 Paroxysmal atrial fibrillation (principal); Z79.01 Long term (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; Z51.81 Encounter for therapeutic drug level monitoring | CPT/HCPCS: 85610; 99211 ==

== ENCOUNTER 2024-02-09 10:08 | Outpatient (AMB) | payer MEDICARE, SELFPAY ==
[2024-02-09 10:16] LABS: Prothrombin Time Whole Bld POC 21.5 sec (11.1-13.5); ~PT, ~INR - Anti Coag Clinic 1.8 (0.9-1.1)
[2024-02-09 10:23] LABS: Prothrombin Time Whole Bld POC 37.3 sec (11.1-13.5); ~PT, ~INR - Anti Coag Clinic 3.1 (0.9-1.1)
--- NOTE | 2024-02-09 10:27 | MHC.OFFVISCO ---
Intake Intake Visit Reasons: Anticoagulation Allergies No Known Allergies [No Known Allergies*] Allergy (Verified 02/09/24 10:11) Medication List - Last Reconciled 02/09/24 by Ximena Mcallister RN bisacodyl (Dulcolax (bisacodyl)) 5 mg PO BEDTIME ezetimibe 10 mg PO DAILY levothyroxine 88 mcg PO DAILY linaclotide 290 mcg PO DAILY lisinopril 15 mg PO DAILY polyethylene glycol 3350 17 grams PO DAILY rosuvastatin 40 mg PO DAILY warfarin See Protocol 5 mg orally 5mg x 1 day/ 2.5mg x 6 days; Nursing Note Amb to ACS feeling well Medications and supplements reviewed No changes in health, diet, medications, or supplements, although pt remarks that a med was changed from 150 to290 review of prescription history, pt has been on linaclotide (linzess) for several month- EMAR updated and micromedex no warfarin interaction reviewed with pt not to take at same time as warfarin Denies any signs and symptoms of bleeding, bruising, or clotting. Bleeding, bruising, clotting discussed INR 1.8 below therapeutic range Dose: increase dose today to 5mg (vs 2.5mg) then resume usual dosing 2.5mg x 3 days and 5mg x 4 days no greens today or tomorrow then can have usual diet F/U INR: 3 weeks- as pt request 4 weeks Patient verbalizes understanding of instructions given Anti-Coag Initial Assessment Social Hx Patient Tobacco Use Status: Never used Tobacco alcohol intake: never Coding Level of Care Code Est Patient Level 1 Diagnoses Current use of anticoagulant therapy Z79.01 Time Spent (min) 15 Assessment & Plan Assessment & Plan (1) Current use of anticoagulant therapy: Code(s): Z79.01 - 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
== END 2024-02-09 11:59 | disposition home or self-care (01) ==
LOC: HO.ACS 10:08
PROVIDERS: PCP Internal Medicine; Visit Provider Internal Medicine
DX: Z79.01 Long term (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 (principal)

== ENCOUNTER → 2024-02-09 10:08 | Outpatient (BNVA) | payer MEDICARE, SELFPAY | PROVIDERS: PCP Internal Medicine; Visit Provider Internal Medicine | DX: I48.0 Paroxysmal atrial fibrillation (principal); Z79.01 Long term (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; Z51.81 Encounter for therapeutic drug level monitoring | CPT/HCPCS: 85610; 99211 ==

== ENCOUNTER 2024-02-15 13:17 | Outpatient (AMB) | payer MEDICARE, SELFPAY ==
[2024-02-15 13:20] VITALS: BP 128/68; PULSE 88; BMI 30.5
--- NOTE | 2024-02-15 13:20 | MHC.OFFVIS ---
Vital Signs 02/15/24 13:20 Height 5 ft 8 in Weight 200 lb 9.93 oz BMI 30.5 BP 128/68 Blood Pressure Location Lt brachial Position Sitting Pulse 88 Pulse Source Pulse Oximeter Intake Visit Reasons: 6 mth f/u Allergies No Known Allergies [No Known Allergies*] Allergy (Verified 02/09/24 10:11) Medication List - Last Reconciled 02/15/24 by Quintin Romano MD bisacodyl (Dulcolax (bisacodyl)) 5 mg PO BEDTIME ezetimibe 10 mg PO DAILY levothyroxine 88 mcg PO DAILY linaclotide 290 mcg PO DAILY lisinopril 15 mg PO DAILY polyethylene glycol 3350 17 grams PO DAILY rosuvastatin 40 mg PO DAILY warfarin See Protocol 5 mg orally 5mg x 1 day/ 2.5mg x 6 days; HPI Comments Details: Sameer returns for follow-up regarding paroxysmal atrial fibrillation and aortic stenosis. Due to syncopal episodes, he underwent implantable loop monitor implantation. This showed long pauses leading to permanent pacemaker. Overall, he states he feels good. No angina or shortness of breath or in fact any cardiac sounding symptoms. Getting along okay. [facility] Medical History (Updated 02/14/23 @ 03:15 by Luis Dumont MD) Hypothyroidism GERD (gastroesophageal reflux disease) Hyperlipidemia Tubular adenoma of colon (~08/2015) Cardiac pacemaker in situ (~10/2021) Essential hypertension Chronic kidney disease Dizziness Non-rheumatic aortic sclerosis LBBB (left bundle branch block) PAF (paroxysmal atrial fibrillation) Current use of anticoagulant therapy Surgical History History of cardiac pacemaker (~2021) History of cardioversion (~2017) History of colonoscopy History of cholecystectomy (~1990) Family History Father No problems noted. Mother No problems noted. Social History Household Members: Spouse Housing: House Do you presently have visiting nurse or other home services: No Alcohol intake: never Patient Tobacco Use Status: Never used Tobacco Advance Directives Date on File: 07/09/21 service: No Current occupational status: retired Review of Systems Const Denies weakness ENT Denies dizziness Card Denies chest pain, Denies chest pain with activity, Denies syncope, Denies rapid heart rate, Denies pedal edema, Denies edema, Denies leg edema, Denies lightheadedness, Denies palpitations, Denies dyspnea, Denies dyspnea on exertion and Denies orthopnea Resp Denies cough, Denies dyspnea and Denies dyspnea on exertion GI Denies hematochezia and Denies change in stool character Musc Denies abnormal gait, Denies muscle cramps, Denies muscle weakness, Denies numbness, Denies radiating pain into limb and Denies tingling Neuro Denies abnormal gait, Denies dizziness, Denies syncope, Denies numbness, Denies tingling and Denies weakness Endo Denies palpitations Physical Exam Vital Signs: Last Vital Signs Pulse 88 02/15/24 13:20 BP 128/68 02/15/24 13:20 BMI result Body Mass Index 30.5 Const General: comfortable and no acute distress Orientation/consciousness: patient oriented x3 HEENT Other: Unremarkable Head: Yes normal to inspection Neck Neck: Yes normal visual inspection Chest Chest palpation & inspection: normal inspection of the chest Resp Auscultation: clear to auscultation bilaterally Cardio Palpation: normal PMI Heart sounds: S1 normal heart sound present, S2 normal heart sound present, no gallops, Murmur heart sound present systolic II/ and at the right sternal border and no rubs GI Palpation (GI): Soft to palpation Back/Spine/Pelvis Other: unremarkable Skin General skin exam: no rashes or lesions noted Neuro General: patient oriented x3 Extrem General: Yes normal to inspection Psych Mental Status: mental status grossly normal Assessment & Plan Assessment & Plan (1) PAF (paroxysmal atrial fibrillation): Code(s): I48.0 - Paroxysmal atrial fibrillation Category: Medical Plan: Issues with various antiarrhythmics. He is not suitable for flecainide-has structural heart disease as well as coronary disease. Multaq was too expensive. Sotalol/Tikosyn could not be used due to chronic kidney disease. He saw EP but did not want ablation. He was on low-dose amiodarone but now CT scan shows interstitial lung disease, hence discontinued. If any recurrence of atrial fibrillation, then refer back to EP. In that instance, consider AV jessika ablation. Home sleep study shows mild RICARDO. Not on CPAP at this time. (2) Sinus pause: Code(s): I45.5 - Other specified heart block Category: Medical Plan: Implantable loop recorder had shown pauses which could be etiology for syncope. Status post permanent pacemaker. (3) LBBB (left bundle branch block): Code(s): I44.7 - Left bundle-branch block, unspecified Category: Medical Plan: Chronic finding. In the stress perfusion imaging, no evidence of ischemia. (4) Non-rheumatic aortic sclerosis: Code(s): I35.8 - Other nonrheumatic aortic valve disorders Category: Medical Plan: In the echocardiogram, thought to be moderate aortic stenosis. Preserved LVEF at 55%. We will continue to monitor. (5) Essential hypertension: Code(s): I10 - Essential (primary) hypertension Category: Medical Plan: On lisinopril. Stable. (6) Pulmonary fibrosis: Code(s): J84.10 - Pulmonary fibrosis, unspecified Category: Medical Plan: Has seen Pulmonary but does not wish to go back for follow-up. Orders: Orders CA echo transthoracic complete 6 Months I35.8 - Other nonrheumatic aortic valve disorders Coding Level of Care Code Est Pt Level 4 (35712) Diagnoses PAF (paroxysmal atrial fibrillation) I48.0 Sinus pause I45.5 LBBB (left bundle branch block) I44.7 Non-rheumatic aortic sclerosis I35.8 Essential hypertension I10 Pulmonary fibrosis J84.10
== END 2024-02-15 13:40 | disposition home or self-care (01) ==
PROVIDERS: PCP Internal Medicine; Visit Provider Internal Medicine
DX: I48.0 Paroxysmal atrial fibrillation (principal); I45.5 Other specified heart block; I44.7 Left bundle-branch block, unspecified; I35.8 Other nonrheumatic aortic valve disorders; I10 Essential (primary) hypertension; J84.10 Pulmonary fibrosis, unspecified
CPT/HCPCS: 99214

== ENCOUNTER → 2024-02-15 13:17 | Outpatient (BNVA) | payer MEDICARE, SELFPAY | PROVIDERS: PCP Internal Medicine; Visit Provider Internal Medicine | DX: I48.0 Paroxysmal atrial fibrillation (principal); I45.5 Other specified heart block; I44.7 Left bundle-branch block, unspecified; I35.8 Other nonrheumatic aortic valve disorders; I10 Essential (primary) hypertension; J84.10 Pulmonary fibrosis, unspecified | CPT/HCPCS: 99212 ==

== ENCOUNTER 2024-03-01 10:26 | Outpatient (AMB) | payer MEDICARE, SELFPAY ==
[2024-03-01 10:37] LABS: Prothrombin Time Whole Bld POC 27.2 sec (11.1-13.5); ~PT, ~INR - Anti Coag Clinic 2.3 (0.9-1.1)
--- NOTE | 2024-03-01 10:42 | MHC.OFFVISCO ---
Intake Intake Visit Reasons: Anticoagulation Allergies No Known Allergies [No Known Allergies*] Allergy (Verified 03/01/24 10:30) Medication List - Last Reconciled 03/01/24 by Zaynab Vieyra RN bisacodyl (Dulcolax (bisacodyl)) 5 mg PO BEDTIME ezetimibe 10 mg PO DAILY levothyroxine 88 mcg PO DAILY linaclotide 290 mcg PO DAILY lisinopril 15 mg PO DAILY polyethylene glycol 3350 17 grams PO DAILY rosuvastatin 40 mg PO DAILY warfarin See Protocol 5 mg orally 5mg x 1 day/ 2.5mg x 6 days; Nursing Note INR: 2.3 in therapeutic range Medications and supplements reviewed No changes in health, diet, medications, or supplements, Denies any signs and symptoms of bleeding or bruising or clotting. 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
== END 2024-03-01 10:44 | disposition home or self-care (01) ==
LOC: HO.ACS 10:26
PROVIDERS: PCP Internal Medicine; Visit Provider Internal Medicine
DX: Z79.01 Long term (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 (principal)

== ENCOUNTER → 2024-03-01 10:26 | Outpatient (BNVA) | payer MEDICARE, SELFPAY | PROVIDERS: PCP Internal Medicine; Visit Provider Internal Medicine | DX: I48.0 Paroxysmal atrial fibrillation (principal); Z79.01 Long term (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; Z51.81 Encounter for therapeutic drug level monitoring | CPT/HCPCS: 85610; 99211 ==

== ENCOUNTER → 2024-03-09 23:59 | Outpatient (BNV) | payer MEDICARE, SELFPAY ==
--- NOTE | 2024-03-13 18:58 | A.OFFVIS_ITS ---
Intake Visit Reasons: Remote Device Check- Medtronic Allergies No Known Allergies [No Known Allergies*] Allergy (Verified 03/01/24 10:30) [facility] Medical History (Updated 02/14/23 @ 03:15 by Luis Dumont MD) Hypothyroidism GERD (gastroesophageal reflux disease) Hyperlipidemia Tubular adenoma of colon (~08/2015) Cardiac pacemaker in situ (~10/2021) Essential hypertension Chronic kidney disease Dizziness Non-rheumatic aortic sclerosis LBBB (left bundle branch block) PAF (paroxysmal atrial fibrillation) Current use of anticoagulant therapy Surgical History History of cardiac pacemaker (~2021) History of cardioversion (~2017) History of colonoscopy History of cholecystectomy (~1990) Family History Father No problems noted. Mother No problems noted. 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 Overall normal device function. [id number] Cardiac Device Interrogation, pacemaker Procedure code (CPT) selection complete Assessment & Plan Assessment & Plan (1) Cardiac pacemaker in situ: Onset Date: ~10/2021 Comment: (Medtronic DCPP - placed 10/2021 - for syncope and possible high grade AV block/sinus pause) Code(s): Z95.0 - Presence of cardiac pacemaker Category: Medical (2) PAF (paroxysmal atrial fibrillation): Code(s): I48.0 - Paroxysmal atrial fibrillation Category: Medical (3) Sinus pause: Code(s): I45.5 - Other specified heart block Category: Medical Plan x Coding Level of Care Code Procedure Only Diagnoses Cardiac pacemaker in situ Z95.0 PAF (paroxysmal atrial fibrillation) I48.0 Sinus pause I45.5 CPT Codes Cardiac Device Check - Cardiac Device 12: [id number] Cardiac Device Interrogation, pacemaker ([id number])
== END ==
PROVIDERS: PCP Internal Medicine; Visit Provider Internal Medicine
DX: I48.0 Paroxysmal atrial fibrillation (principal); Z95.0 Presence of cardiac pacemaker; I45.5 Other specified heart block
CPT/HCPCS: 93294

== ENCOUNTER 2024-04-12 10:28 | Outpatient (AMB) | payer MEDICARE, SELFPAY ==
--- NOTE | 2024-04-12 10:32 | MHC.OFFVISCO ---
Intake Intake Visit Reasons: Anticoagulation Allergies No Known Allergies [No Known Allergies*] Allergy (Verified 04/12/24 10:28) Medication List - Last Reconciled 04/12/24 by Jada Blake RN bisacodyl (Dulcolax (bisacodyl)) 5 mg PO BEDTIME ezetimibe 10 mg PO DAILY levothyroxine 88 mcg PO DAILY linaclotide 290 mcg PO DAILY lisinopril 15 mg PO DAILY polyethylene glycol 3350 17 grams PO DAILY rosuvastatin 40 mg PO DAILY warfarin See Protocol 5 mg orally 5mg x 1 day/ 2.5mg x 6 days; Nursing Note INR: 2.3- in therapeutic range of 2-3 Medications and supplements reviewed- no changes No changes in health, diet, medications, or supplements, Denies any signs and symptoms of bleeding or bruising or clotting. Bleeding, bruising, clotting discussed Nutritional guidance given Dose: 2.5mg x 3, 5mg x 4 F/U INR: 4 weeks Patient verbalizes understanding of instructions given Anti-Coag Initial Assessment Social Hx Patient Tobacco Use Status: Never used Tobacco alcohol intake: never Coding Level of Care Code Est Patient Level 1 Diagnoses Current use of anticoagulant therapy Z79.01 Results AMB INR Fingerstick AMB INR Fingerstick 2.3 Last Edit by Jada Blake RN on 04/12/24 10:34 interface delay Assessment & Plan Assessment & Plan (1) Current use of anticoagulant therapy: Code(s): Z79.01 - [facility] (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
--- OUTSIDE RECORDS SUMMARY | 2024-04-12 11:19 | XMS_ITS | Clinical Summary ---
Author Organization [facility] Address [address] [place] [address] Phone Care Team Providers Care Dependency Counselor Name Role Phone Duncan Sorensen MD Primary Care Provider [phone] Allergies No known active allergies Medications ezetimibe (ZETIA) 10 MG tablet Take 1 tablet by mouth 1 (one) time each day Active rosuvastatin (CRESTOR) 40 MG tablet Take 1 tablet by mouth 1 (one) time each day Active warfarin (COUMADIN) 5 MG tablet Take by mouth 1 (one) time each day Active polyethylene glycol (GLYCOLAX) 17 GM/SCOOP powder if needed 10/15/2020 Act luc lisinopril (PRINIVIL,ZESTR IL) 30 MG tablet Take 0.5 tablets (15 mg total) by mouth 1 (one) time each day 45 tablet 3 12/22/2020 Active sotalol (BETAPACE) 80 MG tablet Take 1 tablet by mouth 1 (one) time each day 11/25/2020 Active amiodarone (PACERONE) 100 MG tablet Take 100 mg by mouth 1 (one) time each day 03/15/2022 Active levothyroxine (SYNTHROID, LEVOTHROID) 50 MCG tablet Take 50 mcg by mouth 1 (one) time each day 05/11/2022 Active Active Problems Problem Noted Date Diagnosed Date Cardiac pacemaker in situ 06/22/2022 Overweight 06/22/2022 Hypertension 06/22/2022 Benign hypertension 09/29/2021 Left bundle-branch block 09/29/2021 Syncope 09/29/2021 Acute nontraumatic kidney injury 11/03/2020 Chronic kidney disease stage 3 11/03/2020 Resolved Problems Problem Noted Date Diagnosed Date Resolved Date Benign prostatic hyperplasia 09/29/2021 09/29/2021 Constipation 09/29/2021 09/29/2021 Eczema 09/29/2021 09/29/2021 Gastroesophageal reflux disease 09/29/2021 09/29/2021 Hyperlipidemia 09/29/2021 09/29/2021 Injury of eye region 09/29/2021 022 Insomnia 09/29/2021 09/29/2021 Obesity 09/29/2021 09/29/2021 Paroxysmal atrial fibrillation 09/29/2021 09/29/2021 Seborrheic dermatitis of scalp 09/29/2021 09/29/2021 Immunizations Name Administration Dates Next Due Influenza Whole 11/27/2019 Moderna SARS-COV-2 03/27/2020 Pfizer SARS-COV-2 11/26/2020,04/29/2020,04/01/19 21 Pneumococcal Conjugate 13-Valent 03/07/2017 Pneumococcal Polysaccharide 05/31/2018, 6 Family History Relation Status Comments Father Mother Social History Tobacco Use Types Packs/Day Years Used Date Smoking Tobacco: Never Smokeless Tobacco: Never Tobacco Cessation:Counseling Given: Not Answered Alcohol Use Standard Drinks/Week Comments Never 0 (1 standard drink = 0.6 oz pur e alcohol) Sex and Gender Information Value Date Recorded Sex Assigned at Not on file Legal Sex Male 4:58 PM EST Gender Identity Not on file Sexual Orientation Not on file Last Filed Vital Signs Vital Sign Reading Time Taken Comments Blood Pressure 132/80 06/22/2022 4:36 PM EDT Pulse 69 06/22/2022 4:36 PM EDT Temperature - - Respiratory Rate - - Oxygen Saturation 98% 01/29/2021 1:31 PM EST Inhaled Oxygen Concentration - - Weight 89.6 kg (197 lb 9.6 oz) 06/22/2022 4:36 P M EDT Height - - Body Mass Index - - Plan of Treatment Health Maintenance Due Date Last Done Comments Influenza Vaccine (#1) 2023 11/27/2019 Pneumococcal Vaccine: 65+ Years Completed 05/31/2018, 03/07/2017, 12/03/2015 Hepatitis B Vaccine Aged Out No longe r eligible based on patient's age to complete this topic Insurance MEDICARE [facility] MEDICARE [facility] Care Teams Dependency Counselor Relationship Specialty Start Date End Date Duncan Sorensen MD [facility] [place] PCP - General Internal Medicine 11/04/20
[2024-04-13 09:33] LABS: Prothrombin Time Whole Bld POC 28.1 sec (11.1-13.5); ~PT, ~INR - Anti Coag Clinic 2.3 (0.9-1.1)
== END 2024-04-12 10:37 | disposition home or self-care (01) ==
LOC: HO.ACS 10:28
PROVIDERS: PCP Internal Medicine; Visit Provider Internal Medicine
DX: Z79.01 Long term (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 (principal)

== ENCOUNTER → 2024-04-12 10:28 | Outpatient (BNVA) | payer MEDICARE, SELFPAY | PROVIDERS: PCP Internal Medicine; Visit Provider Internal Medicine | DX: I48.0 Paroxysmal atrial fibrillation (principal); Z79.01 Long term (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; Z51.81 Encounter for therapeutic drug level monitoring | CPT/HCPCS: 85610; 99211 ==

== ENCOUNTER 2024-04-24 22:21 | Emergency (ER) | payer MEDICARE, SELFPAY ==
--- NOTE | ~2024-04-24 | CT_ITS ---
CLINICAL HISTORY: RLQ , hx appendectomy CT abdomen and pelvis with IV contrast Comparison: None Findings: Lung bases show no active disease. No dependent layering pleural effusions. Cardiomegaly. Coronary artery calcifications: Mild, dual-chamber pacemaker/AICD. Liver normal size and contour. No focal hepatic lesions. Patent hepatic and portal veins. Post cholecystectomy. Homogeneous enhancement of the pancreas. No splenomegaly. Normal adrenal glands. Symmetrical renal excretion with no segmental or diffuse renal parenchymal disease or evidence of obstructive uropathy/hydroureteronephrosis. Bilateral renal cortical cysts.3.1 cm infrarenal abdominal aortic aneurysm calcified atherosclerotic disease. Bowel demonstrates a nonobstructive pattern. No free air. Trace free fluid/hemorrhage within the pelvis. Post appendectomy.No significant diverticular disease.Right rectus abdominis intramuscular hematoma with intramuscular contrast extravasation reflecting active hemorrhage.The hematoma measures 8 cm in transverse diameter 4 cm in AP diameter and 16 cm in height.Normal distention of the urinary bladder. Prostatomegaly probable mild cystitis. No vertebral body compression fractures or spondylolisthesis. No bony destructive lesions. Impression: 1. Right rectus abdominis intramuscular hematoma begins at the level of the umbilicus on the right and extends down to the symphysis pubis measuring 16 cm in longest recorded dimension. Trace free hemorrhage noted within the pelvis. Contrast blush within the intramuscular hematoma reflects active intramuscular hemorrhage. 2. Post cholecystectomy and appendectomy. 3. Prostatomegaly. Probable mild cystitis. Ectasia infrarenal abdominal aorta. This document has been electronically signed by: Bruce Fu MD on 04/25/2024 05:30:00
[2024-04-24 22:38] VITALS: BP 146/94; PULSE 96; RESP 18; TEMP 37.2; O2SAT 97; BMI 30.4
[2024-04-24 22:57] LABS: MANUAL DIFF FLAG NO
[2024-04-24 22:58] LABS: Basophils Absolute Auto 0.1 X10*3/uL (0.0-0.2); Basophils Percent Auto 0.7 % (0-2); Eosinophils Absolute Auto 0.1 X10*3/uL (0.0-0.4); Eosinophils Percent Auto 0.7 % (0-4); Hematocrit 39.3 % (42.0-52.0); Hemoglobin 13.5 g/dl (14.0-18.0); Imm Gran Abs Auto 0.03 X10*3/uL (0.00-0.03); Imm Gran Pct Auto 0.3 % (0.0-0.4); Lymphocytes Absolute Auto 1.6 X10*3/uL (1.2-4.9); Lymphocytes Percent Auto 15.5 % (20-40); Mean Corpuscular HGB Conc 34.4 g/dl (31.0-36.0); Mean Corpuscular Hemoglobin 29.2 pg (27.0-33.0); Mean Corpuscular Volume 85.1 fL (80.0-98.0); Mean Platelet Volume 9.1 fL (9.4-12.4); Monocytes Absolute Auto 1.2 X10*3/uL (0.1-1.2); Neutrophils Absolute Auto 7.1 x10*3/uL (2.0-8.3); Neutrophils Percent Auto 70.8 % (45-73); Platelet Count 189 X10*3/uL (160-400); Red Blood Count 4.62 X10*6/uL (4.60-5.80); Red Cell Distribution Width 13.5 % (11.0-16.0)
[2024-04-24 22:59] LABS: Appearance Urine Clear; Color Urine Dark Yellow; Glucose Urine UA Negative (Negative); Leukocyte Esterase Urine Negative (Negative); Nitrite Urine Negative (Negative); Specific Gravity - Urine 1.025 (1.005-1.025); UMIC TRIGGER UACC YES; Urine Blood Trace (Negative); Urine Ketones Trace mg/dL (Negative); Urine Protein 30 (1+) mg/dL (Neg-Trace)
[2024-04-24 23:07] LABS: Bacteria Urine None Seen (None Seen); RBC Urine 0-2 /HPF (0-2); Squamous Epithelial Cell Urine 0-2 /HPF (0-2); WBC Urine 0-5 /HPF (0-5)
[2024-04-24 23:12] LABS: Alanine Aminotransferase 12 U/L (0-40); Albumin Level 4.3 g/dL (3.5-5.0); Alkaline Phosphatase 80 U/L (39-117); Anion Gap 13 (12-20); Aspartate Amino Transferase 23 U/L (5-37); Bilirubin Direct 0.3 mg/dL (0.0-0.5); Bilirubin Total 0.8 mg/dL (0.0-1.0); Blood Urea Nitrogen 25 mg/dL (9-16); Calcium 9.4 mg/dL (8.4-10.2); Carbon Dioxide 21 mmol/L (22-29); Chloride 108 mmol/L (96-108); Creatinine Clr Calc Pharmacy 46.2; Estimated Glomerular Filt Rate 50; Glucose Random 105 mg/dL (60-115); Lipase 15 U/L (8-78); Potassium 4.4 mmol/L (3.3-5.1); Sodium 138 mmol/L (135-145); Total Protein 7.5 g/dL (6.5-8.0)
--- NOTE | 2024-04-25 03:28 | ECG_ITS ---
Test Reason : ABD PAIN Blood Pressure : */* mmHG Vent. Rate : 77 BPM Atrial Rate : 77 BPM P-R Int : 150 ms QRS Dur : 140 ms QT Int : 416 ms P-R-T Axes : 2 -57 130 degrees QTcB Int : 470 ms Sinus rhythm with PACs Left axis deviation Left bundle branch block Abnormal ECG When compared with ECG of 05-Nov-2021 09:40, PACs present Referred By: Laura Ohara Electronically Signed By: Sai Menchaca
--- NOTE | 2024-04-25 03:39 | ED_ITS ---
HPI - Abdominal Pain General Chief Complaint: Abdominal Pain Stated Complaint: R side abd pain Time Seen by Provider: 04/25/24 03:25 Source: patient and family Mode of arrival: ambulatory Limitations: no limitations History of Present Illness ED Provider: Dr. Laura Ohara HPI narrative: Patient comes to the emergency room complaining of 2 days of abdominal pain. Patient complaining of right lower quadrant pain. Denies nausea vomiting diarrhea, complaining of constipation. Patient states that he had an appendectomy when he was 13 years old. Patient denies any hematuria dysuria, denies history of kidney stones. Patient denies any trauma including falls or MVC. Related Data Home Medications ?Medication ?Instructions ?Recorded ?Confirmed ezetimibe 10 mg tablet 10 mg PO DAILY 01/21/20 03/01/24 rosuvastatin 40 mg tablet 40 mg PO DAILY 01/21/20 03/01/24 warfarin 5 mg tablet 5 mg PO .COMPLEX 01/27/23 04/12/24 polyethylene glycol 3350 17 17 g PO DAILY 04/14/23 03/01/24 gram/dose oral powder lisinopril 30 mg tablet 15 mg PO DAILY 08/14/23 03/01/24 bisacodyl 5 mg tablet,delayed 5 mg PO BEDTIME 11/17/23 03/01/24 release (Dulcolax (bisacodyl)) linaclotide 290 mcg capsule 290 mcg PO DAILY 02/09/24 03/01/24 Previous Rx's ?Medication ?Instructions ?Recorded levothyroxine 88 mcg tablet 88 mcg PO DAILY #30 tabs 09/19/22 Allergies Allergy/AdvReac Type Severity Reaction Status Date / Time No Known Allergies Allergy Verified 04/24/24 22:40 [No Known Allergies*] Review of Systems Review of Systems Constitutional : No Weight loss, No Fever, No Chills, No Night Sweats, No Fatigue, No Malaise ENT/Mouth : No Hearing loss, No Ear Pain, No Nasal Congestion, No Sinus Pain, No Hoarseness, No sore throat, No Rhinorrhea, No Swallowing Difficulty Eyes: No Eye Pain, No Swelling, No Redness, No Foreign Body, No Discharge, No Vision Changes Cardiovascular : No Chest Pain, No SOB, No Dyspnea on Exertion, No Orthopnea, No Edema, No Palpitations Respiratory : No Cough, No Sputum, No Wheezing, No Smoke Exposure, No Dyspnea Gastrointestinal : No Nausea, No Vomiting, No Diarrhea, Complaining of right lower quadrant pain, constipation, no melena or hematochezia Genitourinary : no irregular bleeding, No Dysuria, No Urinary Frequency, No Hematuria, No Urinary Incontinence, No Urgency, No Flank Pain, No Urinary Flow Changes, No Hesitancy Musculoskeletal : No joint pain, No Myalgias, No Joint Swelling Skin : No Skin Lesions, No rash Neuro : No Weakness, No Numbness, No Paresthesias, No Loss of Consciousness, No Dizziness, No Headache Psych : No Anxiety/Panic, No Depression, No SI/HI/AH/VH, No Social Issues, Heme/Lymph: No Bruising, No Bleeding,No Lymphadenopathy Endocrine : No Polyuria, No Polydipsia, No Temperature Intolerance [facility] Past Medical History Medical History Hypothyroidism GERD (gastroesophageal reflux disease) Hyperlipidemia Tubular adenoma of colon (~08/2015) Cardiac pacemaker in situ (~10/2021) Essential hypertension Chronic kidney disease Dizziness Non-rheumatic aortic sclerosis LBBB (left bundle branch block) PAF (paroxysmal atrial fibrillation) Current use of anticoagulant therapy Surgical History History of cardiac pacemaker (~2021) History of cardioversion (~2017) History of colonoscopy History of cholecystectomy (~1990) Family History Family History Father No problems noted. Mother No problems noted. Social History Social History Household Members: Spouse Housing: House Do you presently have visiting nurse or other home services: No Alcohol intake: never Patient Tobacco Use Status: Never used Tobacco Advance Directives: Yes Advance Directives on File: Yes Advance Directives Date on File: 07/09/21 Do you have a plan to hurt others: No Plan service: No Current occupational status: retired Physical Exam ED Vital Signs: Vital Signs - 24 hr 04/24/24 22:38 04/25/24 04:00 Temperature 98.9 F 97.8 F Pulse Rate 96 71 Respiratory Rate 18 18 Blood Pressure 146/94 H 144/83 H Pulse Oximetry 97 98 Oxygen Delivery Method Room Air Room Air BMI result Body Mass Index 30.4 Const Other: Appearance: Alert. Oriented X3. No acute distress. Eyes: Pupils equal, round and reactive to light. ENT: Pharynx normal. Neck: Normal inspection. Neck supple. No lymph nodes noted. No crepitus CVS: Normal heart rate and rhythm. Pulses normal. Normal S1 and S2 Respiratory: No respiratory distress. Breath sounds normal. No Wheezing. No rales Abdomen: Soft , tenderness to palpation over the right lower quadrant, no rebound or guarding, No rigidity. No distention. there is a large ecchymosis in the right lower quadrant radiating towards the right flank. Skin: Skin warm and dry. Normal skin color. Normal skin turgor. Extremities: No lower extremity edema. No Lacerations. No Rash Neuro: Oriented X 3. No motor deficit. No sensory deficit. Moving all extremities. No slurred speech. CN 2 through 12 grossly intact Psych: calm, cooperative, normal affect Medical Decision Making Medical Decision Making MDM Narrative: my interpretation of labs: Normal hematology and chemistry, normal LFTs and lipase, urinalysis negative my interpretation of EKG: Sinus rhythm, heart rate 77, occasional PVCs, left bundle branch block, otherwise no ST segment changes, QTC 470 CT scan of the abdomen shows trace free fluid within the pelvis, right rectus abdominis intramuscular hematoma, active extravasation. The hematoma measures 8 cm in transverse diameter, 4 cm in AP diameter in 16 cm in height other than the localized pain, patient is doing well. Patient's vitals stable, blood pressure 144/83, heart rate 71 patient is adamant that he did not fall. However, when I called his to let him know that we are transferring patient to [facility], they said that he fell approximately 10 to 14 days ago. However, he did not complain of any pain until 3-4 days ago. therefore, they states that she did not remember immediately about the patient falling. Patient received the 1st dose of vitamin K,, INR is still pending I discussed the patient with from the surgery team at [facility]. Recommends [facility]. INR returned, it is 3.2. Patient receiving Kcent[facility]. Patient ready to be transferred. Patient remained stable Differential Diagnosis Differential Diagnoses: The differential diagnosis associated with the presentation includes Admission/Observation Consideration of admission/observation: Escalation of care including admission/observation considered Consult Healthcare Provider Management of the patient was discussed with: Jewelry Sorter Lab Data MDM Lab Attestation statement: I reviewed the patient's lab results. 04/24/24 22:52 04/24/24 22:52 Labs: Lab Results 04/24/24 Range/Units 22:52 WBC 10.0 (4.8-10.8) X10*3/uL RBC 4.62 (4.60-5.80) X10*6/uL Hgb 13.5 L (14.0-18.0) g/dl Hct 39.3 L (42.0-52.0) % MCV 85.1 (80.0-98.0) fL MCH 29.2 (27.0-33.0) pg MCHC 34.4 (31.0-36.0) g/dl RDW 13.5 (11.0-16.0) % Plt Count 189 (160-400) X10*3/uL MPV 9.1 L (9.4-12.4) fL Immature Gran % (Auto) 0.3 (0.0-0.4) % Neut % (Auto) 70.8 (45-73) % Lymph % (Auto) 15.5 L (20-40) % [place] % (Auto) 12.0 H (2-11) % Eos % (Auto) 0.7 (0-4) % Baso % (Auto) 0.7 (0-2) % Lymph # (Auto) 1.6 (1.2-4.9) X10*3/uL [place] # (Auto) 1.2 (0.1-1.2) X10*3/uL Eos # (Auto) 0.1 (0.0-0.4) X10*3/uL Baso # (Auto) 0.1 (0.0-0.2) X10*3/uL Abs Immat Gran (auto) 0.03 (0.00-0.03) X10*3/uL Absolute Neuts (auto) 7.1 (2.0-8.3) x10*3/uL Absolute Nucleated RBC 0.000 (0.0-0.012) X10*3/uL Nucleated RBC % (auto) 0.0 (0.0-0.2) /100WBC Sodium 138 (135-145) mmol/L Potassium 4.4 (3.3-5.1) mmol/L Chloride 108 (96-108) mmol/L Carbon Dioxide 21 L (22-29) mmol/L Anion Gap 13 (12-20) BUN 25 H (9-16) mg/dL Creatinine 1.37 (0.5-1.4) mg/dL Estim Creat Clear Calc 46.2 Estimated GFR 50 Random Glucose 105 (60-115) mg/dL Calcium 9.4 (8.4-10.2) mg/dL Total Bilirubin 0.8 (0.0-1.0) mg/dL Direct Bilirubin 0.3 (0.0-0.5) mg/dL AST 23 (5-37) U/L ALT 12 (0-40) U/L Alkaline Phosphatase 80 (39-117) U/L Troponin I High Sens 38.1 H (<3.5-35.0) ng/L Total Protein 7.5 (6.5-8.0) g/dL Albumin 4.3 (3.5-5.0) g/dL Lipase 15 (8-78) U/L Urine Color Dark Yellow Urine Appearance Clear Urine pH 5.0 (5.0-9.0) Ur Specific [place] 1.025 (1.005-1.025) Urine Protein 30 (1+) H (Neg-Trace) mg/dL Urine Glucose (UA) Negative (Negative) mg/dL Urine Ketones Trace (Negative) mg/dL Urine Blood Trace H (Negative) Urine Nitrite Negative (Negative) Ur Leukocyte Esterase Negative (Negative) Urine RBC 0-2 (0-2) /HPF Urine WBC 0-5 (0-5) /HPF Ur Squamous Epith Cells 0-2 (0-2) /HPF Urine Bacteria None Seen (None Seen) Hyaline Casts 6-10 (0-2) /LPF Independent Interpretation I performed an independent interpretation of an: CT Scan Radiology Impression Discussion of test interpretation with radiology: I have reviewed the radiologist's reading. Radiologist Impression: Findings: Lung bases show no active disease. No dependent layering pleural effusions. Cardiomegaly. Coronary artery calcifications: Mild, dual-chamber pacemaker/AICD. Liver normal size and contour. No focal hepatic lesions. Patent hepatic and portal veins. Post cholecystectomy. Homogeneous enhancement of the pancreas. No splenomegaly. Normal adrenal glands. Symmetrical renal excretion with no segmental or diffuse renal parenchymal disease or evidence of obstructive uropathy/hydroureteronephrosis. Bilateral renal cortical cysts.3.1 cm infrarenal abdominal aortic aneurysm calcified atherosclerotic disease. Bowel demonstrates a nonobstructive pattern. No free air. Trace free fluid/hemorrhage within the pelvis. Post appendectomy.No significant diverticular disease.Right rectus abdominis intramuscular hematoma with intramuscular contrast extravasation reflecting active hemorrhage.The hematoma measures 8 cm in transverse diameter 4 cm in AP diameter and 16 cm in height.Normal distention of the urinary bladder. Prostatomegaly probable mild cystitis. No vertebral body compression fractures or spondylolisthesis. No bony destructive lesions. Impression: 1. Right rectus abdominis intramuscular hematoma begins at the level of the umbilicus on the right and extends down to the symphysis pubis measuring 16 cm in longest recorded dimension. Trace free hemorrhage noted within the pelvis. Contrast blush within the intramuscular hematoma reflects active intramuscular hemorrhage. 2. Post cholecystectomy and appendectomy. 3. Prostatomegaly. Probable mild cystitis. Ectasia infrarenal abdominal aorta. Independent Historian Clinical information obtained from an independent historian. History obtained from or confirmed by: Spouse Medications Administered Discontinued Medications Generic Name Dose Route Start Last Admin Trade Name Freq PRN Reason Stop Dose Admin Iohexol 85 ml 04/25/24 05:03 04/25/24 05:04 Iohexol 350 Mg/Ml 100 Ml Infus..Btl IV 04/25/24 05:04 85 ml ONCE ONE Administration Morphine Sulfate 2 mg 04/25/24 03:46 04/25/24 04:08 Morphine Sulfate 2 Mg/Ml Cartridge IVPUSH 04/25/24 03:47 2 mg ONCE ONE Administration Protocol Ondansetron HCl 4 mg 04/25/24 03:46 04/25/24 04:08 Ondansetron Hcl 4 Mg/2 Ml Vial IVPUSH 04/25/24 03:47 4 mg ONCE ONE Administration Discharge Plan Discharge Clinical Impression: Intramuscular hematoma Patient Disposition: [facility] Transfer Details: [facility] ED to ED, surgery team Dr. Kelley Prescriptions: No Action levothyroxine 88 mcg tablet 88 mcg PO DAILY Qty: 30 5RF rosuvastatin 40 mg tablet 40 mg PO DAILY ezetimibe 10 mg tablet 10 mg PO DAILY polyethylene glycol 3350 17 gram/dose powder 17 g PO DAILY bisacodyl [Dulcolax (bisacodyl)] 5 mg tablet,delayed release (DR/EC) 5 mg PO BEDTIME Rx Instructions: also 1 tab po in am linaclotide 290 mcg capsule 290 mcg PO DAILY warfarin 5 mg tablet 5 mg PO .COMPLEX Protocol: Dose Management Condition: Monday (Week One) Dose/Route: 5 mg Instruction: 1 x 5 mg tablet Condition: Monday Dose/Route: 2.5 mg Instruction: 0.5 x 5 mg tablets Condition: Monday Dose/Route: 5 mg Instruction: 1 x 5 mg tablet Condition: Monday Dose/Route: 2.5 mg Instruction: 0.5 x 5 mg tablets Condition: Dose/Route: 5 mg Instruction: 1 x 5 mg tablet Condition: Monday Dose/Route: 2.5 mg Instruction: 0.5 x 5 mg tablets Condition: Monday Dose/Route: 5 mg Instruction: 1 x 5 mg tablet Condition: Monday (Week Two) Dose/Route: 5 mg Instruction: 1 x 5 mg tablet Condition: Monday Dose/Route: 2.5 mg Instruction: 0.5 x 5 mg tablets Condition: Monday Dose/Route: 5 mg Instruction: 1 x 5 mg tablet Condition: Monday Dose/Route: 2.5 mg Instruction: 0.5 x 5 mg tablets Condition: Dose/Route: 5 mg Instruction: 1 x 5 mg tablet Condition: Monday Dose/Route: 2.5 mg Instruction: 0.5 x 5 mg tablets Condition: Monday Dose/Route: 5 mg Instruction: 1 x 5 mg tablet Protocol Text: Adjustment Start Date: Monday04/12/24 INR Value: 2.3 INR Date: 04/12/24 Recheck Date: 05/10/24 Additional Instructions: cont same dosing call with any changes in medications Rx Instructions: 5 mg orally 5mg x 1 day/ 2.5mg x 6 days; lisinopril 30 mg tablet 15 mg PO DAILY Print Language: Belarusian
[2024-04-25 03:50] LABS: Troponin-I High Sensitivity 38.1 ng/L (<3.5-35.0)
[2024-04-25 04:00] VITALS: BP 144/83; PULSE 71; RESP 18; TEMP 36.6; O2SAT 98
[2024-04-25] MEDS: Morphine Sulfate 2 MG/ML CARTRIDGE IVPUSH (04:08)
[2024-04-25] MEDS: ondansetron HCL 4 MG/2 ML VIAL IVPUSH (04:08)
[2024-04-25] MEDS: iohexoL 350 MG/ML 100 ML INFUS..BTL 85 ML IV (05:04)
[2024-04-25 05:57] VITALS: BP 142/89; PULSE 71; RESP 18; TEMP 36.7; O2SAT 95
[2024-04-25] MEDS: Phytonadione (Vit K1) Oral 10 MG/ML AMPUL PO (06:02)
[2024-04-25 06:04] LABS: INTERNATIONAL NORM RATIO 3.2 (0.9-1.1); Prothrombin Time 37.4 SEC (10.9-12.4)
[2024-04-25] MEDS: Morphine Sulfate 2 MG/ML CARTRIDGE 1 MG IVPUSH (06:35)
[2024-04-25] MEDS: Hum Prothrombin Cplx(PCC)4Fact 2,000 UNIT in Container,Empty 0 ML 480 UNIT IV (06:35)
[2024-04-25 07:18] VITALS: BP 117/75; PULSE 70; RESP 16; O2SAT 95
--- NOTE | 2024-04-25 07:19 | PC.NURSE ---
Pt is alert/oriented x 2. Aware of plan to transport to [facility] ED to 0830. Denies pain at this time. Ecchymotic area noted to right lower abd. VSS. Skin pink warm and dry.
--- NOTE | 2024-04-25 08:04 | PC.NURSE ---
Called [facility] ED x 2 and on hold for approx 5 min on second attempt. No answer.
[2024-04-25 08:05] VITALS: BP 117/75; PULSE 70; RESP 16; TEMP -17.7; TEMP 0; O2SAT 95
== END 2024-04-25 08:05 | disposition short-term general hospital (02) ==
PROVIDERS: Emergency Provider Emergency Medicine; PCP Internal Medicine
DX: M79.81 Nontraumatic hematoma of soft tissue (principal); R10.31 Right lower quadrant pain; I12.9 Hypertensive chronic kidney disease with stage 1 through stage 4 chronic kidney disease, or unspecified chronic kidney disease; N18.30 Chronic kidney disease, stage 3 unspecified; E78.5 Hyperlipidemia, unspecified; I48.0 Paroxysmal atrial fibrillation; Z95.0 Presence of cardiac pacemaker; Z79.02 Long term (current) use of antithrombotics/antiplatelets; Z79.899 Other long term (current) drug therapy; Z79.01 Long term (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
CPT/HCPCS: 36415; 74177; 80048; 80076; 81001; 83690; 84484; 85025; 85610; 93005; 96365; 96375; 96376; 99285; J2270; J2405; J7168; Q9967

== ENCOUNTER → 2024-04-25 03:28 | Outpatient (BNV) | payer MEDICARE, SELFPAY | PROVIDERS: Emergency Provider Emergency Medicine; PCP Internal Medicine; Visit Provider Internal Medicine Cardiovascular Disease | DX: I49.1 Atrial premature depolarization (principal); I44.7 Left bundle-branch block, unspecified; R94.31 Abnormal electrocardiogram [ECG] [EKG] | CPT/HCPCS: 93010 ==

== ENCOUNTER → 2024-04-25 03:36 | Outpatient (BNV) | payer MEDICARE, SELFPAY | PROVIDERS: Emergency Provider Emergency Medicine; PCP Internal Medicine; Visit Provider Radiology Diagnostic Radiology | DX: R10.31 Right lower quadrant pain (principal); Z90.49 Acquired absence of other specified parts of digestive tract; M79.81 Nontraumatic hematoma of soft tissue | CPT/HCPCS: 74177 ==

== ENCOUNTER → 2024-05-10 11:57 | Outpatient (BNVA) | payer MEDICARE, SELFPAY | PROVIDERS: PCP Internal Medicine; Visit Provider Internal Medicine ==

== ENCOUNTER 2024-05-17 08:29 | Outpatient (AMB) | payer MEDICARE, SELFPAY ==
[2024-05-17 08:39] LABS: Prothrombin Time Whole Bld POC 13.8 sec (11.1-13.5); ~PT, ~INR - Anti Coag Clinic 1.1 (0.9-1.1)
--- OUTSIDE RECORDS SUMMARY | 2024-05-17 08:46 | XMS_ITS | Clinical Summary ---
Author Organization [facility] Address [address] [place] [address] Phone Care Team Providers Care Machine Tool Electrician Name Role Phone Duncan Sorensen MD Primary Care Provider [phone] Allergies No known active allergies Medications ezetimibe [...] age to complete this topic Insurance MEDICARE [facility] MEDICARE [facility] Care Teams Machine Tool Electrician Relationship Specialty Start Date End Date Duncan Sorensen MD [facility] [place] [facility] PCP - General Internal Medicine 11/04/20
--- NOTE | 2024-05-17 08:48 | MHC.OFFVISCO ---
Intake Intake Visit Reasons: Anticoagulation Allergies No Known Allergies [No Known Allergies*] Allergy (Verified 05/17/24 08:31) Medication List - Last Reconciled 05/17/24 by Zaynab Vieyra RN bisacodyl (Dulcolax (bisacodyl)) 5 mg PO BEDTIME ezetimibe 10 mg PO DAILY levothyroxine 75 mcg PO DAILY linaclotide 290 mcg PO DAILY lisinopril 20 mg PO DAILY polyethylene glycol 3350 17 grams PO DAILY rosuvastatin 40 mg PO DAILY warfarin See Protocol 5 mg orally 5mg x 1 day/ 2.5mg x 6 days; Nursing Note ambulates to clinic with - feeling better s/p abd sheath bleed s/p fall. INR 1.1 out of therapeutic range Medications and supplements reviewed Patient status: s/p abd rectus sheath bleed s/p fall in Mar- just resumed warfarin x 1 week at 2.5mg daily Medications or supplements: minor changes in mg amt of some of his meds Diet: good Denies any signs and symptoms of bleeding or clotting or unusual bruising Bleeding, bruising, clotting discussed Nutritional guidance given: avoid greens today and tomorrow Dose: 5mg today and tomorrow then 5mg mwf/ 2.5mg x 4 days gradually increasing greens F/U INR Date : 05/21/24?? Patient verbalizing understanding of instructions given with read back with . 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
== END 2024-05-17 09:00 | disposition home or self-care (01) ==
LOC: HO.ACS 08:29
PROVIDERS: PCP Internal Medicine; Visit Provider Internal Medicine Medical Oncology
DX: Z79.01 Long term (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 (principal)

== ENCOUNTER → 2024-05-17 08:29 | Outpatient (BNVA) | payer MEDICARE, SELFPAY | PROVIDERS: PCP Internal Medicine; Visit Provider Internal Medicine Medical Oncology | DX: I48.0 Paroxysmal atrial fibrillation (principal); Z79.01 Long term (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; Z51.81 Encounter for therapeutic drug level monitoring | CPT/HCPCS: 85610; 99211 ==

== ENCOUNTER 2024-05-23 10:21 | Outpatient (AMB) | payer MEDICARE, SELFPAY ==
[2024-05-23 11:04] LABS: Prothrombin Time Whole Bld POC 18.1 sec (11.1-13.5); ~PT, ~INR - Anti Coag Clinic 1.5 (0.9-1.1)
--- NOTE | 2024-05-23 11:06 | MHC.OFFVISCO ---
Intake Intake Visit Reasons: Anticoagulation Allergies No Known Allergies [No Known Allergies*] Allergy (Verified 05/23/24 10:52) Medication List - Last Reconciled 05/23/24 by Zaynab Vieyra RN bisacodyl (Dulcolax (bisacodyl)) 5 mg PO BEDTIME ezetimibe 10 mg PO DAILY levothyroxine 75 mcg PO DAILY linaclotide 290 mcg PO DAILY lisinopril 20 mg PO DAILY polyethylene glycol 3350 17 grams PO DAILY rosuvastatin 40 mg PO DAILY warfarin See Protocol 5 mg orally 5mg x 1 day/ 2.5mg x 6 days; Nursing Note INR 1.5 out of therapeutic range s/p gradually resuming warfarin after a bleed s/p fall Medications and supplements reviewed Patient status: well no complaints Medications or supplements: no changes Diet: good Denies any signs and symptoms of bleeding or clotting or unusual bruising Bleeding, bruising, clotting discussed Nutritional guidance given: no greens today Dose: increase back to previous dose 5mg x 4 days/ 2.5mg x 3 days F/U INR Date : 1 week - pt wanted to refuse sooner appt but explained risks of low INR too long and risk if INR goes to high, he and his dosing needs to be assessed again next week - he agreed to next Monday05/31/24 ?? Patient and verbalize understanding of instructions given. Anti-Coag Initial Assessment Social Hx Patient Tobacco Use Status: Never used Tobacco alcohol intake: never Coding Level of Care Code Est Patient Level 1 Diagnoses Current use of anticoagulant therapy Z79.01 Results AMB INR Fingerstick AMB INR Fingerstick 1.5 Last Edit by Zaynab Vieyra RN on 05/23/24 11:00 manual entry ongoing failed interfacing Assessment & Plan Assessment & Plan (1) Current use of anticoagulant therapy: Code(s): Z79.01 - USP (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
--- OUTSIDE RECORDS SUMMARY | 2024-05-23 13:24 | XMS_ITS | Clinical Summary ---
Author Organization [facility] Address [address] [place] [address] Phone Care Team Providers Care Locomotive Supervisor Name Role Phone Duncan Sorensen MD Primary Care Provider [phone] Allergies No known active allergies Medications ezetimibe [...] age to complete this topic Insurance MEDICARE [facility] MEDICARE [facility] Care Teams Locomotive Supervisor Relationship Specialty Start Date End Date Duncan Sorensen MD [facility] [place] PCP - General Internal Medicine 11/04/20
== END 2024-05-23 11:22 | disposition home or self-care (01) ==
LOC: HO.ACS 10:21
PROVIDERS: PCP Internal Medicine; Visit Provider Internal Medicine Medical Oncology
DX: Z79.01 Long term (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 (principal)

== ENCOUNTER → 2024-05-23 10:21 | Outpatient (BNVA) | payer MEDICARE, SELFPAY | PROVIDERS: PCP Internal Medicine; Visit Provider Internal Medicine Medical Oncology | DX: I48.0 Paroxysmal atrial fibrillation (principal); Z79.01 Long term (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; Z51.81 Encounter for therapeutic drug level monitoring | CPT/HCPCS: 85610; 99211 ==

== ENCOUNTER 2024-05-31 10:14 | Outpatient (AMB) | payer MEDICARE, SELFPAY ==
[2024-05-31 10:34] LABS: Prothrombin Time Whole Bld POC 34.2 sec (11.1-13.5); ~PT, ~INR - Anti Coag Clinic 2.9 (0.9-1.1)
--- NOTE | 2024-05-31 10:34 | MHC.OFFVISCO ---
Intake Intake Visit Reasons: Anticoagulation Allergies No Known Allergies [No Known Allergies*] Allergy (Verified 05/31/24 10:19) Medication List - Last Reconciled 05/31/24 by Ximena Canales RN bisacodyl (Dulcolax (bisacodyl)) 5 mg PO BEDTIME ezetimibe 10 mg PO DAILY levothyroxine 75 mcg PO DAILY linaclotide 290 mcg PO DAILY lisinopril 20 mg PO DAILY polyethylene glycol 3350 17 grams PO DAILY rosuvastatin 40 mg PO DAILY warfarin See Protocol 5 mg orally 5mg x 1 day/ 2.5mg x 6 days; Nursing Note INR: 2.9 in therapeutic range of 2-3 Pt states he is healed and much better after his fall when he suffered an abd restus sheath hematoma. Medications and supplements reviewed No changes in health, diet, medications, or supplements, Denies any signs and symptoms of bleeding or bruising or clotting. Bleeding, bruising, clotting discussed Nutritional guidance given Dose: 5mg X 4 days and 2.5mg X 3 days (M/W/F) F/U INR: 1 week Patient verbalizes understanding of instructions given Anti-Coag Initial Assessment Social Hx Patient Tobacco Use Status: Never used Tobacco alcohol intake: never Coding Level of Care Code Est Patient Level 1 Diagnoses Current use of anticoagulant therapy Z79.01 Results AMB INR Fingerstick AMB INR Fingerstick 2.9 Last Edit by Ximena Canales RN on 05/31/24 10:32 CORRECTED INR Assessment & Plan Assessment & Plan (1) Current use of anticoagulant therapy: Code(s): Z79.01 - USP (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
--- OUTSIDE RECORDS SUMMARY | 2024-05-31 11:39 | XMS_ITS | Clinical Summary ---
Author Organization [facility] [place] Address [address] [place] [address] Phone Care Team Providers Care Counselor Aid Name Role Phone Duncan Sorensen MD Primary Care Provider [phone] Allergies No known active allergies Medications ezetimibe [...] age to complete this topic Insurance MEDICARE [facility] MEDICARE [facility] Care Teams Counselor Aid Relationship Specialty Start Date End Date Duncan Sorensen MD [facility] [place] PCP - General Internal Medicine 11/04/20
== END 2024-05-31 10:43 | disposition home or self-care (01) ==
LOC: HO.ACS 10:14
PROVIDERS: PCP Internal Medicine; Visit Provider Internal Medicine
DX: Z79.01 Long term (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 (principal)

== ENCOUNTER → 2024-05-31 10:14 | Outpatient (BNVA) | payer MEDICARE, SELFPAY | PROVIDERS: PCP Internal Medicine; Visit Provider Internal Medicine | DX: I48.0 Paroxysmal atrial fibrillation (principal); Z79.01 Long term (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; Z51.81 Encounter for therapeutic drug level monitoring | CPT/HCPCS: 85610; 99211 ==

== ENCOUNTER 2024-06-07 10:06 | Outpatient (AMB) | payer MEDICARE, SELFPAY ==
--- NOTE | 2024-06-07 10:07 | MHC.OFFVISCO ---
Intake Intake Visit Reasons: Anticoagulation Allergies No Known Allergies [No Known Allergies*] Allergy (Verified 06/07/24 09:55) Medication List - Last Reconciled 06/07/24 by Ximena Canales RN bisacodyl (Dulcolax (bisacodyl)) 5 mg PO BEDTIME ezetimibe 10 mg PO DAILY levothyroxine 75 mcg PO DAILY linaclotide 290 mcg PO DAILY lisinopril 20 mg PO DAILY polyethylene glycol 3350 17 grams PO DAILY rosuvastatin 40 mg PO DAILY warfarin See Protocol 5 mg orally 5mg x 1 day/ 2.5mg x 6 days; Nursing Note INR: 1.9?out of therapeutic range of 2-3 Medications and supplements reviewed Patient status: well Medications or supplements: no changes Diet: usual diet for pt Denies any signs and symptoms of bleeding or clotting or unusual bruising Bleeding, bruising, clotting discussed Nutritional guidance given: to avoid greens today and tomorrow Dose: pt took 5mg today and was to take 2.5mg so will take 2.5mg tomorrow then resume usual dose of 5mg X 4 days and 2.5mg X 3 days (M/W/F) F/U INR Date: 3 weeks?? Patient verbalizing understanding of instructions given. Anti-Coag Initial Assessment Social Hx Patient Tobacco Use Status: Never used Tobacco alcohol intake: never Coding Level of Care Code Est Patient Level 1 Diagnoses Current use of anticoagulant therapy Z79.01 Results AMB INR Fingerstick AMB INR Fingerstick 1.9 Last Edit by Ximena Canales RN on 06/07/24 10:06 interface delay Assessment & Plan Assessment & Plan (1) Current use of anticoagulant therapy: Code(s): Z79.01 - local company intermodal truck driver (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
--- OUTSIDE RECORDS SUMMARY | 2024-06-07 10:46 | XMS_ITS | Clinical Summary ---
Author Organization [facility] Address [address] [place] [address] Phone Care Team Providers Care Primer Inserting Machine Adjuster Name Role Phone Duncan Sorensen MD Primary Care Provider [phone] Allergies No known active allergies Medications ezetimibe [...] Seborrheic dermatitis of scalp 09/29/2021 09/29/2021 Immunizations Immunization Administration Dates Next Due Influenza Whole 11/27/2019 [...] Due Date Last Done Comments Influenza Vaccine (Season Ended) 2024 11/27/2019 Pneumococcal Vaccine: 50+ Years Completed 05/31/2018, 03/07/2017, 12/03/2015 Hepatitis B Vaccine Aged Out No longe r eligible based on patient's age to complete this topic Insurance Medicare [facility] Medicare [facility] Care Teams Primer Inserting Machine Adjuster Relationship Specialty Start Date End Date Duncan Sorensen MD [facility] [place] PCP - General Internal Medicine 11/04/20
[2024-06-10 09:49] LABS: Prothrombin Time Whole Bld POC 23.2 sec (11.1-13.5); ~PT, ~INR - Anti Coag Clinic 1.9 (0.9-1.1)
== END 2024-06-07 10:23 | disposition home or self-care (01) ==
LOC: HO.ACS 10:06
PROVIDERS: PCP Internal Medicine; Visit Provider Internal Medicine Medical Oncology
DX: Z79.01 Long term (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 (principal)

== ENCOUNTER → 2024-06-07 10:06 | Outpatient (BNVA) | payer MEDICARE, SELFPAY | PROVIDERS: PCP Internal Medicine; Visit Provider Internal Medicine Medical Oncology | DX: I48.0 Paroxysmal atrial fibrillation (principal); Z51.81 Encounter for therapeutic drug level monitoring; Z79.01 Long term (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 | CPT/HCPCS: 85610; 99211 ==

== ENCOUNTER 2024-06-10 11:46 | Outpatient (REF) | payer MEDICARE, SELFPAY ==
[2024-06-10 12:53] LABS: Anion Gap 10 (12-20); Blood Urea Nitrogen 20 mg/dL (9-16); Calcium 9.4 mg/dL (8.4-10.2); Carbon Dioxide 24 mmol/L (22-29); Chloride 107 mmol/L (96-108); Estimated Glomerular Filt Rate 51; Potassium 4.6 mmol/L (3.3-5.1); Sodium 136 mmol/L (135-145)
--- OUTSIDE RECORDS SUMMARY | 2024-06-10 13:50 | XMS_ITS | Clinical Summary ---
Author Organization [facility] [place] Address [address] [place] [address] Phone Care Team Providers Care Professor Of Environmental Engineering Name Role Phone Duncan Sorensen MD Primary Care Provider [phone] Allergies No known active allergies Medications ezetimibe [...] Vaccine: 50+ Years Completed 05/31/2018, 03/07/2017, 12/03/2015 Pneumococcal Vaccine: Peds (0 to 5 Years) and At-Risk Patients (6 to 49 Years) Discontinued 05/31/2018, 03/07/2017, 12/03/2015 Hepatitis B Vaccine Aged Out No longe r eligible based on patient's age to complete this topic Insurance Medicare [facility] Medicare [facility] Care Teams Professor Of Environmental Engineering Relationship Specialty Start Date End Date Duncan Sorensen MD [facility] [place] PCP - General Internal Medicine 11/04/20
== END 2024-06-10 11:47 | disposition home or self-care (01) ==
LOC: HO.LAB 11:46
PROVIDERS: PCP Internal Medicine; Visit Provider Internal Medicine Nephrology
DX: I12.9 Hypertensive chronic kidney disease with stage 1 through stage 4 chronic kidney disease, or unspecified chronic kidney disease (principal); N18.31 Chronic kidney disease, stage 3a
CPT/HCPCS: 36415; 80051; 82310; 82565; 84520

== ENCOUNTER → 2024-06-10 23:59 | Outpatient (BNV) | payer MEDICARE, SELFPAY ==
--- NOTE | 2024-06-17 12:27 | A.OFFVIS_ITS ---
Intake Visit Reasons: Remote device check- Medtronic Allergies No Known Allergies [No Known Allergies*] Allergy (Verified 06/12/24 10:35) [facility] Medical History Hypothyroidism GERD (gastroesophageal reflux disease) Hyperlipidemia Tubular adenoma of colon (~08/2015) Cardiac pacemaker in situ (~10/2021) Essential hypertension Chronic kidney disease Dizziness Non-rheumatic aortic sclerosis LBBB (left bundle branch block) PAF (paroxysmal atrial fibrillation) Current use of anticoagulant therapy Surgical History History of cardiac pacemaker (~2021) History of cardioversion (~2017) History of colonoscopy History of cholecystectomy (~1990) Family History Father No problems noted. Mother No problems noted. Social History Household Members: Spouse Housing: House Do you presently have visiting nurse or other home services: No Alcohol intake: never Patient Tobacco Use Status: Never used Tobacco Advance Directives Date on File: 07/09/21 service: No Current occupational status: retired Office Procedures Cardiac Device Check Cardiac Device Check Details: Date of service- 06/10/2024 ; Battery life >11 years; normal lead parameters; AP 48%; BIOMASS POWER [employer]ANT SUPERINTENDENT <0.1%; brief NSVT episodes but some strips look supraventricular. Overall normal device function. [id number] Cardiac Device Interrogation, pacemaker Procedure code (CPT) selection complete Assessment & Plan Assessment & Plan (1) Cardiac pacemaker in situ: Onset Date: ~10/2021 Comment: (Medtronic DCPP - placed 10/2021 - for syncope and possible high grade AV block/sinus pause) Code(s): Z95.0 - Presence of cardiac pacemaker Category: Medical (2) PAF (paroxysmal atrial fibrillation): Code(s): I48.0 - Paroxysmal atrial fibrillation Category: Medical (3) Sinus pause: Code(s): I45.5 - Other specified heart block Category: Medical Plan x Coding Level of Care Code Procedure Only Diagnoses Cardiac pacemaker in situ Z95.0 PAF (paroxysmal atrial fibrillation) I48.0 Sinus pause I45.5 CPT Codes Cardiac Device Check - Cardiac Device 12: [id number] Cardiac Device Interrogation, pacemaker ([id number])
== END ==
PROVIDERS: PCP Internal Medicine; Visit Provider Internal Medicine
DX: I48.0 Paroxysmal atrial fibrillation (principal); I45.5 Other specified heart block; Z95.0 Presence of cardiac pacemaker
CPT/HCPCS: 93294

== ENCOUNTER 2024-06-12 10:19 | Outpatient (AMB) | payer MEDICARE, SELFPAY ==
--- NOTE | 2024-06-12 10:34 | HO.NEPHOV ---
Vital Signs 06/12/24 10:37 Height 5 ft 8 in Weight 193 lb 6 oz BMI 29.4 BP 110/70 Blood Pressure Location Rt brachial Position Sitting Intake Visit Reasons: 6mon follow up-Conf Allergies No Known Allergies [No Known Allergies*] Allergy (Verified 06/12/24 10:35) HPI Comments Details: I had the privilege of seeing Tomer in follow-up of his chronic kidney disease. He has vascular disease. He does not have any chest pain, shortness of breath, proximal nocturnal dyspnea, orthopnea, pedal edema or orthostatic symptoms. He is compliant with his medications. His blood pressure has been at goal. His serum creatinine is stable. He does not take any nonsteroidal anti-inflammatories. There were no new complaints at the time of this office visit [facility] Medical History Hypothyroidism GERD (gastroesophageal reflux disease) Hyperlipidemia Tubular adenoma of colon (~08/2015) Cardiac pacemaker in situ (~10/2021) Essential hypertension Chronic kidney disease Dizziness Non-rheumatic aortic sclerosis LBBB (left bundle branch block) PAF (paroxysmal atrial fibrillation) Current use of anticoagulant therapy Surgical History History of cardiac pacemaker (~2021) History of cardioversion (~2017) History of colonoscopy History of cholecystectomy (~1990) Family History Father No problems noted. Mother No problems noted. Social History Household Members: Spouse Housing: House Do you presently have visiting nurse or other home services: No Alcohol intake: never Patient Tobacco Use Status: Never used Tobacco Advance Directives Date on File: 07/09/21 service: No Current occupational status: retired Review of Systems Const All systems reviewed & are unremarkable except as noted in HPI and below Physical Exam Vital Signs: Last Vital Signs BP 110/70 06/12/24 10:37 BMI result Body Mass Index 29.4 Const General: comfortable and no acute distress Orientation/consciousness: patient oriented x3 HEENT Head: Yes normocephalic Mouth: Normal oral and palatal mucosa present Eyes EOM: EOMs intact bilaterally Neck Neck: Yes supple Resp Auscultation: clear to auscultation bilaterally Cardio Jugular venous distension: no JVD Rate: regular rate GI Palpation (GI): Soft to palpation Auscultation: normal bowel sounds General: Yes no CVA tenderness Back/Spine/Pelvis Back: no CVA tenderness Skin General skin exam: no rashes or lesions noted Neuro General: patient oriented x3 and moves all extremities Extrem General: Yes no pedal edema Results Reviewed Nephrology Results: Sodium 136 mmol/L (135-145) 06/10/24 Potassium 4.6 mmol/L (3.3-5.1) 06/10/24 Chloride 107 mmol/L (96-108) 06/10/24 Carbon Dioxide 24 mmol/L (22-29) 06/10/24 BUN 20 mg/dL (9-16) H 06/10/24 Creatinine 1.35 mg/dL (0.5-1.4) 06/10/24 Calcium 9.4 mg/dL (8.4-10.2) 06/10/24 Assessment & Plan Assessment & Plan (1) CKD (chronic kidney disease) stage 3, GFR 30-59 ml/min: Code(s): N18.30 - Chronic kidney disease, stage 3 unspecified Category: Medical Qualifiers: Chronic kidney disease stage 3 subtype: stage 3a (GFR 45-59) Qualified Code(s): N18.31 - Chronic kidney disease, stage 3a (2) Hypertension: Code(s): I10 - Essential (primary) hypertension Category: Medical Qualifiers: Hypertension type: primary hypertension Qualified Code(s): I10 - Essential (primary) hypertension Plan Tomer is known to have CKD stage 3. His renal functions had been pretty stable. He is tolerating SKY-inhibitor. His volume status is optimal. His urine output is good. He should continue to avoid nonsteroidal anti-inflammatory medications. His blood pressure needs to be maintained at goal. Answered all his questions. I did not make any medication changes at this visit. Follow-up given. Orders: Orders Electrolytes 6 Months I10 - Essential (primary) hypertension, N18.31 - Chronic kidney disease, stage 3a Creatinine 6 Months I10 - Essential (primary) hypertension, N18.31 - Chronic kidney disease, stage 3a Blood Urea Nitrogen 6 Months I10 - Essential (primary) hypertension, N18.31 - Chronic kidney disease, stage 3a Coding Level of Care Code Est Pt Level 4 (82339) Diagnoses Stage 3a chronic kidney disease N18.31 Chronic kidney disease stage 3 subtype: stage 3a (GFR 45-59) Primary hypertension I10 Hypertension type: primary hypertension
[2024-06-12 10:37] VITALS: BP 110/70; BMI 29.4
--- OUTSIDE RECORDS SUMMARY | 2024-06-12 12:00 | XMS_ITS | Clinical Summary ---
Author Organization [facility] [place] Address [address] [place] [address] Phone Care Team Providers Care Insurance Agency Manager Name Role Phone Duncan Sorensen MD Primary Care Provider [phone] Allergies No known active allergies Medications ezetimibe [...] age to complete this topic Insurance Medicare [facility] Medicare [facility] Care Teams Insurance Agency Manager Relationship Specialty Start Date End Date Duncan Sorensen MD [facility] [place] PCP - General Internal Medicine 11/04/20
== END 2024-06-12 11:11 | disposition home or self-care (01) ==
LOC: HO.HKA 10:19
PROVIDERS: PCP Internal Medicine; Visit Provider Internal Medicine Nephrology
DX: N18.31 Chronic kidney disease, stage 3a (principal); I10 Essential (primary) hypertension
CPT/HCPCS: 99214

== ENCOUNTER → 2024-06-12 10:19 | Outpatient (BNVA) | payer MEDICARE, SELFPAY | PROVIDERS: PCP Internal Medicine; Visit Provider Internal Medicine Nephrology | DX: I12.9 Hypertensive chronic kidney disease with stage 1 through stage 4 chronic kidney disease, or unspecified chronic kidney disease (principal); N18.31 Chronic kidney disease, stage 3a | CPT/HCPCS: 99212 ==

== ENCOUNTER 2024-06-28 10:57 | Outpatient (AMB) | payer MEDICARE, SELFPAY ==
[2024-06-28 11:04] LABS: ~PT, ~INR - Anti Coag Clinic 2.8 (0.9-1.1)
--- NOTE | 2024-06-28 11:11 | MHC.OFFVISCO ---
Intake Intake Visit Reasons: Anticoagulation Allergies No Known Allergies [No Known Allergies*] Allergy (Verified 06/28/24 10:57) Medication List - Last Reconciled 06/28/24 by Zaynab Vieyra RN bisacodyl (Dulcolax (bisacodyl)) 5 mg PO BEDTIME ezetimibe 10 mg PO DAILY levothyroxine 75 mcg PO DAILY linaclotide 290 mcg PO DAILY lisinopril 20 mg PO DAILY polyethylene glycol 3350 17 grams PO DAILY rosuvastatin 40 mg PO DAILY warfarin See Protocol 5 mg orally 5mg x 1 day/ 2.5mg x 6 days; Nursing Note Pt comes to appts with now INR: 2.8 in therapeutic range Medications and supplements reviewed No changes in health, diet, medications, or supplements, Denies any signs and symptoms of bleeding or bruising or clotting. Bleeding, bruising, clotting discussed Nutritional guidance given - make sure to eat weekly greens Dose: Keep same dose 2.5mg x 3 days/ 5mg x 4 days F/U INR: 4 weesk per pt request Patient verbalizes understanding of instructions given Anti-Coag Initial Assessment Social Hx Patient Tobacco Use Status: Never used Tobacco alcohol intake: never Coding Level of Care Code Est Patient Level 1 Diagnoses Current use of anticoagulant therapy Z79.01 Results AMB INR Fingerstick AMB INR Fingerstick 2.8 Last Edit by Zaynab Vieyra RN on 06/28/24 11:04 MANUAL ENTRY Assessment & Plan Assessment & Plan (1) Current use of anticoagulant therapy: Code(s): Z79.01 - skilled nursing (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
--- OUTSIDE RECORDS SUMMARY | 2024-06-28 12:04 | XMS_ITS | Clinical Summary ---
Author Organization [facility] [place] Address [address] [place] [address] Phone Care Team Providers Care Business Initiatives Manager Name Role Phone Duncan Sorensen MD Primary Care Provider [phone] Allergies No known active allergies Medications ezetimibe [...] age to complete this topic Insurance Medicare [facility] Medicare [facility] Care Teams Business Initiatives Manager Relationship Specialty Start Date End Date Duncan Sorensen MD [facility] [place] PCP - General Internal Medicine 11/04/20
== END 2024-06-28 11:14 | disposition home or self-care (01) ==
LOC: HO.ACS 10:57
PROVIDERS: PCP Internal Medicine; Visit Provider Internal Medicine Medical Oncology
DX: Z79.01 Long term (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 (principal)

== ENCOUNTER → 2024-06-28 10:57 | Outpatient (BNVA) | payer MEDICARE, SELFPAY | PROVIDERS: PCP Internal Medicine; Visit Provider Internal Medicine Medical Oncology | DX: I48.0 Paroxysmal atrial fibrillation (principal); Z79.01 Long term (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; Z51.81 Encounter for therapeutic drug level monitoring | CPT/HCPCS: 85610; 99211 ==

== ENCOUNTER 2024-07-26 10:57 | Outpatient (AMB) | payer MEDICARE, SELFPAY ==
--- NOTE | 2024-07-26 11:14 | MHC.OFFVISCO ---
Intake Intake Visit Reasons: Anticoagulation Allergies No Known Allergies [No Known Allergies*] Allergy (Verified 07/26/24 11:00) Medication List - Last Reconciled 07/26/24 by Zaynab Vieyra RN bisacodyl (Dulcolax (bisacodyl)) 5 mg PO BEDTIME ezetimibe 10 mg PO DAILY levothyroxine 75 mcg PO DAILY linaclotide 290 mcg PO DAILY lisinopril 20 mg PO DAILY polyethylene glycol 3350 17 grams PO DAILY rosuvastatin 40 mg PO DAILY warfarin See Protocol 5 mg orally 5mg x 1 day/ 2.5mg x 6 days; Nursing Note pt comes with due to his decreasing poor memory INR: 3.2 almost in therapeutic range Medications and supplements reviewed No changes in health, diet, medications, or supplements, Denies any signs and symptoms of bleeding or bruising or clotting. Bleeding, bruising, clotting discussed Nutritional guidance given - greenjanine today and weekly Dose: keep same dose 2.5mg mwf/ 5mg x 4 days F/U INR: 1 month Patient verbalizes understanding of instructions given Anti-Coag Initial Assessment Social Hx Patient Tobacco Use Status: Never used Tobacco alcohol intake: never Questionnaires HAS-BLED Does the patient had uncontrolled Hypertension?: No Does the patient have renal disease?: Yes Does the patient have liver disease?: No Does the patient have a history of stroke?: No Has the patient had major bleeding or predisposition to bleeding?: Yes Does the patient have labile INRs?: No Is the patient over 65 years of age?: Yes Is the patient on medications that gives them a predisposition to bleeding?: Yes Does the patient use alcohol?: Yes HAS-BLED Score: 5 CHADSVASC Age: 75 or over Gender: Male Does the patient have a history of CHF?: Yes Does the patient have a history of Hypertension?: Yes Does the patient have a history of Stroke/TIA/Thromboembolism?: No Does the patient have a history of Vascular Disease (prior CA, PAD or aortic plaque)?: Yes (aortic sclerosis) Does the patient have a history of Diabetes?: No CHADS VACS Score: 5 Stephany Prediction Score Rsk VTE Active Cancer: No Previous VTE, excluding superficial vein thrombosis: No Reduced mobility: No Already known Thrombophilic Condition: No With-in last month Trauma and/or Surgery: No Elderly 70 year or older: Yes Heart and/or Respiratory Failure: No Acute Myocardial infarction and/or Ischemic Stroke: No Acute Infection and/or Rheumatologic Disorder: No Obesity (BMI 30 or greater): No Ongoing Hormonal Treatment: No Score: 1 Stephany Score less than 4; Low Risk of VTE Stephany Score 4 or greater; High Risk of VTE Coding Level of Care Code Est Patient Level 1 Diagnoses Current use of anticoagulant therapy Z79.01 Results AMB INR Fingerstick AMB INR Fingerstick 2.9 Last Edit by Zaynab Vieyra RN on 07/26/24 11:09 manual entry Assessment & Plan Assessment & Plan (1) Current use of anticoagulant therapy: Code(s): Z79.01 - [facility] (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
[2024-07-26 11:25] LABS: Prothrombin Time Whole Bld POC 38.2 sec (11.1-13.5); ~PT, ~INR - Anti Coag Clinic 3.2 (0.9-1.1)
--- OUTSIDE RECORDS SUMMARY | 2024-07-26 11:49 | XMS_ITS | Clinical Summary ---
Author Organization [facility] Address [address] [place] [address] Phone Care Team Providers Care Ocean Import Representative Name Role Phone Duncan Sorensen MD Primary Care Provider [phone] Allergies No known active allergies Medications ezetimibe [...] age to complete this topic Insurance Medicare [facility] Medicare [facility] Care Teams Ocean Import Representative Relationship Specialty Start Date End Date Duncan Sorensen MD [facility] [place] PCP - General Internal Medicine 11/04/20
== END 2024-07-26 11:17 | disposition home or self-care (01) ==
LOC: HO.ACS 10:57
PROVIDERS: PCP Internal Medicine; Visit Provider Internal Medicine Medical Oncology
DX: Z79.01 Long term (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 (principal)

== ENCOUNTER → 2024-07-26 10:57 | Outpatient (BNVA) | payer MEDICARE, SELFPAY | PROVIDERS: PCP Internal Medicine; Visit Provider Internal Medicine Medical Oncology | DX: I48.0 Paroxysmal atrial fibrillation (principal); Z79.01 Long term (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; Z51.81 Encounter for therapeutic drug level monitoring | CPT/HCPCS: 85610; 99211 ==

== ENCOUNTER → 2024-08-20 08:40 | Outpatient (REF) | payer MEDICARE, SELFPAY ==
--- OUTSIDE RECORDS SUMMARY | 2024-08-20 08:59 | XMS_ITS | Clinical Summary ---
Author Organization [facility] [place] Address [address] [place] [address] Phone Care Team Providers Care Electrical Cad Designer Name Role Phone Duncan Sorensen MD Primary Care Provider [phone] Allergies No known active allergies Medications ezetimibe [...] age to complete this topic Insurance Medicare [facility] Medicare [facility] Care Teams Electrical Cad Designer Relationship Specialty Start Date End Date Duncan Sorensen MD [facility] [place] PCP - General Internal Medicine 11/04/20
--- NOTE | 2024-08-20 09:07 | CA_ITS ---
Transthoracic Echocardiogram Patient (Last, First, Middle): Sameer Connors B Gender: Male Date of : 1940 Age: 84 Procedure Date: 08/20/2024 Procedure Type: Transthoracic Echocardiogram Location: OP Height: 172.72 cm Weight: 95.26 kg BSA: 2.09 m2 Heart Rate: bpm BP: 184 / 82 mmHg Electrician Master: SB Referring MD: Quintin Romano MD Symptoms: I35.8 - Other nonrheumatic aortic valve disorders Study Quality: Fair Conclusions: - The left ventricular systolic function is mildly decreased. The visually estimated ejection fraction is between 45-50%. - There is moderate aortic valve stenosis. Findings Left Ventricle Normal left ventricular cavity size. The left ventricular systolic function is mildly decreased. The visually estimated ejection fraction is between 45 50%. There is paradoxical septal motion consistent with a left bundle branch block. 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 Right Ventricle Normal right ventricular cavity size and systolic function. Atria Both atria are normal in size. Aortic Valve There is moderate calcification of the aortic valve. There is moderate aortic valve stenosis. The mean gradient is 23 mmHg. The aortic valve area is 1.14 cm2. There is no aortic valve regurgitation. Dimensionless index 0.23. Stroke volume index 38ml/m2. Mitral Valve The mitral valve appears normal. There is no mitral valve regurgitation. There is no mitral valve stenosis. Pulmonic Valve The pulmonic valve is likely normal. Tricuspid Valve Normal tricuspid valve structure. There is mild tricuspid valve regurgitation. There is no evidence of pulmonary hypertension. Great Vessels The asc aorta is normal in size. Venous The inferior vena cava was not well visualized. Pericardium/Pleural There is no evidence of pericardial effusion. Prior Study Comparison No significant change compared to prior study dated: 08/30/2023. LVEF is similar on visual comparison. Measurements 2D Linear Measurements IVSd: 1.74 0.6-0.9/0.6-1.0 cm LVIDd: 4.69 3.9-5.3/4.2-5.9 cm LVIDd Index: 2.24 2.4-3.2/2.2-3.1 cm/m2 LA Diam: 4.30 2.7-3.8/3.0-4.0 cm LAIDs Index: 2.06 1.5-2.3 cm/m2 LVOT Diam: 2.60 3.0+(-)1.3 cm 2D Systolic Function EF 4C: 45.70 >55% EF 2C: 37.50 >55% EF BiP: 42.20 >55% Mitral Valve MV VTI: 0.17 MV Pk Jeronimo: 0.89 MV Mn Jeronimo: 0.40 MV Pk Grad: 3.00 MV Mn Grad: 1.00 MV Pk E: 0.33 MV PK A: 0.65 MV Decel Time: 425.00 E/A: 0.50 E'Lateral: 4.90 E'Medial: 4.13 E/E' Med: 8.00 E/E' Lat: 6.70 PHT: 124.00 MVA PHT: 1.77 MVA Continuity: 4.89 Decel Ada: 0.78 Aortic Valve AoV Pk Jeronimo: 3.21 AoV Mn Jeronimo: 2.23 AoV VTI: 0.71 AoV Pk Grad: 41.00 Aov Mn Grad: 23.00 VANCE Cont.VTI: 1.14 LVOT LVOT Pk Jeronimo: 0.73 LVOT Mn Jeronimo: 0.54 LVOT VTI: 0.15 LVOT Pk Grad: 2.00 LVOT Mn Grad: 1.00 LVOT Diam: 2.60 LVOT Area: 5.31 Diastolic Function MV Pk E: 0.33 MV Pk A: 0.65 E/A: 0.50 E'Medial: 4.13 E/E' Med: 8.00 E' Laterial: 4.90 E/E' Lat: 6.70 Right Ventricle TAPSE (mm): 27.50 TVS' Jeronimo: 15.70 Tricuspid Valve TR Pk Jeronimo: 2.54 TR Pk Grad: 26.00 Great Vessels Aorta Sinus of Valsalva: 3.80 2.0-3.5 cm Ao Asc: 3.80 2.1-3.4 cm Updated in Other Vendor System with Status of Final Quintin Romano MD electronically signed on 08/21/2024 11:08:33 AM with status of Final
[2024-08-20 09:40] LABS: Anion Gap 11 (12-20); Blood Urea Nitrogen 26 mg/dL (9-16); Carbon Dioxide 24 mmol/L (22-29); Chloride 107 mmol/L (96-108); Estimated Glomerular Filt Rate 51; Sodium 138 mmol/L (135-145)
== END ==
LOC: HO.CARD 08:40
PROVIDERS: Absent Provider Internal Medicine Nephrology; PCP Internal Medicine; Visit Provider Internal Medicine
DX: I10 Essential (primary) hypertension (principal); I35.8 Other nonrheumatic aortic valve disorders; N18.31 Chronic kidney disease, stage 3a
CPT/HCPCS: 36415; 80051; 82565; 84520; 93306

== ENCOUNTER → 2024-08-20 09:07 | Outpatient (BNV) | payer MEDICARE, SELFPAY | PROVIDERS: Absent Provider Internal Medicine Nephrology; PCP Internal Medicine; Visit Provider Internal Medicine | DX: I35.0 Nonrheumatic aortic (valve) stenosis (principal) | CPT/HCPCS: 93306 ==

== ENCOUNTER 2024-08-23 10:49 | Outpatient (AMB) | payer MEDICARE, SELFPAY ==
--- NOTE | 2024-08-23 11:13 | MHC.OFFVISCO ---
Intake Intake Visit Reasons: Anticoagulation Allergies No Known Allergies (No Known Allergies*) Allergy (Verified 08/23/24 11:02) Medication List - Last Reconciled 08/23/24 by Ximena Canales RN bisacodyl (Dulcolax (bisacodyl)) 5 mg PO BEDTIME ezetimibe 10 mg PO DAILY levothyroxine 75 mcg PO DAILY linaclotide 290 mcg PO DAILY lisinopril 20 mg PO DAILY polyethylene glycol 3350 17 grams PO DAILY rosuvastatin 40 mg PO DAILY warfarin See Protocol 5 mg orally 5mg x 1 day/ 2.5mg x 6 days; Nursing Note INR: 2.6 in therapeutic range of 2-3 Medications and supplements reviewed No changes in health, diet, medications, or supplements, Denies any signs and symptoms of bleeding or bruising or clotting. Bleeding, bruising, clotting discussed Nutritional guidance given Dose: 5mg X 4 days and 2.5mg X 3 days (M/W/F) F/U INR: 4 weeks Patient verbalizes understanding of instructions given Anti-Coag Initial Assessment Social Hx Patient Tobacco Use Status: Never used Tobacco alcohol intake: never Coding Level of Care Code Est Patient Level 1 Diagnoses Current use of anticoagulant therapy Z79.01 Results AMB INR Fingerstick AMB INR Fingerstick 2.6 Last Edit by Ximena Canales RN on 08/23/24 11:10 interface delay Assessment & Plan Assessment & Plan (1) Current use of anticoagulant therapy: Code(s): Z79.01 - long term care social worker (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
[2024-08-23 11:37] LABS: Prothrombin Time Whole Bld POC 31.5 sec (11.1-13.5); ~PT, ~INR - Anti Coag Clinic 2.6 (0.9-1.1)
--- OUTSIDE RECORDS SUMMARY | 2024-08-23 11:51 | XMS_ITS | Clinical Summary ---
Author Organization [facility] Address [address] [place] [address] Phone Care Team Providers Care Slot Machine Mechanic Name Role Phone Duncan Sorensen MD Primary Care Provider [phone] Allergies No known active allergies Medications ezetimibe [...] age to complete this topic Insurance Medicare [facility] Medicare [facility] Care Teams Slot Machine Mechanic Relationship Specialty Start Date End Date Duncan Sorensen MD [facility] [place], [place] PCP - General Internal Medicine 11/04/20
== END 2024-08-23 11:14 | disposition home or self-care (01) ==
LOC: HO.ACS 10:49
PROVIDERS: PCP Internal Medicine; Visit Provider Internal Medicine Medical Oncology
DX: Z79.01 Long term (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 (principal)

== ENCOUNTER → 2024-08-23 10:49 | Outpatient (BNVA) | payer MEDICARE, SELFPAY | PROVIDERS: PCP Internal Medicine; Visit Provider Internal Medicine Medical Oncology | DX: I48.0 Paroxysmal atrial fibrillation (principal); Z79.01 Long term (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; Z51.81 Encounter for therapeutic drug level monitoring | CPT/HCPCS: 85610; 99211 ==

== ENCOUNTER 2024-09-19 10:46 | Outpatient (AMB) | payer MEDICARE, SELFPAY ==
[2024-09-19 10:54] LABS: Prothrombin Time Whole Bld POC 25.7 sec (11.1-13.5); ~PT, ~INR - Anti Coag Clinic 2.1 (0.9-1.1)
--- NOTE | 2024-09-19 10:59 | MHC.OFFVISCO ---
Intake Intake Visit Reasons: Anticoagulation Allergies No Known Allergies (No Known Allergies*) Allergy (Verified 09/19/24 10:46) Medication List - Last Reconciled 09/19/24 by Ximena Canales RN bisacodyl (Dulcolax (bisacodyl)) 5 mg PO BEDTIME ezetimibe 10 mg PO DAILY levothyroxine 75 mcg PO DAILY linaclotide 290 mcg PO DAILY lisinopril 20 mg PO DAILY polyethylene glycol 3350 17 grams PO DAILY rosuvastatin 40 mg PO DAILY warfarin See Protocol 5 mg orally 5mg x 1 day/ 2.5mg x 6 days; Nursing Note Pt to [facility] accompanied by INR: 2.1 in therapeutic range of 2-3 Medications and supplements reviewed No changes in health, diet, medications, or supplements, Denies any signs and symptoms of bleeding or bruising or clotting. Bleeding, bruising, clotting discussed Nutritional guidance given to avoid greens today and to have a serving of foods that raise the INR like grapes, cherries or strawberries. 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
--- OUTSIDE RECORDS SUMMARY | 2024-09-19 11:38 | XMS_ITS | Clinical Summary ---
Author Organization [facility] Address [address] [place] [address] Phone Care Team Providers Care Repair Department Manager Name Role Phone Duncan Sorensen MD Primary Care Provider [phone] Allergies No known active allergies Medications ezetimibe [...] Date Last Done Comments Influenza Vaccine (#1) 2024 11/27/2019 Pneumococcal Vaccine: 50+ Years Completed 05/31/2018, 03/07/2017, 12/03/2015 Pneumococcal Vaccine: Peds (0 to 5 Years) and At-Risk Patients (6 to 49 Years) Discontinued 05/31/2018, 03/07/2017, 12/03/2015 Hepatitis B Vaccine Aged Out No longe r eligible based on patient's age to complete this topic Insurance Medicare [facility] Medicare [facility] Care Teams Repair Department Manager Relationship Specialty Start Date End Date Duncan Sorensen MD [facility] [place], [place] PCP - General Internal Medicine 11/04/20
== END 2024-09-19 11:03 | disposition home or self-care (01) ==
LOC: HO.ACS 10:46
PROVIDERS: PCP Internal Medicine; Visit Provider Internal Medicine Medical Oncology
DX: Z79.01 Long term (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 (principal)

== ENCOUNTER → 2024-09-19 10:46 | Outpatient (BNVA) | payer MEDICARE, SELFPAY | PROVIDERS: PCP Internal Medicine; Visit Provider Internal Medicine Medical Oncology | DX: I48.0 Paroxysmal atrial fibrillation (principal); Z79.01 Long term (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; Z51.81 Encounter for therapeutic drug level monitoring | CPT/HCPCS: 85610; 99211 ==

== ENCOUNTER 2024-09-24 11:51 | Outpatient (AMB) | payer MEDICARE, SELFPAY ==
--- NOTE | 2024-09-24 12:42 | A.OFFVIS_ITS ---
Vital Signs 09/24/24 12:43 Height 5 ft 8 in Weight 196 lb 3.382 oz BMI 29.8 BP 138/70 Blood Pressure Location Lt brachial Position Sitting Pulse 78 Pulse Source Pulse Oximeter Intake Visit Reasons: follow up/ echo Allergies No Known Allergies (No Known Allergies*) Allergy (Verified 09/19/24 10:46) Medication List - Last Reconciled 09/24/24 by Quintin Romano MD ezetimibe 10 mg PO DAILY levothyroxine 75 mcg PO DAILY linaclotide 290 mcg PO DAILY lisinopril 20 mg PO DAILY rosuvastatin 40 mg PO DAILY warfarin See Protocol 5 mg orally 5mg x 1 day/ 2.5mg x 6 days; HPI Comments Details: Sameer returns for follow-up regarding paroxysmal atrial fibrillation and aortic stenosis. To recall, due to syncopal episodes, he underwent implantable loop monitor implantation. This showed long pauses leading to permanent pacemaker. Since last seen, he states he is generally doing well. No clear-cut cardiac symptoms. Frailty from age. [facility] Medical History Hypothyroidism GERD (gastroesophageal reflux disease) Hyperlipidemia Tubular adenoma of colon (~08/2015) Cardiac pacemaker in situ (~10/2021) Essential hypertension Chronic kidney disease Dizziness Non-rheumatic aortic sclerosis LBBB (left bundle branch block) PAF (paroxysmal atrial fibrillation) Current use of anticoagulant therapy Surgical History History of cardiac pacemaker (~2021) History of cardioversion (~2017) History of colonoscopy History of cholecystectomy (~1990) Family History Father No problems noted. Mother No problems noted. Social History Household Members: Spouse Housing: House Do you presently have visiting nurse or other home services: No Alcohol intake: never Patient Tobacco Use Status: Never used Tobacco Advance Directives Date on File: 07/09/21 service: No Current occupational status: retired Review of Systems Const Denies weakness ENT Denies dizziness Card Reports no additional complaints, Denies chest pain, Denies chest pain with activity, Denies syncope, Denies rapid heart rate, Denies pedal edema, Denies edema, Denies leg edema, Denies lightheadedness, Denies palpitations, Denies dyspnea, Denies dyspnea on exertion and Denies orthopnea Resp Denies cough, Denies dyspnea and Denies dyspnea on exertion GI Denies hematochezia and Denies change in stool character Musc Denies abnormal gait, Denies muscle cramps, Denies muscle weakness, Denies numbness, Denies radiating pain into limb and Denies tingling Neuro Denies abnormal gait, Denies dizziness, Denies syncope, Denies numbness, Denies tingling and Denies weakness Endo Denies palpitations Physical Exam Vital Signs: Last Vital Signs Pulse 78 09/24/24 12:43 BP 138/70 09/24/24 12:43 BMI result Body Mass Index 29.8 Const General: comfortable and no acute distress Orientation/consciousness: patient oriented x3 HEENT Other: Unremarkable Head: Yes normal to inspection Neck Neck: Yes normal visual inspection Chest Chest palpation & inspection: normal inspection of the chest Resp Auscultation: clear to auscultation bilaterally Cardio Palpation: normal PMI Heart sounds: S1 normal heart sound present, S2 normal heart sound present, no gallops, Murmur heart sound present systolic III/ and at the right sternal border and no rubs GI Palpation (GI): Soft to palpation Back/Spine/Pelvis Other: unremarkable Skin General skin exam: no rashes or lesions noted Neuro General: patient oriented x3 Extrem General: Yes normal to inspection Psych Mental Status: mental status grossly normal Office Procedures EKG Details: EKG with underlying sinus rhythm at 96/Min; left bundle-branch block pattern; normal SC and corrected QT; PVC. [id number], Complete Assessment & Plan Assessment & Plan (1) PAF (paroxysmal atrial fibrillation): Code(s): I48.0 - Paroxysmal atrial fibrillation Category: Medical Plan: Issues with various antiarrhythmics. He is not suitable for flecainide-has structural heart disease as well as coronary disease. Multaq was too expensive. Sotalol/Tikosyn could not be used due to chronic kidney disease. He saw EP but did not want ablation. He was on low-dose amiodarone but CT scan showed interstitial lung disease, hence discontinued. If any recurrence of atrial fibrillation, then refer back to EP. In that instance, consider AV jessika ablation. Home sleep study shows mild RICARDO. Not on CPAP at this time. We can probably start a small dose of beta-nguyễn. Hopefully, blood pressure tolerates it. Continue anticoagulation. (2) Sinus pause: Code(s): I45.5 - Other specified heart block Category: Medical Plan: Implantable loop recorder had shown pauses which could be etiology for syncope. Status post permanent pacemaker. (3) LBBB (left bundle branch block): Code(s): I44.7 - Left bundle-branch block, unspecified Category: Medical Plan: Chronic finding. In the stress perfusion imaging, no evidence of ischemia. (4) Non-rheumatic aortic sclerosis: Code(s): I35.8 - Other nonrheumatic aortic valve disorders Category: Medical Plan: In the echocardiogram, moderate aortic stenosis. We will need to be followed. (5) Essential hypertension: Code(s): I10 - Essential (primary) hypertension Category: Medical Plan: On lisinopril. Stable. (6) Pulmonary fibrosis: Code(s): J84.10 - Pulmonary fibrosis, unspecified Category: Medical Plan: Has seen Pulmonary but does not wish to go back for follow-up. Medications: New metoprolol succinate ER (Toprol XL) 25 mg PO DAILY 90 tabs 1RF Coding Level of Care Code Est Pt Level 4 (74778) Complex EM visit Add On G2211 Diagnoses PAF (paroxysmal atrial fibrillation) I48.0 Sinus pause I45.5 LBBB (left bundle branch block) I44.7 Non-rheumatic aortic sclerosis I35.8 Essential hypertension I10 Pulmonary fibrosis J84.10 CPT Codes EKG - CPT: 89931-[id number], Complete ([id number])
[2024-09-24 12:43] VITALS: BP 138/70; PULSE 78; BMI 29.8
--- OUTSIDE RECORDS SUMMARY | 2024-09-24 12:52 | XMS_ITS | Clinical Summary ---
Author Organization [facility] Address [address] [place] [address] Phone Care Team Providers Care Opal Polisher Name Role Phone Duncan Sorensen MD Primary Care Provider [phone] Allergies No known active allergies Medications ezetimibe [...] age to complete this topic Insurance Medicare [facility] Medicare [facility] Care Teams Opal Polisher Relationship Specialty Start Date End Date Duncan Sorensen MD [facility] [place], [place] PCP - General Internal Medicine 11/04/20
== END 2024-09-24 14:38 | disposition home or self-care (01) ==
LOC: HO.HCS 11:52
PROVIDERS: PCP Internal Medicine; Visit Provider Internal Medicine
DX: I48.0 Paroxysmal atrial fibrillation (principal); I45.5 Other specified heart block; I44.7 Left bundle-branch block, unspecified; I35.8 Other nonrheumatic aortic valve disorders; I10 Essential (primary) hypertension; J84.10 Pulmonary fibrosis, unspecified
CPT/HCPCS: 93010; 99214; G2211

== ENCOUNTER → 2024-09-24 11:51 | Outpatient (BNVA) | payer MEDICARE, SELFPAY | PROVIDERS: PCP Internal Medicine; Visit Provider Internal Medicine | DX: I48.0 Paroxysmal atrial fibrillation (principal); I45.5 Other specified heart block; I35.8 Other nonrheumatic aortic valve disorders; I10 Essential (primary) hypertension; J84.10 Pulmonary fibrosis, unspecified | CPT/HCPCS: 93005; 99212 ==

== ENCOUNTER → 2024-09-28 23:59 | Outpatient (BNV) | payer MEDICARE, SELFPAY ==
--- NOTE | 2024-10-05 17:01 | A.OFFVIS_ITS ---
Intake Visit Reasons: Remote device check- [employer] Allergies No Known Allergies (No Known Allergies*) Allergy (Verified 09/19/24 10:46) [facility] Medical History Hypothyroidism GERD (gastroesophageal reflux disease) Hyperlipidemia Tubular adenoma of colon (~08/2015) Cardiac pacemaker in situ (~10/2021) Essential hypertension Chronic kidney disease Dizziness Non-rheumatic aortic sclerosis LBBB (left bundle branch block) PAF (paroxysmal atrial fibrillation) Current use of anticoagulant therapy Surgical History History of cardiac pacemaker (~2021) History of cardioversion (~2017) History of colonoscopy History of cholecystectomy (~1990) Family History Father No problems noted. Mother No problems noted. Social History Household Members: Spouse Housing: House Do you presently have visiting nurse or other home services: No Alcohol intake: never Patient Tobacco Use Status: Never used Tobacco Advance Directives Date on File: 07/09/21 service: No Current occupational status: retired Office Procedures Cardiac Device Check Cardiac Device Check Details: Date of service- 09/28/2024 ; Battery life >11 years; normal lead parameters; AP >51%; LIME FILTER OPERATOR <0.1%; short atrial runs, mostly appear supraventricular. Overall normal device function. [id number] Cardiac Device Interrogation, pacemaker Procedure code (CPT) selection complete Assessment & Plan Assessment & Plan (1) Cardiac pacemaker in situ: Onset Date: ~10/2021 Comment: ([employer]tronic DCPP - placed 10/2021 - for syncope and possible high grade AV block/sinus pause) Code(s): Z95.0 - Presence of cardiac pacemaker Category: Medical (2) PAF (paroxysmal atrial fibrillation): Code(s): I48.0 - Paroxysmal atrial fibrillation Category: Medical (3) Sinus pause: Code(s): I45.5 - Other specified heart block Category: Medical Plan x Coding Level of Care Code Procedure Only Diagnoses Cardiac pacemaker in situ Z95.0 PAF (paroxysmal atrial fibrillation) I48.0 Sinus pause I45.5 CPT Codes Cardiac Device Check - Cardiac Device 12: [id number] Cardiac Device Interrogation, pacemaker ([id number])
== END ==
PROVIDERS: PCP Internal Medicine; Visit Provider Internal Medicine
DX: I48.0 Paroxysmal atrial fibrillation (principal); Z95.0 Presence of cardiac pacemaker; I45.5 Other specified heart block
CPT/HCPCS: 93294

== ENCOUNTER 2024-10-14 14:22 | Emergency (ER) | payer MEDICARE, SELFPAY ==
--- NOTE | ~2024-10-14 | XR_ITS ---
EXAMINATION: XR ABDOMEN KUB CLINICAL INDICATION: constipation COMPARISON: Correlated to CT dated April 25, 2024. TECHNIQUE: AP view of the abdomen. FINDINGS: Gas filled mildly prominent small bowel loops. No gross air-fluid levels. Gas throughout intestine. Vascular clips right upper quadrant abdomen and likely prior cholecystectomy. Multilevel thoracolumbar spondylosis. Elevated leads in the right heart chambers no fully included in the [id number]. No calcifications overlapping the kidney shadows. Sclerosis and the sacroiliac joints. XR/XR KUB IMPRESSION: Nonspecific bowel gas pattern. Electronically signed by: Sha Kennedy MD 10/14/2024 04:06 PM EDT
--- NOTE | ~2024-10-14 | CT_ITS ---
EXAMINATION: CT HEAD WITHOUT CONTRAST CLINICAL INFORMATION: Confusion, on Coumadin. COMPARISON: 11/05/2021. TECHNIQUE: Contiguous axial imaging was performed from the skull base to vertex without intravenous administration of contrast. This CT examination was performed using dose optimization techniques as appropriate, variously including the following: *Automated exposure control *Adjustment of mA and/or kV according to patient size (this includes techniques or standardized protocols for targeted exams where dose is matched to indication/reason for exam; i.e. extremities or head) *Use of iterative reconstruction technique FINDINGS: There is mild motion degradation, limiting sensitivity of the study. There is no evidence of intracranial hemorrhage or extra-axial fluid collection. There is no mass effect, or edema. No CT evidence of acute territorial infarct. Ventricles, sulci, and cisterns are diffusely somewhat prominent, in keeping with age-related cerebral and cerebellar volume loss. No hydrocephalus. No midline shift. Negative hyperdense MCA sign. Negative insular ribbon sign. Patchy periventricular and deep white matter hypoattenuation is consistent with mild to moderate small vessel ischemic changes. Normal pituitary. Mild atheromatous calcification of the bilateral carotid siphons and V4 segments vertebral arteries bilaterally. Globes and orbital contents image normally. There is a left lens replacement. No extracranial soft tissue abnormalities. The paranasal sinuses, mastoid air cells, and tympanic cavities are normally aerated. No suspicious bony abnormalities. There are no acute fractures evident. CT/CT head/brain wo IV con IMPRESSION: No acute intracranial abnormality. Chronic changes as discussed. Electronically signed by: Satya Davies MD 10/14/2024 04:16 PM EDT
--- NOTE | ~2024-10-14 | XR_ITS ---
EXAMINATION: XR CHEST CLINICAL INFORMATION: chest pain COMPARISON: Correlated to CT dated June 20, 2023 TECHNIQUE: Frontal view of the chest was obtained. FINDINGS: Linear attenuation right upper hemithorax. Pulmonary reticular pattern. No hyperinflation. No consolidation pleural effusion or pneumothorax. Cardiomediastinal silhouette appears mildly prominent. 2 electrode leads in the right heart transverse. Left-sided pacemaker reservoir. S-shaped curvature of the thoracic spine. Degenerative changes in the right shoulder with the joint space narrowing at the acromioclavicular joint. XR/XR chest 1V IMPRESSION: Chronic interstitial lung disease. Scarring versus airspace disease, right upper lung lobe. 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 Consider rotator cuff tendon tear, old/chronic, right shoulder. Electronically signed by: Sha Kennedy MD 10/14/2024 04:04 PM EDT
--- NOTE | 2024-10-14 14:32 | ECG_ITS ---
Test Reason : CP Blood Pressure : */* mmHG Vent. Rate : 85 BPM Atrial Rate : 85 BPM P-R Int : 168 ms QRS Dur : 160 ms QT Int : 412 ms P-R-T Axes : -20 -52 93 degrees QTcB Int : 490 ms Sinus rhythm with occasional Premature ventricular complexes Left axis deviation Left bundle branch block Abnormal ECG When compared with ECG of 25-Apr-2024 03:50, No significant changes seen Referred By: Jessica Mcmahan Electronically Signed By: FRANSISCO CRUZ MD
--- NOTE | 2024-10-14 14:32 | ED.CHESTPAIN ---
HPI - Chest Pain General Chief Complaint: Chest Pain Stated Complaint: CUT CHIN SHAVING/CONT W/PRES,CP THIS AM,BP 184/119 Time Seen by Provider: 10/14/24 14:29 Source: patient and EMS Mode of arrival: EMS Limitations: other (poor historian) History of Present Illness ED Provider: BELL HPI narrative: 84 yo male with PMH of PAF on coumadin, CKD, HTN, PPM, aortic stenosis, HLD, pulm fibrosis here with c/o cutting his chin while shaving 1.5 hours ago. He became very anxious and noted that he seemed to be having difficulty walking. He hasn't checked his INR in a few weeks. He also c/o central chest pressure x 30 min at 4am while in bed. No associated nausea/dyspnea. He has no cough or URI. He has been more confused with the making odd statements about income tax and forgetting to do things. She denies any new trauma. She notes he has a slow gait. He has been telling his he has been more constipated too but she doesn't believe him as he takes pills. He told the he was coming to the hospital this AM for constipation and for them to clean me out. He then told her he did go bathroom. She also notes he needs to shave but this area always bleeds when he shaves. I told her that he needs to shave around it and would have to see a continuous improvement coach for it - she notes he really needs to shave Onset (ago): day(s) (4am today) Timing of current episode: now resolved Prior episodes: Yes Onset: during rest Pain location: substernal Pain radiation: none Severity: mild Quality: other (pressure) Relieving factors: nothing Exacerbating factors: movement Context: other Treatment prior to arrival: none Related Data Home Medications ?Medication ?Instructions ?Recorded ?Confirmed ezetimibe 10 mg tablet 10 mg PO DAILY 01/21/20 09/24/24 rosuvastatin 40 mg tablet 40 mg PO DAILY 01/21/20 09/24/24 warfarin 5 mg tablet 5 mg PO .COMPLEX 01/27/23 09/24/24 linaclotide 290 mcg capsule 290 mcg PO DAILY 02/09/24 09/24/24 levothyroxine 75 mcg tablet 75 mcg PO DAILY 05/17/24 09/24/24 lisinopril 20 mg tablet 20 mg PO DAILY 05/17/24 09/24/24 Previous Rx's ?Medication ?Instructions ?Recorded metoprolol succinate 25 mg 25 mg PO DAILY #90 tabs 09/24/24 tablet,extended release 24 hr (Toprol XL) Allergies Allergy/AdvReac Type Severity Reaction Status Date / Time No Known Allergies (No Known Allergy Verified 10/14/24 14:54 Allergies*) Review of Systems Review of Systems: Constitutional : No Weight loss, No Fever, No Chills ENT/Mouth : No sore throat, No Rhinorrhea Eyes: No Eye Pain, No Swelling Cardiovascular : pos Chest Pain, no SOB Respiratory : No Cough, No Sputum Gastrointestinal : no Nausea, No Vomiting, No Diarrhea, No abdominal Pain, No Hematochezia, No Melena Genitourinary : No Dysuria, No Urinary Frequency Musculoskeletal : No joint pain, No Myalgias, No Joint Swelling Skin : No Skin Lesions, No rash Neuro : No Weakness, No Numbness, No Dizziness, No Headache All other systems reviewed and are negative [facility] Past Medical History Attestation statement: The following information was validated with the patient. Source: old records reviewed Medical History Hypothyroidism GERD (gastroesophageal reflux disease) Hyperlipidemia Tubular adenoma of colon (~08/2015) Cardiac pacemaker in situ (~10/2021) Essential hypertension Chronic kidney disease Dizziness Non-rheumatic aortic sclerosis LBBB (left bundle branch block) PAF (paroxysmal atrial fibrillation) Current use of anticoagulant therapy Surgical History History of cardiac pacemaker (~2021) History of cardioversion (~2017) History of colonoscopy History of cholecystectomy (~1990) Family History Family History Father No problems noted. Mother No problems noted. Social History Social History Household Members: Spouse Housing: House Do you presently have visiting nurse or other home services: No Alcohol intake: never Patient Tobacco Use Status: Never used Tobacco Smoked in Last 30 Days: No Use of substances other than those prescribed or required for medical reasons: No Advance Directives: Yes Advance Directives on File: Yes Advance Directives Date on File: 07/09/21 Do you have a plan to hurt others: No Plan service: No Current occupational status: retired Physical Exam Vital Signs: Vital Signs: Last Vital Signs Temp 98 F 10/14/24 16:20 Pulse 78 10/14/24 16:20 Resp 14 10/14/24 16:20 BP 132/79 10/14/24 16:20 Pulse Ox 97 10/14/24 16:20 O2 Del Method Room Air 10/14/24 16:20 BMI result Body Mass Index 30.8 Appearance: Alert. Oriented X2. No acute distress. Very anxious. Could not walk without assistance concern for fall Eyes: Pupils equal, round and reactive to light. ENT: Pharynx normal. small raised faintly purple-drew mole very small that has persistent ooze he moves the chin a lot which is not helping Neck: Normal inspection. Neck supple. CVS: Normal heart rate and rhythm. Pulses normal. Respiratory: No respiratory distress. Breath sounds normal. Abdomen: Soft and nontender. Skin: Skin warm and dry. Normal skin color. Extremities: No lower extremity edema. Neuro: Oriented X to person and place. No motor deficit. No sensory deficit. Course Course Course Narrative: signed out to Dr. Ohara pending PT/CM 430pm Reevaluation(s) Reevaluation #1: Antonella Collazo HCP daughter [phone] aware of his visit and plan she wants to see if he will walk for her and might take him home she understands we offered PT/CM. She feels he is more off due to new environment Medications Administered Discontinued Medications Generic Name Dose Route Start Last Admin Trade Name Zechariah PRN Reason Stop Dose Admin Lidocaine HCl 5 ml 10/14/24 14:31 10/14/24 15:00 Lidocaine Hcl 1 % Mpf 5 Ml Vial SUBCUT 10/14/24 14:32 5 ml ONCE ONE Administration Procedures Laceration Laceration 1: Site: face Size (cm): 0.5 Description: other (bleeding abrasion on raised mole like area) Depth: simple, single layer Local Anesthetic: lidocaine 1% Amount of anesthesia used (mL): 3 Pre-repair: wound explored Skin layer closed with: nylon Size (cm): 6-0 Number of sutures: 1 Medical Decision Making Medical Decision Making MDM Narrative: 84 yo male with PMH of PAF on coumadin, CKD, HTN, PPM, aortic stenosis, HLD, pulm fibrosis here with c/o confusion x 1 month, recurrent bleeding mole when he shaves - this will be sutured to tie area off. He also c/o atypical chest pain at rest no associated symptoms. At this time will need INR, CXR, EKG, trop x 1, UA and CT head given confusion. If work up negative would refer to PT/CM I have concerns for his safety at home Case management: pt brice to walk with a walker. Per daughter who is the HCP wants to take him home. Daughter reports no new changes, maybe slight dementia. Pt lives with his . Pt does all his ADLs. Plan: if pt can walk by himself without a walker, pt may go home. Otherwise, pt may need PT/CM 18:50: Patient walked independently without any assistance. Patient states that he feels well and is ready to walk out the building. Patient's daughter agrees with plan. Patient will be staying with his daughter tonight. Differential Diagnosis Differential Diagnoses: The differential diagnosis associated with the presentation includes supratherapeutic INR, recurrent lesion, stroke, cognitive impairment Admission/Observation Consideration of admission/observation: Escalation of care including admission/observation considered physician observation started at 418pm pending PT/CM Consult Healthcare Provider Management of the patient was discussed with: Line Helper Lab Data [facility] Lab Attestation statement: I reviewed the patient's lab results. 10/14/24 15:06 10/14/24 15:06 Labs: Lab Results 10/14/24 10/14/24 10/14/24 Range/Units 15:06 15:27 16:19 WBC 6.3 (4.8-10.8) X10*3/uL RBC 4.87 (4.60-5.80) X10*6/uL Hgb 14.0 (14.0-18.0) g/dl Hct 40.3 L (42.0-52.0) % MCV 82.8 (80.0-98.0) fL MCH 28.7 (27.0-33.0) pg MCHC 34.7 (31.0-36.0) g/dl RDW 13.8 (11.0-16.0) % Plt Count 153 L (160-400) X10*3/uL MPV 9.8 (9.4-12.4) fL Immature Gran % (Auto) 0.5 H (0.0-0.4) % Neut % (Auto) 75.2 H (45-73) % Lymph % (Auto) 14.7 L (20-40) % Chester % (Auto) 7.8 (2-11) % Eos % (Auto) 1.0 (0-4) % Baso % (Auto) 0.8 (0-2) % Lymph # (Auto) 0.9 L (1.2-4.9) X10*3/uL Chester # (Auto) 0.5 (0.1-1.2) X10*3/uL Eos # (Auto) 0.1 (0.0-0.4) X10*3/uL Baso # (Auto) 0.1 (0.0-0.2) X10*3/uL Abs Immat Gran (auto) 0.03 (0.00-0.03) X10*3/uL Absolute Neuts (auto) 4.7 (2.0-8.3) x10*3/uL Absolute Nucleated RBC 0.000 (0.0-0.012) X10*3/uL Nucleated RBC % (auto) 0.0 (0.0-0.2) /100WBC PT 25.5 H D (10.9-12.4) SEC INR 2.2 H (0.9-1.1) Sodium 142 (135-145) mmol/L Potassium 4.5 (3.3-5.1) mmol/L Chloride 107 (96-108) mmol/L Carbon Dioxide 23 (22-29) mmol/L Anion Gap 17 (12-20) BUN 24 H (9-16) mg/dL Creatinine 1.33 (0.5-1.4) mg/dL Estim Creat Clear Calc 47.0 Estimated GFR 51 Random Glucose 94 (60-115) mg/dL Calcium 9.4 (8.4-10.2) mg/dL Magnesium 1.8 (1.6-2.6) mg/dL Total Bilirubin 0.4 (0.0-1.0) mg/dL Direct Bilirubin 0.1 (0.0-0.5) mg/dL AST 23 (5-37) U/L ALT 15 (0-40) U/L Alkaline Phosphatase 82 (39-117) U/L Troponin I High Sens 26.9 (<3.5-35.0) ng/L Total Protein 6.8 (6.5-8.0) g/dL Albumin 4.5 (3.5-5.0) g/dL Urine Color Yellow Urine Appearance Clear Urine pH 5.5 (5.0-9.0) Ur Specific Byron <= 1.005 (1.005-1.025) Urine Protein Negative (Neg-Trace) mg/dL Urine Glucose (UA) Negative (Negative) mg/dL Urine Ketones Negative (Negative) mg/dL Urine Blood Negative (Negative) Urine Nitrite Negative (Negative) Ur Leukocyte Esterase Negative (Negative) Influenza Type A (PCR) NEGATIVE (Negative) Influenza Type B (PCR) NEGATIVE (Negative) RSV RNA Qual (PCR) NEGATIVE (Negative) SARS-CoV-2 RNA (RT-PCR) NEGATIVE (Negative) Independent Interpretation I performed an independent interpretation of an: EKG, Plain X-Ray (no SBO, no pneumonia) and CT Scan (no ICH) Interpretation: Rate: 85 Rhythm: NSR Derwent: left Normal P waves. Normal TALIA. LBBB ST T wave : inverted t wave I and aVL, no GREG qTC:490 prior studies: no acute ischemia The study has been interpreted contemporaneously by Radiology Impression Discussion of test interpretation with radiology: I have reviewed the radiologist's reading. Independent Historian Clinical information obtained from an independent historian. History obtained from or confirmed by: Spouse and EMS External Record Review External record reviewed: Outpatient record Discharge Plan Discharge Clinical Impression: Atypical chest pain, Hemorrhage of skin lesion Patient Disposition: Home, Self-Care Instructions: Chest Pain (ED), Care For Your Stitches (ED) Additional Instructions: one stitch on chin needs to be removed in 7 days. monitor for redness, yellow drainage, fevers or any other concerns INR 2.2 CT head reassuring, CXR no pneumonia, normal UA, basic labs and heart work up reassuring Kxray of abdomen no obstruction return for any worsening symptoms or concerns. Prescriptions: No Action rosuvastatin 40 mg tablet 40 mg PO DAILY ezetimibe 10 mg tablet 10 mg PO DAILY linaclotide 290 mcg capsule 290 mcg PO DAILY metoprolol succinate [Toprol XL] 25 mg tablet extended release 24 hr 25 mg PO DAILY Qty: 90 1RF warfarin 5 mg tablet 5 mg PO .COMPLEX Protocol: Dose Management Condition: Monday (Week One) Dose/Route: 5 mg Instruction: 1 x 5 mg tablet Condition: Monday Dose/Route: 2.5 mg Instruction: 0.5 x 5 mg tablets Condition: Monday Dose/Route: 5 mg Instruction: 1 x 5 mg tablet Condition: Monday Dose/Route: 2.5 mg Instruction: 0.5 x 5 mg tablets Condition: Dose/Route: 5 mg Instruction: 1 x 5 mg tablet Condition: Monday Dose/Route: 2.5 mg Instruction: 0.5 x 5 mg tablets Condition: Monday Dose/Route: 5 mg Instruction: 1 x 5 mg tablet Condition: Monday ( Two) Dose/Route: 5 mg Instruction: 1 x 5 mg tablet Condition: Monday Dose/Route: 2.5 mg Instruction: 0.5 x 5 mg tablets Condition: Monday Dose/Route: 5 mg Instruction: 1 x 5 mg tablet Condition: Monday Dose/Route: 2.5 mg Instruction: 0.5 x 5 mg tablets Condition: Dose/Route: 5 mg Instruction: 1 x 5 mg tablet Condition: Monday Dose/Route: 2.5 mg Instruction: 0.5 x 5 mg tablets Condition: Monday Dose/Route: 5 mg Instruction: 1 x 5 mg tablet Protocol Text: Adjustment Start Date: 09/19/24 INR Value: 2.1 INR Date: 09/19/24 Recheck Date: 10/17/24 Rx Instructions: 5 mg orally 5mg x 1 day/ 2.5mg x 6 days; levothyroxine 75 mcg tablet 75 mcg PO DAILY lisinopril 20 mg tablet 20 mg PO DAILY Print Language: Lao
[2024-10-14 14:46] VITALS: BP 157/99; BP 184/119; PULSE 105; PULSE 80; RESP 17; TEMP 37.2; O2SAT 99; BMI 30.8
[2024-10-14] MEDS: Lidocaine HCl 1 % MPF 5 ML VIAL SUBCUT (15:00)
[2024-10-14 15:13] LABS: MANUAL DIFF FLAG NO
[2024-10-14 15:15] LABS: Hematocrit 40.3 % (42.0-52.0); Hemoglobin 14.0 g/dl (14.0-18.0); Imm Gran Abs Auto 0.03 X10*3/uL (0.00-0.03); Imm Gran Pct Auto 0.5 % (0.0-0.4); Lymphocytes Absolute Auto 0.9 X10*3/uL (1.2-4.9); Mean Corpuscular HGB Conc 34.7 g/dl (31.0-36.0); Mean Corpuscular Hemoglobin 28.7 pg (27.0-33.0); Mean Corpuscular Volume 82.8 fL (80.0-98.0); NRBC Abs Auto 0.000 X10*3/uL (0.0-0.012); NRBC Pct Auto 0.0 /100WBC (0.0-0.2); Platelet Count 153 X10*3/uL (160-400); Red Blood Count 4.87 X10*6/uL (4.60-5.80); White Blood Count 6.3 X10*3/uL (4.8-10.8)
[2024-10-14 15:28] LABS: Alanine Aminotransferase 15 U/L (0-40); Albumin Level 4.5 g/dL (3.5-5.0); Alkaline Phosphatase 82 U/L (39-117); Anion Gap 17 (12-20); Aspartate Amino Transferase 23 U/L (5-37); Blood Urea Nitrogen 24 mg/dL (9-16); Calcium 9.4 mg/dL (8.4-10.2); Carbon Dioxide 23 mmol/L (22-29); Chloride 107 mmol/L (96-108); Creatinine Clr Calc Pharmacy 47.0; Estimated Glomerular Filt Rate 51; Magnesium 1.8 mg/dL (1.6-2.6); Potassium 4.5 mmol/L (3.3-5.1); Sodium 142 mmol/L (135-145); Total Protein 6.8 g/dL (6.5-8.0)
[2024-10-14 15:35] LABS: Troponin-I High Sensitivity 26.9 ng/L (<3.5-35.0)
[2024-10-14 15:40] LABS: Appearance Urine Clear; Glucose Urine UA Negative (Negative); PH 5.5 (5.0-9.0); Specific Gravity - Urine <= 1.005 (1.005-1.025)
[2024-10-14 15:42] LABS: INTERNATIONAL NORM RATIO 2.2 (0.9-1.1); Prothrombin Time 25.5 SEC (10.9-12.4)
--- OUTSIDE RECORDS SUMMARY | 2024-10-14 15:56 | XMS_ITS | Clinical Summary ---
Author Organization [facility] Address [address] [place] [address] Phone Care Team Providers Care Modeling Instructor Name Role Phone Duncan Sorensen MD Primary Care Provider [phone] Allergies No known active allergies Medications ezetimibe [...] age to complete this topic Insurance Medicare [facility] Medicare [facility] Care Teams Modeling Instructor Relationship Specialty Start Date End Date Duncan Sorensen MD [facility] [place] PCP - General Internal Medicine 11/04/20
[2024-10-14 16:20] VITALS: BP 132/79; PULSE 78; RESP 14; TEMP 36.6; O2SAT 97
[2024-10-14 17:10] LABS: Resp Syncy Virus RNA Qual PCR NEGATIVE (Negative); SARS COV2 PCR INHOUSE NEGATIVE (Negative)
--- NOTE | 2024-10-14 18:08 | MHC.EDTECH ---
Patient ambulated with walker, steady on his feet. RN aware.
--- NOTE | 2024-10-14 19:02 | MHC.CM.ED ---
CM met with patient and his daughter. Pt is A&Ox3. Daughter admits to some mild confusion, but states her father is very independent at home, completes all ADL's Has no home services and uses no DME. He no longer drives. Pt is blind in his right eye. HCP/daughter is Antonella Collazo ([phone]) would like to take him home. Pt would like to go home. Pt did ambulate in hallway with a walker. Pt does not normally use a walker. CM spoke to both patient and daughter about staying over night for a PT evaluation. Neither wants to stay. They are agreeable to another walk without the walker. CM observed patient walking with a steady gait. Walks slowly. Pt states he feels safe to go home. Primary RN is in agreement. CM spoke with . Pt will discharge to home. Daughter will stay overnight with her parents to be sure he is safe at home. She feels he was just very upset with the lac to his chin while shaving and that the bleeding continues. Antonella is aware that if she feels at all uncomfortable with her father at home or has any concerns, she can bring him back to the ED. Pt D/C home without services.
[2024-10-14 19:29] VITALS: BP 151/92; PULSE 105; RESP 16; TEMP 37; O2SAT 96
[2024-10-15 12:17] LABS: B Type Natriuretic Peptide 177 pg/mL (<100)
== END 2024-10-14 19:30 | disposition home or self-care (01) ==
PROVIDERS: Emergency Medicine; Emergency Provider Emergency Medicine; PCP Internal Medicine
DX: R23.3 Spontaneous ecchymoses (principal); R07.89 Other chest pain; S01.81XA Laceration without foreign body of other part of head, initial encounter; W45.8XXA Other foreign body or object entering through skin, initial encounter; Y93.89 Activity, other specified; Y92.9 Unspecified place or not applicable; Y99.9 Unspecified external cause status; R07.9 Chest pain, unspecified; Z03.818 Encounter for observation for suspected exposure to other biological agents ruled out; I48.91 Unspecified atrial fibrillation; Z79.01 Long term (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; I10 Essential (primary) hypertension; N18.9 Chronic kidney disease, unspecified
CPT/HCPCS: 12011; 36415; 70450; 71045; 74018; 80048; 80076; 81003; 83735; 83880; 84484; 85025; 85610; 87637; 93005; 99284; 99285; J2003

== ENCOUNTER → 2024-10-14 14:32 | Outpatient (BNV) | payer MEDICARE, SELFPAY | PROVIDERS: Emergency Provider Emergency Medicine; Visit Provider Radiology Diagnostic Radiology | DX: R41.0 Disorientation, unspecified (principal) | CPT/HCPCS: 70450 ==

== ENCOUNTER → 2024-10-14 14:32 | Outpatient (BNV) | payer MEDICARE, SELFPAY | PROVIDERS: Emergency Provider Emergency Medicine; Visit Provider Internal Medicine Cardiovascular Disease | DX: I44.7 Left bundle-branch block, unspecified (principal) | CPT/HCPCS: 93010 ==

== ENCOUNTER 2024-10-24 10:49 | Outpatient (AMB) | payer MEDICARE, SELFPAY ==
[2024-10-24 11:01] LABS: Prothrombin Time Whole Bld POC 27.2 sec (11.1-13.5); ~PT, ~INR - Anti Coag Clinic 2.3 (0.9-1.1)
--- NOTE | 2024-10-24 11:08 | MHC.OFFVISCO ---
Intake Intake Visit Reasons: Anticoagulation Allergies No Known Allergies (No Known Allergies*) Allergy (Verified 10/24/24 10:52) Medication List - Last Reconciled 10/24/24 by Ximena Canales RN ezetimibe 10 mg PO DAILY levothyroxine 75 mcg PO DAILY linaclotide 290 mcg PO DAILY lisinopril 20 mg PO DAILY metoprolol succinate ER (Toprol XL) 25 mg PO DAILY rosuvastatin 40 mg PO DAILY warfarin See Protocol 5 mg orally 5mg x 1 day/ 2.5mg x 6 days; Nursing Note INR: 2.3 in therapeutic range of 2-3 Medications and supplements reviewed No changes in health, diet, medications, or supplements, Denies any signs and symptoms of bleeding or bruising or clotting. Bleeding, bruising, clotting discussed Nutritional guidance given Dose: 5mg X 4 days and 2.5mg X 3 days (M/W/F) F/U INR: 4 weeks Patient verbalizes understanding of instructions given Anti-Coag Initial Assessment Social Hx Patient Tobacco Use Status: Never used Tobacco alcohol intake: never Coding Level of Care Code Est Patient Level 1 Diagnoses Current use of anticoagulant therapy Z79.01 Assessment & Plan Assessment & Plan (1) Current use of anticoagulant therapy: Code(s): Z79.01 - tank terminal gauger (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
--- OUTSIDE RECORDS SUMMARY | 2024-10-24 12:17 | XMS_ITS | Clinical Summary ---
Author Organization [facility] Address [address] [place] [address] Phone Care Team Providers Care Automatic Embroidery Machine Tender Name Role Phone Duncan Sorensen MD Primary Care Provider [phone] Allergies No known active allergies Medications ezetimibe [...] HOSPITAL Medicare [facility] Care Teams Automatic Embroidery Machine Tender Relationship Specialty Start Date End Date Duncan Sorensen MD [facility] [place] PCP - General Internal Medicine 11/04/20
== END 2024-10-24 11:13 | disposition home or self-care (01) ==
LOC: HO.ACS 10:49
PROVIDERS: Visit Provider Internal Medicine Medical Oncology
DX: Z79.01 Long term (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 (principal)

== ENCOUNTER → 2024-10-24 10:49 | Outpatient (BNVA) | payer MEDICARE, SELFPAY | PROVIDERS: Visit Provider Internal Medicine Medical Oncology | DX: Z51.81 Encounter for therapeutic drug level monitoring (principal) | CPT/HCPCS: 85610; 99211 ==

== ENCOUNTER 2024-11-21 10:45 | Outpatient (AMB) | payer MEDICARE, SELFPAY ==
[2024-11-21 11:02] LABS: Prothrombin Time Whole Bld POC 33.7 sec (11.1-13.5); ~PT, ~INR - Anti Coag Clinic 2.8 (0.9-1.1)
--- NOTE | 2024-11-21 11:07 | MHC.OFFVISCO ---
Intake Intake Visit Reasons: Anticoagulation Allergies No Known Allergies (No Known Allergies*) Allergy (Verified 11/21/24 10:53) Medication List - Last Reconciled 11/21/24 by Zaynab Vieyra RN ezetimibe 10 mg PO DAILY levothyroxine 75 mcg PO DAILY linaclotide 290 mcg PO DAILY lisinopril 20 mg PO DAILY metoprolol succinate ER (Toprol XL) 25 mg PO DAILY rosuvastatin 40 mg PO DAILY warfarin See Protocol 5 mg orally 5mg x 1 day/ 2.5mg x 6 days; Nursing Note pt comes to appt with due to increase in memory loss INR: 2.8 in therapeutic range Medications and supplements reviewed *Pt experiencing constipation x 2 weeks- called PCP today - waiting to hear back, he has tried some OTC products, enc to ask md and pharmacist if glycerin supp ok to try today, *also discussed foods that may help such as warm prune juice mixed with apple juice, and or warm water with lemon and fiber foods Denies any signs and symptoms of bleeding or bruising or clotting. Bleeding, bruising, clotting discussed Nutritional guidance given Dose: keep same dose 2.5mg mwf/ 5mg x 4 days F/U INR: 1 month unless med or health changes require sooner f/u INR Patient verbalizes understanding of instructions given Anti-Coag Initial Assessment Social Hx Patient Tobacco Use Status: Never used Tobacco alcohol intake: never Coding Level of Care Code Est Patient Level 1 Diagnoses Current use of anticoagulant therapy Z79.01 Assessment & Plan Assessment & Plan (1) Current use of anticoagulant therapy: Code(s): Z79.01 - residential (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
== END 2024-11-21 11:12 | disposition home or self-care (01) ==
LOC: HO.ACS 10:45
PROVIDERS: Visit Provider Internal Medicine Medical Oncology
DX: Z79.01 Long term (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 (principal)

== ENCOUNTER → 2024-11-21 10:45 | Outpatient (BNVA) | payer MEDICARE, SELFPAY | PROVIDERS: Visit Provider Internal Medicine Medical Oncology | DX: Z51.81 Encounter for therapeutic drug level monitoring (principal); Z79.01 Long term (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 | CPT/HCPCS: 85610; 99211 ==

== ENCOUNTER 2024-12-13 10:52 | Outpatient (AMB) | payer MEDICARE, SELFPAY ==
--- NOTE | 2024-12-13 10:57 | HO.NEPHOV_ITS ---
Vital Signs 12/13/24 11:01 Height 5 ft 8 in Weight 193 lb 2 oz BMI 29.4 BP 122/86 Blood Pressure Location Rt brachial Position Sitting Pulse 86 Pulse Source Pulse Oximeter Pulse Oximetry (%) 96 Oxygen Delivery Method Room Air Intake Visit Reasons: 6 mo f/u w/ labs r/s 12/11,confirmed Window Installer Required: No Accompanied by: Spouse Allergies No Known Allergies (No Known Allergies*) Allergy (Verified 12/13/24 11:00) HPI Comments Details: Tomer in follow-up of his chronic kidney disease. He has vascular disease. He does not have any chest pain, shortness of breath, proximal nocturnal dyspnea, orthopnea, pedal edema or orthostatic symptoms. He is compliant with his medications. His blood pressure has been at goal. His serum creatinine had been stable. He does not take any nonsteroidal anti-inflammatories. There were no new complaints at the time of this office visit [facility] Medical History Hypothyroidism GERD (gastroesophageal reflux disease) Hyperlipidemia Tubular adenoma of colon (~08/2015) Cardiac pacemaker in situ (~10/2021) Essential hypertension Chronic kidney disease Dizziness Non-rheumatic aortic sclerosis LBBB (left bundle branch block) PAF (paroxysmal atrial fibrillation) Current use of anticoagulant therapy Surgical History History of cardiac pacemaker (~2021) History of cardioversion (~2017) History of colonoscopy History of cholecystectomy (~1990) Family History Father No problems noted. Mother No problems noted. Social History Household Members: Spouse Housing: House Do you presently have visiting nurse or other home services: No Alcohol intake: never Patient Tobacco Use Status: Never used Tobacco Advance Directives Date on File: 07/09/21 service: No Current occupational status: retired Review of Systems Const All systems reviewed & are unremarkable except as noted in HPI and below Physical Exam Vital Signs: Last Vital Signs Pulse 86 12/13/24 11:01 BP 122/86 12/13/24 11:01 Pulse Ox 96 12/13/24 11:01 Oxygen Delivery Method Room Air 12/13/24 11:01 BMI result Body Mass Index 29.4 Const General: comfortable and no acute distress Orientation/consciousness: patient oriented x3 HEENT Head: Yes normocephalic Mouth: Normal oral and palatal mucosa present Eyes EOM: EOMs intact bilaterally Neck Neck: Yes supple Resp Auscultation: clear to auscultation bilaterally Cardio Jugular venous distension: no JVD Rate: regular rate GI Palpation (GI): Soft to palpation Auscultation: normal bowel sounds General: Yes no CVA tenderness Back/Spine/Pelvis Back: no CVA tenderness Skin General skin exam: no rashes or lesions noted Neuro General: patient oriented x3 and moves all extremities Extrem General: Yes no pedal edema Results Reviewed Nephrology Results: Hgb, (14.0-18.0) 14.0 g/dl 10/14/24 WBC, (4.8-10.8) 6.3 X10*3/uL 10/14/24 Plt Count, (160-400) 153 X10*3/uL L 10/14/24 Sodium, (135-145) 142 mmol/L 10/14/24 Potassium, (3.3-5.1) 4.5 mmol/L 10/14/24 Chloride, (96-108) 107 mmol/L 10/14/24 Carbon Dioxide, (22-29) 23 mmol/L 10/14/24 BUN, (9-16) 24 mg/dL H 10/14/24 Creatinine, (0.5-1.4) 1.33 mg/dL 10/14/24 Calcium, (8.4-10.2) 9.4 mg/dL 10/14/24 Urine Protein, (Neg-Trace) Negative mg/dL 10/14/24 Assessment & Plan Assessment & Plan (1) Hypertension: Code(s): I10 - Essential (primary) hypertension Category: Medical Qualifiers: Hypertension type: primary hypertension Qualified Code(s): I10 - Essential (primary) hypertension (2) CKD (chronic kidney disease) stage 3, GFR 30-59 ml/min: Code(s): N18.30 - Chronic kidney disease, stage 3 unspecified Category: Medical Qualifiers: Chronic kidney disease stage 3 subtype: stage 3a (GFR 45-59) Qualified Code(s): N18.31 - Chronic kidney disease, stage 3a Plan Tomer is known to have CKD stage 3. His renal functions had been pretty stable. He is tolerating SKY-inhibitor. His volume status is optimal. His urine output is good. He should continue to avoid nonsteroidal anti-inflammatory medications. His blood pressure needs to be maintained at goal. Answered all his questions. I did not make any medication changes at this visit. Follow-up given. Orders: Orders Parathyroid Hormone Intact 6 Months I10 - Essential (primary) hypertension, N18.31 - Chronic kidney disease, stage 3a Vitamin D 25-OH Total 6 Months I10 - Essential (primary) hypertension, N18.31 - Chronic kidney disease, stage 3a Complete Blood Count Auto Diff 6 Months I10 - Essential (primary) hypertension, N18.31 - Chronic kidney disease, stage 3a Creatinine 6 Months I10 - Essential (primary) hypertension, N18.31 - Chronic kidney disease, stage 3a Blood Urea Nitrogen 6 Months I10 - Essential (primary) hypertension, N18.31 - Chronic kidney disease, stage 3a Electrolytes 6 Months I10 - Essential (primary) hypertension, N18.31 - Chronic kidney disease, stage 3a Calcium 6 Months I10 - Essential (primary) hypertension, N18.31 - Chronic kidney disease, stage 3a Coding Level of Care Code Est Pt Level 4 (71642) Diagnoses Primary hypertension I10 Hypertension type: primary hypertension Stage 3a chronic kidney disease N18.31 Chronic kidney disease stage 3 subtype: stage 3a (GFR 45-59)
[2024-12-13 11:01] VITALS: BP 122/86; PULSE 86; O2SAT 96; BMI 29.4
--- OUTSIDE RECORDS SUMMARY | 2024-12-13 13:28 | XMS_ITS | Clinical Summary ---
Author Organization [facility] Address [address] [place] [address] Phone Care Team Providers Care Process Machine Operator Name Role Phone Duncan Sorensen MD Primary Care Provider [phone] Allergies No known active allergies Medications ezetimibe [...] age to complete this topic Insurance Medicare [facility] Medicare [facility] Care Teams Process Machine Operator Relationship Specialty Start Date End Date Duncan Sorensen MD [facility] [place] PCP - General Internal Medicine 11/04/20
== END 2024-12-13 11:27 | disposition home or self-care (01) ==
LOC: HO.HKA 10:53
PROVIDERS: Visit Provider Internal Medicine Nephrology
DX: I10 Essential (primary) hypertension (principal); N18.31 Chronic kidney disease, stage 3a
CPT/HCPCS: 99214

== ENCOUNTER → 2024-12-13 10:52 | Outpatient (BNVA) | payer MEDICARE, SELFPAY | PROVIDERS: Visit Provider Internal Medicine Nephrology | DX: I12.9 Hypertensive chronic kidney disease with stage 1 through stage 4 chronic kidney disease, or unspecified chronic kidney disease (principal); N18.31 Chronic kidney disease, stage 3a; Z79.899 Other long term (current) drug therapy | CPT/HCPCS: 99212 ==

== ENCOUNTER 2024-12-20 11:02 | Outpatient (AMB) | payer MEDICARE, SELFPAY ==
[2024-12-20 11:09] LABS: Prothrombin Time Whole Bld POC 31.9 sec (11.1-13.5); ~PT, ~INR - Anti Coag Clinic 2.7 (0.9-1.1)
--- NOTE | 2024-12-20 11:10 | MHC.OFFVISCO ---
Intake Intake Visit Reasons: Anticoagulation Allergies No Known Allergies (No Known Allergies*) Allergy (Verified 12/13/24 11:00) Medication List - Last Reconciled 12/20/24 by Ximena Canales RN ezetimibe 10 mg PO DAILY levothyroxine 75 mcg PO DAILY linaclotide (Linzess) 145 mcg PO DAILY lisinopril 20 mg PO DAILY metoprolol succinate ER (Toprol XL) 25 mg PO DAILY rosuvastatin 40 mg PO DAILY warfarin See Protocol 5 mg orally 5mg x 1 day/ 2.5mg x 6 days; Nursing Note INR: 2.7 in therapeutic range of 2-3 Medications and supplements reviewed No changes in health, diet, medications, or supplements, Denies any signs and symptoms of bleeding or bruising or clotting. Bleeding, bruising, clotting discussed Nutritional guidance given Dose: 5mg X 4 days and 2.5mg X 3 days (M/W/F) F/U INR: 4 weeks Patient verbalizes understanding of instructions given Anti-Coag Initial Assessment Social Hx Patient Tobacco Use Status: Never used Tobacco alcohol intake: never Coding Level of Care Code Est Patient Level 1 Diagnoses Current use of anticoagulant therapy Z79.01 Assessment & Plan Assessment & Plan (1) Current use of anticoagulant therapy: Code(s): Z79.01 - exterminator (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
--- OUTSIDE RECORDS SUMMARY | 2024-12-20 13:09 | XMS_ITS | Clinical Summary ---
Author Organization [facility] Address [address] [place] [address] Phone Care Team Providers Care Boxcar Weigher Name Role Phone Duncan Sorensen MD Primary Care Provider [phone] Allergies No known active allergies Medications ezetimibe [...] age to complete this topic Insurance Medicare [facility] Medicare [facility] Care Teams Boxcar Weigher Relationship Specialty Start Date End Date Duncan Sorensen MD [facility] [place] PCP - General Internal Medicine 11/04/20
== END 2024-12-20 11:15 | disposition home or self-care (01) ==
LOC: HO.ACS 11:02
PROVIDERS: PCP Internal Medicine; Visit Provider Internal Medicine Medical Oncology
DX: Z79.01 Long term (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 (principal)

== ENCOUNTER → 2024-12-20 11:02 | Outpatient (BNVA) | payer MEDICARE, SELFPAY | PROVIDERS: PCP Internal Medicine; Visit Provider Internal Medicine Medical Oncology | DX: I48.0 Paroxysmal atrial fibrillation (principal); Z51.81 Encounter for therapeutic drug level monitoring; Z79.01 Long term (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 | CPT/HCPCS: 85610; 99211 ==

== ENCOUNTER → 2025-01-17 10:57 | Outpatient (BNVA) | payer MEDICARE, SELFPAY | PROVIDERS: PCP Internal Medicine; Visit Provider Internal Medicine Medical Oncology | DX: I48.0 Paroxysmal atrial fibrillation (principal); Z51.81 Encounter for therapeutic drug level monitoring; Z79.01 Long term (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 | CPT/HCPCS: 85610; 99211 ==

== ENCOUNTER → 2025-02-02 14:34 | Outpatient (BNV) | payer MEDICARE, SELFPAY | PROVIDERS: PCP Internal Medicine; Visit Provider Internal Medicine | DX: I48.0 Paroxysmal atrial fibrillation (principal); Z95.0 Presence of cardiac pacemaker | CPT/HCPCS: 93294 ==

== ENCOUNTER 2025-02-14 11:02 | Outpatient (AMB) | payer MEDICARE, SELFPAY ==
[2025-02-14 11:16] LABS: Prothrombin Time Whole Bld POC 45.1 sec (11.1-13.5); ~PT, ~INR - Anti Coag Clinic 3.8 (0.9-1.1)
--- NOTE | 2025-02-14 11:24 | MHC.OFFVISCO ---
Intake Intake Visit Reasons: Anticoagulation Allergies No Known Allergies (No Known Allergies*) Allergy (Verified 02/14/25 11:11) Medication List - Last Reconciled 02/14/25 by Zaynab Vieyra RN ezetimibe 10 mg PO DAILY levothyroxine 75 mcg PO DAILY linaclotide (Linzess) 145 mcg PO DAILY lisinopril 20 mg PO DAILY metoprolol succinate ER (Toprol XL) 25 mg PO DAILY omeprazole 20 mg PO DAILY rosuvastatin 40 mg PO DAILY warfarin See Protocol 5 mg orally 5mg x 1 day/ 2.5mg x 6 days; Nursing Note pt came to appt by self today - out front in parking lot INR: 3.8 OUT OF therapeutic range- MAY HAVE HAD LESS GREENS Medications and supplements reviewed- MAY HAVE TAKEN EXTRA DOSE No changes in health, or supplements, Denies any signs and symptoms of bleeding or bruising or clotting. Bleeding, bruising, clotting discussed - enc to be careful blood a little too thin Nutritional guidance given - eat greens today and weekly Dose: hold today's dose then resume usual dose 5mg x 4 days/ 2.5mg mwf - if INR greater thatn 3.0 next visit then decrease weekly dose F/U INR: 2 weeks Patient verbalizes understanding of instructions given Anti-Coag Initial Assessment Social Hx Patient Tobacco Use Status: Never used Tobacco alcohol intake: never Coding Level of Care Code Est Patient Level 1 Diagnoses Current use of anticoagulant therapy Z79.01 Assessment & Plan Assessment & Plan (1) Current use of anticoagulant therapy: Code(s): Z79.01 - document control associate (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
--- OUTSIDE RECORDS SUMMARY | 2025-02-14 12:56 | XMS_ITS | Clinical Summary ---
Author Organization [facility] Address [address] [place] [address] Phone Care Team Providers Care Dental Ceramist Name Role Phone Duncan Sorensen MD Primary Care Provider Allergies No known active allergies Medications ezetimibe [...] age to complete this topic Insurance Medicare [facility] Medicare [facility] Care Teams Dental Ceramist Relationship Specialty Start Date End Date Duncan Sorensen MD [facility] [place] PCP - General Internal Medicine 11/04/20
== END 2025-02-14 11:27 | disposition home or self-care (01) ==
LOC: HO.ACS 11:02
PROVIDERS: PCP Internal Medicine; Visit Provider Internal Medicine Medical Oncology
DX: Z79.01 Long term (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 (principal)

== ENCOUNTER → 2025-02-14 11:02 | Outpatient (BNVA) | payer MEDICARE, SELFPAY | PROVIDERS: PCP Internal Medicine; Visit Provider Internal Medicine Medical Oncology | DX: I48.0 Paroxysmal atrial fibrillation (principal); Z51.81 Encounter for therapeutic drug level monitoring; Z79.01 Long term (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 | CPT/HCPCS: 85610; 99211 ==